=== PATIENT | male | born 1950 | race Caucasian/White ===

== ENCOUNTER 2023-03-20 10:42 | Emergency (ER) | payer MEDICARE, SELFPAY ==
[2023-03-20 10:46] VITALS: BP 184/89; PULSE 77; RESP 18; O2SAT 100; BMI 22.4
--- NOTE | 2023-03-20 10:51 | ECG_ITS ---
[facility] Test Date: 2023-03-20 Pat Name: KIM JURADO Department: Room: - Gender: Male Certified Medical Biller: : 1950 Requested By: Mine Murguia Order Number: [id number] Reading MD: ALEJANDRA SCOTT Measurements Intervals [place] Rate: 71 P: 64 MN: 172 QRS: 47 QRSD: 112 T: 61 QT: 410 QTc: 432 Interpretive Statements 1100 Sinus rhythm 1470 with occasional supraventricular premature complexes 2320 Nonspecific intraventricular conduction delay 9140 abnormal rhythm ECG Electronically Signed On 03-21-2023 7:04:28 EST by ALEJANDRA SCOTT
--- NOTE | 2023-03-20 10:53 | CT_ITS ---
[address] [address] Patient Name: KIM JURADO MRN: [id number] date: 1950 Sex: M Assigned Patient Location: ER Current Patient Location: Accession/Order Number: [id number] Exam Date: 03/20/2023 12:10 Report Date: 03/20/2023 12:57 At the request of: STEPHANI BANUELOS Procedure: CT abdomen pelvis w con EXAMINATION: CT abdomen pelvis w con, 03/20/2023 12:10 PM EST HISTORY: upper abdominal pain; hx gastric CA COMPARISON: 01/02/2020 TECHNIQUE: CT of the abdomen, and pelvis was performed following administration of IV contrast. Oral contrast was not administered prior to the examination. Dose reduction techniques were achieved by using automated exposure control and/or adjustment of mA and/or kV according to patient size and/or use of iterative reconstruction technique. FINDINGS: Lung Bases: No acute findings in the visualized lower chest. Liver: Normal. Biliary tree: Normal. Gallbladder: Mild distention, without radiodense calculi, or findings of acute cholecystitis. Spleen: Splenectomy, with similar splenules in the left upper quadrant. Pancreas: Pancreatic parenchymal calcifications in the head and uncinate in keeping with chronic pancreatitis. Dilatation of the main pancreatic duct measuring up to approximately 6 mm in diameter, new since 01/02/2020, with ductal tapering in the pancreatic head. Nonaggressive low-density/cystic pancreatic lesion at the head/body junction measures up to 1.2 cm, new since 01/02/2020. Adrenal glands: Normal. Kidneys and ureters: No hydronephrosis. Cortical cyst about the inferior pole left kidney. Bladder: Normal. Reproductive organs: Prostatomegaly. Seminal vesicles are symmetric. Gastrointestinal tract: Nondilated. Pancolonic diverticulosis, without findings of acute diverticulitis. Few distal/terminal ileal diverticulum are also noted. The appendix is normal. Peritoneum/retroperitoneum: No free fluid or gas. Vasculature: Atherosclerosis without aneurysm. Lymph nodes: Prominent 1.3 x 2.4 cm portacaval node is not significantly changed since 01/02/2020; no new or increasing abdominal pelvic adenopathy. Abdominal wall: Procedure change. No acute findings. Musculoskeletal: Degenerative change of the spine. CT/CT abdomen pelvis w con IMPRESSION: 1. No acute findings within the abdomen and pelvis. 2. Sequela of chronic pancreatitis. Nonaggressive low-density/cystic lesion at the pancreatic head/body junction measures 1.2 cm. Dilatation of the main pancreatic duct measuring up to 0.6 cm. Recommend further evaluation with abdominal MRI/MRCP without and with IV contrast. 3. Additional chronic and postprocedural findings as above. Electronically authenticated by: JOHN FOREMAN Date: 03/20/2023 12:57
--- NOTE | 2023-03-20 10:54 | ED.ABDPAIN1 ---
HPI - Abdominal Pain General Chief Complaint: Abdominal Pain Stated Complaint: ABD PAIN Time Seen by Provider: 03/20/23 10:51 Source: patient Mode of arrival: walk-in Limitations: no limitations History of Present Illness HPI narrative: Patient complains of upper abdominal pain that started about 2 months ago. No associated nausea, vomiting or diarrhea. No flank pain or problems with urination or BMs. He admits to some gas - burping or bleching symptoms. No fever or chills. Hx of lymphoma with splenectomy. He saw Dr Jolly in [place] for chemo treatment. and is currently in remission Related Data Home Medications Medication Instructions Recorded Confirmed lisinopril 10 mg tablet 10 mg PO DAILY 03/20/23 03/20/23 Previous Rx's Medication Instructions Recorded hyoscyamine sulfate 0.125 mg 0.125 mg PO Q6H PRN abdominal pain 03/20/23 sublingual tablet (Levsin/SL) #20 tabs pantoprazole 40 mg tablet,delayed 40 mg PO DAILY 4 weeks #28 tabs 03/20/23 release (Protonix) Allergies Allergy/AdvReac Type Severity Reaction Status Date / Time ciprofloxacin [From Cipro] AdvReac Intermediate Verified 03/20/23 10:45 metronidazole [From Flagyl] AdvReac Intermediate Verified 03/20/23 10:45 PFSH PFSH Social History Smoking status: Former smoker Exam Narrative Exam Narrative: Nurses notes and vital signs reviewed and patient is not hypoxic. afebrile General: Well-appearing and in no apparent distress. Skin: Warm, dry, no pallor noted. No rash. Head: Normocephalic, atraumatic. Eye: Pupils are equal, round and EOMI. No scleral icterus. Ears, Nose, Mouth, and Throat: Oral mucosa is moist Cardiovascular: Regular Rate and Rhythm without murmur, gallop or rub. Respiratory: No accessory muscle use or respiratory distress. Lungs are clear to auscultation, no wheezing, rales or rhonchi Back: No midline thoracic or lumbar vertebral tenderness. No CVA tenderness Musculoskeletal: normal ROM, no calf or popliteal tenderness, no lower extremity edema/swelling GI: Abdomen is soft, non-distended. Normal bowel sounds. No masses appreciated. Mid abdominal tenderness to palpation. No rebound, guarding, or rigidity noted. Neurological: A&O x4. No cranial nerve dysfunction observed. No truncal ataxia. Moves all extremities. Sensation intact. Psychiatric: Cooperative and interactive. Normal mood and affect. Constitutional Vital Signs, click to edit/add: Last Vital Signs Pulse 77 03/20/23 10:46 Resp 18 03/20/23 10:46 BP 184/89 H 03/20/23 10:46 Pulse Ox 100 03/20/23 10:46 O2 Del Method Room Air 03/20/23 10:46 Course Vital Signs Vital signs: Vital Signs Pulse Rate 77 03/20/23 10:46 Respiratory Rate 18 03/20/23 10:46 Blood Pressure 184/89 H 03/20/23 10:46 Pulse Oximetry 100 03/20/23 10:46 Oxygen Delivery Method Room Air 03/20/23 10:46 Pulse Rate 77 03/20/23 10:46 Respiratory Rate 18 03/20/23 10:46 Blood Pressure 184/89 H 03/20/23 10:46 Pulse Oximetry 100 03/20/23 10:46 Oxygen Delivery Method Room Air 03/20/23 10:46 MDM - Abdominal Pain MDM Narrative Medical decision making narrative: Peripheral IV established blood drawn and sent for testing. Patient was ordered to undergo CT scanning of the abdomen and pelvis with IV contrast. Normal CBC. CMP normal with normal electrolytes and normal renal function including normal LFT's. Lipase is slightly elevated at 177. CT scanning of the abdomen and pelvis with IV contrast revealed no acute findings within the abdomen and pelvis, per radiologist. He does have sequela of chronic pancreatitis with low density/cystic lesion at the pancreatic head/body junction measuring 1.2 cm with some dilation of the main pancreatic duct measuring up to 0.6 cm. It was recommended that the patient undergo abdominal MRI and MRCP with and without IV contrast. A copy of this report will be given to the patient so they can presented to his primary care physician on follow-up. Patient informed of our findings and given reassurance, discharged home with recommendation to see his PCP to schedule out-patient testing. He was prescribed Protonix to take for the next 30 days. He admitted that he drinks beer daily - I encouraged him to taper and then avoid alcohol over the next month & discussed alcohol-associated pancreatitis. Lab Data Attestation: I reviewed the patient's lab results. Labs: Lab Results 03/20/23 03/20/23 Range/Units 11:00 11:29 WBC 10.0 (4.0-11.0) 10^3/uL RBC 4.35 L (4.70-6.10) 10^6/uL Hgb 14.0 (14.0-18.0) g/dL Hct 41.1 L (42.0-54.0) % MCV 94.5 H (80.0-94.0) fL MCH 32.2 (25.9-34.0) pg MCHC 34.1 (29.9-35.2) g/dL RDW 13.5 (11.0-15.0) % Plt Count 290 (150-450) 10^3/uL MPV 11.3 (9.5-13.5) fL Neut % (Auto) 45.1 (43.0-75.0) % Lymph % (Auto) 44.5 (20.5-60.0) % [place] % (Auto) 8.1 (1.7-12.0) % Eos % (Auto) 1.1 (0.9-7.0) % Baso % (Auto) 1.0 (0.2-2.0) % Neut # (Auto) 4.5 (1.4-6.5) 10^3/uL Lymph # (Auto) 4.4 H (1.2-3.8) 10^3/uL [place] # (Auto) 0.8 (0.3-0.8) 10^3/uL Eos # (Auto) 0.1 (0.0-0.7) 10^3/uL Baso # (Auto) 0.1 (0.0-0.1) 10^3/uL Abs Immat Gran (auto) 0.02 (0.00-0.03) 10^3/uL Imm/Tot Granulo (auto) 0.2 (0.0-0.5) % Sodium 139 (136-145) mmol/L Potassium 4.2 (3.5-5.1) mmol/L Chloride 104 (98-107) mmol/L Carbon Dioxide 26.6 (21.0-32.0) mmol/L Anion Gap 12.6 BUN 13.0 (7.0-18.0) mg/dL Creatinine 0.88 (0.70-1.30) mg/dL Est GFR ( Amer) >60 (>=60) Est GFR (Non-Af Amer) >60 (>=60) BUN/Creatinine Ratio 14.8 Glucose 119 H (74-106) mg/dL Calcium 9.0 (8.5-10.1) mg/dL Total Bilirubin 0.4 (0.2-1.0) mg/dL AST 18 (15-37) U/L ALT 27 (16-63) U/L Alkaline Phosphatase 72 (46-116) U/L Troponin I High Sens 6.3 (4.0-76.1) pg/mL Total Protein 6.9 (6.4-8.2) g/dL Albumin 3.6 (3.4-5.0) g/dL Globulin 3.3 g/dL Albumin/Globulin Ratio 1.1 Lipase 177.0 H (16.0-77.0) U/L Imaging Data CT scan - abdomen: Radiologist's impression: ITS Impressions Abdomen/Pelvis CT 03/20/23 10:53 IMPRESSION: 1. No acute findings within the abdomen and pelvis. 2. Sequela of chronic pancreatitis. Nonaggressive low-density/cystic lesion at the pancreatic head/body junction measures 1.2 cm. Dilatation of the main pancreatic duct measuring up to 0.6 cm. Recommend further evaluation with abdominal MRI/MRCP without and with IV contrast. 3. Additional chronic and postprocedural findings as above. Electronically authenticated by: JOHN FOREMAN Date: 03/20/2023 12:57 ECG Data Attestation: I personally reviewed and interpreted this ECG as follows: Interpretation: EKG interpretation: Emergency Department physician interpretation. Normal sinus rhythm at 71bpm. Normal axis, increased qrs interval = non specific IV conduction delay. no ST segment elevation or depression. Discharge Plan Discharge Chief Complaint: Abdominal Pain Clinical Impression: Chronic pancreatitis, Abdominal pain Patient Disposition: Home, Self-Care Time of Disposition Decision: 13:11 Prescriptions / Home Meds: New hyoscyamine sulfate [Levsin/SL] 0.125 mg tablet, sublingual 0.125 mg PO Q6H PRN (Reason: abdominal pain) Qty: 20 0RF pantoprazole [Protonix] 40 mg tablet,delayed release (DR/EC) 40 mg PO DAILY 28 Days Qty: 28 0RF No Action lisinopril 10 mg tablet 10 mg PO DAILY Instructions: Pancreatitis (ED) Stand Alone Forms: Portal Instructions Referrals: KLAUS WILD [Primary Care Provider] - 1 week Discharge Date/Time: 03/20/23 13:27
[2023-03-20] MEDS: 0.9 % SODIUM CHLORIDE 1,000 ML 999 ML IV (11:13)
[2023-03-20 11:27] LABS: Basophils Absolute Auto 0.1 10^3/uL (0.0-0.1); Eosinophils Absolute Auto 0.1 10^3/uL (0.0-0.7); Eosinophils Percent Auto 1.1 % (0.9-7.0); Hematocrit 41.1 % (42.0-54.0); Immature Granulocytes Abs Auto 0.02 10^3/uL (0.00-0.03); Immature Granulocytes Pct Auto 0.2 % (0.0-0.5); Lymphocytes Absolute Auto 4.4 10^3/uL (1.2-3.8); Lymphocytes Percent Auto 44.5 % (20.5-60.0); Mean Corpuscular HGB Conc 34.1 g/dL (29.9-35.2); Mean Corpuscular Hemoglobin 32.2 pg (25.9-34.0); Mean Corpuscular Volume 94.5 fL (80.0-94.0); Mean Platelet Volume 11.3 fL (9.5-13.5); Monocytes Absolute Auto 0.8 10^3/uL (0.3-0.8); Monocytes Percent Auto 8.1 % (1.7-12.0); Neutrophils Absolute Auto 4.5 10^3/uL (1.4-6.5); Neutrophils Percent Auto 45.1 % (43.0-75.0); Platelet Count 290 10^3/uL (150-450); Red Blood Count 4.35 10^6/uL (4.70-6.10); Red Cell Distribution Width 13.5 % (11.0-15.0)
[2023-03-20 12:01] LABS: Alanine Aminotransferase 27 U/L (16-63); Albumin Globulin Ratio 1.1; Albumin Level 3.6 g/dL (3.4-5.0); Alkaline Phosphatase 72 U/L (46-116); Anion Gap 12.6; Aspartate Amino Transferase 18 U/L (15-37); BUN Creatinine Ratio 14.8; Bilirubin Total 0.4 mg/dL (0.2-1.0); Carbon Dioxide 26.6 mmol/L (21.0-32.0); Chloride 104 mmol/L (98-107); Estimated GFR (African America >60 (>=60); Estimated GFR (Non-African Ame >60 (>=60); Globulin 3.3 g/dL; Glucose 119 mg/dL (74-106); Potassium 4.2 mmol/L (3.5-5.1); Sodium 139 mmol/L (136-145); Total Protein 6.9 g/dL (6.4-8.2); Troponin I High Sensitivity 6.3 pg/mL (4.0-76.1)
== END 2023-03-20 13:27 | disposition home or self-care (01) ==
PROVIDERS: Emergency Provider Emergency Medicine; PCP Nurse Practitioner
DX: R10.9 Unspecified abdominal pain (principal); K86.1 Other chronic pancreatitis; Z85.72 Personal history of non-Hodgkin lymphomas; Z90.81 Acquired absence of spleen; Z79.899 Other long term (current) drug therapy; Z87.891 Personal history of nicotine dependence
CPT/HCPCS: 36415; 74177; 80053; 83690; 84484; 85025; 93005; 99285; Q9967

== ENCOUNTER 2023-06-08 17:06 | Emergency (ER) | payer MEDICARE, SELFPAY ==
[2023-06-08 17:09] VITALS: BP 129/81; PULSE 82; TEMP 36.6; O2SAT 98; BMI 22.1
--- OUTSIDE RECORDS SUMMARY | 2023-06-08 17:21 | XMS_ITS | CCD ---
Author Organization [facility] Care Team Providers Care Dried Yeast Supervisor Name Role Phone PHYSICIAN, DEFAULT Unavailable Unavailable PHYSICIAN, DEFAULT Unavailable Unavailable BRITTANEY ELI Admitting Unavailable SANDRAEBRITTANEY Attending Unavailable RYLEY SHIPLEY Admitting Unavailable RYLEY SHIPLEY Attending Unavailable RICCRYSEBRITTANEY Admitting Unavailable SANDRAEBRITTANEY Attending Unavailable RYLEY SHIPLEY Admitting Unavailable RYLEY SHIPLEY Attending Unavailable Arthur Padilla Primary Care Provider [phone] Clifford Arthur DO Unavailable [place] NATIONAL ACCOUNT DIRECTOR.HOUSE NURSE, Beverly Unavailable Arleen LONG, Mai Unavailable Arthur Padilla Primary Care Provider [phone] Clifford Arthur DO Unavailable [place] NATIONAL ACCOUNT DIRECTOR.MARK, Beverly Unavailable Arleen LONG, Mai Unavailable NHI, DR MICHAEL Springer Admitting Unavailabl e NHI, DR MICHAEL Springer Attending Unavailabl e BLADE, KLAUS Primary Care Unavailable NHI, DR MICHAEL Springer Admitting Unavailabl e NHI, DR MICHAEL Springer Attending Unavailabl e BLADE, KLAUS Primary Care Unavailable NHI, DR MICHAEL Springer Consulting UnavailMICHAEL Arellano Consulting Unavailable LETHA BENAVIDEZ Consulting Unavailable MURGUIA, KLAUS Consulting Unavailable MURGUIA, KLAUS Primary Care Unavailable MURGUIA, KLAUS Admitting Unavailable MURGUIASAIGEE Attending Unavailable BLADE, KLAUS Consulting Unavailable NHI, DR MICHAEL Springer Attending Unavailabl e NHI, DR MICHAEL Springer Consulting Unavailabl e MURGUIA, KLAUS Primary Care Unavailable DR MICHAEL HANKINS Admitting Unavailabl e Ilo, Arthur J Primary Care Provider Clifford Arthur DO Unavailable Shaggy NATIONAL ACCOUNT DIRECTOR.HOUSE NURSE, Beverly Unavailable Arleen LONG, Mai Unavailable Blade NATIONAL ACCOUNT DIRECTOR-HOUSE NURSE, Klaus Campoverde Primary Care Provid er MURGUIA, KLAUS J Referring Unavailable MURGUIA, KLAUS J Primary Care Unavailable MURGUIA, KLAUS J Referring Unavailable MURGUIA, KLAUS J Primary Care Unavailable MURGUIA, KLAUS J Attending Unavailable MURGUIA, KLAUS J Referring Unavailable MURGUIA, KLAUS J Primary Care Unavailable MURGUIA, KLAUS J Attending Unavailable MURGUIA, KLAUS J Referring Unavailable MURGUIA, KLAUS J Primary Care Unavailable Ilo DO Arthur J Primary Care Provider [facility] Clifford Arthur DO J Unavailable ILO, ARTHUR J Primary Care Unavailable ABHYANKAR, DONNELL Referring Unavailable ILO, ARTHUR J Primary Care Unavailable ABHYANKAR, DONNELL Referring Unavailable ABHYANKAR, DONNELL Attending Unavailable ILO, ARTHUR J Primary Care Unavailable JESSICA PEREYRA Attending Unavailable ABHYANKAR, DONNELL Referring Unavailable Allergies Allergy Classification Reported Allergen(s) Allergy Type Date of Onset Reaction(s) Facility (18 sources) Ciprofloxacin; Translations: [CIPROFLOXACIN HCL] Drug Allergy 7 Other: See Comments [facility] Repository (12 sources) metroNIDAZOLE; Translations: [METRONIDAZOLE HCL] Drug Allergy 8 Other: See Comments [facility] Repository (12 sources) CIPROCINONIDE; Translations: [CIPROCINONIDE] Propensity to adverse reactions to drug (disorder) 8 Other: See Comments [facility] Repository (1 source) Ciprofloxacin Drug Allergy 3 [facility] Repository (1 source) metroNIDAZOLE Drug Allergy 3 [facility] Repository (6 sources) Ciprofloxacin; Translations: [CIPROFLOXACIN] Drug Allergy 1 [facility] (6 sources) metroNIDAZOLE; Translations: [METRONIDAZOLE] Drug Allergy 7 Swelling [facility] Medications Current Medications Medication Drug Class(es) Dates Sig (Normalized) Sig (Original) lisinopril 10 mg oral tablet (3 sources) Angiotensin Converting Enzyme Inhibitor Start: 12-07-2022 take 1 tablet by mouth in the morning lisinopriL (PRINIVIL,ZESTRIL) 10 mg tablet Indications: Benign hypertension TAKE 1 TABLET (10 MG TOTAL) BY MOUTH IN THE MORNING 90 tablet 1 12/07/2022 Active Completed/Discontinued Medications Medication Drug Class(es) Dates Sig (Normalized) Sig (Original) acetaminophen 325 mg / HYDROcodone bitartrate 5 mg oral tablet (10 sources) Opioid Agonist Start: 11-24-2018 take 1 tablet by mouth once as needed HYDROcodone-acetami nophen (NORCO) 5-325 mg per tablet Take 1 tablet by mouth as needed. 0 11/24/2018 Active Comment on above: Take 1 tablet by reinaldo th as needed. enteric contrast (will be provided with radiology test) (10 sources) Start: 03-05-2019 enteric contrast (will be provided with radiology test) For CT CHESTABD/PEL W IVCON Routine order Administer, As Directed One Time Only, via Oral, Rectal, both Oral and Rectal, Enteric Tube, Stoma or Indwelling Catheter, Enteric Contrast as designated per enteric contrast guidelines 1 Each 0 03/05/2019 Active Comment on above: For CT CHESTABD/PEL W IVCON Routine order Administer, As Directed One Time Only, via Oral, Rectal, both Oral and Rectal, Enteric Tube, Stoma or Indwelling Catheter, Enteric Contrast as designated per enteric contrast guidelines ferrous sulfate 325 mg oral tablet (10 sources) Start: 12-02-2018 take 1 tablet by mouth twice daily ferrous sulfate 325 mg (65 mg iron) tablet Take 1 tablet by mouth twice daily. 60 tablet 5 12/02/2018 Active Comment on above: Take 1 tablet by reinaldo th twice daily. hyoscyamine sulfate 0.125 mg sublingual tablet (2 sources) Start: 03-20-2023 End: 04-26-2023 take 1 tablet by mouth every six hours as needed for pain hyoscyamine (LEVSIN) 0.125 mg SL tablet TAKE 1 TABLET BY MOUTH ONCE EVERY 6 HOURS NEEDED FOR ABDOMINAL PAIN 0 03/20/2023 04/26/2023 Discontinued (Therapy completed) iv contrast (will be provided with radiology test) (10 sources) Start: 03-05-2019 iv contrast (will be provided with radiology test) CT Chest ABD/PEL-Inject, intravenously, once for 1 dose.No IV access, insert saline lock prior to the beginning of sedation, infusion, injection of imaging exam. Discontinue saline lock post exam. If Pt. has a central line or IVAD, may access for administration according to line specific nursing protocol. Once exam is complete flush line and de-access according to line specific nursing protocol in the CT contrast administration guidelines link. 1 Each 0 03/05/2019 Active Comment on above: CT Chest ABD/PEL-Inj ect, intravenously, once for 1 dose.No IV access, insert saline lock prior to the beginning of sedation, infusion, injection of imaging exam. Discontinue saline lock post exam. If Pt. has a central line or IVAD, may access for administration according to line specific nursing protocol. Once exam is complete flush line and de-access according to line specific nursing protocol in the CT contrast administration guidelines link. omeprazole 20 mg delayed release oral capsule (10 sources) Proton Pump Inhibitor Start: 01-02-2018 take 1 capsule by mouth once daily omeprazole (PRILOSEC) 20 mg capsule Take 1 capsule by mouth once daily. 30 capsule 5 01/02/2018 Active Comment on above: Take 1 capsule by [facility] once daily. pantoprazole 40 mg delayed release oral tablet (2 sources) Proton Pump Inhibitor Start: 03-20-2023 End: 04-26-2023 take 1 tablet by mouth once daily pantoprazole (PROTONIX) 40 mg EC tablet TAKE 1 TABLET BY MOUTH DAILY FOR 4 WEEKS 0 03/20/2023 04/26/2023 Discontinued (Therapy completed) Problems Active Problems Problem Classification Problem Date Documented Date Episodic/Chronic Abdominal pain (3 sources) Epigastric pain; Translations: [Epigastric pain] Onset: 04-26-2023 04-26-2023 Episodic Disorders of lipid metabolism (4 sources) Mixed hyperlipidemia; Translations: [Hypertriglyceridemia] Onset: 12-10-2021 03-27-2023 Chronic Diverticulosis and diverticulitis (4 sources) Diverticulosis of large intestine without perforation or abscess without bleeding; Translations: [Diverticulitis] Onset: 12-21-2021 08-16-2016 Chronic Esophageal disorders (16 sources) Gastroesophageal reflux disease without esophagitis; Translations: [Gastro-esophageal reflux disease without esophagitis] Onset: 01-02-2018 01-02-2018 Chronic Essential hypertension (1 source) Essential (primary) hypertension; Translations: [ESSENTIAL PRIMARY HYPERTENSION] Onset: 12-21-2021 Chronic Malignant neoplasm without specification of site (3 sources) Malignant neoplastic disease; Translations: [Malignant (primary) neoplasm, unspecified] Onset: 12-26-2021 12-26-2021 Chronic Non-Hodgkin`s lymphoma (20 sources) Diffuse large B-cell lymphoma, extranodal and solid organ sites; Translations: [Diffuse large B-cell lymphoma, unspecified site] Onset: 09-07-2017 Chronic Non-Hodgkin`s lymphoma (4 sources) Personal history of non-Hodgkin lymphomas; Translations: [History of B-cell lymphoma] Onset: 12-21-2021 03-27-2023 Episodic Osteoarthritis (6 sources) Degenerative joint disease involving multiple joints; Translations: [Polyosteoarthritis, unspecified] Onset: 03-12-2017 03-12-2017 Chronic Other aftercare (1 source) Encounter for adjustment and management of vascular access device; Translations: [ENC ADJUSTMENT AND MANAGEMENT VAD] Onset: 12-21-2021 Episodic Other and unspecified benign neoplasm (5 sources) Personal history of colonic polyps; Translations: [PERSONAL HISTORY OF COLONIC POLYPS] Onset: 12-10-2021 Episodic Other and unspecified benign neoplasm (1 source) Polyp of colon; Translations: [POLYP OF COLON] Onset: 12-21-2021 Episodic Other liver diseases (3 sources) Steatosis of liver; Translations: [Fatty (change of) liver, not elsewhere classified] Onset: 06-23-2019 06-23-2019 Chronic Other screening for suspected conditions (not mental disorders or infectious disease) (10 sources) Encounter for screening for malignant neoplasm of prostate; Translations: [Patient encounter status] Onset: 08-16-2016 03-27-2023 Episodic Pancreatic disorders (not diabetes) (4 sources) Chronic pancreatitis; Translations: [Other chronic pancreatitis] Onset: 03-27-2023 03-27-2023 Chronic Pancreatic disorders (not diabetes) (8 sources) Disorder of pancreas; Translations: [Disease of pancreas, unspecified] Onset: 03-27-2023 03-27-2023 Episodic Regional enteritis and ulcerative colitis (4 sources) Pseudopolyposis of colon; Translations: [Inflammatory polyps of colon without complications] Onset: 10-19-2020 03-28-2023 Chronic Residual codes; unclassified (1 source) Acquired absence of spleen; Translations: [ACQUIRED ABSENCE OF SPLEEN] Onset: 12-21-2021 Episodic Unclassified (1 source) CONTACT W/AND (SUSP) EXPOS COVID-19; Translations: [CONTACT W/AND (SUSP) EXPOS COVID-19] Onset: 12-10-2021 Past or Other Problems Problem Classification Problem Date Documented Da te Episodic/Chronic Mood disorders (3 sources) Mood disorders Onset: 03-27-2023 Resolved: 04-26-2023 03-27-2023 Other connective tissue disease (3 sources) Tear of left rotator cuff; Translations: [Unspecified rotator cuff tear or rupture of left shoulder, not specified as traumatic] Onset: 10-20-2021 10-20-2021 Episodic Other gastrointestinal disorders (10 sources) Splenomegaly; Translations: [Splenomegaly, not elsewhere classified] Onset: 02-13-2018 02-13-2018 Episodic Other gastrointestinal disorders (13 sources) Mass of spleen; Translations: [Splenomegaly, not elsewhere classified] Onset: 03-15-2018 03-15-2018 Episodic Other inflammatory condition of skin (6 sources) Psoriatic arthritis; Translations: [Arthropathic psoriasis, unspecified] Onset: 03-12-2017 Resolved: 03-28-2023 03-28-2023 Chronic Other lower respiratory disease (3 sources) Calcified granuloma of lung; Translations: [Pulmonary fibrosis, unspecified] Onset: 06-23-2019 Resolved: 03-28-2023 03-28-2023 Chronic Melissa-; endo-; and myocarditis; cardiomyopathy (except that caused by tuberculosis or sexually transmitted disease) (3 sources) Pericarditis; Translations: [Disease of pericardium, unspecified] Onset: 12-26-2021 12-26-2021 Episodic Residual codes; unclassified (3 sources) FH: Gout; Translations: [Family history of other diseases of the musculoskeletal system and connective tissue] Onset: 03-12-2017 03-12-2017 Episodic Unclassified (4 sources) OTHER Onset: 03-27-2023 11-02-2022 Results Test Name Value Interpretation Reference Range Facility CNOVon 05-14-2023 CNOV Office Visit ([id number] ) NIC VALERIO ([id number]) 1950 Date Time Provider Department 05/14/23 11:00 AM JESSICA PEREYRA [id number] During your visit today, we recorded the following information about you: Pulse Respiration Blood pressure Weight 70/minute 18/minute 145/59 68.2 kg Jessica Pereyra MD 05/14/2023 11:34 AM Signed New Patient Consult REASON FOR VISIT Consultation requested by Donnell Colon for an opinion regarding Nic Valerio. My final recommendations will be communicated back to the requesting physician by way of shared Medical record or letter to requesting physician via [place] mail. 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 The cyst is located in the uncinate process and was found on a CT scan after he presented with abdominal pain that was suspected to be from pancreatitis. That was follow by MRI pancreas that showed the following: MRI PANCREAS 04/06/2023: Multiple incidental pancreatic cystic lesions, the largest one measuring 2.9 cm in the uncinate process with communication to the main pancreatic duct. Recommendations are based on the largest cyst. Recommend considering EUS with FNA, and surgical consultation. However, for cysts with low-risk features by imaging, consider re imaging with contrast-enhanced MRI or pancreas-protocol CT every 6 months for up to 2 years. No signs of pancreatitis or fluid collections on imaging. The patient drinks beer every day for 50 years. No radiographic signs of cirrhosis and most recent labs (Sep 2022) show normal LFTs and bilirubin. Normal PLT at 309 and creatinine 0.94. FUNCTIONAL STATUS: Climb a flight of stairs or walk up a hill (5.50 METs) PAST MEDICAL HISTORY Diagnosis Date Abdominal pain Anemia Gastric ulcer GERD (gastroesophageal reflux disease) with esophagitis GI bleeding Port-A-Cath in place Port-A-Cath in place Shoulder pain Splenomegaly PAST SURGICAL HISTORY Procedure Laterality Date PORTOCATH PLACEMENT PORTOCATH PLACEMENT FAMILY HISTORY Problem Relation Age of Onset Cancer Mother Heart disease Father Social History Tobacco Use Smoking status: Former Passive exposure: Never Smokeless tobacco: Never Vaping Use Vaping Use: Never used Substance Use Topics Alcohol use: Yes Drug use: No MEDICATIONS Current Outpatient Medications Medication Sig Dispense Refill iv contrast (will be provided with radiology test) CT Chest ABD/PEL-Inject, intravenously, once for 1 dose.No IV access, insert saline lock prior to the beginning of sedation, infusion, injection of imaging exam. Discontinue saline lock post exam. If Pt. has a central line or IVAD, may access for administration according to line specific nursing protocol. Once exam is complete flush line and de-access according to line specific nursing protocol in the CT contrast administration guidelines link. 1 Each 0 enteric contrast (will be provided with radiology test) For CT CHESTABD/PEL W IVCON Routine order Administer, As Directed One Time Only, via Oral, Rectal, both Oral and Rectal, Enteric Tube, Stoma or Indwelling Catheter, Enteric Contrast as designated per enteric contrast guidelines 1 Each 0 HYDROcodone-acetaminop hen (NORCO) 5-325 mg per tablet Take 1 tablet by mouth as needed. ferrous sulfate 325 mg (65 mg iron) tablet Take 1 tablet by mouth twice daily. 60 tablet 5 omeprazole (PRILOSEC) 20 mg capsule Take 1 capsule by mouth once daily. 30 capsule 5 No current facility-administered medications for this visit. CURRENT ALLERGIES ALLERGIES Allergen Reactions Ciprocinonide Other: See Comments Joint pain Ciprofloxacin Hcl Other: See Comments Flagyl [Metronidazo* Other: See Comments Joint pain REVIEW OF SYSTEMS PAIN ASSESSMENT: General: Weight loss 8 lbs recently after episode of abdominal pain Neuro: No Hx of stroke or seizures Respiratory: No history of current cough or dyspnea, or pneumonia in the past 6 weeks. No history of respiratory/pulmonary symptoms or problems Cardiovascular: No history of HTN requiring medication, no history of angina, CHF, NE, cardiac surgery or stents. Denies rest pain, gangrene or revascularization/ampu tation for PVD. No history of cardiovascular symptoms or problems. GI: See HPI : No history of UTI in past 6 weeks. No history of renal failure. Not currently on or requiring dialysis. No history of symptoms or problems. Endocrine: No history of diabetes. Has not taken steroids within the past 30 days. No history of endocrinological symptoms or problems. Hematology: No history of bleeding or clotting disorder. Pt is not taking anti-coagulation or platelet medications. No history of hematolo (more content not included)... Normal [facility] CNPNon 05-14-2023 CNPN Telephone (GASTMN) NIC VALERIO Krish ([id number]) 1950 M Date Time Provider Department 05/14/23 OSCAR GUZMAN GASTWY During your visit today, we recorded the following information about you: Kelsea Webster 05/14/2023 4:39 PM Signed Please schedule patient with Dr. Guzman for an EUS at . Patient requested the latest appointment 12:30pm arrival 11:30am. Kelsea Webster Act Tutor Melody Castellano 05/15/2023 11:13 AM Signed Patient is scheduled for 06/10 Allergies As of Date: 05/14/2023 Noted Allergy Reaction CIPROCINONIDE 09/06/2017 14 - Other: See Comments Comments: Joint pain CIPROFLOXACIN HCL 08/16/2016 14 - Other: See Comments FLAGYL (METRONIDAZOLE HCL) 09/06/2017 14 - Other: See Comments Comments: Joint pain Date Reviewed: 05/14/2023 Reviewed by: Betzy Lambert, RN - Fully Assessed Reason for Visit: Appointment [[id number]] Prescriptions as of 05/15/2023 - iv contrast (will be provided with radiology test) CT Chest ABD/PEL-Inject, intravenously, once for 1 dose.No IV access, insert saline lock prior to the beginning of sedation, infusion, injection of imaging exam. Discontinue saline lock post exam. If Pt. has a central line or IVAD, may access for administration according to line specific nursing protocol. Once exam is complete flush line and de-access according to line specific nursing protocol in the CT contrast administration guidelines link. - enteric contrast (will be provided with radiology test) For CT CHESTABD/PEL W IVCON Routine order Administer, As Directed One Time Only, via Oral, Rectal, both Oral and Rectal, Enteric Tube, Stoma or Indwelling Catheter, Enteric Contrast as designated per enteric contrast guidelines - HYDROcodone-acetaminop hen (NORCO) 5-325 mg per tablet Take 1 tablet by mouth as needed. - ferrous sulfate 325 mg (65 mg iron) tablet Take 1 tablet by mouth twice daily. - omeprazole (PRILOSEC) 20 mg capsule Take 1 capsule by mouth once daily. Problem List As Of Date 05/14/2023 Noted Resolved Diffuse large B-cell lymphoma of extranodal sit*09/14/2017 Gastroesophageal reflux disease without esophag*01/02/2018 Splenomegaly [R16.1] 02/13/2018 Splenic mass [R16.1] 03/15/2018 Encounter Status:Closed by MELODY CASTELLANO on 05/15/23 Normal [facility] HISTORY PHYSICALon HISTORY PHYSICAL HNO ID: [id number] Author: JESSICA PEREYRA MD Service: ? Author Type: Physician Type: H&P Filed: 05/14/2023 11:34 Note Text: New Patient Consult REASON FOR VISIT Consultation requested by Donnell Colon for an opinion regarding Nic Valerio. My final recommendations will be communicated back to the requesting physician by way of shared Medical record or letter to requesting physician via [place] mail. 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 The cyst is located in the uncinate process and was found on a CT scan after he presented with abdominal pain that was suspected to be from pancreatitis. That was follow by MRI pancreas that showed the following: MRI PANCREAS 04/06/2023: Multiple incidental pancreatic cystic lesions, the largest one measuring 2.9 cm in the uncinate process with communication to the main pancreatic duct. Recommendations are based on the largest cyst. Recommend considering EUS with FNA, and surgical consultation. However, for cysts with low-risk features by imaging, consider re imaging with contrast-enhanced MRI or pancreas-protocol CT every 6 months for up to 2 years. No signs of pancreatitis or fluid collections on imaging. The patient drinks beer every day for 50 years. No radiographic signs of cirrhosis and most recent labs (Sep 2022) show normal LFTs and bilirubin. Normal PLT at 309 and creatinine 0.94. FUNCTIONAL STATUS: Climb a flight of stairs or walk up a hill (5.50 METs) PAST MEDICAL HISTORY Diagnosis Date Abdominal pain Anemia Gastric ulcer GERD (gastroesophageal reflux disease) with esophagitis GI bleeding Port-A-Cath in place Port-A-Cath in place Shoulder pain Splenomegaly PAST SURGICAL HISTORY Procedure Laterality Date PORTOCATH PLACEMENT PORTOCATH PLACEMENT FAMILY HISTORY Problem Relation Age of Onset Cancer Mother Heart disease Father Social History Tobacco Use Smoking status: Former Passive exposure: Never Smokeless tobacco: Never Vaping Use Vaping Use: Never used Substance Use Topics Alcohol use: Yes Drug use: No MEDICATIONS Current Outpatient Medications Medication Sig Dispense Refill iv contrast (will be provided with radiology test) CT Chest ABD/PEL-Inject, intravenously, once for 1 dose.No IV access, insert saline lock prior to the beginning of sedation, infusion, injection of imaging exam. Discontinue saline lock post exam. If Pt. has a central line or IVAD, may access for administration according to line specific nursing protocol. Once exam is complete flush line and de-access according to line specific nursing protocol in the CT contrast administration guidelines link. 1 Each 0 enteric contrast (will be provided with radiology test) For CT CHESTABD/PEL W IVCON Routine order Administer, As Directed One Time Only, via Oral, Rectal, both Oral and Rectal, Enteric Tube, Stoma or Indwelling Catheter, Enteric Contrast as designated per enteric contrast guidelines 1 Each 0 HYDROcodone-acetaminop hen (NORCO) 5-325 mg per tablet Take 1 tablet by mouth as needed. ferrous sulfate 325 mg (65 mg iron) tablet Take 1 tablet by mouth twice daily. 60 tablet 5 omeprazole (PRILOSEC) 20 mg capsule Take 1 capsule by mouth once daily. 30 capsule 5 No current facility-administered medications for this visit. CURRENT ALLERGIES ALLERGIES Allergen Reactions Ciprocinonide Other: See Comments Joint pain Ciprofloxacin Hcl Other: See Comments Flagyl [Metronidazo* Other: See Comments Joint pain REVIEW OF SYSTEMS PAIN ASSESSMENT: General: Weight loss 8 lbs recently after episode of abdominal pain Neuro: No Hx of stroke or seizures Respiratory: No history of current cough or dyspnea, or pneumonia in the past 6 weeks. No history of respiratory/pulmonary symptoms or problems Cardiovascular: No history of HTN requiring medication, no history of angina, CHF, NE, cardiac surgery or stents. Denies rest pain, gangrene or revascularization/ampu tation for PVD. No history of cardiovascular symptoms or problems. GI: See HPI : No history of UTI in past 6 weeks. No history of renal failure. Not currently on or requiring dialysis. No history of symptoms or problems. Endocrine: No history of diabetes. Has not taken steroids within the past 30 days. No history of endocrinological symptoms or problems. Hematology: No history of bleeding or clotting disorder. Pt is not taking anti-coagulation or platelet medications. No history of hematological symptoms or problems. Oncology: See HPI Psych: No history of psychiatric symptoms or problems. Musculoskeletal: Negative for joint pain or swelling, back pain or muscle pain. Skin: Negative for lesions, rash and itching. Anemia: No PHYSICAL EXAMINATION BP 145/59 P (more content not included)... Normal [facility] CNPNon 05-01-2023 CNPN Telephone (NCCAP) NIC VALERIO ([id number]) 1950 M Date Time Provider Department 05/01/23 DONNELL COLON [facility] During your visit today, we recorded the following information about you: Cortney Mendoza 05/01/2023 12:31 PM Signed Patient stopped by and would like Dr Colon to look at his MRI of his pancreas done at [facility]. He would like to set up an appointment or get a call back to discuss. Donnell Brooke MD 05/01/2023 12:44 PM Signed Ronnie Barr - there is nothing in his Chart - can you get info and we can review. Cortney Mendoza 05/01/2023 1:28 PM Signed Maria Esther- Can you get the MRI of pancreas results AND images from [facility] in [place] for Dr Colon to review. Thank you. Cortney Tyler Mrc, Angeles L 05/01/2023 2:33 PM Signed Report is in and I requested images. Nayeli Mrc, Angeles L 05/03/2023 7:43 AM Signed Images are uploaded. Cortney Mendoza 05/07/2023 7:[address] Colon-Did you need us to set up a follow up with patient to discuss MRI or did you call him?? Please advise. Cortney Naty Donnell Couch MD 05/08/2023 7:06 AM Signed I would refer him to [facility] (Dr. Pitt) for ERCP and biopsy and also consider having him see Dr. Esposito or Jorge from hepatobiliary surgery - all are located in [facility]. Jennifer Valdes RN 05/08/2023 8:12 AM Signed Patrice: Pended 2 separate consults for requested physicians. Please review and sign PSS: please call to schedule accordingly MERCEDES Alcantara Vivek, MD 05/08/2023 9:35 AM Signed I have not called him - but that's the recommendation I would make - ERCP with GI (Dr. Pitt) And Gen Surgery Consult with Vaibhav or Jennifer Hull RN 05/08/2023 9:44 AM Signed Pt aware of Patrice's recommendations and referrals. He will await scheduling to call to arrange appoinments. MERCEDES Alcantara Amy S 05/08/2023 11:18 AM Signed Per Julita at Dr Oneyda Pitt's office at [phone] they do not do the consults. But she said to fax the order to them AND they would have Dr Oneyda Pitt look at it AND call us back. Faxed order at [phone]. Cortney Lagos 05/08/2023 12:19 PM Signed Spoke to Brittany at [phone] in Central Scheduling AND scheduled patient with Dr Jessica Pereyra on 05/14/2023@11 am at [facility] [address] for consult for general surgery. Cortney Lagos 05/08/2023 1:05 PM Signed Spoke to patient AND gave appointment of 05/14/2023@[address] Jessica Pereyra at [facility]. Patient aware still working on referral to Dr Pitt. Cortney Lagos 05/09/2023 3:18 PM Signed Tried calling Dr Oneyda Pitt's office at [phone] twice today kept getting answering service who stated they were busy to try again in 15 minutes. Will try again tomorrow to reach office. Cortney Lagos 05/10/2023 9:57 AM Signed Spoke to Julita for Dr Oneyda Pitt's office at [phone] the soonest appointment they have is 09/19/2023@10:[address] Sarai Pitt due to they lost [address] Pitt is only one doing ERCP's He only sees for clinic on Wednesdays doing procedures all other days. Before I call the patient with this appointment. Is this too far out?? Please advise. Donnlel Brooke MD 05/10/2023 10:56 AM Signed Yes - this is too far out - but let him see Dr. Dominguez first and we can come up with a plan after that. Cortney Mendoza 05/10/2023 12:22 PM Signed Spoke to patient AND made patient aware of appointment with Dr Pitt but explained that Dr Colon felt the appt was to far out in August that once patient sees the recommendations from Dr Pereyra first Dr Colon will develop a plan. Cortney Mendoza Allergies As of Date: 05/01/2023 Noted Allergy Reaction CIPROCINONIDE 09/06/2017 14 - Other: See Comments Comments: Joint pain CIPROFLOXACIN HCL 08/16/2016 14 - Other: See Comments FLAGYL (METRONIDAZOLE HCL) 09/06/2017 14 - Other: See Comments Comments: Joint pain Date Reviewed: 10/14/2021 Reviewed by: Wendy Lynn - Fully Assessed Reason for Visit: Results [95] Patient Question [1477] Primary Visit Diagnosis:Abnormal MRI of abdomen [R93.5] Other Visit Diagnosis:Pancreatic lesion [K86.9] Order(s):CONSULT TO GASTROENTEROLOGY [9010] Order #: [id number]: 1 FUTURE CONSULT TO GENERAL SURGERY [9011] Order #: [id number]: 1 FUTURE Prescriptions as of 05/10/2023 - iv contrast (will be provided with radiology test) CT Chest ABD/PEL-Inject, intravenously, once for 1 dose.No IV access, insert saline lock prior to the beginning of sedation, infusion, injection of imaging exam. Discontinue saline lock post exam. If Pt. has a central line or IVAD, may access for administration according to line specific nursing protocol. Once exam is complete flush line and de-access according to line specific (more content not included)... Normal [facility] MR ABDOMEN W WO CONTon 04-09 MR ABDOMEN W WO CONT MR ABDOMEN W WO CONT MR ABDOMEN W WO CONT Clinical history:Pancreatic lesion; History of diffuse large B-cell lymphoma; Other chronic pancreatitis ([facility]) Comparison: None. TECHNIQUE: Multiplanar multisequence MRI of the abdomen performed prior to and following uneventful administration of ProHance intravenous gadolinium contrast. Findings: No pleural or pericardial effusions lung bases. There is no abdominal ascites seen. Small bowel is nondilated. Appendix is seen and unremarkable. There is no signal loss within the liver on opposed phase imaging to suggest iron deposition hepatic steatosis. Fairly extensive colonic diverticulosis. Left renal inferior pole cyst is seen requiring no additional follow-up imaging. Gallbladder is present. There is no biliary dilatation. The adrenal glands appear unremarkable. The spleen is absent. Soft tissue nodule within the left upper quadrant likely related to a splenule measuring 3.0 cm. There is no pancreatic ductal dilatation. Multiple incidental pancreatic cystic lesions. The largest one is multilocular, measuring 2.9 cm in the uncinate process with no worrisome features. There is communication between the cyst and the main pancreatic duct. Impression: Multiple incidental pancreatic cystic lesions, the largest one measuring 2.9 cm with communication to the main pancreatic duct. Recommendations are based on the largest cyst. Recommend considering EUS with FNA, and surgical consultation. However, for cysts with low-risk features by imaging, consider reimaging with contrast-enhanced MRI or pancreas-protocol CT every 6 months for up to 2 years. Trey PETIT, et al. Management of Incidental Pancreatic Cysts: A White Paper of the ACR Incidental Findings Committee. J Am Juan Daniel Radiol 2017;14:911-923. Finalized by Michael Grimm MD on 04/09/2023 1:36 PM Normal [facility] COMPREHENSIVE METABOLIC PANE Gonzalo 03-27-2023 Albumin [Mass/Vol] 4.0 g/dL Normal 3.2-5.3 [facility] Comment on above: Performed By: #### C TEE, 30197-9, 2857-1 #### [facility] ([id number]) [address], [address] [place] [address] ALP [Catalytic activity/Vol] 89 U/L Normal 39-130 [facility] Comment on above: Performed By: #### C TEE, 52095-5, 2857-1 #### [facility] ([id number]) [address], [address] [place] [address] ALT [Catalytic activity/Vol] 25 U/L Normal 0-40 [facility] Comment on above: Performed By: #### C TEE, 37666-6, 2857-1 #### [facility] ([id number]) [address], [address] [place] [address] Anion gap [Moles/Vol] 9 mmol/L Normal 5-15 [facility] Comment on above: Performed By: #### C TEE, 05273-1, 2857-1 #### [facility] ([id number]) [address], [address] [place] [address] AST [Catalytic activity/Vol] 21 U/L Normal 0-41 [facility] Comment on above: Performed By: #### C TEE, 72993-1, 2857-1 #### [facility] ([id number]) [address], [address] [place] [address] Bilirubin [Mass/Vol] 0.5 mg/dL Normal 0.3-1.2 [facility] Comment on above: Performed By: #### Eduar OLIVEIRA, 24668-8, 285-1 #### [facility] ([id number]) [address], [address] [place] [address] Calcium [Mass/Vol] 9.5 mg/dL Normal 8.5-10.5 [facility] Comment on above: Performed By: #### Eduar OLIVEIRA, 99266-2, 2856-1 #### [facility] ([id number]) [address], [address] [place] [address] Chloride [Moles/Vol] 100 mmol/L Normal 98-109 [facility] Comment on above: Performed By: #### Eduar OLIVEIRA, 26058-0, 2856-1 #### [facility] ([id number]) [address], [address] [place] [address] CO2 [Moles/Vol] 23 mmol/L Normal 22-32 [facility] Comment on above: Performed By: #### Eduar OLIVEIRA, 96308-0, 285-1 #### [facility] ([id number]) [address], [address] [place] [address] Creatinine [Mass/Vol] 0.86 mg/dL Normal 0.60-1.30 [facility] Comment on above: Result Comment: METH OD TRACEABLE TO IDMS STANDARD Performed By: #### Eduar OLIVEIRA, 42474-0, 285-1 #### [facility] ([id number]) [address], [address] [place] [address] eGFR (CKD-EPI) NON-RACE DEPENDENT >90 Normal >59 [facility] Comment on above: Result Comment: Reported eGFR is based on the CKD-EPI 2020 equation that does not use a race coefficient. Performed By: #### Eduar OLIVEIRA, 60491-4, 285-1 #### [facility] ([id number]) [address], [address] [place] [address] Glucose [Mass/Vol] 152 mg/dL High 65-99 [facility] Comment on above: Performed By: #### Eduar OLIVEIRA, 59776-1, 2857-1 #### [facility] ([id number]) [address], [address] [place] [address] Potassium [Moles/Vol] 3.6 mmol/L Normal 3.5-5.0 [facility] Comment on above: Performed By: #### Eduar OLIVEIRA, 07948-3, 2857-1 #### [facility] ([id number]) [address], [address] [place] [address] Protein [Mass/Vol] 6.6 g/dL Normal 6.0-8.0 [facility] Comment on above: Performed By: #### Eduar OLIVEIRA, 74373-2, 2857-1 #### [facility] ([id number]) [address], [address] [place] [address] Sodium [Moles/Vol] 132 mmol/L Low 134-146 [facility] Comment on above: Performed By: #### Eduar OLIVEIRA, 27983-5, 2857-1 #### [facility] ([id number]) [address], [address] [place] [address] Urea nitrogen [Mass/Vol] 12 mg/dL Normal 5-27 [facility] Comment on above: Performed By: #### Eduar OLIVEIRA, 12214-5, 2857-1 #### [facility] ([id number]) [address], [address] [place] [address] Comprehensive metabolic pane gonzalo 03-27-2023 Albumin [Mass/Vol] 4.0 g/dL 3.2 - 5.3 g/dL Pr [facility] ALP [Catalytic activity/Vol] 89 U/L 39 - 130 U/L [facility] ALT No additional P-5'-P [Catalytic activity/Vol] 25 U/L 0 - 40 U/L [facility] Anion gap [Moles/Vol] 9 mmol/L 5 - 15 mmol/L [facility] AST [Catalytic activity/Vol] 21 U/L 0 - 41 U/L [facility] Bilirubin [Mass/Vol] 0.5 mg/dL 0.3 - 1.2 mg/dL [facility] Calcium [Mass/Vol] 9.5 mg/dL 8.5 - 10. 5 mg/dL [facility] Chloride [Moles/Vol] 100 mmol/L 98 - 109 mmol/L [facility] CO2 [Moles/Vol] 23 mmol/L 22 - 32 mmol/L [facility] Creatinine [Mass/Vol] 0.86 mg/dL 0.60 - 1.30 mg/dL [facility] Comment on above: METHOD TRACEABLE TO [facility] STANDARD eGFR (CKD-EPI)non-race dependent - PINF [facility] Comment on above: Reported eGFR is based on the CKD-EPI 2020 equation that does not use a race coefficient. Glucose [Mass/Vol] 152 mg/dL High 65 - 99 mg/dL [facility] Potassium [Moles/Vol] 3.6 mmol/L 3.5 - 5.0 mmol/L [facility] Protein [Mass/Vol] 6.6 g/dL 6.0 - 8.0 g/dL [facility] Sodium [Moles/Vol] 132 mmol/L Low 134 - 146 mmol/L [facility] Urea nitrogen [Mass/Vol] 12 mg/dL 5 - 27 mg/dL [facility] Lipid 1996 panelon 4 Cholesterol [Mass/Vol] 130 mg/dL Low 150 - 200 mg/dL [facility] Cholesterol in HDL [Mass/Vol] 45 mg/dL 39 - PINF mg/dL [facility] Comment on above: HDL <40 mg/dL - High Risk HDL > or = 40mg/dL- Desirable HDL >60 mg/dL - Negative Risk Cholesterol in LDL [Mass/Vol] 72 mg/dL NINF - 130 mg/dL [facility] Comment on above: LDL <100 mg/dL - Desirable LDL >160 mg/dL - High Risk Cholesterol in VLDL [Mass/Vol] 13 mg/dL 0 - 30 mg/dL [facility] Cholesterol.total/C holesterol in HDL [Mass ratio] 2.9 {ratio} 1.0 - 5.0 [facility] Triglyceride [Mass/Vol] 66 mg/dL 27 - 150 mg/dL [facility] Cholesterol [Mass/Vol] 130 mg/dL Low 150-200 [facility] Comment on above: Performed By: #### Eduar OLIVEIRA, 48835-8, 2857-1 #### [facility] ([id number]) [address], [address] [place] [address] Cholesterol in HDL [Mass/Vol] 45 mg/dL Normal >39 [facility] Comment on above: Result Comment: HDL <40 mg/dL - High Risk HDL > or = 40mg/dL- Desirable HDL >60 mg/dL - Negative Risk Performed By: #### C TEE, 94723-1, 8677-1 #### [facility] ([id number]) [address], [address] [place] [address] Cholesterol in LDL [Mass/Vol] 72 mg/dL Normal <130 [facility] Comment on above: Result Comment: LDL <100 mg/dL - Desirable LDL >160 mg/dL - High Risk Performed By: #### C TEE, 84097-9, 9542-1 #### [facility] ([id number]) [address], [address] [place] [address] Cholesterol in VLDL [Mass/Vol] 13 mg/dL Normal 0-30 [facility] Comment on above: Performed By: #### Eduar OLIVEIRA, 15856-7, 2857-1 #### [facility] ([id number]) [address], [address] [place] [address] CHOLESTEROL:HDL 2.9 Normal 1.0-5.0 [facility] Comment on above: Performed By: #### Eduar OLIVEIRA, 75491-8, 285-1 #### [facility] ([id number]) [address], [address] [place] [address] Triglyceride [Mass/Vol] 66 mg/dL Normal 27-150 [facility] Comment on above: Performed By: #### Eduar OLIVEIRA, 46058-1, 2856-1 #### [facility] ([id number]) [address], [address] [address] No Panel Informationon 03-27 Interpretation and review of laboratory results Abnormal [facility] Prostate specific Ag [Mass/V ol]on 03-27-2023 [facility] PSA SCREEN 0.38 ng/mL Normal 0.00-4.00 [facility] Comment on above: Result Comment: The method used for this test is [employer] DXI chemiluminescent immunoassay. Values obtained by different assay methods cannot be used interchangeably. Performed By: #### Eduar OLIVEIRA, 34907-2, 2857-1 #### [facility] ([id number]) [address], [address] [address] Prostatic specific antigen s creenon 03-27-2023 Prostate specific Ag [Mass/Vol] 0.38 ng/mL 0.00 - 4.00 ng/mL [facility] Comment on above: The method used for this test is [employer] DXI chemiluminescent immunoassay. Values obtained by different assay methods cannot be used interchangeably. CBC W Auto Differential pane l (Bld)on 10-13-2022 Basophils (Bld) [#/Vol] 0.11 10*3/uL High <0.11 [facility] Comment on above: Order Comment: Speci men Type: BLOOD SPECIMEN Ordering Facility: [facility] Address: [address] [address] Performed By: #### 5 7021-8 #### [facility] CLIA [id number] [address] [place] [address] Basophils/100 WBC (Bld) 1.2 % Normal [facility] Comment on above: Order Comment: Speci men Type: BLOOD SPECIMEN Ordering Facility: [facility] Address: [address] [address] Performed By: #### 5 7021-8 #### [facility] CLIA [id number] [address] [place] [address] Differential cell count method Nom (Bld) Auto Normal [facility] Comment on above: Order Comment: Speci men Type: BLOOD SPECIMEN Ordering Facility: [facility] Address: [address] [address] Performed By: #### 5 7021-8 #### [facility] CLIA [id number] [address] [place] [address] Eosinophils (Bld) [#/Vol] 0.18 10*3/uL Normal <0.46 [facility] Comment on above: Order Comment: Speci men Type: BLOOD SPECIMEN Ordering Facility: [facility] Address: [address] [address] Performed By: #### 5 7021-8 #### [facility] CLIA [id number] [address] [place] [address] Eosinophils/100 WBC (Bld) 2.0 % Normal [facility] Comment on above: Order Comment: Speci men Type: BLOOD SPECIMEN Ordering Facility: [facility] Address: [address] [address] Performed By: #### 5 7021-8 #### [facility] CLIA [id number] [address] [place] [address] Erythrocyte distribution width (RBC) [Ratio] 14.5 % Normal 11.5-15.0 [facility] Comment on above: Order Comment: Speci men Type: BLOOD SPECIMEN Ordering Facility: [facility] Address: [address] [place] [address] Performed By: #### 5 7021-8 #### [facility] CLIA [id number] [address] [place] [address] Hematocrit (Bld) [Volume fraction] 43.2 % Normal 39.0-51.0 [facility] Comment on above: Order Comment: Speci men Type: BLOOD SPECIMEN Ordering Facility: [facility] Address: [address] [place] [address] Performed By: #### 5 7021-8 #### [facility] CLIA [id number] [address] [place] [address] Hemoglobin (Bld) [Mass/Vol] 15.0 g/dL Normal 13.0-17.0 [facility] Comment on above: Order Comment: Speci men Type: BLOOD SPECIMEN Ordering Facility: [facility] Address: [address] [place] [address] Performed By: #### 5 7021-8 #### [facility] CLIA [id number] [address] [place] [address] Immature granulocytes (Bld) [#/Vol] 10*3/uL Normal <0.10 [facility] Comment on above: Order Comment: Speci men Type: BLOOD SPECIMEN Ordering Facility: [facility] Address: [address] [place] [address] Performed By: #### 5 7021-8 #### [facility] CLIA [id number] [address] [place] [address] Immature granulocytes/100 WBC (Bld) 0.2 % Normal [facility] Comment on above: Order Comment: Speci men Type: BLOOD SPECIMEN Ordering Facility: [facility] Address: [address] [address] Performed By: #### 5 7021-8 #### [facility] CLIA [id number] [address] [place] [address] Lymphocytes (Bld) [#/Vol] 3.69 10*3/uL Normal 1.00-4.00 [facility] Comment on above: Order Comment: Speci men Type: BLOOD SPECIMEN Ordering Facility: [facility] Address: [address] [address] Performed By: #### 5 7021-8 #### [facility] CLIA [id number] [address] [place] [address] Lymphocytes/100 WBC (Bld) 41.1 % Normal [facility] Comment on above: Order Comment: Speci men Type: BLOOD SPECIMEN Ordering Facility: [facility] Address: [address] [address] Performed By: #### 5 7021-8 #### [facility] CLIA [id number] [address] [place] [address] MCH (RBC) [Entitic mass] 32.3 pg Normal 26.0-34.0 [facility] Comment on above: Order Comment: Speci men Type: BLOOD SPECIMEN Ordering Facility: [facility] Address: [address] [address] Performed By: #### 5 7021-8 #### [facility] CLIA [id number] [address] [place] [address] MCHC (RBC) [Mass/Vol] 34.7 g/dL Normal 30.5-36.0 [facility] Comment on above: Order Comment: Speci men Type: BLOOD SPECIMEN Ordering Facility: [facility] Address: [address] [address] Performed By: #### 5 7021-8 #### [facility] CLIA [id number] [address] [place] [address] [place] [address] MCV (RBC) [Entitic vol] 93.1 fL Normal 80.0-100.0 [facility] Comment on above: Order Comment: Speci men Type: BLOOD SPECIMEN Ordering Facility: [facility] Address: [address] [address] Performed By: #### 5 7021-8 #### [facility] CLIA [id number] [address] [place] [address] Monocytes (Bld) [#/Vol] 0.82 10*3/uL Normal <0.87 [facility] Comment on above: Order Comment: Speci men Type: BLOOD SPECIMEN Ordering Facility: [facility] Address: [address] [address] Performed By: #### 5 7021-8 #### [facility] CLIA [id number] [address] [place] [address] Monocytes/100 WBC (Bld) 9.1 % Normal [facility] Comment on above: Order Comment: Speci men Type: BLOOD SPECIMEN Ordering Facility: [facility] Address: [address] [address] Performed By: #### 5 7021-8 #### [facility] CLIA [id number] [address] [place] [address] Neutrophils (Bld) [#/Vol] 4.16 10*3/uL Normal 1.45-7.50 [facility] Comment on above: Order Comment: Speci men Type: BLOOD SPECIMEN Ordering Facility: [facility] Address: [address] [address] Performed By: #### 5 7021-8 #### [facility] CLIA [id number] [address] [place] [address] Neutrophils/100 WBC (Bld) 46.4 % Normal [facility] Comment on above: Order Comment: Speci men Type: BLOOD SPECIMEN Ordering Facility: [facility] Address: [address] [address] Performed By: #### 5 7021-8 #### [facility] CLIA [id number] [address] [place] [address] Nucleated RBC (Bld) [#/Vol] 10*3/uL Normal <0.01 [facility] Comment on above: Order Comment: Speci men Type: BLOOD SPECIMEN Ordering Facility: [facility] Address: [address] [address] Performed By: #### 5 7021-8 #### [facility] CLIA [id number] [address] [place] [address] Nucleated RBC/100 WBC (Bld) [Ratio] 0.0 /100 WBC Normal [facility] Comment on above: Order Comment: Speci men Type: BLOOD SPECIMEN Ordering Facility: [facility] Address: [address] [place] [address] Performed By: #### 5 7021-8 #### [facility] CLIA [id number] [address] [place] [address] Platelet mean volume (Bld) [Entitic vol] 10.1 fL Normal 9.0-12.7 [facility] Comment on above: Order Comment: Speci men Type: BLOOD SPECIMEN Ordering Facility: [facility] Address: [address] [place] [address] Performed By: #### 5 7021-8 #### [facility] CLIA [id number] [address] [place] [address] 99947 Platelets (Bld) [#/Vol] 309 10*3/uL Normal 150-400 [facility] Comment on above: Order Comment: Speci men Type: BLOOD SPECIMEN Ordering Facility: [facility] Address: [address] [place] [address] Performed By: #### 5 7021-8 #### [facility] CLIA [id number] [address] [place] [address] 12206 RBC (Bld) [#/Vol] 4.64 10*6/uL Normal 4.20-6.00 [facility] Comment on above: Order Comment: Speci men Type: BLOOD SPECIMEN Ordering Facility: [facility] Address: [address] [place] [id number] Performed By: #### 5 7021-8 #### [facility] CLIA [id number] [address] [place] [address] 54088 WBC (Bld) [#/Vol] 8.98 10*3/uL Normal 3.70-11.00 [facility] Comment on above: Order Comment: Speci men Type: BLOOD SPECIMEN Ordering Facility: [facility] Address: [place] [address] Performed By: #### 5 7021-8 #### [facility] CLIA [id number] [address] [place] [address] 62179 CNOVSPon 10-13-2022 CNOVSP Visit (SP) Office ([place]) NIC VALERIO ([id number]) 1950 M Date Time Provider Department 10/13/22 10:30 AM DONNELL COLON During your visit today, we recorded the following information about you: Temperature Pulse Respiration Blood pressure 97.4 degrees 66/minute 16/minute 156/67 Weight Height 70.5 kg 1.778 m Donnell Colon MD 10/19/2022 8:40 AM Signed NAME: Nic Valerio [facility] NO.: [id number] DATE OF SERVICE: October 13, 2022 (Kenneth). 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 at diagnosis elevated LDH, age over 60, albumin less than 3.5, extranodal disease involvement bone marrow did not identify involvement. Remains in [place]. PLAN: RTC in 1 year labs same day HPI: Updated Visit, October 13, 2022: Doing well. No clinical signs of recurrence - had port taken out last year. Labs reviewed, cbc normal. MCP pending but previously has been normal. Updated Visit, October 14, 2021: Nic returns with his Dmitry today for annual follow up. No clinical indication of disease recurrence. PET/CT from 03/2021 was unremarkable. Updated Visit, April 15, 2021: - Telephone only for 5 minutes Nic and I connected by telephone and he tells me that he is feeling great. Running his chainsaw to clear mulberry bushes - feels great. No B symptoms. Updated Visit, October 11, 2020: Telephone only Doing well, retired, very active - no B symptoms. Rehabbing his [address] yo home. Enjoying life. Would like to get his port out Updated Visit, April 12, 2020: Nic a 69 years old and returns to review PET/CT scans which show no evidence of recurrent lymphoma. He has no complaints or B symptoms. Would prefer conservative follow up which I agree with. Updated Visit, October 06, 2019: Nic a 69 years old and returns with his Dmitry to review scans which show no evidence of recurrent lymphoma and stable findings in the region of the head of the pancreas but show a polyp in the sigmoid colon that will need to be addressed. He has no symptoms of recurrence. His laboratories indicate that his anemia has resolved he no longer needs to take iron. Since his is now retired there is been a lot more time together gardening and out playing with her new dog a 1-year-old Macanese Trevizo. All images were personally reviewed with the patient. Updated Visit, June 04, 2019: Conducted by telephone No problems active outside gardening and playing with his dog. RADIOGRAPHIC DATA: Reviewed on June 04, 2019. 5. 04/07/2020 PET/CT: 1. NECK: No FDG avid neoplastic process. No mass, adenopathy, or fluid collection. 2. CHEST: No FDG avid neoplastic process. No mass, adenopathy, or fluid collection. 3. ABDOMEN/PELVIS: No FDG avid neoplastic process. No mass, adenopathy, or fluid collection. 4. EXTREMITIES/SKELETON: No FDG avid osseous process. No destructive/traumatic bony abnormality. *Deauville score: 1 - score 1 : no uptake - score 2 : uptake <= mediastinum - score 3 : uptake > mediastinum, but <= liver - score 4 : uptake moderately higher than liver - score 5 : uptake markedly higher than liver and/or new lesions - score X : new areas of uptake unlikely to be related to lymphoma 4. 10/02/2019 CT CAP: 1. No evidence of bulky intrathoracic lymphadenopathy. 2. Findings of prior granulomatous disease. 3. Multiple noncalcified nodular opacities adjacent to a calcified right upper lobe granuloma. These may represent noncalcified granulomas. Findings are similar in appearance to prior exam. 4. Previously visualized right lower lobe groundglass nodule has resolved, likely infectious or inflammatory in nature. 1. No evidence of abdominal or pelvic lymphadenopathy. 2. Extensive colonic diverticulosis. Findings suggestive of mild sigmoid diverticulitis. Correlate clinically. 3. Findings suggestive of a polyp within the sigmoid colon. Recommend further evaluation with colonoscopy. 4. Postsurgical changes of splenectomy. Unchanged fluid collection in the splenectomy bed. 5. Ovoid hypodensity in the pancreatic head, similar in appearance to prior exam. 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 Recommend continued follow-up. 3. 05/30/2019 CT CAP: No evidence of bulky intrathoracic lymphadenopathy. Stable calcified granuloma in the right upper lobe with surrounding noncalcified opaciti (more content not included)... Normal [facility] Comprehensive metabolic 2000 panelon 10-13-2022 Albumin [Mass/Vol] 4.7 g/dL Normal 3.9-4.9 [facility] Comment on above: Order Comment: Speci men Type: BLOOD SPECIMEN Ordering Facility: [facility] Address: [facility] [place] [address] Performed By: #### 2 532-0, 17664-3 #### [facility] CLIA [id number] [address] [place] [address] 93078 ALP [Catalytic activity/Vol] 83 U/L Normal 38-113 [facility] Comment on above: Order Comment: Speci men Type: BLOOD SPECIMEN Ordering Facility: [facility] Address: [address] [address] Performed By: #### 2 532-0, #### [facility] CLIA [id number] [address] [place] [address] 83203 ALT [Catalytic activity/Vol] 14 U/L Normal 10-54 [facility] Comment on above: Order Comment: Speci men Type: BLOOD SPECIMEN Ordering Facility: [facility] Address: [address] [address] Performed By: #### 2 532-0, #### [facility] CLIA [id number] [address] [place] [address] 71231 Anion gap [Moles/Vol] 9 mmol/L Normal 9-18 [facility] Comment on above: Order Comment: Speci men Type: BLOOD SPECIMEN Ordering Facility: [facility] Address: [address] [address] Performed By: #### 2 532-0, #### [facility] CLIA [id number] [address] [place] [address] 85902 AST [Catalytic activity/Vol] 19 U/L Normal 14-40 [facility] Comment on above: Order Comment: Speci men Type: BLOOD SPECIMEN Ordering Facility: [facility] Address: [address] Performed By: #### 2 532-0, #### [facility] CLIA [id number] [address] [place] [address] 92125 Bilirubin [Mass/Vol] 0.6 mg/dL Normal 0.2-1.3 [facility] Comment on above: Order Comment: Speci men Type: BLOOD SPECIMEN Ordering Facility: [facility] Address: [address] [address] Performed By: #### 2 532-0, #### [facility] CLIA [id number] [address] [place] [address] 86549 Calcium [Mass/Vol] 9.7 mg/dL Normal 8.5-10.2 [facility] Comment on above: Order Comment: Speci men Type: BLOOD SPECIMEN Ordering Facility: [facility] Address: [address] [address] Performed By: #### 2 532-0, #### [facility] CLIA [id number] [address] [place] [address] 06752 Chloride [Moles/Vol] 100 mmol/L Normal 97-105 [facility] Comment on above: Order Comment: Speci men Type: BLOOD SPECIMEN Ordering Facility: [facility] Address: [address] [address] Performed By: #### 2 532-0, #### [facility] CLIA [id number] [address] [place] [address] 57753 CO2 [Moles/Vol] 27 mmol/L Normal 22-30 [facility] Comment on above: Order Comment: Speci men Type: BLOOD SPECIMEN Ordering Facility: [facility] Address: [address] [place] [address] Performed By: #### 2 532-0, #### [facility] CLIA [id number] [address] [place] [address] 79127 Creatinine [Mass/Vol] 0.94 mg/dL Normal 0.73-1.22 [facility] Comment on above: Order Comment: Speci men Type: BLOOD SPECIMEN Ordering Facility: [facility] Address: [address] [address] Performed By: #### 2 532-0, #### [facility] CLIA [id number] [address] [place] [address] 59959 Creatinine and Glomerular filtration rate.predicted panel (S/P/Bld) 87 mL/min/1.73m??? Normal >=60 [facility] Comment on above: Order Comment: Kyle angelo Type: BLOOD SPECIMEN Ordering Facility: [facility] Address: [address] [id number] Result Comment: Ibis mated Glomerular Filtration Rate (eGFR) is calculated using the 2020 CKD-EPI creatinine equation. This equation utilizes serum creatinine, sex, and age as parameters. The creatinine assay has traceable calibration to isotope dilution-mass spectrometry. Refer to KDIGO guidelines for clinical interpretation. In patients with unstable renal function, e.g. those with acute kidney injury, the eGFR may not accurately reflect actual GFR. Performed By: #### 2 532-0, 98409-1 #### [facility] CLIA [id number] [address] [place] [address] 44794 Glucose [Mass/Vol] 104 mg/dL High 74-99 [facility] Comment on above: Order Comment: Kyle angelo Type: BLOOD SPECIMEN Ordering Facility: [facility] Address: [address] [address] Result Comment: The [place] Diabetes Association (ADA) provides guidance for cutoff values for fasting glucose and random glucose. The ADA defines fasting as no caloric intake for at least 8 hours. Fasting plasma glucose results between 100 to 125 mg/dL indicate increased risk for diabetes (prediabetes). Fasting plasma glucose results greater than or equal to 126 mg/dL meet the criteria for diagnosis of diabetes. In the absence of unequivocal hyperglycemia, results should be confirmed by repeat testing. In a patient with classic symptoms of hyperglycemia or hyperglycemic crisis, random plasma glucose results greater than or equal to 200 mg/dL meet the criteria for diagnosis of diabetes. Reference: Standards of Medical Care in Diabetes 2016, [place] Diabetes Association. Diabetes Care. 2016.39(Suppl 1). Performed By: #### 2 532-0, 86771-1 #### [facility] CLIA [id number] [address] [place] [address] 61113 Potassium [Moles/Vol] 4.7 mmol/L Normal 3.7-5.1 [facility] Comment on above: Order Comment: yKle angelo Type: BLOOD SPECIMEN Ordering Facility: [facility] Address: [address] Performed By: #### 2 532-0, #### [facility] CLIA [id number] [address] [place] [address] Protein [Mass/Vol] 6.9 g/dL Normal 6.3-8.0 [facility] Comment on above: Order Comment: Speci men Type: BLOOD SPECIMEN Ordering Facility: [facility] Address: [address] [place] [address] Performed By: #### 2 532-0, #### [facility] CLIA [id number] [address] [place] [address] 22138 Sodium [Moles/Vol] 136 mmol/L Normal 136-144 [facility] Comment on above: Order Comment: Speci men Type: BLOOD SPECIMEN Ordering Facility: [facility] Address: [address] [place] [address] Performed By: #### 2 532-0, #### [facility] CLIA [id number] [address] [place] [address] 73126 Urea nitrogen [Mass/Vol] 12 mg/dL Normal 9-24 [facility] Comment on above: Order Comment: Speci men Type: BLOOD SPECIMEN Ordering Facility: [facility] Address: [address] [place] [address] Performed By: #### 2 532-0, #### [facility] CLIA [id number] [address] [place] [address] 08406 [facility] LDH [Catalytic activity/Vol] 192 U/L Normal 135-225 [facility] Comment on above: Order Comment: Speci men Type: BLOOD SPECIMEN Ordering Facility: [facility] Address: [address] [place] [address] Result Comment: Hemo lysis present. The origin of the hemolysis, in vitro versus an in vivo hemolytic process, cannot be distinguished via this assay alone. In vitro hemolysis may lead to non-physiological (spurious) elevation in lactate dehydrogenase (LDH) results. The result should be interpreted in context of the clinical setting and other test results. Suggest reorder as clinically indicated. Performed By: #### 2 532-0, 54692-6 #### [facility] CLIA [id number] [address] [place] [address] 86987 Covid-19 PCR (CVDTB)on 11-26 SARS-CoV-2 (COVID-19) RNA DUSTIN+probe Ql (Unsp spec) Not detected Normal NOT DETECTED [facility] Comment on above: Result Comment: This test is not yet approved or cleared by the [place] FDA. When there are no FDA-approved or cleared tests available, and other criteria are met, FDA can make tests available under an emergency access mechanism called an Emergency Use Authorization (EUA). The EUA for this test is supported by the [place] of Health and Human Service's (HHS's) declaration that circumstances exist to justify the emergency use of in vitro diagnostics for the detection and/or diagnosis of the virus that causes COVID-19. This EUA will remain in effect (meaning this test can be used) for the duration of the COVID-19 declaration justifying emergency of IVDs, unless it is terminated or revoked by FDA (after which the test may no longer be used). When diagnostic testing is negative, the possibility of a false negative should be considered in the context of a patient's recent exposures and the presence of clinical signs and symptoms consistent with SARS-CoV-2. Performed By: #### C VDTBH #### [facility] [address] [place] [address] Dr. Arthur Machado LIPID PROFILEon 12-08-2021 CHOL-HDL RATIO NORM SEE BELOW Normal [facility] Comment on above: Result Comment: 3.3 - 4.4 LOW RISK 4.4 - 7.1 AVERAGE RISK 7.1 - 11.0 MODERATE RISK >11.0 HIGH RISK Performed By: #### L IPID #### [facility] [address] [place] [address] [address] [address] Arthur Machado Cholesterol [Mass/Vol] 247 mg/dL Critically high <=200 [facility] Comment on above: Performed By: #### L IPID #### [facility] [address] [address] [address] Arthur Machado Cholesterol in HDL [Mass/Vol] 75 mg/dL Critically high 40-60 [facility] Comment on above: Performed By: #### L IPID #### [facility] [address] [address] [address] Arthur Machado Cholesterol in LDL [Mass/Vol] 160.8 mg/dL Normal [facility] Comment on above: Performed By: #### L IPID #### [facility] [address] [address] [address] Arthur Machado Cholesterol.total/C holesterol in HDL [Mass ratio] 3.3 {ratio} Normal [facility] Comment on above: Performed By: #### L IPID #### [facility] [address] [address] [address] Arthur Machado HDL NORMAL > or = 60 mg/dl - LO W CARDIOVASCULAR RISK <40 mg/dl - HIGH CARDIOVASCULAR RISK Normal [facility] Comment on above: Performed By: #### L IPID #### [facility] [address] [address] [address] Arthur Machado LDL CALC NORMAL SEE BELOW Normal [facility] Comment on above: Result Comment: <100 mg/dl OPTIMAL 100 - 129 mg/dl NEAR OR ABOVE OPTIMAL 130 - 159 mg/dl BORDERLINE HIGH 160 - 189 mg/dl HIGH >190 mg/dl VERY HIGH Performed By: #### L IPID #### [facility] [address] [address] [address] Arthur Machado Triglyceride [Mass/Vol] 56 mg/dL Normal <=150 [facility] Comment on above: Performed By: #### L IPID #### [facility] [address] [address] [address] Arthur Machado VLDL CALC 11.2 mg/dL Normal [facility] Comment on above: Performed By: #### L IPID #### [facility] [address] [address] [address] Arthur Machado CBC W Auto Differential pane l (Bld)on 10-14-2021 Abs Immature Gran 0.04 k/uL <0.10 k/uL [facility] Basophils (Bld) [#/Vol] 0.10 10*3/uL <0.11 k/uL [facility] Basophils/100 WBC (Bld) 1.2 % [facility] Differential cell count method Nom (Bld) Auto [facility] Eosinophils (Bld) [#/Vol] 0.16 10*3/uL <0.46 k/uL [facility] Eosinophils/100 WBC (Bld) 1.9 % [facility] Erythrocyte distribution width (RBC) [Ratio] 14.4 % 11.5 - 15.0 % [facility] Hematocrit (Bld) [Volume fraction] 43.2 % 39.0 - 51.0 % [facility] Hemoglobin (Bld) [Mass/Vol] 15.0 g/dL 13.0 - 17.0 g/dL [facility] Immature Gran % 0.5 % [facility] Lymphocytes (Bld) [#/Vol] 3.90 10*3/uL 1.00 - 4.00 k/uL [facility] Lymphocytes/100 WBC (Bld) 45.9 % [facility] MCH (RBC) [Entitic mass] 32.3 pg 26.0 - 34.0 pg [facility] MCHC (RBC) [Mass/Vol] 34.7 g/dL 30.5 - 36.0 g/dL [facility] MCV (RBC) [Entitic vol] 92.9 fL 80.0 - 100.0 fL [facility] Monocytes (Bld) [#/Vol] 0.81 10*3/uL <0.87 k/uL [facility] Monocytes/100 WBC (Bld) 9.5 % [facility] Neutrophils (Bld) [#/Vol] 3.48 10*3/uL 1.45 - 7.50 k/uL [facility] Neutrophils/100 WBC (Bld) 41.0 % [facility] Nucleated RBC (Bld) [#/Vol] <0.01 k/uL [facility] Nucleated RBC/100 WBC (Bld) [Ratio] 0.0 /100 WBC [facility] Platelet mean volume (Bld) [Entitic vol] 10.8 fL 9.0 - 12.7 fL [facility] Platelets (Bld) [#/Vol] 250 10*3/uL 150 - 400 k/uL [facility] RBC (Bld) [#/Vol] 4.65 10*6/uL 4.20 - 6.0 0 m/uL [facility] WBC (Bld) [#/Vol] 8.49 10*3/uL 3.70 - 11. 00 k/uL [facility] Comprehensive metabolic 2000 panelon 10-14-2021 Albumin [Mass/Vol] 4.1 g/dL 3.9 - 4.9 g/dL [facility] ALP [Catalytic activity/Vol] 81 U/L 38 - 113 U/L [facility] ALT [Catalytic activity/Vol] 18 U/L 10 - 54 U/L [facility] Anion gap [Moles/Vol] 10 mmol/L 9 - 18 mmol/L [facility] AST [Catalytic activity/Vol] 24 U/L 14 - 40 U/L [facility] Bilirubin [Mass/Vol] 0.4 mg/dL 0.2 - 1.3 mg/dL [facility] Calcium [Mass/Vol] 9.2 mg/dL 8.5 - 10. 2 mg/dL [facility] Chloride [Moles/Vol] 105 mmol/L 97 - 105 mmol/L [facility] CO2 [Moles/Vol] 23 mmol/L 22 - 30 mmol/L [facility] Creatinine [Mass/Vol] 0.87 mg/dL 0.73 - 1.22 mg/dL [facility] Estimated Glomerular Filtration Rate 93 mL/min/1.73m >=60 mL/min/1.73m [facility] Glucose [Mass/Vol] 134 mg/dL High 74 - 99 mg/dL [facility] Potassium [Moles/Vol] 4.1 mmol/L 3.7 - 5.1 mmol/L [facility] Protein [Mass/Vol] 6.0 g/dL Low 6.3 - 8.0 g/dL [facility] Sodium [Moles/Vol] 138 mmol/L 136 - 144 mmol/L [facility] Urea nitrogen [Mass/Vol] 15 mg/dL 9 - 24 mg/dL [facility] LD LACTATE DEHYDROon 022 LDH [Catalytic activity/Vol] 186 U/L 135 - 225 U/L [facility] ADMIN RABIES INSPECTOR CHEMOon 04-03-2018 ADMIN RABIES INSPECTOR CHEMO * * *Final Report* * * DATE OF EXAM: Apr 03 2018 2:33PM [facility] [id number] - ADMIN RABIES INSPECTOR CHEMO / PROCEDURE REASON: chemo inj-DLBCL * * * * Physician Interpretation * * * * PROCEDURE: Intrathecal Injection of Medication HISTORY: The patient is a 67 years year old Male who presented with DLBCL. Consent: The risks, benefits, treatment options, potential complications, equipment, and personnel to be involved were discussed (including the risks of radiation exposure, contrast and anesthesia administration) with the patient. All of his questions were answered and consent was obtained. The patient indicated he was willing to proceed. General: A) Medication Reconciliation: The patient's medications and allergies were reviewed in the electronic medical record and reconciled to the proposed procedure/treatment. B) Pre-Procedure Medications: Medication #1: None C) Positioning: The patient was placed Prone on the Fluroroscopy table. D) The Lumbar dorsal soft tissues. were then sterile prepped and draped. E) Time Out: A time out was performed immediately prior to procedure start with the nursing, anesthesia and interventional team, correctly identifying the name, medical record number, procedure, anatomy (including marking of site and side), patient position, procedure consent form, relevant diagnostic and radiology test results, antibiotic administration, safety precautions, and procedure-specific equipment needs. Timeout Affirmation (if attending not present): Swapnil Bermudez Pa-C Timeout Time and Procedure Start Time: 7 F) Anesthesia Type: administration of local anesthesia. Local anesthesia: 2 % lidocaine Estimated Infiltration: 5 cc G) Anesthesia Was Administered For A Total Of None. H) Patient Monitoring: Not applicable. TECHNIQUE/RESULT: A) Access Site: 20 gauge spinal needle from a left paramedian approach at the L2-L3 level. B) Counting reference: Lumbosacral junction. For the purposes of this report, L4-5 is considered the level of the iliac crest. C) Procedure Details: Using sterile procedure, local anesthesia was introduced to the skin and subcutaneous tissues as outlined above. Medication Injection LP Details: Under fluoroscopic guidance, the needle was advanced into the lumbar subarachnoid space with location confirmed by CSF return and lateral x-ray. The syringe of methotrexate was inspected, and the attached label was cross checked against the patient's name. A total of 12 mg methotrexate was then slowly injected by intermittently mixing the medication with the patient's CSF during injection. The patient reported no adverse symptoms during injection. D) Estimated Blood Loss: 0 mls E) Type of Removed Specimens: CSF F) Number of Specimens: None Fluoroscopic Radiation Summary: Fluoroscopic guidance was performed in conjunction with the shampoo technician. Plane A, Air Kerma: 1.0 mGy Dose Area Product (DAP): 869.7 mGy*cm2 Fluoro time: 0:18 min:sec Post-Procedure: Conclusion: The patient was transferred to the Radiology Recovery Room in stable condition and observed for approximately 60 minutes. Immediate Complications: None. Delayed Complications (will be reported as an addendum to the original report): None apparent at this time Procedure End Time and Sign Out Time: 1433 IMPRESSION: Technically successful intrathecal injection of chemotherapy Attending Physician: n/a Grinder And Honer Operator Automatic: Swapnil Bermudez PA-C The procedure was performed by the: Swapnil Bermudez PA-C The attending radiologist performed the following procedural activities: none Merchandising Execution Associate: LAUREN Transcribe Date/Time: Apr 03 2018 3:00P Dictated by : RAUL VEGA This examination was interpreted and the report reviewed and electronically signed by: RAUL VEGA on Apr 03 2018 3:01PM EST [id number] [facility] BRIEF OP NOTon 04-03-2018 BRIEF OP NOT HNO ID: [id number] Author: Swapnil Bermudez (Pa) Service: Interventional Radiology Author Type: Physician Grinder And Honer Operator Automatic Type: Brief Op Note Filed: 04/03/2018 2:41 PM Note Text: BRIEF OP NOTE LOG ID: [id number] Surgery/Procedure Date: 04/03/2018 Incision/Procedure Start Time: 2:27 PM Incision Close/Procedure End Time: 2:33 PM Surgeon(s)/Procedurali st(s) and Grinder And Honer Operator Automatic(s): Swapnil Bermudez PA-C Procedure(s): fluoro guided LP Anesthesia: Local Findings: L2-3, 12 mg IT MTX Estimated Blood Loss: 0 ml Specimens: None Complications: None Pre-Op/Pre-Procedure Diagnosis: DLBCL Post-Op/Post-Procedure Diagnosis: * No post-op diagnosis entered * SIGNATURE: Swapnil Bermudez PA-C PATIENT NAME: Nic Valerio DATE: April 03, 2018 TIME: 2:40 PM PAGER/CONTACT #: [phone] [facility] HOSPon 04-01-2018 HOSP Patient:Nic Valerio MRN: Height:5' 10.984 (1.803 m) Weight:150 lb 12.8 oz (68.402 kg) Outpatient Medications as of 04/03/18: omeprazole (PRILOSEC) 20 mg capsule Admission/Clinic Administered Medications as of 04/03/18: methotrexate (PF) 12 mg in NaCl (PF) 0.9% 3 mL Problem List: 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 Pt verbalized understanding. Also updated pt that his hgb is improving. Pt denies needs or questions. Tamera Lombardo RN Progress Notes ([facility]): Aleta Urena RN 03/05/2018 12:44 PM Addendum ANESTHESIA PRE-OPERATIVE ASSESSMENT (PACE) SERVICE DATE: 03/05/2018 SERVICE TIME: 12 pm ASSESSMENT AND PLAN: Nic Valerio is a 67 year old male scheduled for LAPAROSCOPIC SPLENECTOMY per Surgery Request Case in MAIN on 03/15/18. PMH: 1. stage MICKEY DLBCL s/p R-CHOP x6 cycles with post-treatement CT showing residual uptake in the spleen c/f possible residual disease, for above procedure 2. Pot A Cath Lt upper chest 3. GERD takes prilosec 4. [place] wears bilateral hearing aids 5. Denies problems with [place] [facility]: 2 FC: II METS: Walk a block or two on level ground (2.75 METs) Climb a flight of stairs or walk up a hill (5.50 METs) Patient denies any chest pain or undue shortness of breath with the above physical activity. Patient WILL accept blood products. BLOOD WORK/PRODUCTS ORDERED: Type and Screen , Con ABO HISTORY OF CHRONIC PAIN: No PAIN MANAGEMENT OPTIONS: Routine/PRN IV and Final pain management plan will be discussed on the day of surgery. ANESTHETIC OPTIONS: General and Final anesthesia management options will be discussed on day of surgery. PRE-OP PLAN ORDERED: Aspiration prophylaxis Patient Instructed: ? No solid food or non-clear liquids after midnight. Clear liquids allowed until two hours before scheduled arrival. ? Patient instructed to take the following medications with a sip of water: prolosec Vital Signs: BP 149/69 Pulse 72 Temp 36.7 ?C (98.1 ?F) Ht 180 cm (5' 10.87 ) Wt 73 kg (160 lb 15 oz) SpO2 100% BMI 22.53 kg/m? BMI 22.53 kg/(m2) Vital signs completed by: Surgical Services Weight acquired: per HANDP. Height acquired: per HANDP Airway Exam: MOUTH OPENING/TMJ: Full jaw ROM MICROGNATHIA/OVERBITE: No MALLAMPATI SCORE is CLASS II UPPER LIP BITE TEST: Class I - Lower incisors can bite the upper lip above the nereida line DENTITION: Intact THYROMENTAL DIST: WNL SHORT NECK: No NECK CIRCUMFERENCE >40 cm: Appears < than 40 CM NECK FLEX: Full ROM NECK EXTENSION: Full ROM AIRWAY HISTORY: No abnormal airway history ARKS AIRWAY DETAIL: N/A DATA: EKG READING: Unconfirmed - Procedure Date : Mar 05 2018 09:18:58 Edit Date : Mar 05 2018 09:21:27 ? Diagnosis:NORMAL SINUS RHYTHM LOW VOLTAGE QRS, CONSIDER PULMONARY DISEASE, PERICARDIAL EFFUSION, OR NORMAL VARIANT BORDERLINE ECG OTHER TESTS: Echo: Date: 09/25/17 OSH Grade II DD EF 55%, Mild mitral regurgitation Lab Value Units Date High Low HB 10.6 g/dL 03/05/2018 17.0 13.0 HCT 33.5 % 03/05/2018 51.0 39.0 WBC 4.26 k/uL 03/05/2018 11.00 3.70 PLT 227 k/uL 03/05/2018 400 150 NA 143 mmol/L 03/05/2018 144 136 K 4.2 mmol/L 03/05/2018 5.1 3.7 GLUC 125 mg/dL 03/05/2018 99 74 BUN 17 mg/dL 03/05/2018 24 9 CREAT 0.86 mg/dL 03/05/2018 1.22 0.73 PTSEC No results within date range. INR No results within date range. APTT No results within date range. ALT 18 U/L 03/05/2018 54 10 AST 25 U/L 03/05/2018 40 14 TBILI 0.3 mg/dL 03/05/2018 1.3 0.2 TSH No results within date range. Lab Value Units Date High Low HCGQT No results within date range. UHCG No results within date range. HCG, BODY* No results within date range. Lab Value Units Date High Low ABORHD A NEGA* no uni* 03/05/2018 ABSCREEN NEG no uni* 03/05/2018 HBA1C: No results found for: HBA1C) Patient accompanied by spouse Case Discussed with Dr Cantu OPTIMIZATION STATUS: Patient optimization pending Labs PACE EKG PACE SIGNATURE: Aleta Urena RN PATIENT NAME: Nic Valerio DATE: March 05, 2018 TIME: 12:34 PM PAGER/CONTACT #: Addendum 03/06/18 Blanquita Toussaint RN TANF[facility]TIM[place] AB screen negative Labs to UPA EKG Procedure Date : Mar 05 2018 09:18:58 Edit Date : Mar 06 2018 10:53:59 ? Diagnosis:NORMAL SINUS RHYTHM LOW VOLTAGE QRS, CONSIDER PULMONARY DISEASE, PERICARDIAL EFFUSION, OR NORMAL VARIANT BORDERLINE ECG Previous Version Normal [facility] ADMIN RABIES INSPECTOR CHEMOon 02-11-2018 ADMIN RABIES INSPECTOR CHEMO * * *Final Report* * * DATE OF EXAM: Feb 11 2018 1:59PM [facility] - ADMIN RABIES INSPECTOR CHEMO / PROCEDURE REASON: DLBCL * * * * Physician Interpretation * * * * PROCEDURE: Diagnostic Lumbar Puncture Under Fluoroscopic Guidance with Intrathecal Administration of Medication HISTORY: The patient is a 67 years year old Male who presented with lymphoma for IT chemotherapy. Consent: The risks, benefits, treatment options, potential complications, equipment, and personnel to be involved were discussed (including the risks of radiation exposure, contrast and anesthesia administration) with the patient. All of his questions were answered and consent was obtained. The patient indicated he was willing to proceed. General: A) Medication Reconciliation: The patient's medications and allergies were reviewed in the electronic medical record and reconciled to the proposed procedure/treatment. B) Pre-Procedure Medications: Medication #1: None C) Positioning: The patient was placed Prone on the Fluroroscopy table. D) The Lumbar dorsal soft tissues. were then sterile prepped and draped. E) Time Out: A time out was performed immediately prior to procedure start with the nursing, anesthesia and interventional team, correctly identifying the name, medical record number, procedure, anatomy (including marking of site and side), patient position, procedure consent form, relevant diagnostic and radiology test results, antibiotic administration, safety precautions, and procedure-specific equipment needs. Timeout Time and Procedure Start Time: 1336 F) Anesthesia Type: administration of local anesthesia. Local anesthesia: 1 % lidocaine Estimated Infiltration: 5cc G) Anesthesia Was Administered For A Total Of None. H) Patient Monitoring: Not applicable. TECHNIQUE/RESULT: A) Access Site: 20 gauge spinal needle from a paramedian approach at the L3-L4 level. B) Counting reference: Lumbosacral junction. For the purposes of this report, L4-5 is considered the level of the iliac crest. C) Procedure Details: Using sterile procedure, local anesthesia was introduced to the skin and subcutaneous tissues as outlined above. Medication Injection LP Details: Under fluoroscopic guidance, the needle was advanced into the lumbar subarachnoid space with location confirmed by CSF return and lateral x-ray. The syringe of methotrexate was inspected, and the attached label was cross checked against the patient's name. A total of 12 mg methotrexate was then slowly injected by intermittently mixing the medication with the patient's CSF during injection. The patient reported no adverse symptoms during injection. Diagnostic Volume: None CSF Color: Clear D) Estimated Blood Loss: 0 mls E) Type of Removed Specimens: None F) Number of Specimens: None Fluoroscopic Radiation Summary: Plane A, Air Kerma: 4.0 mGy Dose Area Product (DAP): 224.0 mGy*cm2 Fluoro time: 0:06 min:sec Post-Procedure: Conclusion: The patient was transferred to the Radiology Recovery Room in stable condition and observed for approximately 60 minutes. Immediate Complications: None. Delayed Complications (will be reported as an addendum to the original report): None apparent at this time Procedure End Time and Sign Out Time: 1341 IMPRESSION: Technically successful intrathecal injection of chemotherapy Attending Physician: Caitlin Valles M.D. The procedure was performed by the: the attending radiologist . The attending radiologist performed the following procedural activities: All Merchandising Execution Associate: LAUREN Transcribe Date/Time: Feb 11 2018 3:42P Dictated by : CAITLIN VALLES MD This examination was interpreted and the report reviewed and electronically signed by: CAITLIN VALLES MD on Feb 11 2018 3:44PM EST [id number] [facility] HOSPon 01-02-2018 HOSP Patient:Nic Valerio MRN: Height:5' 10.866 (1.8 m) Weight:159 lb 12.8 oz (72.485 kg) Outpatient Medications as of 02/11/18: ferrous sulfate (IRON) 325 mg (65 mg iron) tablet ibuprofen (MOTRIN ORAL) omeprazole (PRILOSEC) 20 mg capsule omeprazole (PRILOSEC) 20 mg capsule ondansetron (ZOFRAN) 8 mg tablet predniSONE (DELTASONE) 50 mg tab predniSONE (DELTASONE) 50 mg tab predniSONE (DELTASONE) 50 mg tab predniSONE (DELTASONE) 50 mg tab prochlorperazine (COMPAZINE) 10 mg tablet Admission/Clinic Administered Medications as of 02/11/18: methotrexate (PF) 12 mg in NaCl (PF) 0.9% 3 mL Problem List: Diffuse large B-cell lymphoma of extranodal site (HCC) [C83.39] Gastroesophageal reflux disease without esophagitis [K21.9] Allergies: Ciprocinonide Ciprofloxacin Hcl Flagyl [Metronidazole Hcl] Date Verified: 02/11/18 Lab Values Lab Value Units Date High Low POTA* 4.2 mmol/L 01/23/2018 5.1 3.7 GERALDO* 29.7 % 01/23/2018 51.0 39.0 Progress Notes ([facility]): Ortiz Slater LPN, NITIN 02/06/2018 10:49 AM Signed Additional intake questions: Has the patient had nausea, vomiting, diarrhea, constipation, fatigue for > 1 week? Fatigue, Yes, Notified Does the patient have a decreased appetite? No Does patient want to see a Reconciliation Accountant? No (yes to any of above refer patient to schedulers for dietitian appointment) ) Does patient have any new or increased numbness or tingling of extremities? No Is patient interested in fertility information? No Does patient need any prescription refills? No Electronically Signed By: NITIN Erickson MD 02/07/2018 3:27 PM Signed [facility] CLINICAL NOTE Department of Hematology and Medical Oncology PATIENT NAME: Nic Valerio NO.: [id number] ATTENDING PHYSICIAN: Edward Mireles MD DATE OF SERVICE: 02/06/2018 LYMPHOMA CLINIC CONSULT REFERRING PHYSICIAN: Clifford Arthur DO STAFF ADDENDUM: Nursing notes reviewed; agree with findings as documented. I personally interviewed and examined Mr. Valerio, and I confirmed and edited the zee elements of the history and examination documented by Dr. Greenwood. Mr. Nic Valerio is a 67 year old man with non-Hodgkin lymphoma who presents for consultation regarding his diagnosis and management, at the request of Dr. Clifford Arthur. My recommendations will be communicated to Dr. Arthur by means of shared medical records. Impression: Mr. Valerio has a history of psoriatic arthritis with joint symptoms but no skin involvement, managed with OTC NSAIDs -- no systemic immunosuppression. From about March 2017 through early August he experienced progressive fatigue, loss of appetite. He noticed abdominal distension and pain, and he went to his local hospital ED. CT abdomen and pelvis showed marked enlargement of the spleen (24 cm) with a large heterogeneous hyperdense mass within the superior pole, irregular thickening of the gastric weinberg, confluent with a left upper quadrant mass extending toward the spleen. He was admitted and underwent EGD, with gastric biopsies showing diffuse large B-cell lymphoma with GCB phenotype, MYC expression unknown, CD10 and CD20 positive, BCL-6 and BCL-2 negative. FISH was negative for MYC or BCL-2 rearrangements, positive for BCL-6 rearrangement. He received R-CHOP x 6 cycles completed in 12/2017, with IT methotrexate prophylaxis x 2 doses to date. Restaging PET/CT 01/15/2018 showed marked improvement with reduction in size of spleen to normal, and a residual area of hypermetabolic activity in the medial portion of the spleen corresponding to a residual area of hypodensity on CT windows. He presents today for discussion of next steps in his management. Past medical history is otherwise notable for gastroesophageal reflux and psoriatic arthritis as noted above; prior surgeries also include Mediport placement. Medications reviewed; allergies reported to metronidazole, ciprofloxacin, and ciprocinonide (?). Family history is notable for his sister having had lymphoma (details unknown), and his mother having an unknown form of cancer from which she when Mr. Valerio was young. On social history, he is and lives with his in [place]. He is a former smoker. No significant alcohol intake. Review of systems is negative for fever, night sweats, or significant weight loss prior to his diagnosis. His symptoms of abdominal discomfort and poor appetite improved rapidly after beginning treatment. 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 He developed a significant spinal headache after his second lumbar puncture. His third LP is scheduled for early next week. ECOG PS = 1, Karnofsky 80%. On examination, he appears well. Vital signs unremarkable. HEENT is nonfocal. Alopecia noted. Neck supple, no lymphadenopathy. Chest clear to auscultation. Heart sounds normal. Abdomen soft, bowel sounds present. No tenderness, distention, mass, or organomegaly. Extremities warm, no edema. No axillary or inguinal adenopathy. No spinal tenderness to palpation. No rash or skin lesions. Sensorimotor function is grossly nonfocal. Labs at baseline in August 2017 showed mild hypoalbuminemia, alkaline phosphatase elevation, LDH elevation at 659 units per liter (normal range 135-225), leukocytosis with neutrophilia, anemia, and thrombocytosis. Recent labs show a normal WBC/ANC, persistent anemia with hemoglobin 9.4 g/dL, and mild thrombocytosis at 422,000. Serum chemistries are unremarkable, and LD is normal at 204. Plan: Stage IV diffuse large B-cell lymphoma, probably with residual disease following R-CHOP ?6 cycles. The residual hypermetabolic uptake in the spleen is suspicious but nonspecific. It could represent inflammatory changes, considering the extent of his disease at baseline. I recommended to Mr. Valerio that he undergo splenectomy to confirm whether he has persistent disease. If this showed no histologic evidence of lymphoma, then observation without further therapy would be appropriate. If persistent disease were confirmed on splenectomy, then I think it would be most appropriate to proceed to second line treatment followed by consolidation with high-dose chemotherapy and autologous stem cell transplantation, recognizing that the splenectomy procedure itself would render him disease-free radiographically. I will discuss this with Dr. Arthur and review Mr. Valerio's case with our team. I appreciate the opportunity to participate in Mr. Valerio's care. Edward Mireles MD cc: Clifford Arthur DO; ; Arthur Gilles Padilla, DO; ; Mai Greenwood MD 02/07/2018 3:27 PM Signed [facility] CLINICAL NOTE Department of Hematology and Medical Oncology ? ? PATIENT NAME: Nic Valerio [facility] NO.: [id number] ATTENDING PHYSICIAN: Edward Mireles MD DATE OF SERVICE: February 06, 2018 ? LYMPHOMA CLINIC CONSULT ? REFERRING PHYSICIAN: Clifford Arthur DO ? HISTORY OF PRESENT ILLNESS: Mr. Valerio is a 67 year old man with history of psoriatic arthritis with joint involvement without skin manifestations, treated with NSAIDS and no history of immunosuppression and idiopathic pericarditis. He was I his usual state of health until March 2017 when he developed a chest cold that persisted and seemed to take longer than expected to resolve. Over the following couple months he began feeling fatigued and requiring frequent naps, which was very uncharacteristic for him. He noticed change in taste and left lower abdominal fullness. Around August he felt a hard mass over the left lower abdomen with pain and he went to his local ED for further evaluation. A CTabdomen and pelvis was done which showed enlargement of the spleen up to 24 cm in longest diameter due to a large heterogeneous hyperdense mass within the superior pole. Also noted was irregular thickened appearance of the weinberg of the stomach, confluent with a left upper quadrant mass extending toward the spleen. EGD with gastric biopsies was obtained on August 30, 2017 as inpatient which showed diffuse large B-cell lymphoma that was positive for CD10, CD20, negative for cyclin D1, BCL2, and BCL6 on IHC. Ki-67 was 70%. H. Pylori negative. MYC staining was attempted but failed due to too few, crushed cells. MYC translocation was negative on FISH. BCL2 was negative on FISH. BCL6 was positive on FISH. Bone marrow biopsy was done and did not show any morphologic evidence of lymphoma. Lumbar puncture showed CSF was negative for malignant cells. PET/CT was done on September 13, 2017 and showed small bilateral pleural effusions, hypermetabolic left superior mediastinal and left posterior infrahilar adenopathy, 18.9 cm x 15.3 cm heterogeneous hypodense left upper quadrant mass with hypermetabolic rim with apparent direct involvement of the left lateral liver, mid and distal pancreas and spleen, peritoneal carcinomatosis, gastrohepatic, periportal, mesenteric, and retroperitoneal/para-a ortic adenopathy. He completed R-CHOP x 6 (August - Nov 2017) and tolerated it well. Says he began to feel some fatigue around cycle 4. There were no treatment delays due to adverse events. He is currently getting IT methotrexate and has completed 2 our of 4 planned doses. 3rd dose was delayed due to severe headaches from CSF leak. He had a repeat PET/CT on January 15, 2018 which showed residual hypermetabolic focus in the medial aspect of the spleen, with SUV 8.5. He reports to feeling well and recovered from systemic chemotherapy. He has joint pain, most notably in his left shoulder, knee, and elbow, which he attributes to flare of his psoriatic arthritis. Denies fevers, chills, night sweats, chest pain, shortness of breath, abd pain, n/v, bowel/bladder dysfunction, edema, rash, worrisome lumps/bumps, or any other complaints. PAST MEDICAL HISTORY Diagnosis Date - Abdominal pain - Anemia - Gastric ulcer - GERD (gastroesophageal reflux disease) with esophagitis - GI bleeding - Port-A-Cath in place - Shoulder pain - Splenomegaly Psoriatic Arthritis Pericarditis PAST SURGICAL HISTORY Procedure Laterality Date - PORTOCATH PLACEMENT Hernia repair ? Current Outpatient Prescriptions on File Prior to Visit: ferrous sulfate (IRON) 325 mg (65 mg iron) tablet Take 1 tablet by mouth daily with breakfast. ibuprofen (MOTRIN ORAL) Take by mouth. omeprazole (PRILOSEC) 20 mg capsule Take 1 capsule by mouth once daily. omeprazole (PRILOSEC) 20 mg capsule Take 1 capsule by mouth once daily. ondansetron (ZOFRAN) 8 mg tablet Take 1 tablet by mouth every 8 hours as needed for Nausea/Vomiting. predniSONE (DELTASONE) 50 mg tab Take 2 tablets by mouth daily with breakfast. predniSONE (DELTASONE) 50 mg tab Take 2 tablets by mouth daily with breakfast. predniSONE (DELTASONE) 50 mg tab Take 2 tablets by mouth daily with breakfast. predniSONE (DELTASONE) 50 mg tab Take 2 tablets by mouth daily with breakfast. prochlorperazine (COMPAZINE) 10 mg tablet Take 1 tablet by mouth every 6 hours as needed. No current facility-administered medications on file prior to visit. ? ALLERGIES Allergen Reactions - Ciprocinonide Other: See Comments Joint pain - Ciprofloxacin Hcl Other: See Comments - Flagyl [Metronidazo* Other: See Comments Joint pain FAMILY HISTORY Problem Relation Age of Onset - Cancer Mother - Heart disease Father Mother - in age 30's with cancer - exact type unknown but suspect lymphoma or ?head/neck involvement 1/2 sister (shared mother) - of lymphoma. She had a daughter that as a child from cancer. No history of autoimmune disease? SOCIAL HISTORY: Cigarettes: 1 ppd smoker EtOH: Socially No illicit drug use Works at [employer] and [employer] ? REVIEW OF SYSTEMS: As described above. ? BP 138/80 Pulse 80 Temp 36.8 ?C (98.2 ?F) (Oral) Resp 20 Ht 180 cm (5' 10.87 ) Wt 72.5 kg (159 lb 12.8 oz) SpO2 100% BMI 22.37 kg/m? ECO- Restricted in physically strenuous activity. Carries out light duty. General: Well developed, well nourished man. In no acute distress HEENT: Normocephalic, atraumatic. Pupils equal and reactive to light, extraocular muscles in tact, anicteric sclera, moist mucus membranes, no thrush, ulcers. Oropharynx clear Neck: Supple, no cervical lymphadenopathy, no masses CVS: (+)S1, S2, regular rate and rhythm. No murmurs or additional heart sounds Resp: Clear to auscultation bilaterally, no wheezes, rales, rhonchi Abd: Soft, non-tender, non-distended, normoactive bowel sounds, no hepatosplenomegaly. No other masses MSK: Grossly intact ROM. No edema. No spinal tenderness on palpation Lymph: Grossly no cervical, axillary, inguinal lymphadenopathy Skin: Warm, dry, intact. No rashes or suspicious lesions. ? DIAGNOSTIC STUDIES: As described above. ? IMPRESSION AND PLAN: Mr. Valerio is a very pleasant 67 year old man with stage MICKEY diffuse large B-cell lymphoma status post R-CHOP x 6 cycles. Repeat PET/CT after initial chemotherapy shows residual uptake in the spleen, concerning for residual disease. We discussed with Mr. Valerio and his that these findings are suspicious though they are not specific. Recommend splenectomy to confirm with tissue diagnosis. If pathology is consistent with residual disease he understands there will need to be further discussion about salvage chemotherapy and hematopoietic stem cell transplantation. If there is no confirmation of disease then he will need close follow up. We recommend he complete 4 planned doses of IT methotrexate. We will plan to discuss his case at our next tumor board and update him if these recommendations should change. Case seen and discussed with staff, Dr. Mireles. Mai Greenwood MD Fellow, Hematology and Medical Oncology Pager: [phone] Progress Notes ([facility] Dee Jacobsen Sec 01/23/2018 10:23 AM Signed Sent Email to Cancer Answer Line CC'd you in email for patient to be scheduled. [facility] ADMIN RABIES INSPECTOR CHEMOon 01-01-2018 ADMIN RABIES INSPECTOR CHEMO * * *Final Report* * * DATE OF EXAM: Jan 01 2018 11:44AM [facility] 0361 - ADMIN RABIES INSPECTOR CHEMO / PROCEDURE REASON: DLBCL * * * * Physician Interpretation * * * * PROCEDURE: Diagnostic Lumbar Puncture Under Fluoroscopic Guidance with Intrathecal Administration of Medication HISTORY: The patient is a 67 years year old Male who presented with lymphoma for IT chemotherapy. Consent: The risks, benefits, treatment options, potential complications, equipment, and personnel to be involved were discussed (including the risks of radiation exposure, contrast and anesthesia administration) with the patient. All of his questions were answered and consent was obtained. The patient indicated he was willing to proceed. General: A) Medication Reconciliation: The patient's medications and allergies were reviewed in the electronic medical record and reconciled to the proposed procedure/treatment. B) Pre-Procedure Medications: Medication #1: None C) Positioning: The patient was placed Prone on the Fluroroscopy table. D) The Lumbar dorsal soft tissues. were then sterile prepped and draped. E) Time Out: A time out was performed immediately prior to procedure start with the nursing, anesthesia and interventional team, correctly identifying the name, medical record number, procedure, anatomy (including marking of site and side), patient position, procedure consent form, relevant diagnostic and radiology test results, antibiotic administration, safety precautions, and procedure-specific equipment needs. Timeout Time and Procedure Start Time: 1130 F) Anesthesia Type: administration of local anesthesia. Local anesthesia: 1 % lidocaine Estimated Infiltration: 5cc G) Anesthesia Was Administered For A Total Of None. H) Patient Monitoring: Not applicable. TECHNIQUE/RESULT: A) Access Site: 20 gauge spinal needle from a paramedian approach at the L4-L5 level. B) Counting reference: Lumbosacral junction. For the purposes of this report, L4-5 is considered the level of the iliac crest. C) Procedure Details: Using sterile procedure, local anesthesia was introduced to the skin and subcutaneous tissues as outlined above. Medication Injection LP Details: Under fluoroscopic guidance, the needle was advanced into the lumbar subarachnoid space with location confirmed by CSF return and lateral x-ray. The syringe of methotrexate was inspected, and the attached label was cross checked against the patient's name. A total of 12 mg methotrexate was then slowly injected by intermittently mixing the medication with the patient's CSF during injection. The patient reported no adverse symptoms during injection. Diagnostic Volume: 2cc of CSF was withdrawn and forwarded to the lab for analysis. CSF Color: Clear D) Estimated Blood Loss: 0 mls E) Type of Removed Specimens: CSF F) Number of Specimens: 2 cc clear CSF Fluoroscopic Radiation Summary: Fluoroscopic guidance was performed in conjunction with the shampoo technician. Plane A, Air Kerma: 1.0 mGy Dose Area Product (DAP): 94.3 mGy*cm2 Fluoro time: 0:00 min:sec Post-Procedure: Conclusion: The patient was transferred to the Radiology Recovery Room in stable condition and observed for approximately 60 minutes. Immediate Complications: None. Delayed Complications (will be reported as an addendum to the original report): None apparent at this time Procedure End Time and Sign Out Time: 1144 IMPRESSION: Technically successful intrathecal injection of chemotherapy Attending Physician: LEENA Grinder And Honer Operator Automatic: Jake Carter APRN, CNP The procedure was performed by the: the assistant finance director, and the attending radiologist was not present. The attending radiologist performed the following procedural activities: LEENA Merchandising Execution Associate: LAUREN Transcribe Date/Time: Jan 01 2018 11:52A Dictated by : JAKE CARTER CNP This examination was interpreted and the report reviewed and electronically signed by: JAKE CARTER CNP on Jan 01 2018 11:56AM EST [id number] [facility] BRIEF OP NOTon 01-01-2018 BRIEF OP NOT HNO ID: [id number] Author: Jake Carter Service: Interventional Radiology Author Type: Nurse Practitioner Type: Brief Op Note Filed: 01/01/2018 11:50 AM Note Text: BRIEF OPERATIVE / PROCEDURE NOTE LOG ID: [id number] SURGERY/PROCEDURE DATE: 01/01/2018 INCISION/PROCEDURE START TIME: 11:30 AM INCISION CLOSE/PROCEDURE END TIME: 1144 SURGEON(S)/PROCEDURALI ST(S) AND BETTING CLERKS(S): Jake Carter APRN.CNP SURGERY/PROCEDURE(S): fluoroscopic guided lumbar puncture with intrathecal chemotherapy injection. ANESTHESIA: Local FINDINGS: L4 L5 Accessed. 2 cc clear CSF withdrawn. 12 mg Methotrexate injected intrathecally. ESTIMATED BLOOD LOSS: 0 ml SPECIMENS: as above COMPLICATIONS: None PRE-OP/PRE-PROCEDURE DIAGNOSIS: DLBCL POST-OP/POST-PROCEDURE DIAGNOSIS: * No post-op diagnosis entered * same SIGNATURE: Jake Carter APRN.CNP PATIENT NAME: Nic Valerio DATE: January 01, 2018 TIME: 11:47 AM PAGER/CONTACT #: [facility] HISTORY PHYSICALon 8 HISTORY PHYSICAL HNO ID: [id number] Author: Jake Carter Service: Interventional Radiology Author Type: Nurse Practitioner Type: HANDP Filed: 01/01/2018 11:21 AM Note Text: UPDATED HISTORY AND PHYSICAL EXAMINATION SERVICE DATE: 01/01/2018 SERVICE TIME: 11:21 AM PHYSICAL EXAM MUST BE COMPLETED ON ADMISSION PROCEDURE SCHEDULED: Procedure(s): ADMINISTRATION CHEMOTHERAPY INTO RABIES INSPECTOR W/ SPINAL PUNCTURE (Pending) RADIOLOGY ORDER PLACED: The History and Physical (completed in the past 30 days) has been reviewed and the patient has been examined. The contents accurately reflect the patient's condition with the following additions or revisions since the HANDP was completed. Examination indicates no changes. This HANDP can be found in the Electronic Medical Record dated 12/27/2017. SIGNATURE: Jake Carter APRN.CNP PATIENT NAME: Nic Valerio DATE: January 01, 2018 TIME: 11:21 AM PAGER: [facility] NURSING PROGon 01-01-2018 Protein mass conc HNO ID: [id number] Author: Rianna WeberRn) MERCEDES Juarez Service: Radiology Author Type: Registered Nurse Type: Nursing Progress Note Filed: 01/01/2018 1:11 PM Note Text: Patient was observed in CT holding area for one hour after intrathecal chemotherapy injection. Patient laid flat during this time. After observation, injection site was observed. Dressing was clean, dry and intact with no complications noted. Patient denied headache, dizziness or pain. He was discharged home with his . Rianna Juarez RN [facility] PT EDon 01-01-2018 PT ED HNO ID: [id number] Author: Rianna (Rn) MERCEDES Juarez Service: Radiology Author Type: Registered Nurse Type: Patient Education Filed: 01/01/2018 1:08 PM Note Text: PATIENT EDUCATION TOPIC: PROCEDURE / SURGERY: Procedure/Surgery: Intrathecal chemotherapy injection PATIENT NAME: Nic Valerio PATIENT LOCATION: INTERVENTIONAL RADIOL* READINESS TO LEARN COGNITIVE ABILITY: Alert and oriented MOTIVATION TO LEARN: Eager FAMILY SUPPORT: High - Very involved in pt care INSTRUCTION PROVIDED TO: Patient and family member PATIENT LEARNS BEST BY: Individual Instruction Written Instruction - Hand-outs Verbal Instruction Multiple Methods FACTORS AFFECTING LEARNING: None PHYSICAL LIMITATIONS AFFECTING LEARNING: Sensory Deficit Hearing: Hard of Hearing LEARNING RESPONSE DIAGNOSIS: ADULT: Diffuse large B-cell lymphoma PATIENT/FAMILY RESPONSE: Verbalizes understanding of: POST-PROCEDURE INSTRUCTIONS-Correct actions to take to reduce post procedure complications PRE-PROCEDURE INSTRUCTIONS-Correct action to take to follow pre-procedure instructions METHOD OF INSTRUCTION: Individual instruction Written instruction - handouts Verbal instruction FOLLOW-UP PLAN: Follow-up with Primary Care INSTRUCTIONAL AIDS USED: NA SUPPLEMENTAL MATERIAL PROVIDED TO PATIENT: Homegoing instructions after a lumbar puncture REFERRAL (RECOMMENDATION): None Electronically Signed By: Rianna Juarez RN [facility] HOSPon 12-25-2017 HOSP Patient:Nic Valerio MRN: Height:5' 10.236 (1.784 m) Weight:157 lb 3.2 oz (71.305 kg) Outpatient Medications as of 01/01/18: predniSONE (DELTASONE) 50 mg tab ferrous sulfate (IRON) 325 mg (65 mg iron) tablet predniSONE (DELTASONE) 50 mg tab predniSONE (DELTASONE) 50 mg tab ibuprofen (MOTRIN ORAL) prochlorperazine (COMPAZINE) 10 mg tablet ondansetron (ZOFRAN) 8 mg tablet omeprazole (PRILOSEC) 20 mg capsule Admission/Clinic Administered Medications as of 01/01/18: methotrexate (PF) 12 mg in NaCl (PF) 0.9% 3 mL Problem List: 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 Patient was APV's and need orders signed or they will have to send him home. Patient is to see Dr. Arthur tomorrow but is not in the office today. Orders are under Oncology Reg. 2. Please review and sign. Naima Conner RN Progress Notes ([facility]): Torin Domingo MD 12/27/2017 5:41 AM Signed CHIEF COMPLAINT: DLBCL- stage 4 (stomach involvement) HISTORY OF PRESENT ILLNESS: Nic Valerio is a 67 year old male with diagnosis of DLBCL 08/2017 : biopsy of upper stomach notes aggressive b-cell lymphoma, IHC notes BCL-2 expression, c-myc not initially completed though pathologist felt it was positive : PET notes bulky disease : For in situ hybridization notes BCL 6 rearrangement however negative for MYC and BCL2 : Evaluation of cerebrospinal fluid did not identify involvement, bone marrow biopsy likewise was negative for involvement by lymphoma : echocardiogram 08/2018 EF 55% : discussed role of intrathecal prophyllaxis, patient to consider the matter further : start CHOP 09/18 (rituxan held at first given concern for TLS) 09/2017 : cycle two of therapy given, abdominal bloating decreased 10/2017 : completes cycle three of therapy : completes cycle four of therapy 11/2017 : agrees to prophylactic IT MTX, receives first of four rounds of IT MTX, will complete four treatments : will continue IT MTX even after RCHOP (6 cycles) completed : completes fifth cycle of RCHOP-scheduled for next cycle as well as treatment 2 of IT MTX Patient denies new complaints at this time. PAST MEDICAL HISTORY Diagnosis Date - Abdominal pain - Anemia - Gastric ulcer - GERD (gastroesophageal reflux disease) with esophagitis - GI bleeding - Port-A-Cath in place - Shoulder pain - Splenomegaly PAST SURGICAL HISTORY Procedure Laterality Date - PORTOCATH PLACEMENT Review of Social History includes: Social History Marital status: Spouse name: Years of education: Number of children: Social History Main Topics Smoking status: Former Smoker Packs/day: 0.00 Years: 0.00 Smokeless tobacco: Never Used Alcohol use: Yes Drug use: No FAMILY HISTORY Problem Relation Age of Onset - Cancer Mother - Heart disease Father Unknown malignancy - mother Sister had lymphoma Current Outpatient Prescriptions: ibuprofen (MOTRIN ORAL) Take by mouth. prochlorperazine (COMPAZINE) 10 mg tablet Take 1 tablet by mouth every 6 hours as needed. ondansetron (ZOFRAN) 8 mg tablet Take 1 tablet by mouth every 8 hours as needed for Nausea/Vomiting. omeprazole (PRILOSEC) 20 mg capsule Take 1 capsule by mouth once daily. predniSONE (DELTASONE) 50 mg tab Take 2 tablets by mouth daily with breakfast. (Patient not taking: Reported on 12/26/2017 ) ferrous sulfate (IRON) 325 mg (65 mg iron) tablet Take 1 tablet by mouth daily with breakfast. (Patient not taking: Reported on 12/26/2017 ) predniSONE (DELTASONE) 50 mg tab Take 2 tablets by mouth daily with breakfast. (Patient not taking: Reported on 12/26/2017 ) predniSONE (DELTASONE) 50 mg tab Take 2 tablets by mouth daily with breakfast. (Patient not taking: Reported on 12/26/2017 ) No current facility-administered medications for this visit. REVIEW OF SYSTEMS: Constitutional: Fatigue after therapy but otherwise does well, no recent fevers GI: Bloating resolved, no diarrhea or constipation, no nausea or emesis NEURO: Denies neuropathy or focal deficits Problem: No cough no hemoptysis, no dyspnea Extremities: No edema, no erythema Lymph: No new lumps or bumps reported Psych: No anxiety or depression HEENT: No sores no thrush Lymph: No new adenopathy PHYSICAL EXAMINATION: BP 127/71 Pulse 90 Temp 36.6 ?C (97.8 ?F) (Oral) Resp 18 Ht 178.4 cm (5' 10.24 ) Wt 71.3 kg (157 lb 3.2 oz) SpO2 97% BMI 22.40 kg/m? General appearance: laying down in no distress Cardiovascular: Regular rate rhythm normal S1-S2 Pulm: Clear to auscultation of crackles no wheezes Neuro: Cranial nerves II through XII grossly intact normal gait Abdomen: Splenomegaly resolved Lymph: No cervical symmetric axilla adenopathy Psych: Normal mood and affect Extremities: No edema Pathology Specimen #: [id number] Submitting Physician: TORIN DOMINGO MD Bone Marrow 09/22/17 FINAL DIAGNOSIS BONE MARROW, ASPIRATE SMEARS, CORE BIOPSY, AND CLOT SECTION WITH TOUCH IMPRINT AND PERIPHERAL BLOOD SMEAR (A-C): - ?NORMOCELLULAR BONE MARROW (40%) WITH MEGAKARYOCYTIC HYPERPLASIA. - ?NORMOCYTIC ANEMIA WITH NEUTROPHILIC LEUKOCYTOSIS AND THROMBOCYTOSIS. - ?NO MORPHOLOGIC EVIDENCE OF LYMPHOMA. - ?SEE COMMENT. RADIOLOGY: PET scan 09/13/17 IMPRESSION: SMALL BILATERAL PLEURAL EFFUSIONS AND BIBASILAR ATELECTASIS/INFILTRATE (LEFT GREATER THAN RIGHT), NEW SINCE 08/29/2017. HYPERMETABOLIC LEFT SUPERIOR MEDIASTINAL AND LEFT POSTERIOR INFRAHILAR ADENOPATHY. 18.9 X 15.3 CM HETEROGENEOUS HYPODENSE LEFT UPPER QUADRANT MASS WITH HYPERMETABOLIC RIM, COMPATIBLE WITH RECENTLY DIAGNOSED HYPERMETABOLIC GASTRIC LYMPHOMA. APPARENT DIRECT INVOLVEMENT OF THE LEFT LATERAL LIVER, MID AND DISTAL PANCREAS AND SPLEEN; PERITONEAL CARCINOMATOSIS, GASTROHEPATIC, PERIPORTAL, MESENTERIC AND RETROPERITONEAL/ PARA-AORTIC ADENOPATHY DESCRIBED AND MILD PERISPLENIC ASCITES, *SUV: The SUV is for reference purposes. ?Due to technical factors and uncontrolled variables, caution is advised when using SUV to differentiate malignant from nonmalignant process, or to assess follow up/treatment response. LABS: Results for NIC VALERIO ( ) as of 12/27/2017 05:26 Ref. Range 12/26/2017 08:55 WBC Latest Ref Range: 3.70 - 11.00 k/uL 1.39 (L) RBC Latest Ref Range: 4.20 - 6.00 m/uL 3.44 (L) Hemoglobin Latest Ref Range: 13.0 - 17.0 g/dL 8.9 (L) Hematocrit Latest Ref Range: 39.0 - 51.0 % 28.2 (L) Platelet Count Latest Ref Range: 150 - 400 k/uL 219 ASSESSMENT/PLAN: Nic Valerio is a 67 year old male with findings consistent with aggressive large B-cell lymphoma. I discussed again with , he noted that this is consistent with DLBCL. FISH showed positive for BCL6 and negative for MYC and BCL2 which means he is NEGATIVE for double HIT status.Labs otherwise as noted, bone marrow did not identify involvement. PET showed extensive abdominal disease, with left infrahilar and mediastinal involvement. Plan to start CHOP today with addition of Rituxan today. ECHO reviewed. Started on CHOP with Rituxan held for one week to minimize risk of tumor lysis. Completed cycle 5. Concerning findings at time of diagnosis included elevated LDH, age over 60, albumin less than 3.5, extranodal disease involvement in the abdomen though withher direct extension, retroperitoneal disease, stage III disease. Reviewed findings and startedCNS prophylaxis. Patient to receive four cycles of therapy, this will resume after RCHOP is complete. 1. Aggressive B-cell lymphoma: -Resume RCHOP -resume MTX -IT MTX prior to next cycle, target four treatments 2. Microcytic anemia -improving, may consider further evaluation after treatment for DLBCL completed -microcytosis resolved but anemia present- may reflect treatment affect -check B12 level to assess for possible mixed picture 3. Neutropenia -due to treatment -advised of symptoms that warrant earlier evaluation -patient to contact the office with questions or concerns Normal [facility] ADMIN RABIES INSPECTOR CHEMOon 12-11-2017 ADMIN RABIES INSPECTOR CHEMO * * *Final Report* * * DATE OF EXAM: Dec 11 2017 1:27PM [facility] 0361 - ADMIN RABIES INSPECTOR CHEMO / PROCEDURE REASON: diffuse large b cell lymphoma * * * * Physician Interpretation * * * * Procedure: Diagnostic Lumbar puncture with intrathecal methotrexate injection Indication: The patient is a 67 years year old Male who presented with large B-cell lymphoma with RABIES INSPECTOR involvement. Consent: The risks, benefits, treatment options, potential complications and personnel to be involved were discussed (including the risks of radiation exposure, contrast and anesthesia administration) with the patient. All questions were answered and consent was obtained. The patient indicated willingness to proceed. General: A) Medication Reconciliation: The patient's medications and allergies were reviewed in the electronic medical record and reconciled to the proposed procedure/treatment. B) Pre-Procedure Medications: Medication #1: None C) Positioning: The patient was placed prone on the Fluoroscopy table. D) The Lumbar dorsal soft tissues. were then sterile prepped and draped. E) Time Out: A time out was performed immediately prior to procedure start with the nursing, anesthesia and interventional team, correctly identifying the name, medical record number, procedure, anatomy (including marking of site and side), patient position, procedure consent form, relevant diagnostic and radiology test results, antibiotic administration, safety precautions, and procedure-specific equipment needs. F) Anesthesia Type: administration of local anesthesia. Local Anesthesia: 2% Buffered Lidocaine , 5 cc G) Anesthesia Was Administered For A Total Of None. H) Patient Monitoring: Not applicable. Procedure: A) Access Site: 22 gauge spinal needle From A Left Paramedian Approach At The L4-L5 Level. B) Procedure Details: The subarachnoid space was accessed with a 20-gauge spinal needle. 3 cc of 0.9% normal saline and 12 mg of methotrexate was slowly injected into the subarachnoid space. C) Estimated Blood Loss: 0 mls D) Type of Removed Specimens: CSF E) Number of Specimens: 1 Therapeutic Volume: 10 cc clear CSF was withdrawn in a sterile fashion from the subarachnoid space and forwarded to the laboratory for analysis. CSF Color: Clear Contrast: None contrast: ml of Fluoroscopic Radiation Summary: Plane A, Air Kerma: 5.0 mGy Dose Area Product (DAP): 320.0 mGy*cm2 Fluoro time: 0:24 min:sec RESULTS: Post-Procedure: A) Conclusion: The patient was transferred to the Radiology Recovery Room in stable condition and observed for approximately 60 minutes prior to discharge. B) Significant Patient Complication: None If other, explain: C) Complications During The Procedure: None if other, explain: IMPRESSION: Status post successful fluoroscopic guided intrathecal methotrexate injection Staff Physician: Brittaney Eli MD was present for the entire procedure. Grinder And Honer Operator Automatic: None Merchandising Execution Associate: PSCB Transcribe Date/Time: Dec 11 2017 2:20P Dictated by : BRITTANEY ELI MD This examination was interpreted and the report reviewed and electronically signed by: BRITTANEY ELI MD on Dec 11 2017 2:24PM EST [id number] Normal [facility] CYTOLOGYon 12-11-2017 CYTOLOGY Specimen originated from [facility] Specimen #: [id number] Submitting Physician: Brittaney Eli M.D. SPECIMEN SUBMITTED A: CEREBROSPINAL FLUID _ FINAL DIAGNOSIS A. CEREBROSPINAL FLUID Negative for malignant cells. Mai Ulloa M.D. (Electronic Signature) _ CLINICAL DATA dlbcl GROSS DESCRIPTION 7.25 ml clear and colorless fluid. 1 ThinPrep STAINS A: CEREBROSPINAL FLUID THIN PREP Non-Beer Maker Date of Report: 12/12/2017 Date of Procedure: 12/11/2017 Date of Receipt: 12/12/2017 Submitted by: Brittaney Eli M.D. Location: [facility] Diagnostic interpretation performed at [facility], [address] [place] [address]. [facility] Comment on above: Performed By: #### [facility] #### [place] [address] NURSING PROGon 12-11-2017 Protein mass conc HNO ID: [id number] Author: Lili WeberRn) MERCEDES Carranza Service: Radiology Author Type: Registered Nurse Type: Nursing Progress Note Filed: 12/11/2017 2:35 PM Note Text: RADIOLOGY SERVICE PROGRESS NOTE DATE OF SERVICE: December 11, 2017 TIME OF SERVICE: 1434 EVENT: Observed pt for one hour post L.P.with chemo. No c/o voiced. Bandaid remains DANDI. D/C home with instructions and . ADDITIONAL DATA: N/A SIGNATURE: Lili Carranza RN PATIENT NAME: Nic Valerio DATE: December 11, 2017 TIME: 2:34 PM PAGER/CONTACT #: [facility] Protein mass conc HNO ID: [id number] Author: Tracey WebreRn) MERCEDES Kilpatrick Service: Radiology Author Type: Registered Nurse Type: Nursing Progress Note Filed: 12/11/2017 1:18 PM Note Text: AMBULATORY PATIENT EDUCATION TOPIC: Survival Skills: SURVIVAL SKILLS: Intrathecal Chemo Injection with LP READINESS TO LEARN COGNITIVE ABILITY: Alert and oriented MOTIVATION TO LEARN: Interested FAMILY SUPPORT: Unable to assess - Family not present INSTRUCTION PROVIDED TO: Patient PATIENT LEARNS BEST BY: Written Instruction - Hand-outs Verbal Instruction FACTORS AFFECTING LEARNING: None PHYSICAL LIMITATIONS AFFECTING LEARNING: None LEARNING RESPONSE DIAGNOSIS: Lymphoma METHOD OF INSTRUCTION: Written instruction - handouts Verbal instruction PATIENT / FAMILY RESPONSE: Verbalizes understanding of: PRE-PROCEDURE INSTRUCTIONS-Correct action to take to follow pre-procedure instructions FOLLOW-UP PLAN: Patient instructed to call with any further issues Follow-up with Primary Care SUPPLEMENTAL MATERIAL: None REFERRAL (RECOMMENDATION): None Electronically Signed By: Tracey Kilpatrick RN In Department: [facility] INTERVENTIONAL RADIOLOGY [facility] HOSP 11-21-2017 HOSP Patient:Nic Valerio MRN: Height:5' 10.236 (1.784 m) Weight:155 lb (70.308 kg) Outpatient Medications as of 12/11/17: ferrous sulfate (IRON) 325 mg (65 mg iron) tablet predniSONE (DELTASONE) 50 mg tab predniSONE (DELTASONE) 50 mg tab ibuprofen (MOTRIN ORAL) prochlorperazine (COMPAZINE) 10 mg tablet ondansetron (ZOFRAN) 8 mg tablet omeprazole (PRILOSEC) 20 mg capsule Admission/Clinic Administered Medications as of 12/11/17: methotrexate (PF) 12 mg in NaCl (PF) 0.9% 3 mL Problem List: Diffuse large B-cell lymphoma of extranodal site (HCC) [C83.39] Allergies: Ciprocinonide Flagyl [Metronidazole Hcl] Date Verified: 12/11/17 Lab Values Lab Value Units Date High Low POTA* 4.0 mmol/L 11/28/2017 5.1 3.7 GERALDO* 26.4 % 11/28/2017 51.0 39.0 Progress Notes ([facility]): Breenice Molina, RN, RN 12/06/2017 7:59 AM Signed Good Morning! Mr. Valerio is scheduled for his next HOP 12/12. Could you add the Hycela and sign his orders? Thanks MERCEDES Reyes, RN, RN 12/06/2017 3:33 PM Signed Done per APV. Berenice Molina RN Progress Notes ([facility]): Torin Domingo MD 11/28/2017 9:36 AM Signed CHIEF COMPLAINT: DLBCL- stage 4 (stomach involvement) HISTORY OF PRESENT ILLNESS: Nic Valerio is a 67 year old male with diagnosis of DLBCL 08/2017 : biopsy of upper stomach notes aggressive b-cell lymphoma, IHC notes BCL-2 expression, c-myc not initially completed though pathologist felt it was positive : PET notes bulky disease : For in situ hybridization notes BCL 6 rearrangement however negative for MYC and BCL2 : Evaluation of cerebrospinal fluid did not identify involvement, bone marrow biopsy likewise was negative for involvement by lymphoma : echocardiogram 08/2018 EF 55% : start CHOP 09/18 (rituxan held at first given concern for TLS) Patient here in follow-up. Tolerated RCHOP well. Had mild microcytic anemia but is improving. PAST MEDICAL HISTORY Diagnosis Date - Abdominal pain - Anemia - Gastric ulcer - GERD (gastroesophageal reflux disease) with esophagitis - GI bleeding - Port-A-Cath in place - Shoulder pain - Splenomegaly PAST SURGICAL HISTORY Procedure Laterality Date - PORTOCATH PLACEMENT Review of Social History includes: Social History Marital status: Spouse name: Years of education: Number of children: Social History Main Topics Smoking status: Former Smoker Packs/day: 0.00 Years: 0.00 Smokeless tobacco: Never Used Alcohol use: Yes Drug use: No FAMILY HISTORY Problem Relation Age of Onset - Cancer Mother - Heart disease Father Unknown malignancy - mother Sister had lymphoma Current Outpatient Prescriptions: ferrous sulfate (IRON) 325 mg (65 mg iron) tablet Take 1 tablet by mouth daily with breakfast. predniSONE (DELTASONE) 50 mg tab Take 2 tablets by mouth daily with breakfast. predniSONE (DELTASONE) 50 mg tab Take 2 tablets by mouth daily with breakfast. ibuprofen (MOTRIN ORAL) Take by mouth. prochlorperazine (COMPAZINE) 10 mg tablet Take 1 tablet by mouth every 6 hours as needed. ondansetron (ZOFRAN) 8 mg tablet Take 1 tablet by mouth every 8 hours as needed for Nausea/Vomiting. omeprazole (PRILOSEC) 20 mg capsule Take 1 capsule by mouth once daily. No current facility-administered medications for this visit. REVIEW OF SYSTEMS: Constitutional: Fatigue after therapy but otherwise does well GI: Bloating resolved, no diarrhea or constipation NEURO: Denies neuropathy or focal deficits Problem: No cough no hemoptysis, no dyspnea Extremities: No edema, no erythema Lymph: No new lumps or bumps reported Psych: No anxiety or depression HEENT: No sores no thrush Lymph: No new adenopathy PHYSICAL EXAMINATION: BP 133/54 Pulse 84 Temp 36.3 ?C (97.4 ?F) (Oral) Resp 18 Ht 178.4 cm (5' 10.24 ) Wt 70.3 kg (155 lb) SpO2 99% BMI 22.09 kg/m? General appearance: laying down in no distress Cardiovascular: Regular rate rhythm normal S1-S2 Pulm: Clear to auscultation of crackles no wheezes Neuro: Cranial nerves II through XII grossly intact normal gait Abdomen: Splenomegaly resolved Lymph: No cervical symmetric axilla adenopathy Psych: Normal mood and affect Extremities: No edema Pathology Specimen #: [id number] Submitting Physician: TORIN DOMINGO MD FINAL DIAGNOSIS BONE MARROW, ASPIRATE SMEARS, CORE BIOPSY, AND CLOT SECTION WITH TOUCH IMPRINT AND PERIPHERAL BLOOD SMEAR (A-C): - ?NORMOCELLULAR BONE MARROW (40%) WITH MEGAKARYOCYTIC HYPERPLASIA. - ?NORMOCYTIC ANEMIA WITH NEUTROPHILIC LEUKOCYTOSIS AND THROMBOCYTOSIS. - ?NO MORPHOLOGIC EVIDENCE OF LYMPHOMA. - ?SEE COMMENT. RADIOLOGY: PET scan 09/13/17 IMPRESSION: SMALL BILATERAL PLEURAL EFFUSIONS AND BIBASILAR ATELECTASIS/INFILTRATE (LEFT GREATER THAN RIGHT), NEW SINCE 08/29/2017. HYPERMETABOLIC LEFT SUPERIOR MEDIASTINAL AND LEFT POSTERIOR INFRAHILAR ADENOPATHY. 18.9 X 15.3 CM HETEROGENEOUS HYPODENSE LEFT UPPER QUADRANT MASS WITH HYPERMETABOLIC RIM, COMPATIBLE WITH RECENTLY DIAGNOSED HYPERMETABOLIC GASTRIC LYMPHOMA. APPARENT DIRECT INVOLVEMENT OF THE LEFT LATERAL LIVER, MID AND DISTAL PANCREAS AND SPLEEN; PERITONEAL CARCINOMATOSIS, GASTROHEPATIC, PERIPORTAL, MESENTERIC AND RETROPERITONEAL/ PARA-AORTIC ADENOPATHY DESCRIBED AND MILD PERISPLENIC ASCITES, *SUV: The SUV is for reference purposes. ?Due to technical factors and uncontrolled variables, caution is advised when using SUV to differentiate malignant from nonmalignant process, or to assess follow up/treatment response. LABS: Results for NIC VALERIO ( ) as of 11/28/2017 09:35 Ref. Range 11/21/2017 09:47 11/28/2017 08:35 11/28/2017 08:36 Ferritin Latest Ref Range: 30.3 - 565.7 ng/mL 105.6 Iron Latest Ref Range: 41 - 186 ug/dL 42 TIBC Latest Ref Range: 232 - 386 ug/dL 327 Transferrin Saturation Latest Ref Range: 15 - 57 % 13 (L) Hematocrit Latest Ref Range: 39.0 - 51.0 % 26.4 (L) WBC Latest Ref Range: 3.70 - 11.00 k/uL 5.94 RBC Latest Ref Range: 4.20 - 6.00 m/uL 3.36 (L) Hemoglobin Latest Ref Range: 13.0 - 17.0 g/dL 9.2 (L) Platelet Count Latest Ref Range: 150 - 400 k/uL 302 MCV Latest Ref Range: 80.0 - 100.0 fL 78.6 (L) ASSESSMENT/PLAN: Nic Valerio is a 67 year old male with findings consistent with aggressive large B-cell lymphoma. I discussed again with , he noted that this is consistent with DLBCL. FISH showed positive for BCL6 and negative for MYC and BCL2 which means he is NEGATIVE for double HIT status.Labs otherwise as noted, bone marrow did not identify involvement. PET showed extensive abdominal disease, with left infrahilar and mediastinal involvement. Plan to start CHOP today with addition of Rituxan today. ECHO reviewed. Started on CHOP with Rituxan held for one week to minimize risk of tumor lysis. Completed cycle 3. Concerning findings at time of diagnosis included elevated LDH, age over 60, albumin less than 3.5, extranodal disease involvement in the abdomen though withher direct extension, retroperitoneal disease, stage III disease. Reviewed findings and indications to consider RABIES INSPECTOR prophylaxis. Patient will agree to RABIES INSPECTOR prophylaxis. 1. Aggressive B-cell lymphoma: -Resume RCHOP -patient agreed to IT MTX -IT MTX prior to next cycle, target four treatments 2. Microcytic anemia -improving, may consider further evaluation after treatment for DLBCL completed Normal [facility] Vital Signs Date Time Vital Sign Value Performing Clinician Facility 05-14-2023 10:55-0400 Body weight 68.22 kg Jessica Pereyra MD Work Phone: [facility] 05-14-2023 10:55-0400 Diastolic blood pressure 59 mm[Hg] Samemary Pereyra MD Work Phone: [facility] 05-14-2023 10:55-0400 Heart rate 70 /min Samemary Pereyra MD Work Phone: [facility] 05-14-2023 10:55-0400 Respiratory rate 18 /min Samer Jorge DUBOSE Work Phone: [facility] 05-14-2023 10:55-0400 SaO2% (BldA) [Mass fraction] 98 % Samer Jorge DUBOSE Work Phone: [facility] 05-14-2023 10:55-0400 Systolic blood pressure 145 mm[Hg] Samer Jorge DUBOSE Work Phone: [facility] 04-26-2023 12:55-0500 Body height 180.3 cm Klaus Murguia NATIONAL ACCOUNT DIRECTOR-HOUSE NURSE Work Phone: [facility] 04-26-2023 12:55-0500 Body mass index (BMI) [Ratio] 20.52 kg/m2 Klaus Murguia NATIONAL ACCOUNT DIRECTOR-HOUSE NURSE Work Phone: [facility] 04-26-2023 12:55-0500 Body temperature 97.5 [degF] Klaus Murguia NATIONAL ACCOUNT DIRECTOR-HOUSE NURSE Work Phone: [email or web address] 04-26-2023 12:55-0500 Body weight 66.72 kg Klaus Murguia NATIONAL ACCOUNT DIRECTOR-HOUSE NURSE Work Phone: [facility] 04-26-2023 12:55-0500 Diastolic blood pressure 60 mm[Hg] Klaus Murguia NATIONAL ACCOUNT DIRECTOR-HOUSE NURSE Work Phone: [facility] 04-26-2023 12:55-0500 Heart rate 67 /min Klaus Murguia NATIONAL ACCOUNT DIRECTOR-HOUSE NURSE Work Phone: [email or web address] 04-26-2023 12:55-0500 Respiratory rate 20 /min Klaus Murguia NATIONAL ACCOUNT DIRECTOR-HOUSE NURSE Work Phone: [email or web address] 04-26-2023 12:55-0500 SaO2% (BldA) [Mass fraction] 97 % Klaus GOODEN Work Phone: [email or web address] 04-26-2023 12:55-0500 Systolic blood pressure 140 mm[Hg] Klaus Murguia APRN-MARK Work Phone: [email or web address] 03-27-2023 08:34-0500 Body height 180.3 cm Klaus Murguia APRN-MARK Work Phone: [email or web address] 03-27-2023 08:34-0500 Body mass index (BMI) [Ratio] 21.14 kg/m2 Klaus Murguia APRN-MARK Work Phone: [email or web address] 03-27-2023 08:34-0500 Body temperature 97.81 [degF] Klaus Murguia APRN-MARK Work Phone: [email or web address] 03-27-2023 08:34-0500 Body weight 68.77 kg Klaus Murguia APRN-MARK Work Phone: [email or web address] 03-27-2023 08:34-0500 Diastolic blood pressure 58 mm[Hg] Klaus Murguia APRN-MARK Work Phone: [email or web address] 03-27-2023 08:34-0500 Heart rate 78 /min Klaus GOODEN Work Phone: [email or web address] 03-27-2023 08:34-0500 SaO2% (BldA) [Mass fraction] 98 % Klaus Murguia APRN-MARK Work Phone: [email or web address] 03-27-2023 08:34-0500 Systolic blood pressure 120 mm[Hg] Klaus Murguia APRN-MARK Work Phone: [email or web address] 08-18-2023 10:22-0400 Body height 177.8 cm Donnell Colon MD Work Phone: [facility] 10-13-2022 10:22-0400 Body temperature 97.39 [degF] Donnell Colon MD Work Phone: [facility] 10-13-2022 10:22-0400 Body weight 70.49 kg Donnell Colon MD Work Phone: [facility] 10-13-2022 10:22-0400 Diastolic blood pressure 67 mm[Hg] Donnell Colon MD Work Phone: [facility] 10-13-2022 10:22-0400 Heart rate 66 /min Donnell Colon MD Work Phone: [facility] 10-13-2022 10:22-0400 Respiratory rate 16 /min Donnell Colon MD Work Phone: [facility] 10-13-2022 10:22-0400 SaO2% (BldA) [Mass fraction] 99 % Donnell Colon MD Work Phone: [facility] 10-13-2022 10:22-0400 Systolic blood pressure 156 mm[Hg] Donnell Colon MD Work Phone: [facility] 10-14-2021 10:18-0400 Body height 177.8 cm Donnell Colon MD Work Phone: [facility] 10-14-2021 10:18-0400 Body temperature 97.59 [degF] Donnell Colon MD Work Phone: [facility] 10-14-2021 10:18-0400 Body weight 71.67 kg Donnell Colon MD Work Phone: [facility] 10-14-2021 10:18-0400 Diastolic blood pressure 72 mm[Hg] Donnell Colon MD Work Phone: [facility] 10-14-2021 10:18-0400 Heart rate 64 /min Donnell Colon MD Work Phone: [facility] 10-14-2021 10:18-0400 Respiratory rate 16 /min Donnell Colon MD Work Phone: [facility] 10-14-2021 10:18-0400 SaO2% (BldA) [Mass fraction] 100 % Donnell Colon MD Work Phone: [facility] 10-14-2021 10:18-0400 Systolic blood pressure 175 mm[Hg] Donnell Colon MD Work Phone: [facility] Encounters Encounter Date Encounter Type Care Provider Facility Start: 06-04-2023 ambulatory Oscar neff MD Work Phone: [facility] Endoscopy - ENDO Start: 05-14-2023 Telephone encounter Oscar Holden MD Work Phone: Gastroenterology Comment on above: Appointment Start: 05-14-2023 End: 05-14-2023 ambulatory ARTHUR Campoverde ILO Facility:[facility] Start: 05-14-2023 End: 05-14-2023 Patient encounter procedure Jessica Pereyra MD Work Phone: General Surgery Comment on above: Abnormal MRI of abdo men; Pancreatic lesion Start: 05-01-2023 Telephone encounter Donnell nguyen MD Work Phone: [facility] Comment on above: Results; Patient Que stion Start: 04-27-2023 Telephone encounter Courtney Almaraz NATIONAL ACCOUNT DIRECTOR-HOUSE NURSE Work Phone: [facility] Start: 04-26-2023 End: 04-26-2023 ambulatory [facility] Start: 04-26-2023 End: 04-26-2023 Office outpatient visit 15 minutes Klaus Murguia NATIONAL ACCOUNT DIRECTOR-HOUSE NURSE Work Phone: [facility] Internal Medicine - Family Medicine Comment on above: Epigastric pain (Laine colleen Dx); Pancreatic cyst Start: 04-06-2023 End: 04-07-2023 ambulatory [facility] Start: 03-27-2023 End: 03-28-2023 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 ([facility]-HCC) Start: 10-13-2022 End: 10-13-2022 ambulatory ARTHUR Campoverde MAMatti Facility:[facility] Start: 10-13-2022 End: 10-13-2022 Office outpatient visit 15 minutes Donnell Colon MD Work Phone: Hematology/Oncology Comment on above: 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) (Primary Dx); Diffuse large B-cell lymphoma of intra-abdominal lymph nodes (HCC) Start: 12-14-2021 End: 12-14-[address] MICHAEL HANKINS Facility:[facility] Start: 12-10-[address] MICHAEL HANKINS Facility:[facility] Start: 12-10-2021 Encounter for preprocedural laboratory examination KLAUS MURGUIA [facility] Start: 12-10-2021 Encounter for preprocedural cardiovascular examination DR MICHAEL HANKINS [facility] Start: 12-08-2021 End: 12-09-2021 Encounter for preprocedural laboratory examination KLAUS MURGUIA Facility:[facility] Start: 12-08-2021 End: 12-09-2021 ambulatory KLAUS MURGUIA Facility:[facility] Start: 10-14-2021 Telephone encounter Donnell nguyen MD Work Phone: [facility] Comment on above: Future Appointment Start: 10-14-2021 End: 10-14-2021 Patient encounter procedure Donnell Colon MD Work Phone: [employer] Start: 10-14-2021 End: 10-14-2021 ambulatory [facility] Work Phone: Hematology/Oncology Comment on above: 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); 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) (Primary Dx) Start: 09-20-2021 End: 09-20-2021 ambulatory [facility] Work Phone: Hematology/Oncology Comment on above: 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) (Primary Dx) Start: 07-01-2021 End: 07-01-2021 ambulatory [facility] Work Phone: Hematology/Oncology Comment on above: 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) (Primary Dx) Start: 09-23-2018 Patient encounter procedure Klaus Murguia NATIONAL ACCOUNT DIRECTOR-HOUSE NURSE Work Phone: [employer] Start: 04-03-2018 End: 04-03-2018 Patient encounter procedure [facility] Start: 02-11-2018 Patient encounter procedure [facility] Start: 01-01-2018 End: 01-01-2018 Patient encounter procedure [facility] Start: 12-11-2017 Patient encounter procedure [facility] Start: 09-20-2017 Patient encounter DEFAULT PHYSICIAN Facility:[facility] Procedures Date Procedure Procedure Detail Performing Clinician Start: 04-26-2023 Follow-up visit Follow-up KLAUS MURGUIA Start: 04-26-2023 Adult depression scr eening assessment Klaus Murguia NATIONAL ACCOUNT DIRECTOR-HOUSE NURSE Work Phone: Start: 03-27-2023 Adult depression scr eening assessment Klaus Murguia NATIONAL ACCOUNT DIRECTOR-HOUSE NURSE Work Phone: Start: 03-27-2023 Lipid 1996 panel - S cheli or Plasma Donnell Colon MD Work Phone: Start: 12-14-2021 Colonoscopy Klaus musa NATIONAL ACCOUNT DIRECTOR-HOUSE NURSE Work Phone: Start: 12-08-[address] JORGITO HANKINS Comment on above: Performed By: #### P [facility] #### [facility] [address] [place] [address] Dr. Arthur Machado Start: 10-14-2021 Blood count complete auto&auto difrntl wbc Donnell Colon MD Work Phone: Start: 04-12-2020 Adult depression scr eening assessment [facility] Work Phone: Plan of Treatment Date Care Activity Detail Author Start: 03-27-2028 Lipid panel Lipid Screening [facility] Start: 12-14-2026 Screening for malign ant neoplasm of colon Colonoscopy [facility] Start: 03-27-2026 Diabetes Screening Diabetes Screen[facility] Start: 10-13-2025 DIABETES SCREEN DIABETES SCREEN [facility] Start: 10-14-2024 DIABETES SCREEN DIABETES SCREEN [facility] Start: 04-25-2024 Adult BMI Screening Adult BMI Screen ing [facility] Start: 04-25-2024 Depression Screening Depression Scre ing [facility] Start: 04-25-2024 Fall Risk Screening Fall Risk Screen ing [facility] Start: 04-25-2024 Tobacco Screening Tobacco Screening [facility] Start: 04-04-2024 DIABETES SCREEN DIABETES SCREEN [facility] Start: 03-27-2024 Adult BMI Screening Adult BMI Screen ing [facility] Start: 03-27-2024 Depression Screening Depression Scre ening [facility] Start: 03-27-2024 Fall Risk Screening Fall Risk Screen ing [facility] Start: 03-27-2024 Tobacco Screening Tobacco Screening [facility] Start: 02-25-2024 LIPID SCREEN LIPID SCREEN [facility] Start: 11-08-2023 End: 11-08-2023 Patient encounter procedure 11/08/2023 1:00 PM EDT Office Visit [facility] [address] [place] [address] Klaus Murguia, NATIONAL ACCOUNT DIRECTOR-HOUSE NURSE [address] [place] [address] [facility] Start: 11-03-2023 Medicare Annual Well ness Visit Medicare Annual Wellness Visit [facility] Start: 10-28-2023 Influenza vaccination Influenz a Vaccine (Season Ended) [facility] Start: 05-18-2023 End: 05-18-2023 Patient encounter procedure 05/18/2023 10:30 AM EDT Office Visit [facility] [address] [place] [address] Courtney Almaraz, NATIONAL ACCOUNT DIRECTOR-HOUSE NURSE [address] [place] [address] [facility] Start: 04-26-2023 End: 04-26-2023 Patient encounter procedure 04/26/2023 1:00 PM EST Office Visit [facility] [address] [place] [address] Klaus Murguia, NATIONAL ACCOUNT DIRECTOR-HOUSE NURSE [address] [place] [address] [facility] Start: 03-27-2023 End: 03-27-2024 MR Abdomen WO and W contrast IV MR abdomen with and without contrast Imaging Routine Pancreatic lesion History of diffuse large B-cell lymphoma Other chronic pancreatitis (CMS-HCC) Expected: 03/27/2023, Expires: 03/27/2024 [facility] Work Phone: Comment on above: Expected: 03/27/2023 , Expires: 03/27/2024 Start: 02-26-2023 Advance Directive Discussion Advance Directive Discussion [facility] Start: 02-26-2023 Behavioral Health Screening Behavioral Health Screening [facility] Start: 02-26-2023 [facility] Start: 10-27-2022 Influenza vaccination [facility] Start: 10-14-2022 End: 10-14-2022 CBC W Auto Differential panel - Blood CBC + DIFF Lab Routine 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) Expected: 10/14/2022 (Approximate), Expires: 10/14/2022 [facility] Work Phone: Comment on above: Expected: 10/14/2022 (Approximate), Expires: 10/14/2022 Start: 10-14-2022 End: 10-14-2022 Comprehensive metabolic 2000 panel - Serum or Plasma COMP METABOLIC PANEL Lab Routine 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) Expected: 10/14/2022 (Approximate), Expires: 10/14/2022 [facility] Work Phone: Comment on above: Expected: 10/14/2022 (Approximate), Expires: 10/14/2022 Start: 10-14-2022 End: 10-14-2022 Lactate dehydrogenase [Enzymatic activity/volume] in Serum or Plasma LD LACTATE DEHYDRO Lab Routine 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) Expected: 10/14/2022 (Approximate), Expires: 10/14/2022 [facility] Work Phone: Comment on above: Expected: 10/14/2022 (Approximate), Expires: 10/14/2022 Start: 02-26-2022 ADVANCE DIRECTIVE DISCUSSION ADVANCE DIRECTIVE DISCUSSION [facility] Start: 02-26-2022 DEPRESSION ASSESSMENT DEPRESSION ASS ESSMENT [facility] Start: 10-27-2021 [facility] Start: 04-12-2021 Adult depression screening assessment DEPRESSION SCREENING [facility] Start: 02-26-2021 ADVANCE DIRECTIVE DISCUSSION ADVANCE DIRECTIVE DISCUSSION [facility] Start: 06-24-2020 COVID-19 VACCINE (3 - Moderna risk 4-dose series) COVID-19 VACCINE (3 - Moderna risk 4-dose series) [facility] Start: 06-24-2020 COVID-19 VACCINE (3 - Moderna risk series) COVID-19 VACCINE (3 - Moderna risk series) [facility] Start: 05-17-2019 Pneumococcal Vaccine : 65+ (3 of 3 - PCV) Pneumococcal Vaccine: 65+ (3 of 3 - PCV) [facility] Start: 05-17-2019 PNEUMOCOCCAL: 65+ (3 - PCV) PNEUMOCOCCAL: 65+ (3 - PCV) [facility] Start: 07-11-2018 MENINGOCOCCAL CONJUG ATE (2 - Risk 2-dose series) MENINGOCOCCAL CONJUGATE (2 - Risk 2-dose series) [facility] Start: 07-11-2018 Meningococcal Conjug ate Vaccine (2 - Risk 2-dose series) Meningococcal Conjugate Vaccine (2 - Risk 2-dose series) [facility] Start: 2011 RSV Vaccine (1 - 1-d ose 60+ series) RSV Vaccine (1 - 1-dose 60+ series) [facility] Start: 06-12-2001 SHINGRIX VACCINE (1 of 2) SHINGRIX VACCINE (1 of 2) [facility] Start: 06-12-1996 COLOGUARD (FIT-DNA) COLOGUARD (FIT-D NA) [facility] Start: 06-12-1996 Colonoscopy COLONOSCOPY [facility] Start: 06-12-1996 COLORECTAL CANCER SCREENING COLORECTAL CANCER SCREENING [facility] Start: 06-12-[address] COLONOGRAPHY [facility] Start: 06-12-1996 FECAL OCCULT BLOOD FECAL OCCULT BLOO D [facility] Start: 06-12-1996 Screening for malign ant neoplasm of colon [facility] Start: 06-12-[address] [facility] Start: 06-12-1970 Administration of varicella zoster vaccine Zoster (Shingles) Vaccine (1 of 2) [facility] Start: 06-12-1970 DTaP,Tdap and Td Vaccines (1 - Tdap) DTaP,Tdap and Td Vaccines (1 - Tdap) [facility] Start: 06-12-1970 SHINGRIX VACCINE (1 of 2) SHINGRIX VACCINE (1 of 2) [facility] Start: 06-12-1970 Urine microalbumin profile [facility] Start: 06-12-1961 Meningococcal B Vacc ine: Consider Based On Risk (1 of 4 - Increased Risk) Meningococcal B Vaccine: Consider Based On Risk (1 of 4 - Increased Risk) [facility] Start: 06-12-1961 MENINGOCOCCAL B: Consider based on risk (1 of 4 - Increased Risk Bexsero 2-dose series) MENINGOCOCCAL B: Consider based on risk (1 of 4 - Increased Risk Bexsero 2-dose series) [facility] Start: 06-12-1961 MENINGOCOCCAL B: Consider based on risk (1 of 4 - Increased Risk) MENINGOCOCCAL B: Consider based on risk (1 of 4 - Increased Risk) [facility] Start: 1951 ABDOMINAL AORTIC ANEURYSM SCREENING ABDOMINAL AORTIC ANEURYSM SCREENING [facility] Start: 1950 Abdominal aortic aneurysm screening Abdominal Aortic Aneurysm Screening [facility] End: 10-13-2023 CBC W Auto Differential panel - Blood CBC + DIFF Lab Routine 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) Every 6 months for 3 Occurrences starting 10/13/2022 until 10/13/2023 [facility] Work Phone: Comment on above: Every 6 months for 3 Occurrences starting 10/13/2022 until 10/13/2023 End: 10-13-2023 Comprehensive metabolic 2000 panel - Serum or Plasma COMP METABOLIC PANEL Lab Routine 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) Every 6 months for 3 Occurrences starting 10/13/2022 until 10/13/2023 [facility] Work Phone: Comment on above: Every 6 months for 3 Occurrences starting 10/13/2022 until 10/13/2023 End: 05-13-2024 EGD - THERAPEUTIC, EUS, OR TUBE INTERVENTIONS EGD - THERAPEUTIC, EUS, OR TUBE INTERVENTIONS Endoscopy Routine Pancreatic lesion 1 Occurrences starting 05/14/2023 until 05/13/2024 [facility] Work Phone: Comment on above: 1 Occurrences starti 05/14/2023 until 05/13/2024 IR PORTOCATH REMOVAL IR PORTOCAT H REMOVAL Radiology Routine 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) Ordered: 10/14/2021 [facility] Work Phone: Comment on above: Ordered: 10/14/2021 End: 10-13-2023 Lactate dehydrogenase [Enzymatic activity/volume] in Serum or Plasma LD LACTATE DEHYDRO Lab Routine 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) Every 6 months for 3 Occurrences starting 10/13/2022 until 10/13/2023 [facility] Work Phone: Comment on above: Every 6 months for 3 Occurrences starting 10/13/2022 until 10/13/2023 End: 10-13-2023 Urate [Mass/volume] in Serum or Plasma URIC ACID BLOOD Lab Routine 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) Every 6 months for 3 Occurrences starting 10/13/2022 until 10/13/2023 [facility] Work Phone: Comment on above: Every 6 months for 3 Occurrences starting 10/13/2022 until 10/13/2023 [facility] Immunizations Immunization Date Immunization Notes Care Provider Fa cili 01-02-2022 Influenza Vaccine, Quadrivalent, Adjuvanted Klaus Murguia NATIONAL ACCOUNT DIRECTOR-HOUSE NURSE Work Phone: [facility] 01-02-2022 influenza virus vacc ine, unspecified formulation Klaus Murguia NATIONAL ACCOUNT DIRECTOR-HOUSE NURSE Work Phone: [facility] 01-03-2020 influenza, high dose seasonal, preservative-free [facility] Work Phone: [facility] 12-09-2018 influenza, seasonal, injectable Klaus Murguia NATIONAL ACCOUNT DIRECTOR-HOUSE NURSE Work Phone: [facility] 11-21-2018 influenza, high dose seasonal, preservative-free [facility] Work Phone: [facility] 05-16-2018 meningococcal polysaccharide (groups A, C, Y and W-135) diphtheria toxoid conjugate vaccine (MCV4P) [facility] Work Phone: [facility] 05-16-2018 pneumococcal polysaccharide vaccine, 23 valent [facility] Work Phone: [facility] 03-06-2018 meningococcal polysaccharide vaccine (MPSV4) [facility] Work Phone: [facility] Work Phone: 03-05-2018 haemophilus influenz ae type b vaccine, PRP-T conjugate [facility] Work Phone: [facility] Work Phone: 03-05-2018 pneumococcal polysaccharide vaccine, 23 valent [facility] Work Phone: [facility] Work Phone: 02-28-2018 influenza, injectabl e, quadrivalent, preservative free [facility] Work Phone: [facility] 02-28-2018 influenza, seasonal, injectable [facility] Work Phone: [facility] Payers Date Payer Category Payer Unknown 2018 Unknown [facility] ANTH MEDIBLUE O [id number] 2018-Present [phone] [address] [place] [address] [facility] [id number] 2017 Medicare ANTH MEDICARE ANTH MEDICARE ADVANTAGE [id number] 2017-Present [phone] [address] [place] [address] [id number] 1959 Unknown [id number] 1950 Unknown [id number] 1950 Unknown [id number] 1950 Unknown [id number] 1950 Unknown [id number] 1950 Unknown [id number] 6 1950 Unknown [id number] 6 1950 Unknown [id number] 6 1950 Unknown [id number] 6 Social History Date Type Detail Facility Start: 09-06-2017 End: 10-14-2021 Tobacco smoking status NHIS Ex-smoker [facility] Start: 09-06-2017 End: 10-14-2021 Tobacco use and exposure Smokeless tobacco non-user [facility] Start: 04-12-2020 End: 10-14-2021 Alcohol intake Current drinker of alcohol (finding) [facility] Start: 1950 Sex Assigned At Not on file [facility] History of tobacco use Current smoker [facility] Start: 10-04-2021 End: 10-14-2021 Exposure to SARS-CoV-2 (event) Not sure [facility] Start: 10-14-2021 End: 10-13-2022 History of Social function [facility] Start: 10-14-2021 End: 10-13-2022 Tobacco use panel [facility] Adult Depression Screening Assessment 0 [facility] Start: 06-05-2022 Tobacco smoking stat us NHIS Never smoked tobacco [facility] Start: 11-23-2021 Alcohol Comment min 6 beers da sunil, 8 AT MOST [facility] Start: 04-26-2023 Alcohol intake Ex-drinker (finding) [facility] NEGATED: Highlighted rowStart: NINF History of tobacco use Passive smoker [facility] Medical Equipment Procedure Code Equipment Code Equipment Origin al Text Equipment Identifier Dates Port Power Mri W/Open Ended 8f R Plstc Id - [id number] - [id number] Start: 09-07-2017 Clinical Notes 10-14-2021 to 05-15-2023 Telephone Encounter - Melody Castellano - 05/15/2023 11:12 AM EDTTelephone Encounter - Kelsea Webster - 05/14/2023 4:38 PM EDTJessica Pereyra MD - 05/14/2023 11:04 AM EDTPatient Instructions Note Date & Type Note Facility 05-15-2023 Miscellaneous Notes Patient is scheduled for 06/10 Please schedule patient with Dr. Guzman for an EUS at . Patient requested the latest appointment 12:30pm arrival 11:30am. Kelsea Webster Act Tutor documented in this encounter [facility] 05-14-2023 History and physical note New Patient Consult REASON FOR VISIT Consultation requested by Donnell Colon for an opinion regarding Nic Valerio. My final recommendations will be communicated back to the requesting physician by way of shared Medical record or letter to requesting physician via US mail. 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 The cyst is located in the uncinate process and was found on a CT scan after he presented with abdominal pain that was suspected to be from pancreatitis. That was follow by MRI pancreas that showed the following: MRI PANCREAS 04/06/2023: Multiple incidental pancreatic cystic lesions, the largest one measuring 2.9 cm in the uncinate process with communication to the main pancreatic duct. Recommendations are based on the largest cyst. Recommend considering EUS with FNA, and surgical consultation. However, for cysts with low-risk features by imaging, consider re imaging with contrast-enhanced MRI or pancreas-protocol CT every 6 months for up to 2 years. No signs of pancreatitis or fluid collections on imaging. The patient drinks beer every day for 50 years. No radiographic signs of cirrhosis and most recent labs (Sep 2022) show normal LFTs and bilirubin. Normal PLT at 309 and creatinine 0.94. FUNCTIONAL STATUS: Climb a flight of stairs or walk up a hill (5.50 METs) PAST MEDICAL HISTORY Diagnosis Date Abdominal pain Anemia Gastric ulcer GERD (gastroesophageal reflux disease) with esophagitis GI bleeding Port-A-Cath in place Port-A-Cath in place Shoulder pain Splenomegaly PAST SURGICAL HISTORY Procedure Laterality Date PORTOCATH PLACEMENT PORTOCATH PLACEMENT FAMILY HISTORY Problem Relation Age of Onset Cancer Mother Heart disease Father Social History Tobacco Use Smoking status: Former Passive exposure: Never Smokeless tobacco: Never Vaping Use Vaping Use: Never used Substance Use Topics Alcohol use: Yes Drug use: No MEDICATIONS Current Outpatient Medications Medication Sig Dispense Refill iv contrast (will be provided with radiology test) CT Chest ABD/PEL-Inject, intravenously, once for 1 dose.No IV access, insert saline lock prior to the beginning of sedation, infusion, injection of imaging exam. Discontinue saline lock post exam. If Pt. has a central line or IVAD, may access for administration according to line specific nursing protocol. Once exam is complete flush line and de-access according to line specific nursing protocol in the CT contrast administration guidelines link. 1 Each 0 enteric contrast (will be provided with radiology test) For CT CHESTABD/PEL W IVCON Routine order Administer, As Directed One Time Only, via Oral, Rectal, both Oral and Rectal, Enteric Tube, Stoma or Indwelling Catheter, Enteric Contrast as designated per enteric contrast guidelines 1 Each 0 HYDROcodone-acetaminophen (NORCO) 5-325 mg per tablet Take 1 tablet by mouth as needed. ferrous sulfate 325 mg (65 mg iron) tablet Take 1 tablet by mouth twice daily. 60 tablet 5 omeprazole (PRILOSEC) 20 mg capsule Take 1 capsule by mouth once daily. 30 capsule 5 No current facility-administered medications for this visit. CURRENT ALLERGIES ALLERGIES Allergen Reactions Ciprocinonide Other: See Comments Joint pain Ciprofloxacin Hcl Other: See Comments Flagyl [Metronidazo* Other: See Comments Joint pain REVIEW OF SYSTEMS PAIN ASSESSMENT: General: Weight loss 8 lbs recently after episode of abdominal pain Neuro: No Hx of stroke or seizures Respiratory: No history of current cough or dyspnea, or pneumonia in the past 6 weeks. No history of respiratory/pulmonary symptoms or problems Cardiovascular: No history of HTN requiring medication, no history of angina, CHF, NE, cardiac surgery or stents. Denies rest pain, gangrene or revascularization/amputation for PVD. No history of cardiovascular symptoms or problems. GI: See HPI : No history of UTI in past 6 weeks. No history of renal failure. Not currently on or requiring dialysis. No history of symptoms or problems. Endocrine: No history of diabetes. Has not taken steroids within the past 30 days. No history of endocrinological symptoms or problems. Hematology: No history of bleeding or clotting disorder. Pt is not taking anti-coagulation or platelet medications. No history of hematological symptoms or problems. Oncology: See HPI Psych: No history of psychiatric symptoms or problems. Musculoskeletal: Negative for joint pain or swelling, back pain or muscle pain. Skin: Negative for lesions, rash and itching. Anemia: No PHYSICAL EXAMINATION BP 145/59 Pulse 70 Resp 18 Wt 150 lb 6.4 oz (68.2kg) SpO2 98% General Appearance: Well appearing, alert, in no acute distress, well-hydrated, well nourished. Skin: Skin color, texture, turgor normal, no suspicious rashes or lesions Head: Normocephalic, no masses, lesions, tenderness or abnormalities Oropharynx: Lips, mucosa, and tongue normal, teeth and gums normal, oropharynx normal Neck: Not examined Lungs: Unlabored on room air Heart: Not examined Extremities: No deformities, edema, skin discoloration, clubbing or cyanosis. Good capillary refill. Neuro: Gait normal. Reflexes normal and symmetric. Sensation grossly intact. 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 RECOMMENDATION I explained to the patient the pathophysiology and natural history of IPMNs. His cyst does not currently demonstrate risk features but has a worrisome stigmata of interval growth from 1.6 cm in 2020 (CT ABD) to 2.1 cm in 2023 (MRI) based on my review of his images. Therefore, I recommended a EUS with FNA for the cyst to confirm lack of risk features and obtain fluid analysis for diagnosis confirmation. [facility] 2nd read requested for his recent MRI to confirm radiographic characteristics of the cyst. Will update the patient once the work up is completed and results are finalized to discuss further plans. Medical Decision Making: Problems: Moderate: New problem with uncertain prognosis Data: Unique source(s) for external note(s) reviewed: 3+ Unique test result(s) reviewed: 3+ Unique test(s) ordered: 1 Assessment requiring an independent historian(s) Independent interpretation of test from other physician/QHCP Risk: Moderate: Moderate risk from testing/treatment Medical Decision Making Level: 4 - Moderate Jessica Pereyra MD [facility] [place] [facility] May 14, 2023 documented in this encounter [facility] 05-10-2023 Miscellaneous Notes Spoke to patient & made patient aware of appointment with Dr Pitt but explained that Dr Colon felt the appt was to far out in August that once patient sees the recommendations from Dr Pereyra first Dr Colon will develop a plan. Cortney Mendoza Yes - this is too far out - but let him see Dr. Dominguez first and we can come up with a plan after that. Spoke to Julita for Dr Oneyda Pitt's office at [phone] the soonest appointment they have is 09/19/2023@10:[address] Sarai Pitt due to they lost [address] Pitt is only one doing ERCP's He only sees for clinic on Wednesdays doing procedures all other days. Before I call the patient with this appointment. Is this too far out?? Please advise. Cortney Mendoza Tried calling Dr Oneyda Pitt's office at [phone] twice today kept getting answering service who stated they were busy to try again in 15 minutes. Will try again tomorrow to reach office. Cortney Mendoza Spoke to patient & gave appointment of 05/14/2023@[address] Jessica Pereyra at [facility]. Patient aware still working on referral to Dr Pitt. Cortney Mendoza Spoke to Brittany at [phone] in Central Scheduling & scheduled patient with Dr Jessica Pereyra on 05/14/2023@11 am at [facility] [address] for consult for general surgery. Cortney Mendoza Per Julita at Dr Oneyda Pitt's office at [phone] they do not do the consults. But she said to fax the order to them & they would have Dr Oneyda Pitt look at it & call us back. Faxed order at [phone]. Cortney Mendoza Pt aware of Patrice's recommendations and referrals. He will await scheduling to call to arrange appoinments. Jennifer Valdes, MERCEDES I have not called him - but that's the recommendation I would make - ERCP with GI (Dr. Pitt) And Gen Surgery Consult with Vaibhav Dominguez Patrice: Pended 2 separate consults for requested physicians. Please review and sign PSS: please call to schedule accordingly Jennifer Valdes RN I would refer him to [facility] (Dr. Pitt) for ERCP and biopsy and also consider having him see Dr. Esposito or Jorge from hepatobiliary surgery - all are located in [facility]. Dr Colon-Did you need us to set up a follow up with patient to discuss MRI or did you call him?? Please advise. Cortney Mendoza Images are uploaded. Report is in and I requested images. Maria Esther- Can you get the MRI of pancreas results & images from [facility] in [place] for Dr Colon to review. Thank you. Cortney Mendoza Ronnie Barr - there is nothing in his Chart - can you get info and we can review. Patient stopped by and would like Dr Colon to look at his MRI of his pancreas done at [facility]. He would like to set up an appointment or get a call back to discuss. Cortney Mendoza documented in this encounter [facility] 04-27-2023 Miscellaneous Notes Scheduled an appointment with Nic to discuss EGD for epigastric pain referral received from Klaus Murguia CNP. Informed Nic we would see him for the EGD however he would need to see a hepatobiliary surgeon to discuss the pancreas cyst. I have updated patient. We are looking at sending him back to [facility]. Awaiting ([facility]) response back today. Thank you for the update! documented in this encounter [facility] 04-27-2023 Telephone encounter Note Scheduled an appointment with Nic to discuss EGD for epigastric pain referral received from Klaus Murguia CNP. Informed Nic we would see him for the EGD however he would need to see a hepatobiliary surgeon to discuss the pancreas cyst. [facility] 04-27-2023 Telephone encounter Note I have updated patient. We are looking at sending him back to [facility]. Awaiting ([facility]) response back today. Thank you for the update! [facility] 04-26-2023 History of Presen t illness Narrative Images from the original note were not included. [address] [place] [id number] SUBJECTIVE: Patient ID: Nic Valerio is a 72 y.o. male. Chief Complaint Patient presents with Follow-up He presents for MRI results today. He was previously informed via telephone. Today, he reports epigastric pain has improved but not fully resolved. He is slowly advancing diet but is reluctant due to anticipation of upper quadrant pain returning. He has lost 9 pounds over the last several months due to change in eating habits. Admits he did try pizza recently and experienced no pain. He stopped pantoprazole and hyoscyamine on his own Was seen in the office on March 27, 2023. Patient reported he went to [facility] on 03/20/23 for fullness and upper left sided abdominal pain. Has been occurring on and off for 1- 2 months. Last several weeks, pain increased. States pain has significantly improved since visit to ER. Attributes relief due to quit drinking beer and eating less heavier fatty meals. Admits to yellow colored stools several weeks but this is resolved. Diagnosis from ER was chronic pancreatitis. Normal liver function studies, elevated lipase, 177. History of large cell abdominal lymphoma, is in remission. Monitored yearly by Yazan PACHECO. The following portions of the patient's history were reviewed and updated as appropriate: allergies, current medications, past family history, past medical history, past social history, past surgical history and problem list. Past Surgical History: Procedure Laterality Date COLONOSCOPY DR HANKINS 2019 HERNIA REPAIR Left INGUINAL REPAIR IMPLANTATION PORT-A-CATH CPT CODE 98990 N/A 09/07/2017 Performed by Michael Hankins DO at [facility] SPLENECTOMY, TOTAL 03/09/2018 Past Medical History: Diagnosis Date Cancer ([facility]) NON-[place] LYMPHOMA Diverticulitis Pancreatitis 03/21/2023 Pericarditis Immunization History Administered Date(s) Administered COVID-19, mRNA, LNP-S, PF, 100mcg/0.5mL Dose 04/29/2020, 05/27/2020 Hib (PRP-T) 03/05/2018 Influenza High Dose Preservative Free IM 11/21/2018, 01/03/2020 Influenza Vaccine, Quadrivalent, Adjuvanted 01/02/2022 Influenza, Im Trivalent Preservative 12/09/2018 Influenza, Injectable, quadrivalent (PF) 02/28/2018 Meningococcal MCV4P 05/16/2018 Meningococcal Polysaccharide 03/06/2018 Pneumococcal Polysaccharide 03/05/2018, 05/16/2018 REVIEW OF SYSTEMS: Review of Systems HENT: Negative for hearing loss and trouble swallowing. Eyes: Negative for pain and visual disturbance. Respiratory: Negative for chest tightness and shortness of breath. Cardiovascular: Negative for palpitations and leg swelling. Gastrointestinal: Negative for blood in stool. GERD Endocrine: Negative for polydipsia, polyphagia and polyuria. Genitourinary: Negative for difficulty urinating, dysuria, flank pain, hematuria, scrotal swelling and testicular pain. Musculoskeletal: Negative. Skin: Negative. Allergic/Immunologic: Negative. Neurological: Negative for seizures and syncope. Hematological: Does not bruise/bleed easily. Psychiatric/Behavioral: Negative. PHYSICAL EXAMINATION: Vitals: 04/26/23 1255 BP: 140/60 BP Site: Left Arm BP Postition: Sitting Pulse: 67 Resp: 20 Temp: 36.4 C (97.5 F) TempSrc: Oral SpO2: 97% Weight: 66.7 kg (147 lb 1.6 oz) Height: 180.3 cm (5' 11 ) Details Reading Physician Reading Date Result Priority Michael Grimm MD [phone] 04/09/2023 Routine Narrative & Impression MR ABDOMEN W WO CONT Clinical history:Pancreatic lesion; History of diffuse large B-cell lymphoma; Other chronic pancreatitis (CMS-HCC) Comparison: None. TECHNIQUE: Multiplanar multisequence MRI of the abdomen performed prior to and following uneventful administration of ProHance intravenous gadolinium contrast. Findings: No pleural or pericardial effusions lung bases. There is no abdominal ascites seen. Small bowel is nondilated. Appendix is seen and unremarkable. There is no signal loss within the liver on opposed phase imaging to suggest iron deposition hepatic steatosis. Fairly extensive colonic diverticulosis. Left renal inferior pole cyst is seen requiring no additional follow-up imaging. Gallbladder is present. There is no biliary dilatation. The adrenal glands appear unremarkable. The spleen is absent. Soft tissue nodule within the left upper quadrant likely related to a splenule measuring 3.0 cm. There is no pancreatic ductal dilatation. Multiple incidental pancreatic cystic lesions. The largest one is multilocular, measuring 2.9 cm in the uncinate process with no worrisome features. There is communication between the cyst and the main pancreatic duct. Impression: Multiple incidental pancreatic cystic lesions, the largest one measuring 2.9 cm with communication to the main pancreatic duct. Recommendations are based on the largest cyst. Recommend considering EUS with FNA, and surgical consultation. However, for cysts with low-risk features by imaging, consider reimaging with contrast-enhanced MRI or pancreas-protocol CT every 6 months for up to 2 years. Trey PETIT, et al. Management of Incidental Pancreatic Cysts: A White Paper of the ACR Incidental Findings Committee. J Am Juan Daniel Radiol 2017;[id number]. Finalized by Michael Grimm MD on 04/09/2023 1:36 PM Physical Exam Vitals and nursing note reviewed. Constitutional: General: He is not in acute distress. Appearance: He is well-developed. HENT: Head: Normocephalic and atraumatic. Right Ear: Tympanic membrane and external ear normal. Left Ear: Tympanic membrane and external ear normal. Nose: Nose normal. Mouth/Throat: Mouth: Mucous membranes are moist. Pharynx: No oropharyngeal exudate. Eyes: General: No scleral icterus. Right eye: No discharge. Left eye: No discharge. Conjunctiva/sclera: Conjunctivae normal. Pupils: Pupils are equal, round, and reactive to light. Neck: Vascular: No JVD. Cardiovascular: Rate and Rhythm: Normal rate and regular rhythm. Heart sounds: Normal heart sounds. No murmur heard. No friction rub. No gallop. Pulmonary: Effort: Pulmonary effort is normal. No respiratory distress. Breath sounds: Normal breath sounds. Chest: Chest wall: No tenderness. Abdominal: General: Bowel sounds are normal. There is no distension. Palpations: Abdomen is soft. There is no mass. Tenderness: There is no abdominal tenderness. There is no guarding or rebound. Hernia: No hernia is present. Musculoskeletal: General: No tenderness. Normal range of motion. Cervical back: Normal range of motion and neck supple. Lymphadenopathy: Cervical: No cervical adenopathy. Skin: General: Skin is warm and dry. Capillary Refill: Capillary refill takes less than 2 seconds. Findings: No rash. Neurological: Mental Status: He is alert and oriented to person, place, and time. Deep Tendon Reflexes: Reflexes are normal and symmetric. Psychiatric: Mood and Affect: Mood normal. Behavior: Behavior normal. Thought Content: Thought content normal. Judgment: Judgment normal. ASSESSMENT/PLAN: Nic was seen today for follow-up. Diagnoses and all orders for this visit: Epigastric pain - [facility] [place] [facility] [place], [place]; Future Pancreatic cyst Referral to general surgery. Patient request Dr. Joe Hankins. Advance diet as tolerated. ALL QUESTIONS ANSWERED Total time spent was 25 minutes: Preparing to see the patient (e.g., review of tests) Obtaining and/or reviewing separately obtained history Performing a medically appropriate examination and/or evaluation Counseling and educating the patient/family/caregiver Ordering medications, tests, or procedures Follow-up: Medicare wellness Sooner if needed BERKLEY Gomez 04/26/231957 documented in this encounter [email or web address] 03-27-2023 History of Presen t illness Narrative Images from the original note were not included. [address] [facility] [id number] SUBJECTIVE: Patient ID: Nic Valerio is a 72 y.o. male. Chief Complaint Patient presents with OTHER Pancreatitis Patient reports he went to [facility] on 03/20/23 for fullness and upper left sided abdominal pain. Has been occurring on and off for almost 2 months. Last several weeks, pain increased. States pain has significantly improved since visit. Attributes relief due to quit drinking beer and eating less heavier meals. Admits to yellow colored stools several weeks ago but is now return to normal brown color. Diagnosis from ER was chronic pancreatitis. History of large cell abdominal lymphoma, is in remission. Monitored yearly by Yazan PACHECO. The following portions of the patient's history were reviewed and updated as appropriate: allergies, current medications, past family history, past medical history, past social history, past surgical history and problem list. Past Surgical History: Procedure Laterality Date COLONOSCOPY DR HANKINS 2020 HERNIA REPAIR Left INGUINAL REPAIR IMPLANTATION PORT-A-CATH CPT CODE 28219 N/A 09/07/2017 Performed by Michael Hankins DO at [facility] SPLENECTOMY, TOTAL 03/09/2018 Past Medical History: Diagnosis Date Cancer ([facility]) NON-[facility] LYMPHOMA Diverticulitis Pancreatitis 03/21/2023 Pericarditis Immunization History Administered Date(s) Administered COVID-19, mRNA, LNP-S, PF, 100mcg/0.5mL Dose 04/29/2020, 05/27/2020 Hib (PRP-T) 03/05/2018 Influenza High Dose Preservative Free IM 11/21/2018, 01/03/2020 Influenza Vaccine, Quadrivalent, Adjuvanted 01/02/2022 Influenza, Im Trivalent Preservative 12/09/2018 Influenza, Injectable, quadrivalent (PF) 02/28/2018 Meningococcal MCV4P 05/16/2018 Meningococcal Polysaccharide 03/06/2018 Pneumococcal Polysaccharide 03/05/2018, 05/16/2018 REVIEW OF SYSTEMS: Review of Systems Constitutional: Negative for chills, fatigue and fever. HENT: Negative for hearing loss and trouble swallowing. Eyes: Negative for pain and visual disturbance. Respiratory: Negative for cough, chest tightness and shortness of breath. Cardiovascular: Negative for chest pain, palpitations and leg swelling. Gastrointestinal: Negative for blood in stool. Endocrine: Negative for polydipsia, polyphagia and polyuria. Genitourinary: Negative for difficulty urinating, dysuria, flank pain, hematuria, scrotal swelling and testicular pain. Musculoskeletal: Negative. Skin: Negative. Allergic/Immunologic: Negative. Neurological: Negative for seizures, syncope and headaches. Hematological: Does not bruise/bleed easily. Psychiatric/Behavioral: Negative. PHYSICAL EXAMINATION: Vitals: 03/27/23 0834 BP: 120/58 BP Site: Left Arm BP Postition: Sitting Pulse: 78 Temp: 36.6 C (97.8 F) TempSrc: Temporal SpO2: 98% Weight: 68.8 kg (151 lb 9.6 oz) Height: 180.3 cm (5' 11 ) Physical Exam Vitals and nursing note reviewed. Constitutional: General: He is not in acute distress. Appearance: He is well-developed. HENT: Head: Normocephalic and atraumatic. Right Ear: Tympanic membrane and external ear normal. Left Ear: Tympanic membrane and external ear normal. Nose: Nose normal. Mouth/Throat: Mouth: Mucous membranes are moist. Pharynx: No oropharyngeal exudate. Eyes: General: No scleral icterus. Right eye: No discharge. Left eye: No discharge. Conjunctiva/sclera: Conjunctivae normal. Pupils: Pupils are equal, round, and reactive to light. Neck: Vascular: No JVD. Cardiovascular: Rate and Rhythm: Normal rate and regular rhythm. Heart sounds: Normal heart sounds. No murmur heard. No friction rub. No gallop. Pulmonary: Effort: Pulmonary effort is normal. No respiratory distress. Breath sounds: Normal breath sounds. Chest: Chest wall: No tenderness. Abdominal: General: Bowel sounds are normal. There is no distension. Palpations: Abdomen is soft. There is no mass. Tenderness: There is no abdominal tenderness. There is no guarding or rebound. Hernia: No hernia is present. Musculoskeletal: General: No tenderness. Normal range of motion. Cervical back: Normal range of motion and neck supple. Lymphadenopathy: Cervical: No cervical adenopathy. Skin: General: Skin is warm and dry. Capillary Refill: Capillary refill takes less than 2 seconds. Findings: No rash. Neurological: Mental Status: He is alert and oriented to person, place, and time. Deep Tendon Reflexes: Reflexes are normal and symmetric. Psychiatric: Mood and Affect: Mood normal. Behavior: Behavior normal. Thought Content: Thought content normal. Judgment: Judgment normal. ASSESSMENT/PLAN: Nic was seen today for other. Diagnoses and all orders for this visit: Pancreatic lesion - MR abdomen with and without contrast; Future - Cancel: Creatinine includes GFR, serum; Future - Comprehensive metabolic panel; Future History of diffuse large B-cell lymphoma - MR abdomen with and without contrast; Future - Cancel: Creatinine includes GFR, serum; Future Other chronic pancreatitis (CMS-HCC) - MR abdomen with and without contrast; Future - Cancel: Creatinine includes GFR, serum; Future - Comprehensive metabolic panel; Future Encounter for screening for malignant neoplasm of prostate - Prostatic specific antigen screen; Future Mixed hyperglyceridemia - Lipid panel; Future Large cell abdominal lymphoma (CMS-HCC) 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 Sequela of chronic pancreatitis. Non aggressive low density cystic lesion at the pancreatic head/ body junction measuring 1.2 cm. Dilation of the main pancreatic duct measuring up to 0.6 cm. Recommendations with abdomin MRI / MRCP with and without contrast. -Discussed avoidance of alcohol. Patient does consume 6+ beers per day and admits to drinking whisky, starting around 1st of the year. He has since stopped consuming alcohol after diagnosis. New orders for MRI of abdomen with and without contrast CMP in office today 2. Mixed hyperlipidemia Lipid panel 3. History of diffuce large B-cell lymphoma With history of splenectomy Monitored by [facility]. ALL QUESTIONS ANSWERED Total time spent was 25 minutes: Preparing to see the patient (e.g., review of tests) Obtaining and/or reviewing separately obtained history Performing a medically appropriate examination and/or evaluation Counseling and educating the patient/family/caregiver Ordering medications, tests, or procedures Follow-up: One month Sooner if needed BERKLEY Gomez 03/28/23922 documented in this encounter [facility] 10-13-2022 Note HNO ID: [id number] Author: Donnell Colon MD Service: ? Author Type: Physician Type: Progress Notes Filed: 10/19/2022 8:40 AM Note Text: NAME: Nic Valerio CLINIC NO.: [id number] DATE OF SERVICE: October 13, 2022 (Kenneth). 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 at diagnosis elevated LDH, age over 60, albumin less than 3.5, extranodal disease involvement bone marrow did not identify involvement. Remains in [facility]. PLAN: RTC in 1 year labs same day HPI: Updated Visit, October 13, 2022: Doing well. No clinical signs of recurrence - had port taken out last year. Labs reviewed, cbc normal. MCP pending but previously has been normal. Updated Visit, October 14, 2021: Nic returns with his Dmitry today for annual follow up. No clinical indication of disease recurrence. PET/CT from 03/2021 was unremarkable. Updated Visit, April 15, 2021: - Telephone only for 5 minutes Nic and I connected by telephone and he tells me that he is feeling great. Running his chainsaw to clear mulberry bushes - feels great. No B symptoms. Updated Visit, October 11, 2020: Telephone only Doing well, retired, very active - no B symptoms. Rehabbing his [address] yo home. Enjoying life. Would like to get his port out Updated Visit, April 12, 2020: Nic a 69 years old and returns to review PET/CT scans which show no evidence of recurrent lymphoma. He has no complaints or B symptoms. Would prefer conservative follow up which I agree with. Updated Visit, October 06, 2019: Nic a 69 years old and returns with his Dmitry to review scans which show no evidence of recurrent lymphoma and stable findings in the region of the head of the pancreas but show a polyp in the sigmoid colon that will need to be addressed. He has no symptoms of recurrence. His laboratories indicate that his anemia has resolved he no longer needs to take iron. Since his is now retired there is been a lot more time together gardening and out playing with her new dog a 1-year-old Macanese Trevizo. All images were personally reviewed with the patient. Updated Visit, June 04, 2019: Conducted by telephone No problems active outside gardening and playing with his dog. RADIOGRAPHIC DATA: Reviewed on June 04, 2019. 5. 04/07/2020 PET/CT: 1. NECK: No FDG avid neoplastic process. No mass, adenopathy, or fluid collection. 2. CHEST: No FDG avid neoplastic process. No mass, adenopathy, or fluid collection. 3. ABDOMEN/PELVIS: No FDG avid neoplastic process. No mass, adenopathy, or fluid collection. 4. EXTREMITIES/SKELETON: No FDG avid osseous process. No destructive/traumatic bony abnormality. *Deauville score: 1 - score 1 : no uptake - score 2 : uptake <= mediastinum - score 3 : uptake > mediastinum, but <= liver - score 4 : uptake moderately higher than liver - score 5 : uptake markedly higher than liver and/or new lesions - score X : new areas of uptake unlikely to be related to lymphoma 4. 10/02/2019 CT CAP: 1. No evidence of bulky intrathoracic lymphadenopathy. 2. Findings of prior granulomatous disease. 3. Multiple noncalcified nodular opacities adjacent to a calcified right upper lobe granuloma. These may represent noncalcified granulomas. Findings are similar in appearance to prior exam. 4. Previously visualized right lower lobe groundglass nodule has resolved, likely infectious or inflammatory in nature. 1. No evidence of abdominal or pelvic lymphadenopathy. 2. Extensive colonic diverticulosis. Findings suggestive of mild sigmoid diverticulitis. Correlate clinically. 3. Findings suggestive of a polyp within the sigmoid colon. Recommend further evaluation with colonoscopy. 4. Postsurgical changes of splenectomy. Unchanged fluid collection in the splenectomy bed. 5. Ovoid hypodensity in the pancreatic head, similar in appearance to prior exam. 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 Recommend continued follow-up. 3. 05/30/2019 CT CAP: No evidence of bulky intrathoracic lymphadenopathy. Stable calcified granuloma in the right upper lobe with surrounding noncalcified opacities. These may represent noncalcified granulomas. 2-3 mm right lower lobe groundglass nodule which was not discretely visualized on the prior exam. Recommend continued follow-up. No evidence of abdominal or pelvic lymphadenopathy. Postsurgical changes in keeping with splenectomy. Unchanged appearance (more content not included)... [facility] 10-13-2022 Instructions Donnell Colon MD - 10/13/2022 10:53 AM EDT RTC in 1 year labs same day documented in this encounter [facility] 10-13-2022 History of Presen t illness Narrative Images from the original note were not included. NAME: Nic Valerio [facility] NO.: [id number] DATE OF SERVICE: October 13, 2022 (Kenneth). 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 at diagnosis elevated LDH, age over 60, albumin less than 3.5, extranodal disease involvement bone marrow did not identify involvement. Remains in [facility]. PLAN: RTC in 1 year labs same day HPI: Updated Visit, October 13, 2022: Doing well. No clinical signs of recurrence - had port taken out last year. Labs reviewed, cbc normal. MCP pending but previously has been normal. Updated Visit, October 14, 2021: Nic returns with his Dmitry today for annual follow up. No clinical indication of disease recurrence. PET/CT from 03/2021 was unremarkable. Updated Visit, April 15, 2021: - Telephone only for 5 minutes Nic and I connected by telephone and he tells me that he is feeling great. Running his chainsaw to clear mulberry bushes - feels great. No B symptoms. Updated Visit, October 11, 2020: Telephone only Doing well, retired, very active - no B symptoms. Rehabbing his [address] yo home. Enjoying life. Would like to get his port out Updated Visit, April 12, 2020: Nic a 69 years old and returns to review PET/CT scans which show no evidence of recurrent lymphoma. He has no complaints or B symptoms. Would prefer conservative follow up which I agree with. Updated Visit, October 06, 2019: Nic a 69 years old and returns with his Dmitry to review scans which show no evidence of recurrent lymphoma and stable findings in the region of the head of the pancreas but show a polyp in the sigmoid colon that will need to be addressed. He has no symptoms of recurrence. His laboratories indicate that his anemia has resolved he no longer needs to take iron. Since his is now retired there is been a lot more time together gardening and out playing with her new dog a 1-year-old Macanese Trevizo. All images were personally reviewed with the patient. Updated Visit, June 04, 2019: Conducted by telephone No problems active outside gardening and playing with his dog. RADIOGRAPHIC DATA: Reviewed on June 04, 2019. 5. 04/07/2020 PET/CT: 1. NECK: No FDG avid neoplastic process. No mass, adenopathy, or fluid collection. 2. CHEST: No FDG avid neoplastic process. No mass, adenopathy, or fluid collection. 3. ABDOMEN/PELVIS: No FDG avid neoplastic process. No mass, adenopathy, or fluid collection. 4. EXTREMITIES/SKELETON: No FDG avid osseous process. No destructive/traumatic bony abnormality. *Deauville score: 1 - score 1 : no uptake - score 2 : uptake <= mediastinum - score 3 : uptake > mediastinum, but <= liver - score 4 : uptake moderately higher than liver - score 5 : uptake markedly higher than liver and/or new lesions - score X : new areas of uptake unlikely to be related to lymphoma 4. 10/02/2019 CT CAP: 1. No evidence of bulky intrathoracic lymphadenopathy. 2. Findings of prior granulomatous disease. 3. Multiple noncalcified nodular opacities adjacent to a calcified right upper lobe granuloma. These may represent noncalcified granulomas. Findings are similar in appearance to prior exam. 4. Previously visualized right lower lobe groundglass nodule has resolved, likely infectious or inflammatory in nature. 1. No evidence of abdominal or pelvic lymphadenopathy. 2. Extensive colonic diverticulosis. Findings suggestive of mild sigmoid diverticulitis. Correlate clinically. 3. Findings suggestive of a polyp within the sigmoid colon. Recommend further evaluation with colonoscopy. 4. Postsurgical changes of splenectomy. Unchanged fluid collection in the splenectomy bed. 5. Ovoid hypodensity in the pancreatic head, similar in appearance to prior exam. 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 Recommend continued follow-up. 3. 05/30/2019 CT CAP: No evidence of bulky intrathoracic lymphadenopathy. Stable calcified granuloma in the right upper lobe with surrounding noncalcified opacities. These may represent noncalcified granulomas. 2-3 mm right lower lobe groundglass nodule which was not discretely visualized on the prior exam. Recommend continued follow-up. No evidence of abdominal or pelvic lymphadenopathy. Postsurgical changes in keeping with splenectomy. Unchanged appearance of fluid collection in the splenectomy bed. Ovoid hypodensity in the pancreatic head measuring up to 11 mm in size. This may represent a cyst or intraductal papillary mucinous neoplasm (IPMN). Consider contrast-enhanced MRI/MRCP for further evaluation. Hepatic steatosis. REVIEW OF SYSTEMS Per HPI and otherwise negative by full review of organ systems. ECOG PERFORMANCE STATUS: 0 PHYSICAL EXAMINATION: Vitals: BP 156/67 Pulse 66 Temp (Src) 97.4 (Temporal) Resp 16 Ht 5' 10 (1.78m) Wt 155 lb 6.4 oz (70.5kg) SpO2 99% BMI 22.30 kg/(m^2). Body surface area is 1.87 meters squared. Exam limited to gross visualization where appropriate. Gen.: This is an age-appropriate patient in no acute distress. Head: Appears atraumatic with no visible lesions. Eyes: Pupils equally round and reactive to light, extraocular muscles are intact. Neck: Supple. Respiratory: Appears to be respiring comfortably. Neurologic: Nonfocal to gross visualization. Alert and oriented 3. Psychiatric: No evidence of inappropriate anxiety or depression. Skin: Visible areas of skin without rash, lesions, wounds or petechiae. ALLERGIES: ALLERGIES Allergen Reactions Ciprocinonide Other: See Comments Joint pain Ciprofloxacin Hcl Other: See Comments Flagyl [Metronidazo* Other: See Comments Joint pain MEDICATIONS: HYDROcodone-acetaminophen (NORCO) 5-325 mg per tablet Take 1 tablet by mouth as needed. ferrous sulfate 325 mg (65 mg iron) tablet Take 1 tablet by mouth twice daily. omeprazole (PRILOSEC) 20 mg capsule Take 1 capsule by mouth once daily. iv contrast (will be provided with radiology test) CT Chest ABD/PEL-Inject, intravenously, once for 1 dose.No IV access, insert saline lock prior to the beginning of sedation, infusion, injection of imaging exam. Discontinue saline lock post exam. If Pt. has a central line or IVAD, may access for administration according to line specific nursing protocol. Once exam is complete flush line and de-access according to line specific nursing protocol in the CT contrast administration guidelines link. enteric contrast (will be provided with radiology test) For CT CHESTABD/PEL W IVCON Routine order Administer, As Directed One Time Only, via Oral, Rectal, both Oral and Rectal, Enteric Tube, Stoma or Indwelling Catheter, Enteric Contrast as designated per enteric contrast guidelines LABORATORY VALUES: WBC (k/uL) Date Value 10/13/2022 8.98 RBC (m/uL) Date Value 10/13/2022 4.64 Hemoglobin (g/dL) Date Value 10/13/2022 15.0 Hematocrit (%) Date Value 10/13/2022 43.2 MCV (fL) Date Value 10/13/2022 93.1 MCH (pg) Date Value 10/13/2022 32.3 MCHC (g/dL) Date Value 10/13/2022 34.7 RDW-CV (%) Date Value 10/13/2022 14.5 Platelet Count (k/uL) Date Value 10/13/2022 309 MPV (fL) Date Value 10/13/2022 10.1 Glucose (mg/dL) Date Value 10/13/2022 104 (H) BUN (mg/dL) Date Value 10/13/2022 12 Creatinine (mg/dL) Date Value 10/13/2022 0.94 Sodium (mmol/L) Date Value 10/13/2022 136 Potassium (mmol/L) Date Value 10/13/2022 4.7 Chloride (mmol/L) Date Value 10/13/2022 100 CO2 (mmol/L) Date Value 10/13/2022 27 Protein, Total (g/dL) Date Value 10/13/2022 6.9 Albumin (g/dL) Date Value 10/13/2022 4.7 Calcium, Total (mg/dL) Date Value 10/13/2022 9.7 Alkaline Phosphatase (U/L) Date Value 10/13/2022 83 Bilirubin, Total (mg/dL) Date Value 10/13/2022 0.6 AST (U/L) Date Value 10/13/2022 19 ALT (U/L) Date Value 10/13/2022 14 DIAGNOSIS: (C83.39) 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) (primary encounter diagnosis) Plan: LD LACTATE DEHYDRO, CBC + DIFF, COMP METABOLIC PANEL, URIC ACID BLOOD (C83.33) Diffuse large B-cell lymphoma of intra-abdominal lymph nodes (HCC) Plan: LD LACTATE DEHYDRO, CBC + DIFF, COMP METABOLIC PANEL, URIC ACID BLOOD PAST MEDICAL HISTORY Diagnosis Date Abdominal pain Anemia Gastric ulcer GERD (gastroesophageal reflux disease) with esophagitis GI bleeding Port-A-Cath in place Port-A-Cath in place Shoulder pain Splenomegaly PAST SURGICAL HISTORY Procedure Laterality Date PORTOCATH PLACEMENT PORTOCATH PLACEMENT Social History Tobacco Use Smoking status: Former Passive exposure: Never Smokeless tobacco: Never Vaping Use Vaping Use: Never used Substance Use Topics Alcohol use: Yes Drug use: No FAMILY HISTORY Problem Relation Age of Onset Cancer Mother Heart disease Father I spent a total of 20 minutes on the date of the service which included preparing to see the patient, [id number] patient care, completing clinical documentation, performing a medically appropriate examination, and ordering medications, tests, or procedures. Donnell Colon MD, CPE [place], [place] CC: Arthur Padilla, DO [address] [facility] [place] [id number] documented in this encounter [facility] 10-17-[address] Hankins office spoke with Ny. She states they have received this referral and have patient scheduled on 11/[address] Hankins. Per Ny patient req to schedule later October appointment. Jaz Lewis Records faxed to Dr. Hankins. Maria Esther: Information ready for you. Jaz Rangel Pss Nic is being referred back to Dr Hankins for port removal. Dr Hankins placed port about 4 years ago. Andrew, Please print info for Maria Esther to Fax. Maria Esther, Please fax records to his office. Thank you ladies. documented in this encounter [facility] 10-14-2021 Instructions Donnell Colon MD - 10/14/2021 11:05 AM EDT 1. Send back to Dr. Hankins for port removal 2. RTC in 1 year labs same day documented in this encounter [facility] 10-14-2021 History of Presen t illness Narrative Images from the original note were not included. 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 at diagnosis elevated LDH, age over 60, albumin less than 3.5, extranodal disease involvement bone marrow did not identify involvement. Remains in [place]. PLAN: 1. Send back to Dr. Hankins for port removal 2. RTC in 1 year labs same day HPI: Updated Visit, October 14, 2021: Nic returns with his Dmitry today for annual follow up. No clinical indication of disease recurrence. PET/CT from 03/2021 was unremarkable. Updated Visit, April 15, 2021: - Telephone only for 5 minutes Nic and I connected by telephone and he tells me that he is feeling great. Running his chainsaw to clear mulberry bushes - feels great. No B symptoms. Updated Visit, October 11, 2020: Telephone only Doing well, retired, very active - no B symptoms. Rehabbing his [address] yo home. Enjoying life. Would like to get his port out Updated Visit, April 12, 2020: Nic a 69 years old and returns to review PET/CT scans which show no evidence of recurrent lymphoma. He has no complaints or B symptoms. Would prefer conservative follow up which I agree with. Updated Visit, October 06, 2019: Nic a 69 years old and returns with his Dmitry to review scans which show no evidence of recurrent lymphoma and stable findings in the region of the head of the pancreas but show a polyp in the sigmoid colon that will need to be addressed. He has no symptoms of recurrence. His laboratories indicate that his anemia has resolved he no longer needs to take iron. Since his is now retired there is been a lot more time together gardening and out playing with her new dog a 1-year-old Macanese Trevizo. All images were personally reviewed with the patient. Updated Visit, June 04, 2019: Conducted by telephone No problems active outside gardening and playing with his dog. RADIOGRAPHIC DATA: Reviewed on June 04, 2019. 5. 04/07/2020 PET/CT: 1. NECK: No FDG avid neoplastic process. No mass, adenopathy, or fluid collection. 2. CHEST: No FDG avid neoplastic process. No mass, adenopathy, or fluid collection. 3. ABDOMEN/PELVIS: No FDG avid neoplastic process. No mass, adenopathy, or fluid collection. 4. EXTREMITIES/SKELETON: No FDG avid osseous process. No destructive/traumatic bony abnormality. *Deauville score: 1 - score 1 : no uptake - score 2 : uptake <= mediastinum - score 3 : uptake > mediastinum, but <= liver - score 4 : uptake moderately higher than liver - score 5 : uptake markedly higher than liver and/or new lesions - score X : new areas of uptake unlikely to be related to lymphoma 4. 10/02/2019 CT CAP: 1. No evidence of bulky intrathoracic lymphadenopathy. 2. Findings of prior granulomatous disease. 3. Multiple noncalcified nodular opacities adjacent to a calcified right upper lobe granuloma. These may represent noncalcified granulomas. Findings are similar in appearance to prior exam. 4. Previously visualized right lower lobe groundglass nodule has resolved, likely infectious or inflammatory in nature. 1. No evidence of abdominal or pelvic lymphadenopathy. 2. Extensive colonic diverticulosis. Findings suggestive of mild sigmoid diverticulitis. Correlate clinically. 3. Findings suggestive of a polyp within the sigmoid colon. Recommend further evaluation with colonoscopy. 4. Postsurgical changes of splenectomy. Unchanged fluid collection in the splenectomy bed. 5. Ovoid hypodensity in the pancreatic head, similar in appearance to prior exam. 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 Recommend continued follow-up. 3. 05/30/2019 CT CAP: No evidence of bulky intrathoracic lymphadenopathy. Stable calcified granuloma in the right upper lobe with surrounding noncalcified opacities. These may represent noncalcified granulomas. 2-3 mm right lower lobe groundglass nodule which was not discretely visualized on the prior exam. Recommend continued follow-up. No evidence of abdominal or pelvic lymphadenopathy. Postsurgical changes in keeping with splenectomy. Unchanged appearance of fluid collection in the splenectomy bed. Ovoid hypodensity in the pancreatic head measuring up to 11 mm in size. This may represent a cyst or intraductal papillary mucinous neoplasm (IPMN). Consider contrast-enhanced MRI/MRCP for further evaluation. Hepatic steatosis. REVIEW OF SYSTEMS Per HPI and otherwise negative by full review of organ systems. ECOG PERFORMANCE STATUS: 0 PHYSICAL EXAMINATION: Vitals: BP 175/72 Pulse 64 Temp (Src) 97.6 (Temporal) Resp 16 Ht 5' 10 (1.78m) Wt 158 lb (71.7kg) SpO2 100% BMI 22.67 kg/(m^2). Body surface area is 1.88 meters squared. Exam limited to gross visualization where appropriate due to COVID-19. Gen.: This is an age-appropriate patient in no acute distress. Head: Appears atraumatic with no visible lesions. Eyes: Pupils equally round and reactive to light, extraocular muscles are intact. Neck: Supple. Mouth: Mucous membranes appeared to be moist. Respiratory: Appears to be respiring comfortably. Neurologic: Nonfocal to gross visualization. Alert and oriented 3. Psychiatric: No evidence of inappropriate anxiety or depression. Skin: Visible areas of skin without rash, lesions, wounds or petechiae. ALLERGIES: ALLERGIES Allergen Reactions Ciprocinonide Other: See Comments Joint pain Ciprofloxacin Hcl Other: See Comments Flagyl [Metronidazo* Other: See Comments Joint pain MEDICATIONS: ferrous sulfate 325 mg (65 mg iron) tablet Take 1 tablet by mouth twice daily. omeprazole (PRILOSEC) 20 mg capsule Take 1 capsule by mouth once daily. iv contrast (will be provided with radiology test) CT Chest ABD/PEL-Inject, intravenously, once for 1 dose.No IV access, insert saline lock prior to the beginning of sedation, infusion, injection of imaging exam. Discontinue saline lock post exam. If Pt. has a central line or IVAD, may access for administration according to line specific nursing protocol. Once exam is complete flush line and de-access according to line specific nursing protocol in the CT contrast administration guidelines link. enteric contrast (will be provided with radiology test) For CT CHESTABD/PEL W IVCON Routine order Administer, As Directed One Time Only, via Oral, Rectal, both Oral and Rectal, Enteric Tube, Stoma or Indwelling Catheter, Enteric Contrast as designated per enteric contrast guidelines HYDROcodone-acetaminophen (NORCO) 5-325 mg per tablet Take 1 tablet by mouth as needed. LABORATORY VALUES: WBC (k/uL) Date Value 10/14/2021 8.49 RBC (m/uL) Date Value 10/14/2021 4.65 Hemoglobin (g/dL) Date Value 10/14/2021 15.0 Hematocrit (%) Date Value 10/14/2021 43.2 MCV (fL) Date Value 10/14/2021 92.9 MCH (pg) Date Value 10/14/2021 32.3 MCHC (g/dL) Date Value 10/14/2021 34.7 RDW-CV (%) Date Value 10/14/2021 14.4 Platelet Count (k/uL) Date Value 10/14/2021 250 MPV (fL) Date Value 10/14/2021 10.8 Glucose (mg/dL) Date Value 10/14/2021 134 (H) BUN (mg/dL) Date Value 10/14/2021 15 Creatinine (mg/dL) Date Value 10/14/2021 0.87 Sodium (mmol/L) Date Value 10/14/2021 138 Potassium (mmol/L) Date Value 10/14/2021 4.1 Chloride (mmol/L) Date Value 10/14/2021 105 CO2 (mmol/L) Date Value 10/14/2021 23 Protein, Total (g/dL) Date Value 10/14/2021 6.0 (L) Albumin (g/dL) Date Value 10/14/2021 4.1 Calcium, Total (mg/dL) Date Value 10/14/2021 9.2 Alkaline Phosphatase (U/L) Date Value 10/14/2021 81 Bilirubin, Total (mg/dL) Date Value 10/14/2021 0.4 AST (U/L) Date Value 10/14/2021 24 ALT (U/L) Date Value 10/14/2021 18 DIAGNOSIS: (C83.39) 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) (primary encounter diagnosis) Plan: LD LACTATE DEHYDRO, CBC + DIFF, COMP METABOLIC PANEL, IR PORTOCATH REMOVAL PAST MEDICAL HISTORY Diagnosis Date Abdominal pain Anemia Gastric ulcer GERD (gastroesophageal reflux disease) with esophagitis GI bleeding Port-A-Cath in place Port-A-Cath in place Shoulder pain Splenomegaly PAST SURGICAL HISTORY Procedure Laterality Date PORTOCATH PLACEMENT PORTOCATH PLACEMENT Social History Tobacco Use Smoking status: Former Passive exposure: Never Smokeless tobacco: Never Vaping Use Vaping Use: Never used Substance Use Topics Alcohol use: Yes Drug use: No FAMILY HISTORY Problem Relation Age of Onset Cancer Mother Heart disease Father I spent a total of 25 minutes on the date of the service which included preparing to see the patient, [id number] patient care, completing clinical documentation, performing a medically appropriate examination, and ordering medications, tests, or procedures. 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) Other malignant lymphomas of intra-abdominal lymph nodes [facility] Diagnosis 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)- Primary [facility] Diagnosis 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)- Primary Diffuse large B-cell lymphoma of intra-abdominal lymph nodes (HCC) Other malignant lymphomas of intra-abdominal lymph nodes [facility] Diagnosis Pancreatic lesion- Primary History of diffuse large B-cell lymphoma Other chronic pancreatitis (CMS-HCC) Encounter for screening for malignant neoplasm of prostate 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, intra-abdominal lymph nodes 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 ([facility]-HCC) [facility] Diagnosis Epigastric pain- Primary Abdominal pain, epigastric Pancreatic cyst Cyst and pseudocyst of pancreas [facility] Diagnosis Abnormal MRI of abdomen- Primary Nonspecific (abnormal) findings on radiological and other examination of abdominal area, including retroperitoneum Pancreatic lesion Unspecified disease of pancreas [facility] Diagnosis Abnormal MRI of abdomen Nonspecific (abnormal) findings on radiological and other examination of abdominal area, including retroperitoneum Pancreatic lesion Unspecified disease of pancreas [facility] Attachments The following attachments cannot be sent through Care Everywhere. * Cancer screening (Indonesian) [facility]* Attachments The following attachments cannot be sent through Care Everywhere. * Abdominal pain (Indonesian) documented in [facility] encounter[facility] CenterInstructionsNot on file documented in this encounterUniversity [facility] CenterRenazia for referral (narrative)* Consultation (Routine) - Pending Review Specialty Diagnoses / Procedures Referred By Koby martino Referred To Contact General Surgery Diagnoses Epigastric pain Klaus Murguia APRN-CNP [address] [place] [address] [facility] [address] [place] [address] Referral ID Status Reason Start Date Expiration Date Visits Requested Visits Authorized [id number] Pending Review Specialty Services Required 04/26/2023 04/25/2024 1 1 [facility] for referral (narrative)* Outpatient Procedure (Routine) - Pending Review Specialty Diagnoses / Procedures Referred By Koby martino Referred To Contact [facility] Diagnoses Pancreatic lesion Procedures EGD - THERAPEUTIC, EUS, OR TUBE INTERVENTIONS EGD INTRMURAL US NEEDLE ASPIRATE/BIOPSY ESOPHAGS Jessica Pereyra MD [address] [place] [address] [facility] [place] [address] Referral ID Status Reason Start Date Expiration Date Visits Requested Visits Authorized [id number] Pending Review Auto-Generat ed Referral 05/14/2023 05/13/2024 1 1 [facility] Summary Purpose Family History No Family History Records FoundNo Family History Records FoundNo Family History Records FoundNo Family History Records FoundNo Family History Records FoundNo Family History Records FoundNo Family History Records Found Advance Directives Documents on File Type Date Recorded Patient Classification Analyst Expl anation Advance Directive(s) 04/03/2018 12:43 PM Advance Directive(s) 03/13/2018 12:28 PM Advance Directive(s) 03/13/2018 12:27 PM Advance Directive(s) 03/05/2018 4:53 PM Advance Directive(s) 02/11/2018 11:24 AM Advance Directive(s) 01/04/2018 2:47 PM Advance Directive(s) 01/01/2018 9:15 AM Advance Directive(s) 12/11/2017 11:55 AM Advance Directive(s) 09/17/2017 10:46 AM Documents on File Type Date Recorded Patient Classification Analyst Expl anation Advance Directive(s) 03/13/2018 12:27 PM Documents on File Type Date Recorded Patient Classification Analyst Expl anation Advance Directive(s) 03/13/2018 12:27 PM Reason for Referral Specialty Diagnoses / Procedures Referred By Koby martino Referred To Contact Radiology Diagnoses Pancreatic lesion History of diffuse large B-cell lymphoma Other chronic pancreatitis (CMS-HCC) Procedures MR abdomen with and without contrast Klaus Murguia, NATIONAL ACCOUNT DIRECTOR-HOUSE NURSE [address] [place] [address] Referral ID Status Reason Start Date Expiration Date V isits Requested Visits Authorized [id number] Pending Review 03/27/2023 03/26/2024 1 1 Specialty Diagnoses / Procedures Referred By Koby martino Referred To Contact General Surgery Diagnoses Abnormal MRI of abdomen Pancreatic lesion Procedures CONSULT TO GENERAL SURGERY OFFICE/OUTPATIENT NEW HIGH MDM 60 MINUTES Donnell Colon MD [address] [facility] [place] [id number] Referral ID Status Reason Start Date Expiration Date Visits Requested Visits Authorized [id number] Authorized PCP Requested Referral 05/08/2023 05/07/2024 1 1 Specialty Diagnoses / Procedures Referred By Contact Referred To Contact Gastroenterology / ONCOLOGY Diagnoses Abnormal MRI of abdomen Pancreatic lesion Procedures CONSULT TO GASTROENTEROLOGY OFFICE/OUTPATIENT NEW HIGH MDM 60 MINUTES Donnell Colon MD [address] [facility] [place] [id number] Referral ID Status Reason Start Date Expiration Date Visits Requested Visits Authorized [id number] Authorized PCP Requested Referral 05/08/2023 05/07/2024 1 1 Additional Source Comments (unrecognized sect ion and content) No Status Records FoundNo Status Records FoundNo Status Records FoundNo Status Records FoundNo Status Records FoundNo Status Records FoundNo Status Records Found INFORMATION SOURCE (unrecogn ized section and content) DATE CREATED AUTHOR 09/20/2017 [facility] DATE CREATED AUTHOR AUTHOR'S ORGANIZ ATION 04/16/2018 [facility] DATE CREATED AUTHOR AUTHOR'S ORGANIZ ATION 12/22/2021 [facility] DATE CREATED AUTHOR AUTHOR'S ORGANIZ ATION 04/01/2023 [facility] DATE CREATED AUTHOR AUTHOR'S ORGANIZ ATION 04/11/2023 [facility] DATE CREATED AUTHOR AUTHOR'S ORGANIZ ATION 04/29/2023 [facility] DATE CREATED AUTHOR AUTHOR'S ORGANIZ ATION 05/16/2023 [facility] Source Comments (unrecognize d section and content) In the event this informatio n is protected by the Federal Confidentiality of Alcohol and Drug Abuse Patient Records regulations: The Federal rules restrict any use of the information to criminally investigate or prosecute any alcohol or drug abuse patient.[facility] the event this information is protected by the Federal Confidentiality of Alcohol and Drug Abuse Patient Records regulations: The Federal rules restrict any use of the information to criminally investigate or prosecute any alcohol or drug abuse patient.[facility] Hospital[facility] the event this information is protected by the Federal Confidentiality of Alcohol and Drug Abuse Patient Records regulations: The Federal rules restrict any use of the information to criminally investigate or prosecute any alcohol or drug abuse patient.[facility] Hospital[facility] the event this information is protected by the Federal Confidentiality of Alcohol and Drug Abuse Patient Records regulations: The Federal rules restrict any use of the information to criminally investigate or prosecute any alcohol or drug abuse patient.[facility] Hospital[facility] the event this information is protected by the Federal Confidentiality of Alcohol and Drug Abuse Patient Records regulations: The Federal rules restrict any use of the information to criminally investigate or prosecute any alcohol or drug abuse patient.[facility] Hospital[facility] the event this information is protected by the Federal Confidentiality of Alcohol and Drug Abuse Patient Records regulations: The Federal rules restrict any use of the information to criminally investigate or prosecute any alcohol or drug abuse patient.[facility] Hospital[facility] the event this information is protected by the Federal Confidentiality of Alcohol and Drug Abuse Patient Records regulations: The Federal rules restrict any use of the information to criminally investigate or prosecute any alcohol or drug abuse patient.[facility] Hospital[facility] the event this information is protected by the Federal Confidentiality of Alcohol and Drug Abuse Patient Records regulations: The Federal rules restrict any use of the information to criminally investigate or prosecute any alcohol or drug abuse patient.[facility] Hospital[facility] the event this information is protected by the Federal Confidentiality of Alcohol and Drug Abuse Patient Records regulations: The Federal rules restrict any use of the information to criminally investigate or prosecute any alcohol or drug abuse patient.[facility] Hospital[facility] the event this information is protected by the Federal Confidentiality of Alcohol and Drug Abuse Patient Records regulations: The Federal rules restrict any use of the information to criminally investigate or prosecute any alcohol or drug abuse patient.[facility] Care Teams (unrecognized sec tion and content) Dried Yeast Supervisor Relationship Specialty Start Date End Date Arthur Padilla [address] [place] [address] [address] PCP - General Internal Medicine 09/05/17 Clifford Arthur DO Consulting Hematology/Oncology 01/02/18 Beverly Coon APRN.[address] [place] [address] Nurse Practitioner Hematology/Oncology 01/02/18 [place] [address] [place] [address] Registered Nurse Hematology/Oncology 02/13/18 Dried Yeast Supervisor Relationship Specialty Start Date End Date Arthur Padilla [address] [place] [address] [address] [place] [address] PCP - General Internal Medicine 09/05/17 Clifford Arthur DO Consulting Hematology/Oncology 01/02/18 Beverly Coon, NATIONAL ACCOUNT DIRECTOR.HOUSE NURSE [address] [facility] [place] [address] Nurse Practitioner Hematology/Oncology 01/02/18 [place] [address] [place] [address] Registered Nurse Hematology/Oncology 02/13/18 Dried Yeast Supervisor Relationship Specialty Start Date End Date RogeroArthur J [address] [place] [address] [address] PCP - General Internal Medicine 09/05/17 Clifford Arthur DO Consulting Hematology/Oncology 01/02/18 Beverly Coon, NATIONAL ACCOUNT DIRECTOR.HOUSE NURSE [address] [facility] [place] [address] Nurse Practitioner Hematology/Oncology 01/02/18 Mai Bacon, [place] [address] [place] [address] Registered Nurse Hematology/Oncology 02/13/18 Dried Yeast Supervisor Relationship Specialty Start Date End Date Arthur Padilla [address] [place] [address] [address] PCP - General Internal Medicine 09/05/17 Clifford Arthur DO Consulting Hematology/Oncology 01/02/18 Beverly Coon, NATIONAL ACCOUNT DIRECTOR.HOUSE NURSE [address] [facility] [place] [address] Nurse Practitioner Hematology/Oncology 01/02/18 [place] [address] [place] [address] Registered Nurse Hematology/Oncology 02/13/18 Dried Yeast Supervisor Relationship Specialty Start Date End Date Arthur Padilla [address] [place] [address] [address] PCP - General Internal Medicine 09/05/17 Clifford Arthur DO Consulting Hematology/Oncology 01/02/18 Beverly Coon, NATIONAL ACCOUNT DIRECTOR.HOUSE NURSE [address] [facility] [place] [address] Nurse Practitioner Hematology/Oncology 01/02/18 [place] [address] [place] [address] Registered Nurse Hematology/Oncology 02/13/18 Dried Yeast Supervisor Relationship Specialty Start Date End Date Arthur Padilla [address] [place] [address] PCP - General Internal Medicine 09/05/17 Clifford Arthur DO [address] [place] [address] Consulting Hematology/Oncology 01/02/18 Beverly Coon, NATIONAL ACCOUNT DIRECTOR.HOUSE NURSE [address] [facility] [place] [address] Nurse Practitioner Hematology/Oncology 01/02/18 Mai Bacon, [place] [address] [place] [address] Registered Nurse Hematology/Oncology 02/13/18 Dried Yeast Supervisor Relationship Specialty Start Date End Date Klaus Murguia, NATIONAL ACCOUNT DIRECTOR-HOUSE NURSE [address] [place] [address] PCP - General Nurse Practitioner 06/30/16 Dried Yeast Supervisor Relationship Specialty Start Date End Date Klaus Murguia APRN-MARK [address] [place] [address] PCP - General Nurse Practitioner 06/30/16 Dried Yeast Supervisor Relationship Specialty Start Date End Date Klaus Murguia APRN-HOUSE NURSE [address] [place] [address] PCP - General Nurse Practitioner 06/30/16 Dried Yeast Supervisor Relationship Specialty Start Date End Date Arthur Padilla DO PCP - General Internal Medicine 09/05/17 Clifford Arthur DO Consulting Hematology/Oncology 01/02/18 Beverly Coon, NATALYA.HOUSE NURSE [address] [facility] [place] [address] Nurse Practitioner Hematology/Oncology 01/02/18 [place] [address] [place] [address] Registered Nurse Hematology/Oncology 02/13/18 Dried Yeast Supervisor Relationship Specialty Start Date End Date Arthur Padilla DO PCP - General Internal Medicine 09/05/17 Clifford Arthur DO Consulting Hematology/Oncology 01/02/18 Beverly Coon, NATALYA.HOUSE NURSE [address] [facility] [place] [address] Nurse Practitioner Hematology/Oncology 01/02/18 [place] [address] [place] [address] Registered Nurse Hematology/Oncology 02/13/18 Dried Yeast Supervisor Relationship Specialty Start Date End Date Arthur Padilla DO PCP - General Internal Medicine 09/05/17 Clifford Arthur DO Consulting Hematology/Oncology 01/02/18 Beverly Coon, NATIONAL ACCOUNT DIRECTOR.HOUSE NURSE [address] [place] [address] [place] [address] Nurse Practitioner Hematology/Oncology 01/02/18 Mai Bacon, [place] [address] [place] [address] Registered Nurse Hematology/Oncology 02/13/18 Dried Yeast Supervisor Relationship Specialty Start Date End Date Arthur Padilla DO PCP - General Internal Medicine 09/05/17 Clifford Arthur DO Consulting Hematology/Oncology 01/02/18 Beverly Coon, NATIONAL ACCOUNT DIRECTOR.HOUSE NURSE [address] [facility] [address] Nurse Practitioner Hematology/Oncology 01/02/18 Mai Bacon, [place] [address] [place] [address] Registered Nurse Hematology/Oncology 02/13/18 Reason for Visit (unrecogniz ed section and content) Reason Comments [place] Reason Comments Diffuse Large B-cell lymphoma 6 month fo llow up Reason Comments Future Appointment Reason Comments Lymphoma Reason Comments OTHER Pancreatitis Reason Comments Follow-up Reason Comments Results Patient Question Specialty Diagnoses / Procedures Referred By Contac t Referred To Contact General Surgery Diagnoses Abnormal MRI of abdomen Pancreatic lesion Procedures CONSULT TO GENERAL SURGERY OFFICE/OUTPATIENT [facility] 60 MINUTES Donnell Colon MD [address] [facility] [address] Referral ID Status Reason Start Date Expiration Date V isits Requested Visits Authorized [id number] Closed PCP Requested Referral 05/08/2023 05/07/2024 1 1 Reason Comments Appointment FOR RECORDS PERTAINING TO PATIENTS WHO ARE OR HAVE BEEN ENROLLED IN A CHEMICAL DEPENDENCY/SUBSTANCEABUSE PROGRAM, SOME INFORMATION MAY BE OMITTED. This clinical summary was aggregated from multiple sources. Caution should be exercised in using it in the provision of clinical care. This summary normalizes information from multiple sources, and as a consequence, information in this document may materially change the coding, format and clinical context of patient data. In addition, data may be omitted in some cases. CLINICAL DECISIONS SHOULD BE BASED ON THE PRIMARY CLINICAL RECORDS. [facility]. provides no warranty or guarantee of the accuracy or completeness of information in this document.
--- NOTE | 2023-06-08 17:22 | PC.NURSE ---
no redness, swelling or bruising to site of complaint. ROM with left arm is limited d/t pain
--- NOTE | 2023-06-08 17:28 | XR_ITS ---
[place] [id number] Patient Name: KIM JURADO MRN: [id number] date: 1950 Sex: M Assigned Patient Location: ER Current Patient Location: ED.[facility] Accession/Order Number: [id number] Exam Date: 06/08/2023 17:30 Report Date: 06/08/2023 18:04 At the request of: MIGUEL ANGEL BEVERLY Procedure: XR chest 1V EXAMINATION: XR chest 1V, XR shoulder LT min 2V 06/08/2023 3:00 PM PDT HISTORY: left shoulder pain COMPARISONS: Chest x-ray 08/31/2017 FINDINGS: Lines/tubes/other: None. Heart and mediastinum: The heart and the mediastinum are within normal limits for technique. Bones: No acute osseous abnormality. Lungs: Benign calcified granulomas in the right lung. No new or enlarging pulmonary opacification. No pulmonary edema. Pleura: There is no significant pleural effusion or pneumothorax. Left shoulder findings: No acute fracture, dislocation, or suspicious osseous lesion. Moderate osteoarthritis of the acromioclavicular joint mild osteoarthritis of the glenohumeral joint. Small ossification projecting over the superolateral humeral head which could represent calcific tendinitis. XR/XR chest 1V IMPRESSION: 1. No acute cardiopulmonary abnormality. 2. Osteoarthritis of the left shoulder. 3. Possible left-sided calcific tendinitis. Electronically authenticated by: BILLY KENYON Date: 06/08/2023 18:04
--- NOTE | 2023-06-08 17:28 | XR_ITS ---
[facility] [place] [id number] Patient Name: KIM JURADO MRN: [id number] date: 1950 Sex: M Assigned Patient Location: ER Current Patient Location: ED.[facility] Accession/Order Number: [id number] Exam Date: 06/08/2023 17:30 Report Date: 06/08/2023 18:04 At the request of: MIGUEL ANGEL BEVERLY Procedure: XR shoulder LT min 2V EXAMINATION: XR chest 1V, XR shoulder LT min 2V 06/08/2023 3:00 PM PDT HISTORY: left shoulder pain COMPARISONS: Chest x-ray 08/31/2017 FINDINGS: Lines/tubes/other: None. Heart and mediastinum: The heart and the mediastinum are within normal limits for technique. Bones: No acute osseous abnormality. Lungs: Benign calcified granulomas in the right lung. No new or enlarging pulmonary opacification. No pulmonary edema. Pleura: There is no significant pleural effusion or pneumothorax. Left shoulder findings: No acute fracture, dislocation, or suspicious osseous lesion. Moderate osteoarthritis of the acromioclavicular joint mild osteoarthritis of the glenohumeral joint. Small ossification projecting over the superolateral humeral head which could represent calcific tendinitis. XR/XR shoulder LT min 2V IMPRESSION: 1. No acute cardiopulmonary abnormality. 2. Osteoarthritis of the left shoulder. 3. Possible left-sided calcific tendinitis. Electronically authenticated by: BILLY KENYON Date: 06/08/2023 18:04
--- NOTE | 2023-06-08 17:30 | ED_ITS ---
HPI - Extremity Problem General Chief complaint: Extremity Problem, Nontraumatic Stated complaint: SHOULDER PAIN Time Seen by Provider: 06/08/23 17:11 Source: patient Mode of arrival: walk-in History of Present Illness HPI Narrative: Patient is a 72-year-old male with a history of B-cell lymphoma in remission who presents to the emergency department for left shoulder pain for the last 7 years. He states pain in the left glenohumeral joint is increasing. He denies any injury or trauma. He states pain is worse with laying on the left shoulder and deep breathing. He had MRIs of the left shoulder done many years ago, he does not currently have an orthopedist. He states he is due to have endoscopy done on Sunday to look At his pancreas and he is concerned that if he is positioned for the scope, he will have a significant increase in pain. He is requesting a cortisone shot of the left shoulder. He denies any chest pain, fevers, cough, congestion, hemoptysis. He has no scapular pain. Related Data Home Medications ?Medication ?Instructions ?Recorded ?Confirmed lisinopril 10 mg tablet 10 mg PO DAILY 03/20/23 06/08/23 Previous Rx's ?Medication ?Instructions ?Recorded hydrocodone 5 mg-acetaminophen 325 1 tab PO Q6H PRN pain 3 days #12 06/08/23 mg tablet tabs methocarbamol 750 mg tablet 750 mg PO TID PRN pain #20 tabs 06/08/23 Allergies Allergy/AdvReac Type Severity Reaction Status Date / Time ciprofloxacin [From Cipro] AdvReac Intermediate Verified 03/20/23 10:45 metronidazole [From Flagyl] AdvReac Intermediate Verified 03/20/23 10:45 Review of Systems ROS Constitutional Denies: fever or chills Ears, nose, mouth, and throat Denies: throat pain Cardiovascular Denies: chest pain Respiratory Denies: shortness of breath or coughing up blood Gastrointestinal Denies: nausea or vomiting Musculoskeletal Reports: extremity pain, joint pain and limited range of motion; Denies: back pain Integumentary/Breast Denies: rash Neurological Denies: headache Hematologic/Lymphatic Denies: easy bruising or easy bleeding PFSH PFSH Social History Smoking status: Former smoker Exam Narrative Exam Narrative: Gen.: Awake, alert, in no distress Head: Normocephalic, atraumatic ENT: Moist mucous membranes Respiratory: No respiratory distress Extremities: Moves extremities equally, Pain with range of motion at the left shoulder and diffuse minimal tenderness of the left glenohumeral joint with no obvious deformity or sulcus sign. Normal [employer] strength in the left hand, Normal biceps tendon strength in the left arm Psych: Normal mood and affect Neuro: No focal neuro deficit Skin: Warm, dry, intact Constitutional Vital Signs, click to edit/add: Last Vital Signs Temp 97.9 F 06/08/23 17:09 Pulse 82 06/08/23 17:09 Resp 18 06/08/23 17:09 BP 129/81 06/08/23 17:09 Pulse Ox 98 06/08/23 17:09 O2 Del Method Room Air 06/08/23 17:09 Course Vital Signs Vital signs: Vital Signs Temperature 97.9 F 06/08/23 17:09 Pulse Rate 82 06/08/23 17:09 Respiratory Rate 18 06/08/23 17:09 Blood Pressure 129/81 06/08/23 17:09 Pulse Oximetry 98 06/08/23 17:09 Oxygen Delivery Method Room Air 06/08/23 17:09 Temperature 97.9 F 06/08/23 17:09 Pulse Rate 82 06/08/23 17:09 Respiratory Rate 18 06/08/23 17:09 Blood Pressure 129/81 06/08/23 17:09 Pulse Oximetry 98 06/08/23 17:09 Oxygen Delivery Method Room Air 06/08/23 17:09 MDM - Extremity (Nontraumatic) MDM Narrative Medical decision making narrative: Patient was given intramuscular Solu-Medrol as we do not have the ability to give an intra-articular cortisone shot in the ER. X-rays of the left shoulder and chest with no evidence of pneumothorax or other worrisome new acute process. Patient treated with muscle relaxant and short course of analgesics, I am hesitant to start him on long-term steroids or NSAIDs over the next several days in anticipation of his endoscopy. I contacted orthopedic PA through [facility], patie nt can be seen any day next week, if he has increased pain after his procedure, he can be seen by orthopedics for further evaluation and treatment. Stable at time of discharge. Medical Records Attestation: I reviewed the patient's medical records. Imaging Data Chest x-ray: Attestation: I have reviewed the pertinent imaging results. Discharge Plan Discharge Stand Alone Forms: Portal Instructions Chief Complaint: Extremity Problem, Nontraumatic Clinical Impression: Acute pain of left shoulder Patient Disposition: Home, Self-Care Time of Disposition Decision: 17:55 Condition: Good Prescriptions / Home Meds: New hydrocodone-acetaminophen 5-325 mg tablet 1 tab PO Q6H PRN (Reason: pain) 3 Days Qty: 12 0RF Rx Instructions: DX: M25.512 methocarbamol 750 mg tablet 750 mg PO TID PRN (Reason: pain) Qty: 20 0RF No Action lisinopril 10 mg tablet 10 mg PO DAILY Print Language: Spanish Instructions: Shoulder Pain (ED) Additional Instructions: Ortho office hours - [place] office on Sunday or [place] office on /; Call Sunday before your procedure and ortho will schedule you Referrals: Leandro Perez DO [Physician] - As needed (Call the office sunday before your procedure and they will schedule you for next week ) KLAUS WILD [Primary Care Provider] - 1 week
[2023-06-08] MEDS: METHYLPREDNISOLONE SOD SUCC PF 125 MG/2 ML VIAL IM (17:40)
== END 2023-06-08 18:13 | disposition home or self-care (01) ==
PROVIDERS: Emergency Provider Emergency Medicine; PCP Nurse Practitioner
DX: M25.512 Pain in left shoulder (principal); Z85.72 Personal history of non-Hodgkin lymphomas; Z79.899 Other long term (current) drug therapy; Z87.891 Personal history of nicotine dependence
CPT/HCPCS: 71045; 73030; 96372; 99284; J2919

== ENCOUNTER 2024-05-01 11:15 | Emergency (ER) | payer MEDICARE, SELFPAY ==
[2024-05-01 11:21] VITALS: BP 148/82; PULSE 77; TEMP 36.6; O2SAT 100; BMI 20.8
--- OUTSIDE RECORDS SUMMARY | 2024-05-01 11:25 | XMS_ITS | CCD ---
Author Organization [facility] CliniSyut Care Team Providers Care Electric Motor Assembler Name Role Phone PHYSICIAN, DEFAULT Unavailable Unavailable PHYSICIAN, DEFAULT Unavailable Unavailable Arthur Padilla Primary Care Provider [phone] Clifford Arthur DO Unavailable [address]ag[address] REPORTER.[place] FLORES Unavailable Arleen LONG, Mai Unavailable Arthur Padilla Primary Care Provider Clifford Arthur DO Unavailable [phone] REPORTER.[place] FLORES Unavailable Arleen LONG, Mai Unavailable NHI, DR MICHAEL Springer Admitting Unavailabl e GRKULDIP, DR MICHAEL Springer Attending Unavailabl e MURGUIA, KLAUS Primary Care Unavailable NHI, DR MICHAEL Springer Admitting Unavailabl e GRKULDIP, DR MICHAEL Springer Attending Unavailabl e MURGUIA, KLAUS Primary Care Unavailable NHI, DR MICHAEL Springer Consulting Unavailabl e BRITMICHAEL Consulting Unavailable LETHA BENAVIDEZ Consulting Unavailable MURGUIA, KLAUS Consulting Unavailable MURGUIA, KLAUS Primary Care Unavailable MURGUIA, KLAUS Admitting Unavailable MURGUIASAIGEE Attending Unavailable MURGUIA, KLAUS Consulting Unavailable PATRIZIAILLINaty, DR MICHAEL Springer Attending Unavailabl e NHI, DR MICHAEL Springer Consulting Unavailabl e MURGUIA, KLAUS Primary Care Unavailable NHI, DR MICHAEL Springer Admitting Unavailabl e Arthur Padilla Primary Care Provider [phone] Clifford Arthur DO Unavailable Shaggy COURT REPORTER.[place] FLORES Unavailable [phone] Arleen LONG, Henrietta Unavailable SAIGE MURGUIAE J Referring Unavailable MURGUIA, KLAUS J Primary Care Unavailable Ilo DO, Arthur J Primary Care Provider Unavaila ble Adamowicz DO, Clifford J Unavailable ILO, ARTHUR J Primary Care Unavailable OSCAR ANDUJAR Attending Unavailable RODDY, SAMER A Referring Unavailable Ilo DO, Arthur J Primary Care Provider Unavaila ble ABHYANKAR, DONNELL Referring Unavailable ILO, ARTHUR J Primary Care Unavailable ABHYANKAR, DONNELL Attending Unavailable ABHYANKAR, DONNELL Referring Unavailable ILO, ARTHUR J Primary Care Unavailable ABHYANKAR, DONNELL Referring Unavailable ILO, ARTHUR J Primary Care Unavailable ABHYANKAR, DONNELL Attending Unavailable ABHYANKAR, DONNELL Referring Unavailable ILO, ARTHUR J Primary Care Unavailable ABHYANKAR, DONNELL Referring Unavailable NAFFOUJE, SAMER A Attending Unavailable ILO, ARTHUR J Primary Care Unavailable MURGUIA, KLAUS J [...] Unavailable MURGUIA, KLAUS J Primary Care Unavailable Adamowicz DO, Clifford J Unavailable [address] REPORTER-HONING MACHINE TRY OUT SETTER, Klaus J Primary Care Provid er Allergies Allergy Classification Reported Allergen(s) Allergy Type Date of Onset Reaction(s) Facility (20 sources) Ciprofloxacin; Translations: [CIPROFLOXACIN HCL] Drug Allergy 7 Other: See Comments [facility] (16 sources) metroNIDAZOLE; Translations: [METRONIDAZOLE HCL] Drug Allergy 8 Other: See Comments [facility] (16 sources) Ciprocinonide; Translations: [CIPROCINONIDE] Drug Allergy 8 Other: See Comments [facility] (1 source) Ciprofloxacin Drug Allergy 3 [facility] (1 source) metroNIDAZOLE Drug Allergy 3 [facility] (15 sources) Ciprofloxacin; Translations: [CIPROFLOXACIN] Drug Allergy 1 Rash [facility] (15 sources) metroNIDAZOLE; Translations: [METRONIDAZOLE] Drug Allergy 7 Swelling [facility] Medications Current Medications Medication Drug Class(es) Dates Sig (Normalized) Sig (Original) acetaminophen 325 mg / HYDROcodone bitartrate 5 mg oral tablet (14 sources) Opioid Agonist Start: 11-24-2018 take 1 tablet by mouth once as needed HYDROcodone-acetam inophen (NORCO) 5-325 mg per tablet Take 1 tablet by mouth as needed. 11/24/2018 Active Comment on above: Take 1 tablet by reinaldo th as needed. amylase 26021 unt / lipase 22710 unt / protease 14860 unt delayed release oral capsule (12 sources) Start: 09-25-2023 End: 11-06-2023 CREON 12,000-38,000 -60,000 unit capsule,delayed release(DR/EC) capsule Indications: Other chronic pancreatitis ([facility]) Take 1 capsule (12,000 units of lipase total) by mouth in the morning and 1 capsule (12,000 units of lipase total) at noon and 1 capsule (12,000 units of lipase total) in the evening. Take with meals. 300 capsule 3 11/06/2023 Active Start: 07-02-2023 take 3 capsules by m outh three times daily at mealtime zgdpom-pkddvrpa-hdrnitl (CREON) 12,000-38,000 -60,000 unit delayed release capsule Take 3 capsules by mouth three times a day with meals. 270 capsule 1 07/02/2023 Active enteric contrast (will be provided with radiology test) (14 sources) Start: 03-05-[address] (will be provided with radiology test) For CT CHESTABD/PEL W IVCON Routine order Administer, As Directed One Time Only, via Oral, Rectal, both Oral and Rectal, Enteric Tube, Stoma or Indwelling Catheter, Enteric Contrast as designated per enteric contrast guidelines 1 Each 03/05/2019 Active Start: 03-05-[address] (will be provided with radiology test) For [...] guidelines ferrous sulfate 325 mg oral tablet (14 sources) Start: 9 take 1 tablet by mouth twice daily ferrous sulfate 325 mg (65 mg iron) tablet Take 1 tablet by mouth twice daily. 60 tablet 5 12/02/2018 Active Comment on above: Take 1 tablet by reinaldo th twice daily. iv contrast (will be provided with radiology test) (15 sources) Start: 4 End: 4 iv contrast (will be provided with radiology test) MRI PANC/VICTOR HUGO Inject, intravenously, once for 1 dose. No IV access, insert saline lock prior to the beginning of sedation, infusion, injection of imaging exam. Discontinue saline lock post exam. If Pt. has a central line or IVAD, may access for administration according to line specific nursing protocol. Once exam is complete flush line and de-access according to line specific nursing protocol in the MR contrast administration guidelines link. 1 Each 0 07/02/2023 07/03/2023 Active Start: 03-05-2019 iv contrast (w ill be provided with radiology test) CT Chest [...] CT contrast administration guidelines link. 1 Each 03/05/2019 Active Start: 03-05-2019 iv contrast (w ill be provided with radiology test) CT Chest [...] in the CT contrast administration guidelines link. lisinopril 10 mg oral tablet (15 sources) Angiotensin Converting Enzyme Inhibitor Start: 01-21-20 take 1 tablet by mouth in the morning lisinopriL (PRINIVIL,ZESTRIL) 10 mg tablet Indications: Benign hypertension TAKE 1 TABLET (10 MG TOTAL) BY MOUTH IN THE MORNING 90 tablet 1 01/21/2024 Active Start: 12-07-2022 End: 01-21-2024 take 1 tablet by mouth in the morning lisinopriL (PRINIVIL,ZESTRIL) 10 mg tablet Indications: Benign hypertension TAKE 1 TABLET (10 MG TOTAL) BY MOUTH IN THE MORNING 90 tablet 1 01/21/2024 Active omeprazole 20 mg delayed release oral capsule (14 sources) Proton Pump Inhibitor Start: 01-02-2018 take 1 capsule by mouth once daily omeprazole (PRILOSEC) 20 mg capsule Take 1 capsule by mouth once daily. 30 capsule 5 01/02/2018 Active Comment on above: Take 1 capsule by [facility] once daily. Completed/Discontinued Medications Medication Drug Class(es) Dates Sig (Normalized) Sig (Original) hyoscyamine sulfate 0.125 mg sublingual tablet (2 sources) Start: 03-20-2023 End: 04-26-2023 take 1 tablet by mouth every six hours as needed for pain hyoscyamine (LEVSIN) 0.125 mg SL tablet TAKE 1 TABLET BY MOUTH ONCE EVERY 6 HOURS NEEDED FOR ABDOMINAL PAIN 0 03/20/2023 04/26/2023 Discontinued (Therapy completed) pantoprazole 40 mg delayed release oral tablet (2 sources) Proton Pump Inhibitor Start: 03-20-2023 End: 04-26-2023 take 1 tablet by mouth once daily pantoprazole (PROTONIX) 40 mg EC tablet TAKE 1 TABLET BY MOUTH DAILY FOR 4 WEEKS 0 03/20/2023 04/26/2023 Discontinued (Therapy completed) Problems Active Problems Problem Classification Problem Date Documented Date Episodic/Chronic Disorders of lipid metabolism (4 sources) Mixed hyperlipidemia; 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] Onset: 12-10-2021 03-27-2023 Chronic Diverticulosis and diverticulitis (13 sources) Diverticulosis of large intestine without perforation or abscess without bleeding; Translations: [Diverticulitis] Onset: 12-21-2021 08-16-2016 Chronic Esophageal disorders (20 sources) Gastroesophageal reflux disease without esophagitis; Translations: [Gastro-esophageal reflux disease without esophagitis] Onset: 01-02-2018 01-02-2018 Chronic Essential hypertension (3 sources) Essential (primary) hypertension; Translations: [Benign hypertension] Onset: 12-21-2021 07-19-2023 Chronic Malignant neoplasm without specification of site (12 sources) Malignant neoplastic disease; Translations: [Malignant (primary) neoplasm, unspecified] Onset: 12-26-2021 12-26-2021 Chronic Non-Hodgkin`s lymphoma (20 sources) Diffuse non-Hodgkin's lymphoma, large cell (clinical); Translations: [Diffuse large B-cell lymphoma, extranodal and solid organ sites] Onset: 09-07-2017 Chronic Osteoarthritis (20 sources) Degenerative joint disease involving multiple joints; Translations: [Primary generalized (osteo)arthritis] Onset: 03-12-2017 03-12-2017 Chronic Other aftercare (1 [...] COLON] Onset: 12-21-2021 Episodic Other liver diseases (12 sources) Steatosis of liver; Translations: [Fatty (change of) liver, not elsewhere classified] Onset: 06-23-2019 06-23-2019 Chronic Pancreatic disorders (not diabetes) (7 sources) Other chronic pancreatitis; Translations: [Chronic pancreatitis] Onset: 03-27-2023 03-27-2023 Chronic Pancreatic disorders (not diabetes) (14 sources) Disease of pancreas, unspecified; Translations: [Disorder of pancreas] Onset: 03-27-2023 05-08-2023 Episodic Regional enteritis and ulcerative colitis (13 sources) Pseudopolyposis of colon; Translations: [Inflammatory polyps of colon without complications] Onset: 10-19-2020 10-19-2020 Chronic Residual codes; unclassified (1 source) Acquired absence of spleen; Translations: [ACQUIRED ABSENCE OF SPLEEN] Onset: 12-21-2021 Episodic Unclassified (1 source) CONTACT W/AND (SUSP) EXPOS COVID-19; Translations: [CONTACT W/AND (SUSP) EXPOS COVID-19] Onset: 12-10-2021 Unclassified (1 source) Annual Exam Onset: 11-08-2023 Unclassified (1 source) F2F for MRI Onset: 09-18-2023 Past or Other Problems Problem Classification Problem Date Documented Da te Episodic/Chronic Abdominal pain (3 sources) Generalized abdominal pain; Translations: [Epigastric pain] Onset: 04-26-2023 04-26-2023 Episodic Mood disorders (12 sources) Mood disorders Onset: 09-18-2023 Resolved: 11-08-2023 11-08-2023 Non-Hodgkin`s lymphoma (4 sources) Personal history of non-Hodgkin lymphomas; Translations: [History of B-cell lymphoma] Onset: 12-21-2021 03-27-2023 Episodic Other connective tissue disease (12 sources) Tear of left rotator cuff; Translations: [Unspecified rotator cuff tear or rupture of left shoulder, not specified as traumatic] Onset: 10-20-2021 10-20-2021 Episodic Other gastrointestinal disorders (14 sources) Splenomegaly; Translations: [Splenomegaly, not elsewhere classified] Onset: 02-13-2018 02-13-2018 Episodic Other gastrointestinal disorders (20 sources) Mass of spleen; Translations: [Splenomegaly, not elsewhere classified] Onset: 03-15-2018 03-15-2018 Episodic Other inflammatory condition of skin (20 sources) Psoriatic arthritis; Translations: [Arthropathic psoriasis, unspecified] Onset: 03-12-2017 Resolved: 03-28-2023 03-28-2023 Chronic Other lower respiratory disease (10 sources) Calcified granuloma of lung; Translations: [Pulmonary fibrosis, unspecified] Onset: 06-23-2019 Resolved: 03-28-2023 03-28-2023 Chronic Other lower respiratory disease (2 sources) Calcified granuloma of lung; Translations: [Other disorders of lung] Onset: 06-23-2019 Resolved: 03-28-2023 03-28-2023 Episodic Other screening for suspected conditions (not mental disorders or infectious disease) (19 sources) Encounter for screening for malignant neoplasm of prostate; Translations: [Magnetic resonance imaging of abdomen abnormal] Onset: 08-16-2016 05-08-2023 Episodic Melissa-; endo-; and myocarditis; cardiomyopathy (except that caused by tuberculosis or sexually transmitted disease) (12 sources) Pericarditis; Translations: [Disease of pericardium, unspecified] Onset: 12-26-2021 12-26-2021 Episodic Residual codes; unclassified (12 sources) FH: Gout; Translations: [Family history of other diseases of the musculoskeletal system and connective tissue] Onset: 03-12-2017 03-12-2017 Episodic Unclassified (12 sources) Onset: 09-18-2023 Resolved: 11-08-2023 11-08-2023 Results Test Name Value Interpretation Reference Range Facility MR ABDOMEN W WO CONTon 10-16 MR ABDOMEN W WO CONT MR ABDOMEN W WO CON T CLINICAL INFORMATION: Chronic pancreatitis with stones, chronic gallstone pancreatitis, pancreatic cysts COMPARISON: MR abdomen 04/06/2023 TECHNIQUE: Multisequence multiplanar MRI of the abdomen without and with contrast. CONTRAST: 12.7 ml of Prohance FINDINGS: LIVER AND BILIARY: No significant signal drop on opposed phase imaging. Noncirrhotic liver morphology. No significant intrahepatic or extrahepatic biliary ductal dilatation. No evidence of choledocholithiasis. Gallbladder is unremarkable. PANCREAS: Multiple redemonstrated incidental pancreatic cystic lesions. The largest one is microcystic, measuring 2.9 cm in the uncinate process. High-risk feature(s)/stigmata are present: main pancreatic duct ?7 mm. Communication between the cyst and the main pancreatic duct cannot be determined. SPLEEN: Surgically absent with large splenules near the splenic fossa. ADRENALS: No adrenal mass or lesion. KIDNEYS: Minimally complex cystic lesion left lower pole, this requires no follow-up. No collecting system dilatation. Symmetric renal parenchymal enhancement. GI TRACT AND PERITONEUM: Diffuse colonic diverticulosis. No evidence of bowel obstruction. VASCULATURE: Unremarkable. LYMPH NODES: No enlarged lymph nodes by size criteria. MUSCULOSKELETAL: No acute findings. LOWER CHEST/LOCALIZER: 0.4 cm pleural-based nodule left lower lobe (series 19, image 35). IMPRESSION: * Multiple redemonstrated pancreatic cystic lesions, the largest one measuring 2.9 cm with similar dilatation of the main pancreatic duct. Recommendations are based on the largest cyst. Consider EUS / FNA or evaluation for surgery if clinically indicated. At a minimum, consider reimaging with contrast-enhanced MRI or pancreas protocol CT every 6 months for a total of 2 years. * Indeterminate solid pulmonary nodule measuring less than 6 mm. In a low-risk patient with a solid nodule <6 mm, recommend no follow-up. In a high-risk patient, CT at 12 months is optional with stronger consideration if there is suspicious nodule morphology and/or upper lobe location. Trey AJ, et al. Management of Incidental Pancreatic Cysts: A White Paper of the ACR Incidental Findings Committee. J Am Juan Daniel Radiol 2017;14:911-923. Tish H, et al. Guidelines for Management of Incidental Pulmonary Nodules Detected on CT Images: From the Fleischner Society 2017. Radiology. 2017 Ron;284(1):228-243. Approved by Resident Gabino Ring DO on 10/17/2023 1:44 PM Johnathan Alanis DO have personally reviewed the image(s) and agree with and/or edited the report Finalized by Johnathan Newton DO on 10/17/2023 2:24 PM Normal [facility] CBC W Auto Differential pane l (Bld)on 10-12-2023 Basophils (Bld) [#/Vol] 0.09 10*3/uL Normal <0.11 [facility] Comment on above: Order Comment: Speci men Type: BLOOD SPECIMEN Ordering Facility: [facility] Address: [address] [place] [id number] Performed By: #### 2 532-0, 37625-2 #### [facility] CLIA [id number] [address] [place] [address] Basophils/100 WBC (Bld) 1.1 % Normal [facility] Comment on above: Order Comment: Speci men Type: BLOOD SPECIMEN Ordering Facility: [facility] Address: [address] [address] Performed By: #### 2 532-0, #### [facility] CLIA [id number] [address] [place] [address] Differential cell count method Nom (Bld) Auto Normal [facility] Comment on above: Order Comment: Speci men Type: BLOOD SPECIMEN Ordering Facility: [facility] Address: [address] [address] Performed By: #### 2 532-0, #### [facility] CLIA [id number] [address] [place] [address] Eosinophils (Bld) [#/Vol] 0.09 10*3/uL Normal <0.46 [facility] Comment on above: Order Comment: Speci men Type: BLOOD SPECIMEN Ordering Facility: [facility] Address: [address] [address] Performed By: #### 2 532-0, #### [facility] CLIA [id number] [address] [place] [address] Eosinophils/100 WBC (Bld) 1.1 % Normal [facility] Comment on above: Order Comment: Speci men Type: BLOOD SPECIMEN Ordering Facility: [facility] Address: [address] [address] Performed By: #### 2 532-0, #### [facility] CLIA [id number] [address] [place] [address] Erythrocyte distribution width (RBC) [Ratio] 13.4 % Normal 11.5-15.0 [facility] Comment on above: Order Comment: Speci men Type: BLOOD SPECIMEN Ordering Facility: [facility] Address: [address] [address] Performed By: #### 2 532-0, #### [facility] CLIA [id number] [address] [place] [address] Hematocrit (Bld) [Volume fraction] 40.5 % Normal 39.0-51.0 [facility] Comment on above: Order Comment: Speci men Type: BLOOD SPECIMEN Ordering Facility: [facility] Address: [address] [place] [address] Performed By: #### 2 532-0, #### [facility] CLIA [id number] [address] [place] [address] Hemoglobin (Bld) [Mass/Vol] 14.0 g/dL Normal 13.0-17.0 [facility] Comment on above: Order Comment: Speci men Type: BLOOD SPECIMEN Ordering Facility: [facility] Address: [address] [place] [address] Performed By: #### 2 532-0, #### [facility] CLIA [id number] [address] [place] [address] Immature granulocytes (Bld) [#/Vol] 10*3/uL Normal <0.10 [facility] Comment on above: Order Comment: Speci men Type: BLOOD SPECIMEN Ordering Facility: [facility] Address: [address] [place] [address] Performed By: #### 2 532-0, #### [facility] CLIA [id number] [address] [place] [address] Immature granulocytes/100 WBC (Bld) 0.1 % Normal [facility] Comment on above: Order Comment: Speci men Type: BLOOD SPECIMEN Ordering Facility: [facility] Address: [address] [place] [address] Performed By: #### 2 532-0, #### [facility] CLIA [id number] [address] [place] [address] Lymphocytes (Bld) [#/Vol] 3.81 10*3/uL Normal 1.00-4.00 [facility] Comment on above: Order Comment: Speci men Type: BLOOD SPECIMEN Ordering Facility: [facility] Address: [address] [address] Performed By: #### 2 532-0, #### [facility] CLIA [id number] [address] [place] [address] Lymphocytes/100 WBC (Bld) 45.2 % Normal [facility] Comment on above: Order Comment: Speci men Type: BLOOD SPECIMEN Ordering Facility: [facility] Address: [address] [address] Performed By: #### 2 532-0, #### [facility] CLIA [id number] [address] [place] [address] MCH (RBC) [Entitic mass] 31.4 pg Normal 26.0-34.0 [facility] Comment on above: Order Comment: Speci men Type: BLOOD SPECIMEN Ordering Facility: [facility] Address: [address] Performed By: #### 2 532-0, #### [facility] CLIA [id number] [address] [place] [address]142 MCHC (RBC) [Mass/Vol] 34.6 g/dL Normal 30.5-36.0 [facility] Comment on above: Order Comment: Speci men Type: BLOOD SPECIMEN Ordering Facility: [facility] Address: [address] Performed By: #### 2 532-0, 66942-2 #### [facility] CLIA [id number] [address] [place] [address] MCV (RBC) [Entitic vol] 90.8 fL Normal 80.0-100.0 [facility] Comment on above: Order Comment: Speci men Type: BLOOD SPECIMEN Ordering Facility: [facility] Address: [address] Performed By: #### 2 532-0, #### [facility] CLIA [id number] [address] [place] [address] Monocytes (Bld) [#/Vol] 0.75 10*3/uL Normal <0.87 [facility] Comment on above: Order Comment: Speci men Type: BLOOD SPECIMEN Ordering Facility: [facility] Address: [address] [place], [place] [address] Performed By: #### 2 532-0, #### [facility] CLIA [id number] [address] [place] [address] Monocytes/100 WBC (Bld) 8.9 % Normal [facility] Comment on above: Order Comment: Speci men Type: BLOOD SPECIMEN Ordering Facility: [facility] Address: [address] [place] [address] Performed By: #### 2 5320, #### [facility] CLIA [id number] [address] [place] [address] Neutrophils (Bld) [#/Vol] 3.68 10*3/uL Normal 1.45-7.50 [facility] Comment on above: Order Comment: Speci men Type: BLOOD SPECIMEN Ordering Facility: [facility] Address: [address] [place], [place] [address] Performed By: #### 2 5320, #### [facility] CLIA [id number] [address] [place] [address]235 Neutrophils/100 WBC (Bld) 43.6 % Normal [facility] Comment on above: Order Comment: Speci men Type: BLOOD SPECIMEN Ordering Facility: [facility] Address: [address] [place], [place] [address] Performed By: #### 2 5320, #### [facility] CLIA [id number] [address] [place] [address] 51766 Nucleated RBC (Bld) [#/Vol] 10*3/uL Normal <0.01 [facility] Comment on above: Order Comment: Speci men Type: BLOOD SPECIMEN Ordering Facility: [facility] Address: [address] Performed By: #### 2 532-0, #### [facility] CLIA [id number] [address] [place] [address] 65265 Nucleated RBC/100 WBC (Bld) [Ratio] 0.0 /100 WBC Normal [facility] Comment on above: Order Comment: Speci men Type: BLOOD SPECIMEN Ordering Facility: [facility] Address: [address] Performed By: #### 2 532-0, #### [facility] CLIA [id number] [address] [place] [address]11 Platelet mean volume (Bld) [Entitic vol] 10.9 fL Normal 9.0-12.7 [facility] Comment on above: Order Comment: Speci men Type: BLOOD SPECIMEN Ordering Facility: [facility] Address: [address] Performed By: #### 2 532-0, #### [facility] CLIA [id number] [address] [place] [address]1409 Platelets (Bld) [#/Vol] 287 10*3/uL Normal 150-400 [facility] Comment on above: Order Comment: Speci men Type: BLOOD SPECIMEN Ordering Facility: [facility] Address: [address] Performed By: #### 2 532-0, #### [facility] CLIA [id number] [address] [place] [address]36 RBC (Bld) [#/Vol] 4.46 10*6/uL Normal 4.20-6.00 [facility] Comment on above: Order Comment: Speci men Type: BLOOD SPECIMEN Ordering Facility: [facility] Address: [address] Performed By: #### 2 532-0, 57964-0 #### [facility] CLIA [id number] [address] [place] [address]150 WBC (Bld) [#/Vol] 8.43 10*3/uL Normal 3.70-11.00 [facility] Comment on above: Order Comment: Speci men Type: BLOOD SPECIMEN [facility] [facility] Address: [place] [address] Performed By: #### 2 532-0, 80565-8 #### [facility] CLIA [id number] [address] [place] [address] CNOVSPon 10-12-2023 CNOVSP Visit (SP) Office ([place]) NIC VALERIO ([id number]) 1950 M Date Time Provider Department 10/12/23 10:45 AM DONNELL COLON During your visit today, we recorded the following information about you: Temperature Pulse Respiration Blood pressure 97.6 degrees 61/minute 18/minute 152/71 Weight 63.3 kg Donnell Colon MD 10/13/2023 2:36 PM Signed NAME: Nic Valerio [facility] NO.: [id number] DATE OF SERVICE: October 12, 2023 (Kenneth) Some elements in this clinic note that are critical to medical decision making have been carefully reviewed and included from a prior clinic note dated: October 13, 2022 (Kenneth) Referring Provider: Arthur Padilla DO CC: [...] RTC in 1 year labs same day - HPI: CASE HISTORY: Reverse Chronological Order 06/11/2023 - EUS: Severe chronic pancreatitis with obstructing pancreatic duct stones A cystic lesion was not found in the uncinate process. Only a 9mm cyst in the head of the pancreas. FNA was not performed. 04/06/2023 - MRI Abdomen: Multiple incidental pancreatic cystic lesions, the largest one measuring 2.9 cm with communication to the main pancreatic duct. Recommendations are based on the largest cyst. Recommend considering EUS with FNA, and surgical consultation. However, for cysts with low-risk features by imaging, consider reimaging with contrast-enhanced MRI or pancreas-protocol CT every 6 months for up to 2 years. 04/07/2020 - PET/CT: No FDG avid neoplastic process. No mass, adenopathy, or fluid collection. Deauville score: 1 10/02/2019 - CT CAP: Chest: No evidence of bulky intrathoracic lymphadenopathy. Findings of prior granulomatous disease. Multiple noncalcified nodular opacities adjacent to a calcified right upper lobe granuloma. These may represent noncalcified granulomas. Findings are similar in appearance to prior exam. Previously visualized right lower lobe groundglass nodule has resolved, likely infectious or inflammatory in nature. A/P: No evidence of abdominal or pelvic lymphadenopathy. Extensive colonic diverticulosis. Findings suggestive of mild sigmoid diverticulitis. Correlate clinically. Findings suggestive of a polyp within the sigmoid colon. Recommend further evaluation with colonoscopy. Postsurgical changes of splenectomy. Unchanged fluid collection in the splenectomy bed. Ovoid hypodensity in the pancreatic head, similar in appearance to prior exam. 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 Recommend continued follow-up. 05/30/2019 - CT CAP: Chest: No evidence of bulky intrathoracic lymphadenopathy. Stable calcified granuloma in the right upper lobe with surrounding noncalcified opacities. These may represent noncalcified granulomas. 2-3 mm right lower lobe groundglass nodule which was not discretely visualized on the prior exam. Recommend continued follow-up. A/P: No evidence of abdominal or pelvic lymphadenopathy. Postsurgical changes in keeping with splenectomy. Unchanged appearance of fluid collection in the splenectomy bed. Ovoid hypodensity in the pancreatic head measuring up to 11 mm in size. This may represent a cyst or intraductal papillary mucinous neoplasm (IPMN). Consider contrast-enhanced MRI/MRCP for further evaluation. Hepatic steatosis. Updated Visit, October 12, 2023: Nic returns for a follow up. In May, he was diagnosed with pancreatitis - now taking creon. Following with Dr. Pereyra. His labs look great, LDH continues to improve. Updated Visit, October 13, 2022: Doing well. [...] get his port out Updated Visit, April 12 (more content not included)... Normal [facility] Comprehensive metabolic 2000 panelon 10-12-2023 Albumin [Mass/Vol] 4.5 g/dL Normal 3.9-4.9 [facility] Comment on above: Order Comment: Speci men Type: BLOOD SPECIMEN Ordering Facility: [facility] Address: [place] [address] Performed By: #### 2 532-0, 26844-2 #### [facility] CLIA [id number] [address] [place] [address] ALP [Catalytic activity/Vol] 100 U/L Normal 38-113 [facility] Comment on above: Order Comment: Speci men Type: BLOOD SPECIMEN Ordering Facility: [facility] Address: [address] [address] Performed By: #### 2 532-0, #### [facility] CLIA [id number] [address] [place] [address] ALT [Catalytic activity/Vol] 24 U/L Normal 10-54 [facility] Comment on above: Order Comment: Speci men Type: BLOOD SPECIMEN Ordering Facility: [facility] Address: [address] [address] Performed By: #### 2 532-0, #### [facility] CLIA [id number] [address] [place] [address] Anion gap [Moles/Vol] 7 mmol/L Low 8-15 [facility] Comment on above: Order Comment: Speci men Type: BLOOD SPECIMEN Ordering Facility: [facility] Address: [address] Performed By: #### 2 532-0, #### [facility] CLIA [id number] [address] [place] [address] AST [Catalytic activity/Vol] 22 U/L Normal 14-40 [facility] Comment on above: Order Comment: Speci men Type: BLOOD SPECIMEN Ordering Facility: [facility] Address: [address] Performed By: #### 2 532-0, #### [facility] CLIA [id number] [address] [place] [address] Bilirubin [Mass/Vol] 0.3 mg/dL Normal 0.2-1.3 [facility] Comment on above: Order Comment: Speci men Type: BLOOD SPECIMEN Ordering Facility: [facility] Address: [address] Performed By: #### 2 532-0, #### [facility] CLIA [id number] [address] [place] [address] Calcium [Mass/Vol] 10.0 mg/dL Normal 8.5-10.2 [facility] Comment on above: Order Comment: Speci men Type: BLOOD SPECIMEN Ordering Facility: [facility] Address: [address] [place] [address] Performed By: #### 2 532-0, 51441-8 #### [facility] CLIA [id number] [address] [place] [address] Chloride [Moles/Vol] 102 mmol/L Normal 98-107 [facility] Comment on above: Order Comment: Speci men Type: BLOOD SPECIMEN Ordering Facility: [facility] Address: [address] [place] [address] Performed By: #### 2 532-0, #### [facility] CLIA [id number] [address] [place] [address] CO2 [Moles/Vol] 29 mmol/L Normal 22-30 [facility] Comment on above: Order Comment: Speci men Type: BLOOD SPECIMEN Ordering Facility: [facility] Address: [address] [place] [address] Performed By: #### 2 532-0, #### [facility] CLIA [id number] [address] [place] [address] Creatinine [Mass/Vol] 0.84 mg/dL Normal 0.73-1.22 [facility] Comment on above: Order Comment: Speci men Type: BLOOD SPECIMEN Ordering Facility: [facility] Address: [address] [place] [address] Performed By: #### 2 532-0, #### [facility] CLIA [id number] [address] [place] [address] Creatinine and Glomerular filtration rate.predicted panel (S/P/Bld) 93 mL/min/1.73m??? Normal >=60 [facility] Comment on above: Order Comment: Kyle angelo Type: BLOOD SPECIMEN Ordering Facility: [facility] Address: [place] [address] Result Comment: Ibis mated Glomerular Filtration Rate [...] actual GFR. Performed By: #### 2 532-0, 37010-8 #### [facility] CLIA [id number] [address] [place] [address] Glucose [Mass/Vol] 155 mg/dL High 74-99 [facility] Comment on above: Order Comment: Kyle angelo Type: BLOOD SPECIMEN Ordering Facility: [facility] Address: [place] [address] Result Comment: The [place] Diabetes Association (ADA) provides guidance for cutoff [...] Standards of Medical Care in Diabetes 2016, [place] [employer]. Diabetes Care. 2016.39(Suppl 1). Performed By: #### 2 532-0, 13803-9 #### [facility] CLIA [id number] [address] [place] [address] Potassium [Moles/Vol] 5.1 mmol/L Normal 3.7-5.1 [facility] Comment on above: Order Comment: Kyle angelo Type: BLOOD SPECIMEN Ordering Facility: [facility] Address: [address] [place] [address] Performed By: #### 2 532-0, 60502-2 #### [facility] CLIA [id number] [address] [place] [address] Protein [Mass/Vol] 6.9 g/dL Normal 6.3-8.0 [facility] Comment on above: Order Comment: Speci men Type: BLOOD SPECIMEN Ordering Facility: [facility] Address: [address] [address] Performed By: #### 2 532-0, #### [facility] CLIA [id number] [address] [place] [address] Sodium [Moles/Vol] 138 mmol/L Normal 136-144 [facility] Comment on above: Order Comment: Speci men Type: BLOOD SPECIMEN Ordering Facility: [facility] Address: [address] [address] Performed By: #### 2 532-0, #### [facility] CLIA [id number] [address] [place] [address] Urea nitrogen [Mass/Vol] 14 mg/dL Normal 9-24 [facility] Comment on above: Order Comment: Speci men Type: BLOOD SPECIMEN Ordering Facility: [facility] Address: [address] [address] Performed By: #### 2 532-0, 81262-0 #### [facility] CLIA [id number] [address] [place] [address] LDH SerPl-cCncon 10-12-2023 LDH [Catalytic activity/Vol] 164 U/L Normal 135-225 [facility] Comment on above: Order Comment: Speci men Type: BLOOD SPECIMEN Ordering Facility: [facility] Address: [address] [address] Performed By: #### 2 532-0, 48857-0 #### [facility] CLIA [id number] [address] [place] [address] Urate SerPl-mCncon Urate [Mass/Vol] 6.2 mg/dL Normal 4.0-8.1 [facility] Comment on above: Order Comment: Speci men Type: BLOOD SPECIMEN Ordering Facility: [facility] Address: [address] [place] [address] Performed By: #### 2 532-0, 47376-3 #### [facility] CLIA [id number] [address] [place] [address] CNOVon 07-02-2023 CNOV Office Visit ([id number] ) NIC VALERIO ([id number]) 1950 M Date Time Provider Department 07/02/23 4:00 PM JESSICA PEREYRA [id number] During your visit today, we recorded the following information about you: Jessica Pereyra MD 07/02/2023 3:05 PM Signed Established Patient Visit REASON FOR VISIT Follow up results - EUS I have communicated my name and active licensure. The patient's identity and physical location were verified at the time of this visit. Either the patient or their legal patient relations representative has been informed of the risks and benefits of -- and alternatives to -- treatment through a remote evaluation and consents to proceed with the evaluation remotely. History of Present Illness: Nic Valerio is a 73 year old year old male Nic Valerio is a 72 year old [...] that was suspected to be from pancreatitis. MRI PANCREAS 04/06/2023: Multiple incidental pancreatic cystic [...] 6 months for up to 2 years. Given these findings he was recommended to undergo EUS Bx which he completed with Dr. Andujar as follows. EUS BIOPSY PANCREAS 06/11/2023: - Severe chronic pancreatitis with obstructing pancreatic duct stones - A cystic lesion was not found in the uncinate process. Only a 9mm cyst in the head of the pancreas. FNA was not performed. Today, we are following up via a phone call to update the patient on these findings and make further care plans. He remains asymptomatic without any clinical changes since our last visit. FUNCTIONAL STATUS: Climb a flight of stairs [...] per enteric contrast guidelines 1 Each 0 HYDROcodone-acetamino phen (NORCO) 5-325 mg per tablet Take 1 [...] requiring medication, no history of angina, CHF, DE, cardiac surgery or stents. Denies rest pain, gangrene or revascularization/amp utation for PVD. No history of cardiovascular symptoms or problems. GI: See HPI : No history of UTI in past 6 weeks. No history of renal failure. Not currently on or requiri (more content not included)... Normal [facility] ANES POSTPROC EVALon 024 ANES POSTPROC EVAL HNO ID: [id number] Author: NIMESH LYONS MD Service: Anesthesiology Author Type: Anesthesiologist Type: Anesthesia Postprocedure Evaluation Filed: 06/11/2023 12:55 Note Text: POST ANESTHESIA EVALUATION NOTE : 1950 Procedure Summary Date: 06/11/23 Room / Location: [facility] Endoscopy - ENDO Anesthesia Start: 1034 Anesthesia Stop: 1111 Procedure: EGD - THERAPEUTIC, EUS, OR TUBE INTERVENTIONS Diagnosis: Pancreatic lesion (For evaluation of pancreatic cystic neoplasm) Scheduled Providers: Oscar Andujar MD Responsible Provider: Nimesh Lyons MD Anesthesia Type: MAC ASA Status: 2 Anesthesia Type: MAC Last Vitals Vitals Value Taken Time BP 154/79 06/11/23 1137 Temp 36 ?C (96.8 ?F) 06/11/23 1111 HR SpO2 64 06/11/23 1137 Resp 18 06/11/23 1137 SpO2 100 % 06/11/23 1137 Post Anesthesia Patient Status Patient Evaluation: PACU. PACU/ICU Patient Condition: stable. Anticipated Disposition: phase 2 then home. Neurological Status: aware and responsive. Pulmonary Status: breathing comfortably on room air Airway Control: returned to baseline unsupported. Cardiovascular Status: stable. Pain Management: clinically adequate - multimodal analgesia pain management approach Postoperative Hydration: acceptable. Intraoperative Events: no significant anesthesia events Recommendation: continue current plan of care. Anesthesia Observations No Documentation SIGNATURE: Nimesh Lyons MD PATIENT NAME: Nic Valerio DATE: June 11, 2023 TIME: 12:55 PM CSN: [id number] Normal [facility] ANES PRE-OPon 06-11-2023 ANES PRE-OP HNO ID: [id number] Author: NIMESH LYONS MD Service: Anesthesiology Author Type: Anesthesiologist Type: Anesthesia Preprocedure Evaluation Filed: 06/11/2023 10:26 Note Text: ANESTHESIOLOGY DAY OF SURGERY NOTE : 1950 Procedure Information Date/Time: 06/11/23 1030 Scheduled providers: Oscar Andujar MD Procedure: EGD - THERAPEUTIC, EUS, OR TUBE INTERVENTIONS Location: [facility] Endoscopy - ENDO Estimated body mass index is 21.58 kg/m? as calculated from the following: Height as of 10/13/22: 177.8 cm (5' 10 ). Weight as of 05/14/23: 68.2 kg (150 lb 6.4 oz). Most recent hematocrit and potassium results: Hematocrit 43.2 10/13/2022 Potassium 4.7 10/13/2022 Relevant Problems GI (+) Gastroesophageal reflux disease without esophagitis Other (+) Splenomegaly I - PHYSICAL EVALUATION AIRWAY Patient intubated: No. Tracheostomy tube not present Mallampati: II. TM distance: >3 FB. Neck ROM: full ROM without neurological symptoms. Mouth opening: adequate. Short neck: no. Thick neck: no DENTAL Normal dental observations. Dental findings: missing tooth/teeth, broken tooth, chipped and poor dentition. Additional exam findings: no II - ANESTHESIA PLAN ASA Score: 2 Anesthetic Plan: MAC The patient is not a current smoker. NPO Status: adequate Anesthetic plan additional comments: Symptoms of Sleep Apnea: Denies Previous Anesthesia: No history of adverse event Family history of anesthetic problems: None Functional Capacity Assessment:Denies chest pain and SOB with exertion. Denies change in functional capacity. History of GERD: Yes- Well controlled with no positional symptoms Most recent lab results: Hemoglobin 15.0 10/13/2022 Hematocrit 43.2 10/13/2022 Potassium 4.7 10/13/2022 Platelet Count 309 10/13/2022 Creatinine, Whole Blood (iSTAT) 0.94 10/13/2022 . Beta Salvatore Monitoring Plan Monitoring plan: Standard ASA. Post Procedure Analgesic Plan Postoperative analgesic plan: parenteral or oral opioids and multimodal analgesia. Informed Consent Anesthetic risks, benefits, alternatives, personnel and consent discussed: yes. Patient / Responsible Libertarian agrees to proceed: yes Patient / Surrogate agrees to blood products: Yes DNR status not reviewed with patient and/or family prior to surgery. Significant changes in the patient condition since the History and Physical, not otherwise documented in primary service progress note: no. Potential Anesthesia issues that may suggest increased risk of complications or contraindication to planned procedure: none. Vitals Value Taken Time BP 136/69 06/11/23951 Pulse 62 06/11/23951 Resp 16 06/11/23951 Temp 36.1 ?C (97 ?F) 06/11/23951 SpO2 100 % 06/11/23951 Outpatient Medications as of 06/11/2023 Medication Sig - iv contrast (will be provided with [...] as designated per enteric contrast guidelines - HYDROcodone-acetamino phen (NORCO) 5-325 mg per tablet Take 1 tablet by mouth as needed. - ferrous sulfate 325 mg (65 mg iron) tablet Take 1 tablet by mouth twice daily. - omeprazole (PRILOSEC) 20 mg capsule Take 1 capsule by mouth once daily. Facility-Administered Medications as of 06/11/2023 Medication Dose Route Frequency - lactated ringers iv infusion 30 mL/hr INTRAVENOUS CONTINUOUS I have interviewed and examined the patient. I have reviewed the medical record and/or the pre-anesthesia evaluation, pertinent labs, and test results. This contains updated information obtained within 48 hours of Surgery/Procedure. SIGNATURE: Nimesh Lyons MD PATIENT NAME: Nic Valerio DATE: June 11, 2023 TIME: 10:09 AM CSN: [id number] [facility] EGD Study observation Narrat iveon 06-11-2023 [facility] HISTORY PHYSICALon HISTORY PHYSICAL HNO ID: [id number] Author: OSCAR ANDUJAR MD Service: Gastroenterology Author Type: Physician Type: H&P Filed: 06/11/2023 10:04 Note Text: HISTORY AND PHYSICAL Nic Valerio, 72 year old male Current history and physical on file: Yes Is a new History and Physical required for today's visit? Yes Indication for procedure: Other pancreatic cyst PROCEDURE(S) SCHEDULED FOR: EUS/FNA (Endoscopic Ultrasound with or without Fine Needle Aspiration), based on clinical findings. BASELINE BEHAVIOR: Calm BASELINE ORIENTATION: A AND O x3 All medications and allergies reviewed: Yes Skin Assessment: Warm dry mucus membranes pink Airway/Respiratory Assessment: Airway: visualization of the uvula- Yes Mouth: opening greater than 2 fingerbreadths- Yes Neck: full range of motion- Yes Breath sounds clear/equal- Yes Cardiac Assessment: Regular rate and rhythm without murmur Abdominal Assessment: Abdomen soft, non-tender, no masses or organomegaly. Sedation Plan: Deep Additional Comments: None Oscar Andujar MD [facility] NURSING PROGon 06-11-2023 NURSING PROG HNO ID: [id number] Author: EASTON MELVIN RN Service: ? Author Type: Registered Nurse Type: Nursing Progress Note Filed: 06/11/2023 11:22 Note Text: PATIENT EDUCATION TOPIC: PROCEDURE / SURGERY: Post Procedure Teaching: Symptom Management PATIENT NAME: Nic Valerio PATIENT LOCATION: Room/bed info not found READINESS TO LEARN COGNITIVE ABILITY: Alert and oriented MOTIVATION TO LEARN: Interested FAMILY SUPPORT: Unable to assess - Family not present INSTRUCTION PROVIDED TO: Patient PATIENT LEARNS BEST BY: Individual Instruction FACTORS AFFECTING LEARNING: None PHYSICAL LIMITATIONS AFFECTING LEARNING: None LEARNING RESPONSE DIAGNOSIS: ADULT: chronic pancreatitis PATIENT/FAMILY RESPONSE: Verbalizes understanding of: POST-PROCEDURE INSTRUCTIONS-Correct actions to take to reduce post procedure complications METHOD OF INSTRUCTION: Individual instruction FOLLOW-UP PLAN: Complete - No need for follow-up Patient instructed to call with any further issues INSTRUCTIONAL AIDS USED: NA SUPPLEMENTAL MATERIAL PROVIDED TO PATIENT: None REFERRAL (RECOMMENDATION): None Electronically Signed By: Easton Melvin [facility] NURSING PROG HNO ID: [id number] Author: NITA COLEMAN RN Service: Nursing Author Type: Registered Nurse Type: Nursing Progress Note Filed: 06/11/2023 09:55 Note Text: PATIENT EDUCATION TOPIC: PROCEDURE / SURGERY: Pre Procedure Teaching: Logistics PATIENT NAME: Nic Valerio PATIENT LOCATION: Room/bed info not found READINESS TO LEARN COGNITIVE ABILITY: Alert and oriented MOTIVATION TO LEARN: Interested FAMILY SUPPORT: Unable to assess - Family not present INSTRUCTION PROVIDED TO: Patient PATIENT LEARNS BEST BY: Individual Instruction FACTORS AFFECTING LEARNING: None PHYSICAL LIMITATIONS AFFECTING LEARNING: None LEARNING RESPONSE DIAGNOSIS: ADULT: pancreatic cyst PATIENT/FAMILY RESPONSE: Verbalizes understanding of: PRE-PROCEDURE INSTRUCTIONS-Correct action to take to follow pre-procedure instructions METHOD OF INSTRUCTION: Individual instruction FOLLOW-UP PLAN: Complete - No need for follow-up INSTRUCTIONAL AIDS USED: NA SUPPLEMENTAL MATERIAL PROVIDED TO PATIENT: None REFERRAL (RECOMMENDATION): None Electronically Signed By: Nita Coleman [facility] Upper EUSon 06-11-2023 Upper EUS [facility] Gastrointestinal Endoscopy Patient Name: Nic Valerio Procedure Date: 06/11/2023 10:18 AM Date of : 1950 Admit Type: Outpatient Age: 72 Room: [place] [address] Gender: Male Note Status: Finalized Attending MD: Oscar Andujar MD, [id number] Procedure: Upper EUS Indications: For evaluation of pancreatic cystic neoplasm Providers: Oscar Andujar MD, Sarah Mckeon RN, Patricia Francisco RN (Assisting Nurse) Patient Profile: This is a 72 year old male. Referring Physician: Jessica Pereyra MD (Referring MD) Medicines: Monitored Anesthesia Care Complications: No immediate complications. Procedure: Pre-Anesthesia Assessment: - Prior to the procedure, a History and Physical was performed, and patient medications and allergies were reviewed. The patient's tolerance of previous anesthesia was also reviewed. The risks and benefits of the procedure and the sedation options and risks were discussed with the patient. All questions were answered, and informed consent was obtained. Prior Anticoagulants: The patient has taken no anticoagulant or antiplatelet agents. ASA Grade Assessment: III - A patient with severe systemic disease. After reviewing the risks and benefits, the patient was deemed in satisfactory condition to undergo the procedure. After obtaining informed consent, the endoscope was passed under direct vision. Throughout the procedure, the patient's blood pressure, pulse, and oxygen saturations were monitored continuously. The Endoscope was introduced through the mouth, and advanced to the second part of duodenum. The Endoscope was introduced through the mouth, and advanced to the second part of duodenum. The upper EUS was accomplished without difficulty. The patient tolerated the procedure well. Moderate Sedation: MAC anesthesia was administered by the anesthesia team. Total Procedure Duration: 0 hours 19 minutes 14 seconds Findings: ENDOSCOPIC FINDING: : The examined esophagus was endoscopically normal. The entire examined stomach was endoscopically normal. The examined duodenum was endoscopically normal. Ampulla normal. ENDOSONOGRAPHIC FINDING: : Endosonographic imaging of the pancreas showed sonographic changes indicative of severe chronic pancreatitis in the entire pancreas. The body and tail were severely atrophic and the duct was diffusely dilated. The head and uncinate process were heavily calcified. The duct in the head and periampullary pancreas contained 6-8mm stones which obstructed the duct. The had visible sidebranches. Only 1 cyst was found in the head / uncinate, which measured 9mm. It was not safely accessible for a biopsy because of its position behind the bile duct. Impression: - Severe chronic pancreatitis with obstructing pancreatic duct stones - A cystic lesion was not found in the uncinate process. Only a 9mm cyst in the head of the pancreas. FNA was not performed. Recommendation: Discuss results and follow up with DR. Pereyra Attending Participation: I personally performed the entire procedure. Scope In: 10:42:51 AM Scope Out: 11:02:05 AM MD Oscar Osorio MD 06/11/2023 11:08:25 AM This report has been signed electronically by Oscar Andujar MD Number of Addenda: 0 Note Initiated On: 06/11/2023 10:18 AM Estimated Blood Loss: Estimated blood loss: none. Normal [facility] CNOVon 05-14-2023 CNOV Office Visit ([id number] ) NIC VALERIO ([id number]) 1950 M Date Time Provider Department 05/14/23 11:00 AM JESSICA PEREYRA [id number] During your visit today, we recorded the [...] per enteric contrast guidelines 1 Each 0 HYDROcodone-acetamino phen (NORCO) 5-325 mg per tablet Take 1 [...] requiring medication, no history of angina, CHF, DE, cardiac surgery or stents. Denies rest pain, gangrene or revascularization/amp utation for PVD. No history of cardiovascular symptoms [...] of hematolo (more content not included)... Normal [facility] CNPNon 05-14-2023 CNPN Telephone (GASTMN) NIC VALERIO Krish ([id number]) 1950 M Date Time Provider Department 05/14/23 OSCAR ANDUJAR GASTVT During your visit today, we recorded the following information about you: Kelsea Webster 05/14/2023 4:39 PM Signed Please schedule patient with Dr. Andujar for an EUS at . Patient requested the latest appointment 12:30pm arrival 11:30am. Kelsea Webster Dance Critic Melody Castellano 05/15/2023 11:13 AM Signed Patient [...] as designated per enteric contrast guidelines - HYDROcodone-acetamino phen (NORCO) 5-325 mg per tablet Take 1 [...] Status:Closed by MELODY CASTELLANO on 05/15/23 Normal [facility] HISTORY PHYSICALon HISTORY PHYSICAL HNO ID: [id number] Author: JESSICA PEREYRA MD Service: ? Author [...] per enteric contrast guidelines 1 Each 0 HYDROcodone-acetamino phen (NORCO) 5-325 mg per tablet Take 1 [...] requiring medication, no history of angina, CHF, DE, cardiac surgery or stents. Denies rest pain, gangrene or revascularization/amp utation for PVD. No history of cardiovascular symptoms [...] 145/59 P (more content not included)... Normal [facility] ([id number]) 1950 M Date Time Provider Department 05/01/23 [facility] During your visit today, we recorded the following information about you: Cortney Mendoza 05/01/2023 12:31 PM Signed Patient stopped by and would like Dr Colon to look at his MRI of his pancreas done at [facility]. He would like to set up an appointment or get a call back to discuss. Donnell Brooke MD 05/01/2023 12:44 PM Signed Ronnie Barr - there is nothing in his Chart - can you get info and we can review. Cortney Mendoza 05/01/2023 1:28 PM Signed Maria Esther- Can you get the MRI of pancreas results AND images from [facility] in [place] for Dr Colon to review. Thank you. Cortney Naty Reji Camjay Mrc, Angeles L 05/01/2023 2:33 PM Signed Report is in and I requested images. Camjay Mrc, Angeles L 05/03/2023 7:43 AM Signed Images are uploaded. Cortney Mendoza 05/07/2023 7:[address] Colon-Did you need us to set up a follow up with patient to discuss MRI or did you call him?? Please advise. Donnell Brooke MD 05/08/2023 7:06 AM Signed I would refer him to [facility] (Dr. Pitt) for ERCP and biopsy and also consider having him see Dr. Esposito or Roddy from hepatobiliary surgery - all are located in [facility]. Jennifer Valdes RN 05/08/2023 8:12 AM Signed [...] Julita at Dr Oneyda Pitt's office at [phone] they do not do the consults. But she said to fax the order to them AND they would have Dr Oneyda Pitt look at it AND call us back. Faxed order at [phone]. Cortney Lagos 05/08/2023 12:19 PM Signed Spoke to Brittany at [phone] in Central Scheduling AND scheduled patient with Dr Jessica Pereyra on 05/14/2023@11 am at [facility] [address] for consult for general surgery. Cortney HeathrufusCortney Naty 05/08/2023 1:05 PM Signed Spoke to patient AND gave appointment of 05/14/2023@[address] Jessica Pereyra at [facility]. Patient aware still working on referral to Dr Pitt. Cortney Lagos Naty 05/09/2023 3:18 PM Signed Tried calling Dr Oneyda Pitt's office at [phone] twice today kept getting answering service who stated they were busy to try again in 15 minutes. Will try again tomorrow to reach office. Cortney Lagos Naty 05/10/2023 9:57 AM Signed Spoke to Julita for Dr Oneyda Pitt's office at [phone] the soonest appointment they have is 09/19/2023@10:[address] Sarai Pitt due to they lost [address] Pitt is only one doing ERCP's He only sees for clinic on Wednesdays doing procedures all other days. Before I call the patient with this appointment. Is this too far out?? Please advise. Cortney Neff Donnell Couch MD 05/10/2023 10:56 AM Signed Yes - this is too far out - but let him see Dr. Dominguez first and we can come up with a plan after that. RejiCortney 05/10/2023 12:22 PM Signed Spoke to patient AND made patient aware of appointment with Dr Pitt but explained that Dr Colon felt the appt was to far out in August that once patient sees the recommendations from Dr Pereyra first Dr Colon will develop a plan. Cortney Neff Reji Allergies As of Date: 05/01/2023 Noted Allergy [...] [K86.9] Order(s):CONSULT TO GASTROENTEROLOGY [9010] Order #: [id number]: 1 FUTURE CONSULT TO GENERAL SURGERY [9011] Order #: [id number]: 1 FUTURE Prescriptions as of 05/10/2023 - [...] line specific (more content not included)... Normal [facility] MR ABDOMEN W WO CONTon 04-09 MR ABDOMEN W WO CONT MR ABDOMEN W WO CON T MR ABDOMEN W WO CONT Clinical history:Pancreatic [...] Grimm MD on 04/09/2023 1:36 PM Normal [facility] COMPREHENSIVE METABOLIC PANE Gonzalo 03-27-2023 Albumin [Mass/Vol] 4.0 g/dL Normal 3.2-5.3 [facility] Comment on above: Performed By: #### C TEE, 60090-7, 2857-1 #### [facility] ([id number]) [address], [address] [place] [address] ALP [Catalytic activity/Vol] 89 U/L Normal 39-130 [facility] Comment on above: Performed By: #### Eduar OLIVEIRA, 72758-6, 2857-1 #### [facility] ([id number]) [address], [address] [place] [address] ALT [Catalytic activity/Vol] 25 U/L Normal 0-40 [facility] Comment on above: Performed By: #### Eduar OLIVEIRA, 06730-9, 2857-1 #### [facility] ([id number]) [address], [address] [place] [address] Anion gap [Moles/Vol] 9 mmol/L Normal 5-15 [facility] Comment on above: Performed By: #### Eduar OLIVEIRA, 04168-4, 2857-1 #### [facility] ([id number]) [address], [address] [place] [address] AST [Catalytic activity/Vol] 21 U/L Normal 0-41 [facility] Comment on above: Performed By: #### Eduar OLIVEIRA, 97143-1, 2857-1 #### [facility] ([id number]) [address], [address] [place] [address] Bilirubin [Mass/Vol] 0.5 mg/dL Normal 0.3-1.2 [facility] Comment on above: Performed By: #### Eduar OLIVEIRA, 76531-8, 2857-1 #### [facility] ([id number]) [address], [address] [place] [address] Calcium [Mass/Vol] 9.5 mg/dL Normal 8.5-10.5 [facility] Comment on above: Performed By: #### Eduar OLIVEIRA, 57778-4, 2857-1 #### [facility] ([id number]) [address], [address] [place] [address] Chloride [Moles/Vol] 100 mmol/L Normal 98-109 [facility] Comment on above: Performed By: #### Eduar OLIVEIRA, 41262-9, 2857-1 #### [facility] ([id number]) [address], [address] [place] [address] CO2 [Moles/Vol] 23 mmol/L Normal 22-32 [facility] Comment on above: Performed By: #### Eduar OLIVEIRA, 64429-7, 2857-1 #### [facility] ([id number]) [address], [address] [place] [address] Creatinine [Mass/Vol] 0.86 mg/dL Normal 0.60-1.30 [facility] Comment on above: Result Comment: METH OD TRACEABLE TO IDMS STANDARD Performed By: #### Eduar OLIVEIRA, 84342-5, 2857-1 #### [facility] ([id number]) [address], [address] [place] [address] eGFR (CKD-EPI) NON-RACE DEPENDENT >90 Normal >59 [facility] Comment on above: Result Comment: Reported eGFR is based on the CKD-EPI 2020 equation that does not use a race coefficient. Performed By: #### Eduar OLIVEIRA, 30066-4, 2857-1 #### [facility] ([id number]) [address], [address] [place] [address] Glucose [Mass/Vol] 152 mg/dL High 65-99 [facility] Comment on above: Performed By: #### Eduar OLIVEIRA, 13512-7, 2857-1 #### [facility] ([id number]) [address], [address] [place] [address] Potassium [Moles/Vol] 3.6 mmol/L Normal 3.5-5.0 [facility] Comment on above: Performed By: #### Eduar OLIVEIRA, 08275-6, 2857-1 #### [facility] ([id number]) [address], [address] [place] [address] Protein [Mass/Vol] 6.6 g/dL Normal 6.0-8.0 [facility] Comment on above: Performed By: #### Eduar OLIVEIRA, 63408-3, 2857-1 #### [facility] ([id number]) [address], [address] [place] [address] Sodium [Moles/Vol] 132 mmol/L Low 134-146 [facility] Comment on above: Performed By: #### Eduar OLIVEIRA, 86420-4, 2857-1 #### [facility] ([id number]) [address], [address] [place] [address] Urea nitrogen [Mass/Vol] 12 mg/dL Normal 5-27 [facility] Comment on above: Performed By: #### Eduar OLIVEIRA, 19866-3, 2857-1 #### [facility] ([id number]) [address], [address] [place] [address] Comprehensive metabolic pane gonzalo 03-27-2023 Albumin [Mass/Vol] 4.0 g/dL 3.2 - 5.3 g/dL [facility] ALP [Catalytic activity/Vol] 89 U/L 39 - 130 U/L [facility] ALT No additional P-5'-P [Catalytic activity/Vol] 25 U/L 0 - 40 U/L [facility] Anion gap [Moles/Vol] 9 mmol/L 5 - 15 mmol/L [facility] AST [Catalytic activity/Vol] 21 U/L 0 - 41 U/L [facility] Bilirubin [Mass/Vol] 0.5 mg/dL 0.3 - 1 .2 mg/dL [facility] Calcium [Mass/Vol] 9.5 mg/dL 8.5 - 10. 5 mg/dL [facility] Chloride [Moles/Vol] 100 mmol/L 98 - 10 9 mmol/L [facility] CO2 [Moles/Vol] 23 mmol/L 22 - 32 mmol/L [facility] Creatinine [Mass/Vol] 0.86 mg/dL 0.60 - 1.30 mg/dL [facility] Comment on above: METHOD TRACEABLE TO [facility] STANDARD eGFR (CKD-EPI)non-race dependent - PINF [facility] Comment on above: Reported eGFR is based on the CKD-EPI 2020 equation that does not use a race coefficient. Glucose [Mass/Vol] 152 mg/dL High 65 - 99 mg/dL [facility] Potassium [Moles/Vol] 3.6 mmol/L 3.5 - 5.0 mmol/L [facility] Protein [Mass/Vol] 6.6 g/dL 6.0 - 8.0 g/dL [facility] Sodium [Moles/Vol] 132 mmol/L Low 134 - 146 mmol/L [facility] Urea nitrogen [Mass/Vol] 12 mg/dL 5 - 27 mg/dL [facility] Lipid 1996 panelon 4 Cholesterol [Mass/Vol] 130 mg/dL Low 150 - 200 mg/dL [facility] Cholesterol in HDL [Mass/Vol] 45 mg/dL 39 - PINF mg/dL [facility] Comment on above: HDL <40 mg/dL - High Risk HDL > or = 40mg/dL- Desirable HDL >60 mg/dL - Negative Risk Cholesterol in LDL [Mass/Vol] 72 mg/dL NINF - 130 mg/dL [facility] Comment on above: LDL <100 mg/dL - Desirable LDL >160 mg/dL - High Risk Cholesterol in VLDL [Mass/Vol] 13 mg/dL 0 - 30 mg/dL [facility] Cholesterol.total/Ch olesterol in HDL [Mass ratio] 2.9 {ratio} 1.0 - 5.0 [facility] Triglyceride [Mass/Vol] 66 mg/dL 27 - 150 mg/dL [facility] Cholesterol [Mass/Vol] 130 mg/dL Low 150-200 [facility] Comment on above: Performed By: ###[place], [address]-1, 2857-1 #### [facility] ([id number]) [address], [address] [place] [address] Cholesterol in HDL [Mass/Vol] 45 mg/dL Normal >39 [facility] Comment on above: Result Comment: HDL <40 mg/dL - High Risk HDL > or = 40mg/dL- Desirable HDL >60 mg/dL - Negative Risk Performed By: ###[place], [address]-3, 2857-1 #### [facility] ([id number]) [address], [address] [place] [address] Cholesterol in LDL [Mass/Vol] 72 mg/dL Normal <130 [facility] Comment on above: Result Comment: LDL <100 mg/dL - Desirable LDL >160 mg/dL - High Risk Performed By: ###[place], [address]-8, 2857-1 #### [facility] ([id number]) [address], [address] [place] [address] Cholesterol in VLDL [Mass/Vol] 13 mg/dL Normal 0-30 [facility] Comment on above: Performed By: #### Eduar OLIVEIRA, 23737-3, 2857-1 #### [facility] ([id number]) [address] [address] [place] [address] CHOLESTEROL:HDL 2.9 Normal 1.0-5.0 [facility] Comment on above: Performed By: #### Eduar OLIVEIRA, 35788-9, 2857-1 #### [facility] ([id number]) [address], [address] [place] [address] Triglyceride [Mass/Vol] 66 mg/dL Normal 27-150 [facility] Comment on above: Performed By: #### Eduar OLIVEIRA, 88433-2, 2857-1 #### [facility] ([id number]) [address], [address] [place] [address] No Panel Informationon 03-27 Interpretation and review of laboratory results Abnormal [facility] Prostate specific Ag [Mass/V ol]on 03-27-2023 [facility] PSA SCREEN 0.38 ng/mL Normal 0.00-4.00 [facility] Comment on above: Result Comment: The method used for this test is Temitope Wilbert DXI chemiluminescent immunoassay. Values obtained by different assay methods cannot be used interchangeably. Performed By: #### Eduar OLIVEIRA, 43262-6, 2857-1 #### [facility] ([id number]) [address], [address] [place] [address] Prostatic specific antigen s creenon 03-27-2023 Prostate specific Ag [Mass/Vol] 0.38 ng/mL 0.00 - 4.00 ng/mL [facility] Comment on above: The method used for this test is Temitope Wilbert DXI chemiluminescent immunoassay. Values obtained by different assay methods cannot be used interchangeably. CBC W Auto Differential pane l (Bld)on 10-13-2022 Basophils (Bld) [#/Vol] 0.11 10*3/uL High <0.11 [facility] Comment on above: Order Comment: Speci men Type: BLOOD SPECIMEN Ordering Facility: [facility] Address: [address] [address] Performed By: #### 5 7021-8 #### [facility] CLIA [id number] [address] [place] [address] Basophils/100 WBC (Bld) 1.2 % Normal [facility] Comment on above: Order Comment: Speci men Type: BLOOD SPECIMEN Ordering Facility: [facility] Address: [address] [address] Performed By: #### 5 7021-8 #### [facility] CLIA [id number] [address] [place] [address] Differential cell count method Nom (Bld) Auto Normal [facility] Comment on above: Order Comment: Speci men Type: BLOOD SPECIMEN Ordering Facility: [facility] Address: [address] [address] Performed By: #### 5 7021-8 #### [facility] CLIA [id number] [address] [place] [address] Eosinophils (Bld) [#/Vol] 0.18 10*3/uL Normal <0.46 [facility] Comment on above: Order Comment: Speci men Type: BLOOD SPECIMEN Ordering Facility: [facility] Address: [address] [address] Performed By: #### 5 7021-8 #### [facility] CLIA [id number] [address] [place] [address] Eosinophils/100 WBC (Bld) 2.0 % Normal [facility] Comment on above: Order Comment: Speci men Type: BLOOD SPECIMEN Ordering Facility: [facility] Address: [address] [address] Performed By: #### 5 7021-8 #### [facility] CLIA [id number] [address] [place] [address] Erythrocyte distribution width (RBC) [Ratio] 14.5 % Normal 11.5-15.0 [facility] Comment on above: Order Comment: Speci men Type: BLOOD SPECIMEN Ordering Facility: [facility] Address: [address] [place] [address] Performed By: #### 5 7021-8 #### [facility] CLIA [id number] [address] [place] [address] Hematocrit (Bld) [Volume fraction] 43.2 % Normal 39.0-51.0 [facility] Comment on above: Order Comment: Speci men Type: BLOOD SPECIMEN Ordering Facility: [facility] Address: [address] [place] [address] Performed By: #### 5 7021-8 #### [facility] CLIA [id number] [address] [place] [address] Hemoglobin (Bld) [Mass/Vol] 15.0 g/dL Normal 13.0-17.0 [facility] Comment on above: Order Comment: Speci men Type: BLOOD SPECIMEN Ordering Facility: [facility] Address: [address] [place] [address] Performed By: #### 5 7021-8 #### [facility] CLIA [id number] [address] [place] [address] Immature granulocytes (Bld) [#/Vol] 10*3/uL Normal <0.10 [facility] Comment on above: Order Comment: Speci men Type: BLOOD SPECIMEN Ordering Facility: [facility] Address: [address] [place] [address] Performed By: #### 5 7021-8 #### [facility] CLIA [id number] [address] [place] [address] Immature granulocytes/100 WBC (Bld) 0.2 % Normal [facility] Comment on above: Order Comment: Speci men Type: BLOOD SPECIMEN Ordering Facility: [facility] Address: [address] [address] Performed By: #### 5 7021-8 #### [facility] CLIA [id number] [address] [place] [address] Lymphocytes (Bld) [#/Vol] 3.69 10*3/uL Normal 1.00-4.00 [facility] Comment on above: Order Comment: Speci men Type: BLOOD SPECIMEN Ordering Facility: [facility] Address: [address] [address] Performed By: #### 5 7021-8 #### [facility] CLIA [id number] [address] [place] [address] Lymphocytes/100 WBC (Bld) 41.1 % Normal [facility] Comment on above: Order Comment: Speci men Type: BLOOD SPECIMEN Ordering Facility: [facility] Address: [address] [address] Performed By: #### 5 7021-8 #### [facility] CLIA [id number] [address] [place] [address] MCH (RBC) [Entitic mass] 32.3 pg Normal 26.0-34.0 [facility] Comment on above: Order Comment: Speci men Type: BLOOD SPECIMEN Ordering Facility: [facility] Address: [address] [address] Performed By: #### 5 7021-8 #### [facility] CLIA [id number] [address] [place] [address] MCHC (RBC) [Mass/Vol] 34.7 g/dL Normal 30.5-36.0 [facility] Comment on above: Order Comment: Speci men Type: BLOOD SPECIMEN Ordering Facility: [facility] Address: [address] [address] Performed By: #### 5 7021-8 #### [facility] CLIA [id number] [address] [place] [address] MCV (RBC) [Entitic vol] 93.1 fL Normal 80.0-100.0 [facility] Comment on above: Order Comment: Speci men Type: BLOOD SPECIMEN Ordering Facility: [facility] Address: [address] [address] Performed By: #### 5 7021-8 #### [facility] CLIA [id number] [address] [place] [address] Monocytes (Bld) [#/Vol] 0.82 10*3/uL Normal <0.87 [facility] Comment on above: Order Comment: Speci men Type: BLOOD SPECIMEN Ordering Facility: [facility] Address: [address] [address] Performed By: #### 5 7021-8 #### [facility] CLIA [id number] [address] [place] [address] Monocytes/100 WBC (Bld) 9.1 % Normal [facility] Comment on above: Order Comment: Speci men Type: BLOOD SPECIMEN Ordering Facility: [facility] Address: [address] Performed By: #### 5 7021-8 #### [facility] CLIA [id number] [address] [place] [address] Neutrophils (Bld) [#/Vol] 4.16 10*3/uL Normal 1.45-7.50 [facility] Comment on above: Order Comment: Speci men Type: BLOOD SPECIMEN Ordering Facility: [facility] Address: [address] Performed By: #### 5 7021-8 #### [facility] CLIA [id number] [address] [place] [address] Neutrophils/100 WBC (Bld) 46.4 % Normal [facility] Comment on above: Order Comment: Speci men Type: BLOOD SPECIMEN Ordering Facility: [facility] Address: [address] [address] Performed By: #### 5 7021-8 #### [facility] CLIA [id number] [address] [place] [address] Nucleated RBC (Bld) [#/Vol] 10*3/uL Normal <0.01 [facility] Comment on above: Order Comment: Speci men Type: BLOOD SPECIMEN Ordering Facility: [facility] Address: [address] [place] [address] Performed By: #### 5 7021-8 #### [facility] CLIA [id number] [address] [place] [address] Nucleated RBC/100 WBC (Bld) [Ratio] 0.0 /100 WBC Normal [facility] Comment on above: Order Comment: Speci men Type: BLOOD SPECIMEN Ordering Facility: [facility] Address: [address] [place] [address] Performed By: #### 5 7021-8 #### [facility] CLIA [id number] [address] [place] [address] Platelet mean volume (Bld) [Entitic vol] 10.1 fL Normal 9.0-12.7 [facility] Comment on above: Order Comment: Speci men Type: BLOOD SPECIMEN Ordering Facility: [facility] Address: [address] [place] [address] Performed By: #### 5 7021-8 #### [facility] CLIA [id number] [address] [place] [address] Platelets (Bld) [#/Vol] 309 10*3/uL Normal 150-400 [facility] Comment on above: Order Comment: Speci men Type: BLOOD SPECIMEN Ordering Facility: [facility] Address: [address] [place] [address] Performed By: #### 5 7021-8 #### [facility] CLIA [id number] [address] [place] [address] RBC (Bld) [#/Vol] 4.64 10*6/uL Normal 4.20-6.00 [facility] Comment on above: Order Comment: Speci men Type: BLOOD SPECIMEN Ordering Facility: [facility] Address: [place] [address] Performed By: #### 5 7021-8 #### [facility] CLIA [id number] [address] [place] [address] WBC (Bld) [#/Vol] 8.98 10*3/uL Normal 3.70-11.00 [facility] Comment on above: Order Comment: Speci men Type: BLOOD SPECIMEN [facility] [facility]OSP[facility] Address: [place] [address] Performed By: #### 5 7021-8 #### [facility] CLIA [id number] [address] [place] [address] CNOVSPon 10-13-2022 CNOVSP Visit (SP) Office ([place]) NIC VALERIO ([id number]) 1950 M Date Time Provider Department 10/13/22 10:30 AM DONNELL COLON During your visit today, we recorded the following information about you: Temperature Pulse Respiration Blood pressure 97.4 degrees 66/minute 16/minute 156/67 Weight Height 70.5 kg 1.778 m Donnell Colon MD 10/19/2022 8:40 AM Signed NAME: Nic Valerio [facility] NO.: [id number] DATE OF SERVICE: October 13, 2022 (Kenneth). [...] playing with her new dog a 1-year-old Jordanian Trevizo. All images were personally reviewed with [...] noncalcified opaciti (more content not included)... Normal [facility] Comprehensive metabolic 2000 panelon 10-13-2022 Albumin [Mass/Vol] 4.7 g/dL Normal 3.9-4.9 [facility] Comment on above: Order Comment: Speci men Type: BLOOD SPECIMEN [facility]ing Facility: [facility] Address: [facility] [place] [address] Performed By: #### 2 532-0, 78503-5 #### [facility] CLIA [id number] [address] [place] [address] ALP [Catalytic activity/Vol] 83 U/L Normal 38-113 [facility] Comment on above: Order Comment: Speci men Type: BLOOD SPECIMEN Ordering Facility: [facility] Address: [address] [address] Performed By: #### 2 532-0, 84316-3 #### [facility] CLIA [id number] [address] [place] [address]17 ALT [Catalytic activity/Vol] 14 U/L Normal 10-54 [facility] Comment on above: Order Comment: Speci men Type: BLOOD SPECIMEN Ordering Facility: [facility] Address: [address] [address] Performed By: #### 2 532-0, 64766-0 #### [facility] CLIA [id number] [address] [place] [address]272 Anion gap [Moles/Vol] 9 mmol/L Normal 9-18 [facility] Comment on above: Order Comment: Speci men Type: BLOOD SPECIMEN Ordering Facility: [facility] Address: [address] [address] Performed By: #### 2 532-0, 20256-4 #### [facility] CLIA [id number] [address] [place] [address]73 AST [Catalytic activity/Vol] 19 U/L Normal 14-40 [facility] Comment on above: Order Comment: Speci men Type: BLOOD SPECIMEN Ordering Facility: [facility] Address: [address] [address] Performed By: #### 2 532-0, 93772-7 #### [facility] CLIA [id number] [address] [place] [address] Bilirubin [Mass/Vol] 0.6 mg/dL Normal 0.2-1.3 [facility] Comment on above: Order Comment: Speci men Type: BLOOD SPECIMEN Ordering Facility: [facility] Address: [address] [address] Performed By: #### 2 532-0, 30328-7 #### [facility] CLIA [id number] [address] [place] [address]87 Calcium [Mass/Vol] 9.7 mg/dL Normal 8.5-10.2 [facility] Comment on above: Order Comment: Speci men Type: BLOOD SPECIMEN Ordering Facility: [facility] Address: [address] [place] [address] Performed By: #### 2 532-0, 38749-2 #### [facility] CLIA [id number] [address] [place] [address]63 Chloride [Moles/Vol] 100 mmol/L Normal 97-105 [facility] Comment on above: Order Comment: Speci men Type: BLOOD SPECIMEN Ordering Facility: [facility] Address: [address] [place] [address] Performed By: #### 2 532-0, 10796-6 #### [facility] CLIA [id number] [address] [place] [address]27 CO2 [Moles/Vol] 27 mmol/L Normal 22-30 [facility] Comment on above: Order Comment: Speci men Type: BLOOD SPECIMEN Ordering Facility: [facility] Address: [address] [place] [address] Performed By: #### 2 532-0, 18209-2 #### [facility] CLIA [id number] [address] [place] [address]9764 Creatinine [Mass/Vol] 0.94 mg/dL Normal 0.73-1.22 [facility] Comment on above: Order Comment: Speci men Type: BLOOD SPECIMEN Ordering Facility: [facility] Address: [address] [place] [address] Performed By: #### 2 532-0, 74800-7 #### [facility] CLIA [id number] [address] [place] [address]1425 Creatinine and Glomerular filtration rate.predicted panel (S/P/Bld) 87 mL/min/1.73m??? Normal >=60 [facility] Comment on above: Order Comment: Speci men Type: BLOOD SPECIMEN Ordering Facility: [facility] Address: [address] [phone] Result Comment: Ibis mated Glomerular Filtration Rate [...] actual GFR. Performed By: #### 2 532-0, 00451-1 #### [facility] CLIA [id number] [address] [place] [address] 03399 Glucose [Mass/Vol] 104 mg/dL High 74-99 [facility] Comment on above: Order Comment: Kyle angelo Type: BLOOD SPECIMEN Ordering Facility: [facility] Address: [address] [address] Result Comment: The [place] Diabetes Association (ADA) provides guidance for cutoff [...] Standards of Medical Care in Diabetes 2016, [place] [employer]. Diabetes Care. 2016.39(Suppl 1). Performed By: #### 2 532-0, 75811-9 #### [facility] CLIA [id number] [address] [place] [address] 18224 Potassium [Moles/Vol] 4.7 mmol/L Normal 3.7-5.1 [facility] Comment on above: Order Comment: Kyle angelo Type: BLOOD SPECIMEN Ordering Facility: [facility] Address: [address] [id number] Performed By: #### 2 532-0, #### [facility] CLIA [id number] [address] [place] [address]6225 Protein [Mass/Vol] 6.9 g/dL Normal 6.3-8.0 [facility] Comment on above: Order Comment: Speci men Type: BLOOD SPECIMEN Ordering Facility: [facility] Address: [address] [place] [address] Performed By: #### 2 532-0, 19461-9 #### [facility] CLIA [id number] [address] [place] [address]48 Sodium [Moles/Vol] 136 mmol/L Normal 136-144 [facility] Comment on above: Order Comment: Speci men Type: BLOOD SPECIMEN Ordering Facility: [facility] Address: [address] [place] [address] Performed By: #### 2 532-0, #### [facility] CLIA [id number] [address] [place] [address] 27086 Urea nitrogen [Mass/Vol] 12 mg/dL Normal 9-24 [facility] Comment on above: Order Comment: Speci men Type: BLOOD SPECIMEN Ordering Facility: [facility] Address: [address] [place] [address] Performed By: #### 2 532-0, #### [facility] CLIA [id number] [address] [place] [address] LDH SerPl-cCncon 10-13-2022 LDH [Catalytic activity/Vol] 192 U/L Normal 135-225 [facility] Comment on above: Order Comment: Speci men Type: BLOOD SPECIMEN Ordering Facility: [facility] Address: [address] [place] [address] Result Comment: Hemo lysis present. The origin [...] clinically indicated. Performed By: #### 2 532-0, 86800-5 #### [facility] CLIA [id number] [address] [place] [address] Covid-19 PCR (CVDTB)on 11-26 SARS-CoV-2 (COVID-19) RNA DUSTIN+probe Ql (Unsp spec) Not detected Normal NOT DETECTED [facility] Comment on above: Result Comment: This test is not yet approved or cleared by the [place] FDA. When there are no FDA-approved or cleared tests available, and other criteria are met, FDA can make tests available under an emergency access mechanism called an Emergency Use Authorization (EUA). The EUA for this test is supported by the [place] of Health and Human Service's (HHS's) declaration [...] SARS-CoV-2. Performed By: #### C VDTBH #### [facility] [address] [place] [address] Dr. Arthur Machado LIPID PROFILEon 12-08-2021 CHOL-HDL RATIO NORM SEE BELOW Normal [facility] Comment on above: Result Comment: 3.3 - 4.4 LOW RISK 4.4 - 7.1 AVERAGE RISK 7.1 - 11.0 MODERATE RISK >11.0 HIGH RISK Performed By: #### L IPID #### [facility] [address] [place] [address] [address] [address] Arthur Machado Cholesterol [Mass/Vol] 247 mg/dL Critically high <=200 [facility] Comment on above: Performed By: #### L IPID #### [facility] [address] [place] [address] Dr. Arthur Machado Cholesterol in HDL [Mass/Vol] 75 mg/dL Critically high 40-60 [facility] Comment on above: Performed By: #### L IPID #### [facility] [address] [address] [address] Arthur Machado Cholesterol in LDL [Mass/Vol] 160.8 mg/dL Normal [facility] Comment on above: Performed By: #### L IPID #### [facility] [address] [address] [address] Arthur Machado Cholesterol.total/Ch olesterol in HDL [Mass ratio] 3.3 {ratio} Normal [facility] Comment on above: Performed By: #### L IPID #### [facility] [address] [place] [address] Dr. Arthur Machado HDL NORMAL > or = 60 mg/dl - LO W CARDIOVASCULAR RISK <40 mg/dl - HIGH CARDIOVASCULAR RISK Normal [facility] Comment on above: Performed By: #### L IPID #### [facility] [address] [place] [address] Dr. Arthur Machado LDL CALC NORMAL SEE BELOW Normal [facility] Comment on above: Result Comment: <100 mg/dl OPTIMAL 100 - 129 mg/dl NEAR OR ABOVE OPTIMAL 130 - 159 mg/dl BORDERLINE HIGH 160 - 189 mg/dl HIGH >190 mg/dl VERY HIGH Performed By: #### L IPID #### [facility] [address] [place] [address] Dr. Arthur Machado Triglyceride [Mass/Vol] 56 mg/dL Normal <=150 [facility] Comment on above: Performed By: #### L IPID #### [facility] [address] [place] [address] Dr. Arthur Machado VLDL CALC 11.2 mg/dL Normal [facility] Comment on above: Performed By: #### L IPID #### [facility] [address] [place] [address] Dr. Arthur Machado CBC W Auto Differential pane l (Bld)on 10-14-2021 Abs Immature Gran 0.04 k/uL <0.10 k/uL [facility] Basophils (Bld) [#/Vol] 0.10 10*3/uL <0.11 k/uL [facility] Basophils/100 WBC (Bld) 1.2 % [facility] Differential cell count method Nom (Bld) Auto [facility] Eosinophils (Bld) [#/Vol] 0.16 10*3/uL <0.46 k/uL [facility] Eosinophils/100 WBC (Bld) 1.9 % [facility] Erythrocyte distribution width (RBC) [Ratio] 14.4 % 11.5 - 15.0 % [facility] Hematocrit (Bld) [Volume fraction] 43.2 % 39.0 - 51.0 % [facility] Hemoglobin (Bld) [Mass/Vol] 15.0 g/dL 13.0 - 17.0 g/dL [facility] Immature Gran % 0.5 % [facility] Lymphocytes (Bld) [#/Vol] 3.90 10*3/uL 1.00 - 4.00 k/uL [facility] Lymphocytes/100 WBC (Bld) 45.9 % [facility] MCH (RBC) [Entitic mass] 32.3 pg 26.0 - 34.0 pg [facility] MCHC (RBC) [Mass/Vol] 34.7 g/dL 30.5 - 36.0 g/dL [facility] MCV (RBC) [Entitic vol] 92.9 fL 80.0 - 100.0 fL [facility] Monocytes (Bld) [#/Vol] 0.81 10*3/uL <0.87 k/uL [facility] Monocytes/100 WBC (Bld) 9.5 % [facility] Neutrophils (Bld) [#/Vol] 3.48 10*3/uL 1.45 - 7.50 k/uL [facility] Neutrophils/100 WBC (Bld) 41.0 % [facility] Nucleated RBC (Bld) [#/Vol] <0.01 k/uL [facility] Nucleated RBC/100 WBC (Bld) [Ratio] 0.0 /100 WBC [facility] Platelet mean volume (Bld) [Entitic vol] 10.8 fL 9.0 - 12.7 fL [facility] Platelets (Bld) [#/Vol] 250 10*3/uL 150 - 400 k/uL [facility] RBC (Bld) [#/Vol] 4.65 10*6/uL 4.20 - 6.0 0 m/uL [facility] WBC (Bld) [#/Vol] 8.49 10*3/uL 3.70 - 11. 00 k/uL [facility] Comprehensive metabolic 2000 panelon 10-14-2021 Albumin [Mass/Vol] 4.1 g/dL 3.9 - 4.9 g/dL [facility] ALP [Catalytic activity/Vol] 81 U/L 38 - 113 U/L [facility] ALT [Catalytic activity/Vol] 18 U/L 10 - 54 U/L [facility] Anion gap [Moles/Vol] 10 mmol/L 9 - 18 mmol/L [facility] AST [Catalytic activity/Vol] 24 U/L 14 - 40 U/L [facility] Bilirubin [Mass/Vol] 0.4 mg/dL 0.2 - 1 .3 mg/dL [facility] Calcium [Mass/Vol] 9.2 mg/dL 8.5 - 10. 2 mg/dL [facility] Chloride [Moles/Vol] 105 mmol/L 97 - 10 5 mmol/L [facility] CO2 [Moles/Vol] 23 mmol/L 22 - 30 mmol/L [facility] Creatinine [Mass/Vol] 0.87 mg/dL 0.73 - 1.22 mg/dL [facility] Estimated Glomerular Filtration Rate 93 mL/min/1.73m >=60 mL/min/1.73m [facility] Glucose [Mass/Vol] 134 mg/dL High 74 - 99 mg/dL [facility] Potassium [Moles/Vol] 4.1 mmol/L 3.7 - 5.1 mmol/L [facility] Protein [Mass/Vol] 6.0 g/dL Low 6.3 - 8.0 g/dL [facility] Sodium [Moles/Vol] 138 mmol/L 136 - 144 mmol/L [facility] Urea nitrogen [Mass/Vol] 15 mg/dL 9 - 24 mg/dL [facility] LD LACTATE DEHYDROon 022 LDH [Catalytic activity/Vol] 186 U/L 135 - 225 U/L [facility] GLUCOSE, BLOOD (POC)on 04-04 Glucose [Mass/Vol] 88 mg/dL 74 - 99 mg/dL [facility] Comment on above: Location:[facility], [address] [place] [address] , [place], [place], [address] The Accu-Chek Inform II glucose meter has not been approved for testing on patients receiving intensive medical intervention or therapy and results from this point of care glucose test should not be used for patient management decisions in these cases. Inaccurate results may also occur from other interfering factors, such as N-acetylcysteine (blood concentrations of greater than 5mg/dL), galactose, extremes of hematocrit (<10 or >65), or high doses of ascorbic acid (vitamin C) greater than 3mg/dL. Consider alternate testing mechanisms (e.g. core lab, blood gas instrument) in the above situations. [facility] PET+CT Guidance for localiza tion of tumor of Skull base to mid-thigh-- W 18F-FDG Wili 04-04-2021 IMPRESSION: 1. Neck: No suspicious hypermetabolic foci 2. Chest: No evidence of FDG avid neoplastic process 3. Abdomen and pelvis: No evidence of FDG avid neoplastic process 4. Skeleton: No hypermetabolic osseous lesions Deauville criteria score: 1 Transcribe Date/Time: Apr 04 2021 9:59A Dictated by: YUSUF GRACIA MD This examination was interpreted and the report reviewed and electronically signed by: YUSUF GRACIA MD on Apr 04 2021 10:07AM EST Thank you for allowing us to participate in the care of your patient. Should there be any questions regarding this interpretation, please call [phone]. If you are unable to reach us at the number above, please feel free to contact [facility]iology at [phone]. 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 INDICATION: Subsequent treatment strategy. TECHNIQUE: 10.5 mCi 18-FDG IV, followed about 1 hour later by PET imaging from base of the skull to proximal femur. Non contrast CT was performed for attenuation correction and anatomic localization purposes. CT Dose-Length Product (DLP): 194 mGy*cm. CT Dose Reduction Employed: Yes BLOOD GLUCOSE: 99 mg/dL Comparison: Prior PET CT dated 04/07/2020. RESULT: Reference mediastinal blood pool SUV 2.1, liver SUV 3 NECK: Likely physiological activity in the oral cavity, tonsillar regions, salivary glands. No suspicious hypermetabolic foci. There is no hypermetabolic cervical lymphadenopathy. CHEST: There are aortic and coronary calcifications. Left-sided chest port. There is no hypermetabolic hilar or mediastinal lymphadenopathy. Calcified right hilar lymph node. There is no hypermetabolic axillary lymphadenopathy. Calcified granuloma right upper lobe. There are no hypermetabolic foci in the lungs. ABDOMEN AND PELVIS: The liver is slightly heterogeneous activity but no focal lesions are identified. There are no hypermetabolic foci in the liver, adrenals. Splenule. There is no hypermetabolic abdominal or pelvic lymphadenopathy. Physiologic activity is noted in the liver, renal collecting system, bladder and bowel. SKELETON: There are no hypermetabolic osseous lesions. Rehabilitation Attendant (topogram) images:No additional findings. 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 INDICATION: Subsequent treatment strategy. TECHNIQUE: 10.5 mCi 18-FDG IV, followed about 1 hour later by PET imaging from base of the skull to proximal femur. Non contrast CT was performed for attenuation correction and anatomic localization purposes. CT Dose-Length Product (DLP): 194 mGy*cm. CT Dose Reduction Employed: Yes BLOOD GLUCOSE: 99 mg/dL Comparison: Prior PET CT dated 04/07/2020. RESULT: Reference mediastinal blood pool SUV 2.1, liver SUV 3 NECK: Likely physiological activity in the oral cavity, tonsillar regions, salivary glands. No suspicious hypermetabolic foci. There is no hypermetabolic cervical lymphadenopathy. CHEST: There are aortic and coronary calcifications. Left-sided chest port. There is no hypermetabolic hilar or mediastinal lymphadenopathy. Calcified right hilar lymph node. There is no hypermetabolic axillary lymphadenopathy. Calcified granuloma right upper lobe. There are no hypermetabolic foci in the lungs. ABDOMEN AND PELVIS: The liver is slightly heterogeneous activity but no focal lesions are identified. There are no hypermetabolic foci in the liver, adrenals. Splenule. There is no hypermetabolic abdominal or pelvic lymphadenopathy. Physiologic activity is noted in the liver, renal collecting system, bladder and bowel. SKELETON: There are no hypermetabolic osseous lesions. Rehabilitation Attendant (topogram) images:No additional findings. -- IMPRESSION IMPRESSION: 1. Neck: No suspicious hypermetabolic foci 2. Chest: No evidence of FDG avid neoplastic process 3. Abdomen and pelvis: No evidence of FDG avid neoplastic process 4. Skeleton: No hypermetabolic osseous lesions Deauville criteria score: 1 Transcribe Date/Time: Apr 04 2021 9:59A Dictated by: YUSUF GRACIA MD This examination was interpreted and the report reviewed and electronically signed by: YUSUF GRACIA MD on Apr 04 2021 10:07AM EST Thank you for allowing us to participate in the care of your patient. Should there be any questions regarding this interpretation, please call [phone]. If you are unable to reach us at the number above, please feel free to contact [facility]iology at [phone]. [facility] Radiology Study observation (narrative) [facility] PET+CT Guidance for localiza tion of tumor of Skull base to mid-thigh-- W 18F-FDG IVOrdered By: Ccf Provider on 04-04-2021 [facility] Vital Signs Date Time Vital Sign Value Performing Clinician Facility 11-08-2023 12:56-0400 Body height 180.3 cm Klaus Murguia APRN-HONING MACHINE TRY OUT SETTER [email or web address] 11-08-2023 12:56-0400 Body mass index (BMI) [Ratio] 19.97 kg/m2 Klaus Murguia APRN-HONING MACHINE TRY OUT SETTER Work Phone: [facility] 11-08-2023 12:56-0400 Body temperature 98.01 [degF] Klaus Murguia APRN-HONING MACHINE TRY OUT SETTER Work Phone: [facility] 11-08-2023 12:56-0400 Body weight 64.95 kg Klaus Murguia APRN-HONING MACHINE TRY OUT SETTER Work Phone: [facility] 11-08-2023 12:56-0400 Diastolic blood pressure 60 mm[Hg] Klaus Murguia APRN-HONING MACHINE TRY OUT SETTER Work Phone: [facility] 11-08-2023 12:56-0400 Heart rate 62 /min Klaus Murguia APRN-HONING MACHINE TRY OUT SETTER Work Phone: [facility] 11-08-2023 12:56-0400 Respiratory rate 18 /min Klaus Murguia APRN-MARK Work Phone: [facility] 11-08-2023 12:56-0400 SaO2% (BldA) [Mass fraction] 98 % Klaus Murguia APRN-MARK Work Phone: [facility] 11-08-2023 12:56-0400 Systolic blood pressure 132 mm[Hg] Klaus Murguia APRN-HONING MACHINE TRY OUT SETTER Work Phone: [facility] 10-12-2023 10:33-0400 Body mass index (BMI) [Ratio] 20.02 kg/m2 Donnell Colon MD Work Phone: [facility] 10-12-2023 10:33-0400 Body temperature 97.59 [degF] Donnell Colon MD Work Phone: [facility] 10-12-2023 10:33-0400 Body weight 63.3 kg Donnell Colon MD Work Phone: [facility] 10-12-2023 10:33-0400 Diastolic blood pressure 71 mm[Hg] Donnell Colon MD Work Phone: [facility] 10-12-2023 10:33-0400 Heart rate 61 /min Donnell Colon MD Work Phone: [facility] 10-12-2023 10:33-0400 Respiratory rate 18 /min Donnell Colon MD Work Phone: [facility] 10-12-2023 10:33-0400 SaO2% (BldA) [Mass fraction] 100 % Donnell Colon MD Work Phone: [facility] 10-12-2023 10:33-0400 Systolic blood pressure 152 mm[Hg] Donnell Colon MD Work Phone: [facility] 09-18-2023 09:47-0400 Body height 180.3 cm Klaus Murguia APRN-HONING MACHINE TRY OUT SETTER Work Phone: [facility] 09-18-2023 09:47-0400 Body mass index (BMI) [Ratio] 19.36 kg/m2 Klaus Murguia COURT REPORTER-HONING MACHINE TRY OUT SETTER Work Phone: [facility] 09-18-2023 09:47-0400 Body temperature 97.3 [degF] Klaus Murguia APRN-HONING MACHINE TRY OUT SETTER Work Phone: [facility] 09-18-2023 09:47-0400 Body weight 62.96 kg Klaus Murguia APRN-HONING MACHINE TRY OUT SETTER Work Phone: [facility] 09-18-2023 09:47-0400 Diastolic blood pressure 60 mm[Hg] Klaus Murguia APRN-HONING MACHINE TRY OUT SETTER Work Phone: [facility] 09-18-2023 09:47-0400 Heart rate 78 /min Klaus Murguia APRN-HONING MACHINE TRY OUT SETTER Work Phone: [facility] 09-18-2023 09:47-0400 SaO2% (BldA) [Mass fraction] 99 % Klaus Murguia COURT REPORTER-HONING MACHINE TRY OUT SETTER Work Phone: [facility] 09-18-2023 09:47-0400 Systolic blood pressure 100 mm[Hg] Klaus Murguia COURT REPORTER-HONING MACHINE TRY OUT SETTER Work Phone: [facility] 06-11-2023 11:37-0400 Diastolic blood pressure 79 mm[Hg] Oscar Andujar MD Work Phone: [facility] 06-11-2023 11:37-0400 Heart rate 67 /min Oscar Andujar MD Work Phone: [facility] 06-11-2023 11:37-0400 Respiratory rate 18 /min Oscar Andujar MD Work Phone: [facility] 06-11-2023 11:37-0400 SaO2% (BldA) [Mass fraction] 100 % Oscar Andujar MD Work Phone: [facility] 06-11-2023 11:37-0400 Systolic blood pressure 154 mm[Hg] Oscar Andujar MD Work Phone: [facility] 06-11-2023 11:11-0400 Body temperature 96.8 [degF] Oscar Andujar MD Work Phone: [facility] 05-14-2023 10:55-0400 Body weight 68.22 kg Jessica Pereyra MD Work Phone: [facility] 05-14-2023 10:55-0400 Diastolic blood pressure 59 mm[Hg] Jessica Pereyra MD Work Phone: [facility] 05-14-2023 10:55-0400 Heart rate 70 /min Jessica Pereyra MD Work Phone: [facility] 05-14-2023 10:55-0400 Respiratory rate 18 /min Jessica Pereyra MD Work Phone: [facility] 05-14-2023 10:55-0400 SaO2% (BldA) [Mass fraction] 98 % Jessica Pereyra MD Work Phone: [facility] 05-14-2023 10:55-0400 Systolic blood pressure 145 mm[Hg] Jessica Pereyra MD Work Phone: [facility] 04-26-2023 12:55-0500 Body height 180.[address] REPORTER-HONING MACHINE TRY OUT SETTER Work Phone: [facility] 04-26-2023 12:55-0500 Body mass index (BMI) [Ratio] 20.52 kg/m2 Klaus Murguia [address] REPORTER-HONING MACHINE TRY OUT SETTER Work Phone: [facility] 04-26-2023 12:55-0500 Body temperature 97.5 [degF] Klaus Murguia COURT REPORTER-HONING MACHINE TRY OUT SETTER Work Phone: [facility] 04-26-2023 12:55-0500 Body weight 66.[address] REPORTER-HONING MACHINE TRY OUT SETTER Work Phone: [facility] 04-26-2023 12:55-0500 Diastolic blood pressure 60 mm[Hg] Klaus Murguia COURT REPORTER-HONING MACHINE TRY OUT SETTER [email or web address] 04-26-2023 12:55-0500 Heart rate 67 /min Klaus Murguia COURT REPORTER-HONING MACHINE TRY OUT SETTER [facility] 04-26-2023 12:55-0500 Respiratory rate 20 /min Klaus Murguia COURT REPORTER-HONING MACHINE TRY OUT SETTER [facility] 04-26-2023 12:55-0500 SaO2% (BldA) [Mass fraction] 97 % Klaus Murguia COURT REPORTER-HONING MACHINE TRY OUT SETTER [facility] 04-26-2023 12:55-0500 Systolic blood pressure 140 mm[Hg] Klaus Murguia COURT REPORTER-HONING MACHINE TRY OUT SETTER [facility] 03-27-2023 08:34-0500 Body height 180.[address] REPORTER-HONING MACHINE TRY OUT SETTER Work Phone: [facility] 03-27-2023 08:34-0500 Body mass index (BMI) [Ratio] 21.14 kg/m2 Klaus Murguia APRN-HONING MACHINE TRY OUT SETTER Work Phone: [facility] 03-27-2023 08:34-0500 Body temperature 97.81 [degF] Klaus Murguia APRN-HONING MACHINE TRY OUT SETTER Work Phone: [facility] 03-27-2023 08:34-0500 Body weight 68.77 kg Klaus Murguia APRN-HONING MACHINE TRY OUT SETTER Work Phone: [facility] 03-27-2023 08:34-0500 Diastolic blood pressure 58 mm[Hg] Klaus Murguia APRN-HONING MACHINE TRY OUT SETTER Work Phone: [facility] 03-27-2023 08:34-0500 Heart rate 78 /min Klaus Murguia APRN-MARK Work Phone: [facility] 03-27-2023 08:34-0500 SaO2% (BldA) [Mass fraction] 98 % Klaus Murguia APRN-MARK Work Phone: [facility] 03-27-2023 08:34-0500 Systolic blood pressure 120 mm[Hg] Klaus Murguia APRN-HONING MACHINE TRY OUT SETTER Work Phone: [facility] 10-13-2022 10:22-0400 Body height 177.8 cm Donnell Colon MD Work Phone: [facility] 10-13-2022 10:22-0400 Body temperature 97.39 [degF] Donnell Colon MD Work Phone: [facility] 10-13-2022 10:22-0400 Body weight 70.49 kg Donnell Colon MD Work Phone: [facility] 10-13-2022 10:22-0400 Diastolic blood pressure 67 mm[Hg] Donnell Colon MD Work Phone: [facility] 10-13-2022 10:22-0400 Heart rate 66 /min Donnell Colon MD Work Phone: [facility] 10-13-2022 10:22-0400 Respiratory rate 16 /min Donnell Colon MD Work Phone: [facility] 10-13-2022 10:22-0400 SaO2% (BldA) [Mass fraction] 99 % Donnell Colon MD Work Phone: [facility] 10-13-2022 10:22-0400 Systolic blood pressure 156 mm[Hg] Donnell Colon MD Work Phone: [facility] 10-14-2021 10:18-0400 Body height 177.8 cm Donnell Colon MD Work Phone: [facility] 10-14-2021 10:18-0400 Body temperature 97.59 [degF] Donnell Colon MD Work Phone: [facility] 10-14-2021 10:18-0400 Body weight 71.67 kg Donnell Colon MD Work Phone: [facility] 10-14-2021 10:18-0400 Diastolic blood pressure 72 mm[Hg] Donnell Colon MD Work Phone: [facility] 10-14-2021 10:18-0400 Heart rate 64 /min Donnell Colon MD Work Phone: [facility] 10-14-2021 10:18-0400 Respiratory rate 16 /min Donnell Colon MD Work Phone: [facility] 10-14-2021 10:18-0400 SaO2% (BldA) [Mass fraction] 100 % Donnell Colon MD Work Phone: [facility] 10-14-2021 10:18-0400 Systolic blood pressure 175 mm[Hg] Donnell Colon MD Work Phone: [facility] Encounters Encounter Date Encounter Type Care Provider Facility Start: 03-17-2024 End: 03-20-2024 Telephone encounter Klaus Murguia COURT REPORTER-HONING MACHINE TRY OUT SETTER Work Phone: [facility] Start: 01-21-2024 End: 01-21-[address] REPORTER-HONING MACHINE TRY OUT SETTER Work Phone: [facility] Comment on above: Benign hypertension Start: 11-08-2023 End: 11-08-2023 Patient encounter procedure Klaus Murguia COURT REPORTER-HONING MACHINE TRY OUT SETTER Work Phone: [facility] Comment on above: Medicare annual well ness visit, subsequent (Primary Dx) Start: 11-08-2023 End: 11-08-2023 ambulatory [facility] Start: 11-06-2023 End: 11-06-2023 Telephone encounter Deep[facility] Start: 10-16-2023 End: 10-16-2023 ambulatory [facility] Start: 10-12-2023 End: 10-12-2023 Office outpatient visit 25 minutes Donnell Colon MD Work Phone: Hematology/Oncology Comment on above: 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) (Primary Dx); H/O splenectomy Start: 10-12-2023 End: 10-12-2023 ambulatory DONNELL COLON Facility:[facility] Start: 09-25-2023 End: 10-01-2023 Orders Only Klaus Murguia COURT REPORTER-HONING MACHINE TRY OUT SETTER [facility] Comment on above: Other chronic pancre atitis (CMS-HCC) (Primary Dx) Start: 09-18-2023 End: 09-18-2023 Office outpatient visit [address] REPORTER-HONING MACHINE TRY OUT SETTER Work Phone: [facility] Comment on above: Chronic gallstone pa ncreatitis ([facility]-HCC) (Primary Dx); Pancreatic cyst Start: 09-18-2023 End: 09-18-[address] [facility] Gilles [facility] Start: 09-06-2023 End: 09-06-2023 Telephone encounter Klaus Murguia COURT REPORTER-HONING MACHINE TRY OUT SETTER Work Phone: [facility] Start: 07-19-2023 End: 07-19-[address] REPORTER-HONING MACHINE TRY OUT SETTER Work Phone: [facility] Comment on above: Benign hypertension Start: 07-02-2023 End: 07-02-2023 Patient encounter procedure Jessica Pereyra MD Work Phone: General Surgery Comment on above: Pancreas cyst (Prima ry Dx) Start: 06-11-2023 ambulatory ARTHUR J ILO Facility: [facility] Start: 06-11-2023 End: 06-11-2023 Subsequent hospital visit by physician Oscar Andujar MD Work Phone: [facility] Endoscopy - ENDO Comment on above: Pancreatic lesion [K 86.9] Start: 06-04-2023 ambulatory Oscar neff MD Work Phone: [facility] Endoscopy - ENDO Start: 05-14-2023 Telephone encounter Oscar Holden MD Work Phone: Gastroenterology Comment on above: Appointment Start: 05-14-2023 End: 05-14-2023 ambulatory DONNELL COLON Facility:[facility] Start: 05-14-2023 End: 05-14-2023 Patient encounter procedure Jessica Pereyra MD Work Phone: General Surgery Comment on above: Abnormal MRI of abdo men; Pancreatic lesion Start: 05-01-2023 Telephone encounter Donnell nguyen MD Work Phone: [facility] Comment on above: Results; Patient Que stion Start: 04-27-2023 Telephone encounter [address]ney Almaraz COURT REPORTER-HONING MACHINE TRY OUT SETTER Work Phone: [facility] General Surgery Start: 04-26-2023 End: 04-26-2023 Office outpatient visit 15 minutes Klaus [address] REPORTER-HONING MACHINE TRY OUT SETTER Work Phone: [facility] Internal [facility] - Family Medicine Comment on above: Epigastric pain (Laine colleen Dx); Pancreatic cyst Start: 04-26-2023 End: 04-26-2023 ambulatory [facility] Start: 04-06-2023 End: 04-06-2023 ambulatory [facility] Start: 03-27-2023 End: 03-28-2023 ambulatory [facility] Start: 03-27-2023 End: 03-27-2023 Office outpatient visit [address] REPORTER-HONING MACHINE TRY OUT SETTER Work Phone: [facility] Internal [facility] Medicine Comment on above: Pancreatic lesion (P rimary Dx); History of diffuse large B-cell lymphoma; Other chronic pancreatitis (CMS-HCC); Encounter for screening for malignant neoplasm of prostate; Mixed hyperglyceridemia; Large cell abdominal lymphoma (CMS-HCC); 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) Start: 03-27-2023 End: 03-27-2023 ambulatory [facility] Start: 10-13-2022 End: 10-13-2022 Office outpatient visit 15 minutes Donnell Colon MD Work Phone: Hematology/Oncology Comment on above: 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) (Primary Dx); Diffuse large B-cell lymphoma of intra-abdominal lymph nodes (HCC) Start: 10-13-2022 End: 10-13-2022 ambulatory DONNELL COLON Facility:[facility] Start: 12-14-2021 End: 12-14-[address] MICHAEL HANKINS Facility:[facility] Start: 12-10-[address] MICHAEL HANKINS Facility:[facility] Start: 12-10-2021 Encounter for preprocedural laboratory examination [facility]JESICA [facility] Start: 12-10-2021 Encounter for preprocedural cardiovascular examination [facility] Start: 12-08-2021 End: 12-09-2021 Encounter for preprocedural laboratory examination KLAUS MURGUIA Facility:[facility] Start: 12-08-2021 End: 12-09-2021 ambulatory KLAUS MURGUIA Facility: Start: 10-14-2021 Telephone encounter Donnell nguyen MD Work Phone: [facility] Comment on above: Future Appointment Start: 10-14-2021 End: 10-14-2021 Patient encounter procedure Donnell Colon MD Work Phone: [facility] Start: 10-14-2021 End: 10-14-2021 ambulatory [facility] Work Phone: Hematology/Oncology Comment on above: 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); 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) (Primary Dx) Start: 09-20-2021 End: 09-20-2021 ambulatory [facility] [place] [place] Work Phone: Hematology/Oncology Comment on above: 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) (Primary Dx) Start: 07-01-2021 End: 07-01-2021 ambulatory [facility] [place] Work Phone: Hematology/Oncology Comment on above: 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) (Primary Dx) Start: 04-04-2021 End: 04-04-2021 Subsequent hospital visit by physician Arrival Time Radiology Work Phone: Radiology [facility] Comment on above: 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 [C83.39] Start: 09-23-2018 Patient encounter procedure Klaus Murguia COURT REPORTER-HONING MACHINE TRY OUT SETTER Work Phone: [facility] Start: 09-23-2018 Encounter for genera l adult medical examination without abnormal findings KLAUS MURGUIA [facility] Start: 09-20-2017 Patient encounter DEFAULT PHYSICIAN Facility:[facility] Procedures Date Procedure Procedure Detail Performing Clinician Start: 11-08-2023 Adult depression scr eening assessment Klaus Murguia COURT REPORTER-HONING MACHINE TRY OUT SETTER Work Phone: Start: 09-18-2023 Adult depression scr eening assessment Klaus Murguia COURT REPORTER-HONING MACHINE TRY OUT SETTER Work Phone: Start: 06-11-2023 Esophagoscp rig hensley soral hypopharynx crv katerinaoph Jessica Peryera MD Work Phone: Start: 04-26-2023 Follow-up visit Follow-up KLAUS MURGUIA Start: 04-26-2023 Adult depression scr eening assessment Klaus Hensonillo COURT REPORTER-HONING MACHINE TRY OUT SETTER Work Phone: Start: 03-27-2023 Adult depression scr eening assessment Klaus Murguia COURT REPORTER-HONING MACHINE TRY OUT SETTER Work Phone: Start: 03-27-2023 Lipid 1996 panel - S cheli or Plasma Donnell Colon MD Work Phone: Start: 12-14-[address] REPORTER-HONING MACHINE TRY OUT SETTER Work Phone: Start: 12-08-[address] JORGITO HANKINS Comment on above: Performed By: #### P [facility] #### [facility] [address] [place] [address] Dr. Arthur Machado Start: 10-14-2021 Blood count complete auto&auto difrntl wbc Donnell Colon MD Work Phone: Start: 04-04-[address] atten uation skull base mid-thigh Donnell Colon MD Work Phone: Start: 04-04-2021 Gluc bld gluc mntr d ev cleared fda spec home use [facility] Provider Start: 04-12-2020 Adult depression scr eening assessment Lab/[facility] [place] Work Phone: H/O splenectomy H/O splenectomy Donnell barragan MD Work Phone: Plan of Treatment Date Care Activity Detail Author Start: 03-27-2028 Lipid panel Lipid Screening [facility] Start: 12-14-2026 Screening for malignant neoplasm of colon Colonoscopy [facility] Start: 10-11-2026 Diabetes Screening Diabetes Screening [facility] Start: 03-27-2026 Diabetes Screening Diabetes Screening [facility] Start: 10-13-2025 DIABETES SCREEN DIABETES SCREEN [facility] Start: 11-07-2024 Adult BMI Screening Adult BMI Screening [facility] Start: 11-07-2024 Depression Screening Depression Screening [facility] Start: 11-07-2024 Fall Risk Screening Fall Risk Screening [facility] Start: 11-07-2024 Medicare Annual Wellness Visit Medicare Annual Wellness Visit [facility] Start: 11-07-2024 Tobacco Screening Tobacco Screening [facility] Start: 10-15-2024 Adult BMI Screening Adult BMI Screening [facility] Start: 10-14-2024 DIABETES SCREEN DIABETES SCREEN [facility] Start: 10-11-2024 End: 10-11-2024 CBC W Auto Differential panel - Blood COMPLETE BLOOD COUNT AND DIFFERENTIAL Lab Routine 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 Expected: 10/11/2024 (Approximate), Expires: 10/11/2024 [facility] Comment on above: Expected: 10/11/2024 (Approximate), Expi res: 10/11/2024 Start: 10-11-2024 End: 10-11-2024 Comprehensive metabolic 2000 panel - Serum or Plasma COMPREHENSIVE METABOLIC PANEL Lab Routine 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 Expected: 10/11/2024 (Approximate), Expires: 10/11/2024 [facility] Comment on above: Expected: 10/11/2024 (Approximate), Expi res: 10/11/2024 Start: 10-11-2024 End: 10-11-2024 Lactate dehydrogenase [Enzymatic activity/volume] in Serum or Plasma LACTATE DEHYDROGENASE Lab Routine 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 Expected: 10/11/2024 (Approximate), Expires: 10/11/2024 [facility] Work Phone: Comment on above: Expected: 10/11/2024 (Approximate), Expi res: 10/11/2024 Start: 10-10-2024 End: 10-10-2024 Follow-up encounter 10/10/2024 11:15 AM EDT Visit (SP) Office Hematology/Oncology [address] [place] [address] Donnell Colon MD [address] [place] [address] 1 year follow up Hematology/Oncology Comment on above: 1 year follow up Start: 10-10-2024 End: 10-10-2024 Patient encounter procedure 10/10/2024 11:00 AM EDT Office Visit [facility] [address] [place] [address] 1 year follow up [facility] Comment on above: 1 year follow up Start: 09-17-2024 Adult BMI Screening Adult BMI Screening [facility] Start: 09-17-2024 Depression Screening Depression Screening [facility] Start: 09-17-2024 Fall Risk Screening Fall Risk Screening [facility] Start: 09-17-2024 Tobacco Screening Tobacco Screening [facility] Start: 05-08-2024 End: 05-08-2024 Patient encounter procedure 05/08/2024 10:00 AM EDT [facility] [address] [place] [phone] Klaus Murguia, COURT REPORTER-HONING MACHINE TRY OUT SETTER [address] [place] [phone] [facility] Start: 04-25-2024 Adult BMI Screening Adult BMI Screening [facility] Start: 04-25-2024 Depression Screening Depression Screening [facility] Start: 04-25-2024 Fall Risk Screening Fall Risk Screening [facility] Start: 04-25-2024 Tobacco Screening Tobacco Screening [facility] Start: 04-04-2024 DIABETES SCREEN DIABETES SCREEN [facility] Start: 03-27-2024 Adult BMI Screening Adult BMI Screening [facility] Start: 03-27-2024 Depression Screening Depression Screening [facility] Start: 03-27-2024 Fall Risk Screening Fall Risk Screening [facility] Start: 03-27-2024 Tobacco Screening Tobacco Screening [facility] Start: 02-25-2024 LIPID SCREEN LIPID SCREEN [facility] Start: 11-08-2023 End: 11-08-2023 Patient encounter procedure 11/08/2023 1:00 PM EDT Office Visit [facility] Family Medicine [address] [place] [address] Klaus Murguia, COURT REPORTER-HONING MACHINE TRY OUT SETTER [address] [place] [address] [facility] Start: 11-03-2023 Medicare Annual Wellness Visit Medicare Annual Wellness Visit [facility] Start: 10-28-2023 Influenza vaccination [facility] Start: 10-12-2023 End: 10-12-2023 Follow-up encounter 10/12/2023 10:45 AM EDT Visit (SP) Office Hematology/Oncology [address] [place] [address] Donnell Colon MD [facility] [place] [address] 1 year follow up Hematology/Oncology Comment on above: 1 year follow up Start: 10-12-2023 End: 10-12-2023 Patient encounter procedure 10/12/2023 10:30 AM EDT Office Visit [facility] [address] [place] [address] 1 year follow up [facility] Comment on above: 1 year follow up Start: 10-02-2023 End: 07-31-2024 MR Biliary ducts and Pancreatic duct WO and W contrast IV MRI PANC/VICTOR HUGO WO/W IVCON Radiology Routine Pancreas cyst Expected: 10/02/2023 (Approximate), Expires: 07/31/2024 [facility] Work Phone: Comment on above: Expected: 10/02/2023 (Approximate), Expi res: 07/31/2024 Start: 09-19-2023 End: 09-19-2023 Patient encounter procedure 09/19/2023 10:15 AM EDT Office Visit Gastroenterology [address] [id number] [place] [address] [address] [id number] Abnormal MRI of abdomen [R93.5] Gastroenterology Comment on above: Abnormal MRI of abdomen [R93.5] Start: 09-18-2023 End: 09-17-2024 MR Abdomen WO and W contrast IV MR abdomen with and without contrast Imaging Routine Chronic gallstone pancreatitis (CMS-HCC) Pancreatic cyst Expected: 09/18/2023, Expires: 09/17/2024 [facility] Work Phone: Comment on above: Expected: 09/18/2023, Expires: Start: 09-18-2023 End: 09-18-2023 Patient encounter procedure 09/18/2023 9:40 AM EDT Office Visit [facility] [address] [place] [address] Klaus Murguia, COURT REPORTER-HONING MACHINE TRY OUT SETTER [address] [place] [address] [facility] Start: 07-02-2023 End: 10-01-2023 Amylase [Enzymatic activity/volume] in Serum or Plasma AMYLASE Lab Routine Pancreas cyst Expected: 07/02/2023, Expires: 10/01/2023 [facility] Comment on above: Expected: 07/02/2023, Expires: Start: 07-02-2023 End: 10-01-2023 CBC panel - Blood by Automated count COMPLETE BLOOD COUNT Lab Routine Pancreas cyst Expected: 07/02/2023, Expires: 10/01/2023 [facility] Comment on above: Expected: 07/02/2023, Expires: Start: 07-02-2023 End: 10-01-2023 Comprehensive metabolic 2000 panel - Serum or Plasma COMPREHENSIVE METABOLIC PANEL Lab Routine Pancreas cyst Expected: 07/02/2023, Expires: 10/01/2023 [facility] Comment on above: Expected: 07/02/2023, Expires: Start: 07-02-2023 End: 10-01-2023 Hemoglobin A1c in Blood HEMOGLOBIN A1C Lab Routine Pancreas cyst Expected: 07/02/2023, Expires: 10/01/2023 [facility] Comment on above: Expected: 07/02/2023, Expires: Start: 07-02-2023 End: 10-01-2023 Lipase [Enzymatic activity/volume] in Serum or Plasma LIPASE Lab Routine Pancreas cyst Expected: 07/02/2023, Expires: 10/01/2023 [facility] Comment on above: Expected: 07/02/2023, Expires: Start: 07-02-2023 End: 10-01-2023 Lipid 1996 panel - Serum or Plasma LIPID PANEL BASIC Lab Routine Pancreas cyst Expected: 07/02/2023, Expires: 10/01/2023 [facility] Comment on above: Expected: 07/02/2023, Expires: Start: 07-02-2023 End: 10-01-2023 PHOSPHATIDYLETHANOL (PETH) PHOSPHATIDYLETHANOL (PETH) Lab Routine Pancreas cyst Expected: 07/02/2023, Expires: 10/01/2023 [facility] Comment on above: Expected: 07/02/2023, Expires: Start: 05-18-2023 End: 05-18-2023 Patient encounter procedure 05/18/2023 10:30 AM EDT Office Visit [facility] [address] [place] [phone] Courtney Almaraz, COURT REPORTER-HONING MACHINE TRY OUT SETTER [address] [place] [address] [facility] Start: 04-26-2023 End: 04-26-2023 Patient encounter procedure 04/26/2023 1:00 PM EST Office Visit [facility] [address] [place] [phone] Klaus Murguia, COURT REPORTER-HONING MACHINE TRY OUT SETTER [address] [place] [phone] [facility] Start: 03-27-2023 End: 03-27-2024 MR Abdomen WO and W contrast IV MR abdomen with and without contrast Imaging Routine Pancreatic lesion History of diffuse large B-cell lymphoma Other chronic pancreatitis (CMS-HCC) Expected: 03/27/2023, Expires: 03/27/20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) Expected: 10/14/2022 (Approximate), Expires: 10/14/2022 [facility] Work Phone: Comment on above: Expected: 10/14/2022 (Approximate), Expi res: 10/14/2022 Start: 10-14-2022 End: 10-14-2022 Comprehensive metabolic 2000 panel - Serum or Plasma COMP METABOLIC PANEL Lab Routine 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) Expected: 10/14/2022 (Approximate), Expires: 10/14/2022 [facility] Work Phone: Comment on above: Expected: 10/14/2022 (Approximate), Expi res: 10/14/2022 Start: 10-14-2022 End: 10-14-2022 Lactate dehydrogenase [Enzymatic activity/volume] in Serum or Plasma LD LACTATE DEHYDRO Lab Routine 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) Expected: 10/14/2022 (Approximate), Expires: 10/14/2022 [facility] Work Phone: Comment on above: Expected: 10/14/2022 (Approximate), Expi res: 10/14/2022 Start: 02-26-2022 ADVANCE DIRECTIVE DISCUSSION ADVANCE DIRECTIVE DISCUSSION [facility] Start: 02-26-2022 DEPRESSION ASSESSMENT DEPRESSION ASSESSMENT [facility] Start: 10-27-2021 Influenza vaccination [facility] Start: 04-12-2021 Adult depression screening assessment DEPRESSION SCREENING [facility] Start: 02-26-2021 ADVANCE DIRECTIVE DISCUSSION ADVANCE DIRECTIVE DISCUSSION [facility] Start: 06-24-2020 COVID-19 VACCINE (3 - Moderna risk 4-dose series) COVID-19 VACCINE (3 - Moderna risk 4-dose series) [facility] Start: 06-24-2020 COVID-19 VACCINE (3 - Moderna risk series) COVID-19 VACCINE (3 - Moderna risk series) [facility] Start: 05-17-2019 Pneumococcal Vaccine: 65+ (3 of 3 - PCV) Pneumococcal Vaccine: 65+ (3 of 3 - PCV) [facility] Start: 05-17-2019 PNEUMOCOCCAL: 65+ (3 - PCV) PNEUMOCOCCAL: 65+ (3 - PCV) [facility] Start: 07-11-2018 MENINGOCOCCAL CONJUGATE (2 - Risk 2-dose series) MENINGOCOCCAL CONJUGATE (2 - Risk 2-dose series) [facility] Start: 07-11-2018 Meningococcal Conjugate Vaccine (2 - Risk 2-dose series) Meningococcal Conjugate Vaccine (2 - Risk 2-dose series) [facility] Start: 2011 RSV Vaccine (1 - 1-dose 60+ series) RSV Vaccine (1 - 1-dose 60+ series) [facility] Start: 2011 RSV Vaccine (1 - Risk 60-74 years 1-dose series) RSV Vaccine (1 - Risk 60-74 years 1-dose series) [facility] Start: 06-12-2001 SHINGRIX VACCINE (1 of 2) SHINGRIX VACCINE (1 of 2) [facility] Start: 06-12-1996 COLOGUARD (FIT-DNA) COLOGUARD (FIT-DNA) [facility] Start: 06-12-1996 Colonoscopy COLONOSCOPY [facility] Start: 06-12-1996 COLORECTAL CANCER SCREENING COLORECTAL CANCER SCREENING [facility] Start: 06-12-[address] COLONOGRAPHY [facility] Start: 06-12-1996 FECAL OCCULT BLOOD FECAL OCCULT BLOOD [facility] Start: 06-12-1996 Screening for malignant neoplasm of colon [facility] Start: 06-12-1996 SIGMOIDOSCOPY SIGMOIDOSCOPY [facility] Start: 06-12-1970 Administration of varicella zoster vaccine Zoster (Shingles) Vaccine (1 of 2) [facility] Start: 06-12-1970 DTaP,Tdap and Td Vaccines (1 - Tdap) DTaP,Tdap and Td Vaccines (1 - Tdap) [facility] Start: 06-12-1970 SHINGRIX VACCINE (1 of 2) SHINGRIX VACCINE (1 of 2) [facility] Start: 06-12-1970 Urine microalbumin profile [facility] Start: 06-12-1969 Anxiety Screening Anxiety Screening [facility] Start: 06-12-1969 Depression Screening Depression Screening [facility] Start: 06-12-1961 Meningococcal B Vaccine: Consider Based On Risk (1 of 4 - Increased Risk) Meningococcal B Vaccine: Consider Based On Risk (1 of 4 - Increased Risk) [facility] Start: 06-12-1961 MENINGOCOCCAL B: Consider based on risk (1 of 4 - Increased Risk Bexsero 2-dose series) MENINGOCOCCAL B: Consider based on risk (1 of 4 - Increased Risk Bexsero 2-dose series) [facility] Start: 06-12-1961 MENINGOCOCCAL B: Consider based on risk (1 of 4 - Increased Risk) MENINGOCOCCAL B: Consider based on risk (1 of 4 - Increased Risk) [facility] Start: 1950 ABDOMINAL AORTIC ANEURYSM SCREENING ABDOMINAL AORTIC ANEURYSM SCREENING [facility] Start: 1950 Abdominal aortic aneurysm screening Abdominal Aortic Aneurysm Screening [facility] End: 10-13-2023 CBC W Auto Differential panel - Blood CBC + DIFF Lab Routine 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) Every 6 months for 3 Occurrences starting 10/13/2022 until 10/13/2023 [facility] Work Phone: Comment on above: Every 6 months for 3 Occurrences startin g 10/13/2022 until 10/13/2023 End: 10-13-2023 Comprehensive metabolic 2000 panel - Serum or Plasma COMP METABOLIC PANEL Lab Routine 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) Every 6 months for 3 Occurrences starting 10/13/2022 until 10/13/2023 [facility] Work Phone: Comment on above: Every 6 months for 3 Occurrences startin g 10/13/2022 until 10/13/2023 End: 05-13-2024 EGD - THERAPEUTIC, EUS, OR TUBE INTERVENTIONS EGD - THERAPEUTIC, EUS, OR TUBE INTERVENTIONS Endoscopy Routine Pancreatic lesion 1 Occurrences starting 05/14/2023 until 05/13/2024 [facility] Work Phone: Comment on above: 1 Occurrences starting 05/14/2023 until 05/13/2024 IR PORTOCATH REMOVAL IR PORTOCAT H REMOVAL Radiology Routine 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) Ordered: 10/14/2021 [facility] Work Phone: Comment on above: Ordered: 10/14/2021 End: 10-13-2023 Lactate dehydrogenase [Enzymatic activity/volume] in Serum or Plasma LD LACTATE DEHYDRO Lab Routine 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) Every 6 months for 3 Occurrences starting 10/13/2022 until 10/13/2023 [facility] Work Phone: Comment on above: Every 6 months for 3 Occurrences startin g 10/13/2022 until 10/13/2023 End: 07-31-2024 MR Unspecified body region 3D post processing MRI 3D POST PROCESSING Radiology Routine Pancreas cyst 1 Occurrences starting 07/02/2023 until 07/31/2024 [facility] Comment on above: 1 Occurrences starting 07/02/2023 until 07/31/2024 End: 10-13-2023 Urate [Mass/volume] in Serum or Plasma URIC ACID BLOOD Lab Routine 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 Immunizations Immunization Date Immunization Notes Care Provider [facility] 01-02-2022 Influenza Vaccine, Quadrivalent, Adjuvanted Klaus Murguia [employer] REPORTER-HONING MACHINE TRY OUT SETTER Work Phone: [facility] 01-02-2022 influenza virus vacc ine, unspecified formulation Klaus Murguia [employer] REPORTER-HONING MACHINE TRY OUT SETTER Work Phone: [facility] 01-03-2020 influenza, high dose seasonal, preservative-free [facility] Work Phone: [facility] 12-09-2018 influenza, seasonal, injectable Klaus Murguia [employer] REPORTER-HONING MACHINE TRY OUT SETTER Work Phone: [facility] 11-21-2018 influenza, high dose seasonal, preservative-free [facility] Work Phone: [facility] 05-16-2018 meningococcal polysaccharide (groups A, C, Y and W-135) diphtheria toxoid conjugate vaccine (MCV4P) [email or web address] Work Phone: [facility] 05-16-2018 pneumococcal polysaccharide vaccine, 23 valent [facility] [place] Work Phone: [facility] 03-06-2018 meningococcal polysaccharide vaccine (MPSV4) [email or web address] Work Phone: [facility] Work Phone: 03-05-2018 haemophilus influenz ae type b vaccine, PRP-T conjugate [facility] [place] Work Phone: [facility] Work Phone: 03-05-2018 pneumococcal polysaccharide vaccine, 23 valent [email or web address] Work Phone: [facility] Work Phone: 02-28-2018 influenza, injectabl e, quadrivalent, preservative free [facility] [place] Work Phone: [facility] 02-28-2018 influenza, seasonal, injectable [facility] [place] Work Phone: [facility] Payers Date Payer Category Payer Unknown 2018 Unknown [facility] [id number] 2018-Present [phone] [address] [place] [address] [facility] [id number] 2017 Medicare ANTHEM MEDICARE ANTHEM MEDICARE ADVANTAGE [id number] 2017-Present [phone] [address] [place] [address] [id number] 2017 Medicare O ANTHEM MEDICARE [id number] 1959 Unknown [id number] 1950 Unknown [id number] 3 1951 Unknown [id number] 3 1951 Unknown [id number] 3 1951 Unknown [id number] 3 1951 Unknown [id number] 86 1950 Unknown [id number] 86 1951 Unknown [id number] 86 1950 Unknown [id number] 86 1951 Unknown [id number] 86 1951 Unknown [id number] 86 1950 Unknown [id number] 86 Social History Date Type Detail Facility Start: 09-06-2017 End: 10-14-2021 Tobacco smoking status NHIS Ex-smoker [facility] Start: 09-06-2017 End: 06-05-2022 Tobacco use and exposure Smokeless tobacco non-user [facility] Start: 04-12-2020 End: 03-28-2023 Alcohol intake Current drinker of alcohol (finding) [facility] Start: 1950 Sex Assigned At Not on file [facility] History of tobacco use Current smoker [facility] Start: 10-04-2021 End: 10-14-2021 Exposure to SARS-CoV-2 (event) Not sure [facility] Start: 04-08-2020 End: 10-14-2021 History of Social function [facility] Start: 04-08-2020 End: 10-14-2021 Tobacco use panel [facility] Adult Depression Screening Assessment 0 [facility] Start: 06-05-2022 Tobacco smoking stat us NHIS Never smoked tobacco [facility] Start: 09-18-2023 End: 11-08-2023 Alcoholic beverage intake Ex-drinker (finding) [facility] Start: 11-23-2021 Alcohol Comment min 6 beers da sunil, 8 AT MOST [facility] Start: 10-01-2014 Sex Male (finding) [facility] NEGATED: Highlighted rowStart: NINF History of tobacco use Passive smoker [facility] Medical Equipment Procedure Code Equipment Code Equipment Origin al Text Equipment Identifier Dates Port Power Mri W/Open Ended 8f R [facility] - [id number] - [id number] Start: 09-07-2017 Clinical Notes 04-04-2021 to 03-17-2024 Telephone Encounter - Cele Hutson - 03/17/2024 4:52 PM ESTTelephone Encounter - Cele Hutson - 03/17/2024 4:52 PM ESTTelephone Encounter - Cele Hutson - 03/17/2024 4:52 PM EST Note Date & Type Note Facility 03-17-2024 Miscellaneous Notes Due for mcare after 11/07 LM on VM Schedule at april appt documented [facility] this [facility]-17-2024 Telephone encounter Note Due for mcare after 11/[address] [facility] 03-17-2024 Telephone encounter Note LM on [facility] 03-17-2024 Telephone encounter Note [email or web address] History of Presen t illness Narrative Subjective SUBJECTIVE: Patient ID: Nic Valerio is a 73 y.o. male who presents for a Medicare Annual Wellness exam. Presents for Medicare wellness Drives. Ambulation and gait is steady. Does not use assistive devices. . Stays very active outdoors. The following portions of the patient's history were reviewed and updated as appropriate: allergies, current medications, past family history, past medical history, past social history, past surgical history and problem list. Past Surgical History: Procedure Laterality Date COLONOSCOPY DR HANKINS 2020 HERNIA REPAIR Left INGUINAL REPAIR IMPLANTATION PORT-A-CATH CPT CODE 67440 N/A 09/07/2017 Performed by Michael Hankins DO at [facility] SPLENECTOMY, TOTAL 03/09/2018 Past Medical History: Diagnosis [...] Meningococcal Polysaccharide 03/06/2018 Pneumococcal Polysaccharide 03/05/2018, 05/16/2018 AWV FLOWSHEET : Lifestyle Assessment Do you smoke or use smokeless tobacco?: No If you smoke or use smokeless tobacco, are you ready to quit?: NA Are you exposed to secondhand smoke?: No On average, how many drinks of alcohol do you consume in a week?: None Do you exercise for 30 or more minutes on average at least 3 days a week?: Often Do you have any tooth, denture, or oral problems?: No Do you snore or has anyone told you that you snore?: No Do you try to eat a balanced diet?: Yes Do you have difficulty performing any of these activities? (check all that apply): None Do you have difficulty performing any of these activities? (check all that apply): None Fall Risk Depression Screening Little interest or pleasure in doing things: Not at all Feeling down, depressed, or hopeless: Not at all Safety Assessment Do you have throw rugs on the floor?: No Do you feel safe at your home?: Yes Do you feel unsteady when walking?: No Are you having difficulty with driving?: No Do you have trouble seeing?: (!) Yes What assistive device do you use? (check all that apply): None Recommend eye provider appointment yearly or as directed by eye provider. Hearing Assessment Do you strain or struggle to hear/understand conversations?: (!) Yes Do you have trouble hearing the television or radio when others do not?: (!) Yes Does your family ever voice concerns about your hearing?: No Do you wear hearing aid/s?: (!) Yes Patient has hearing aides. Discussed audiology testing. Referral if hearing issues continue. Personal Health During the past 4 weeks, how would you rate your overall health?: Very Good Do you understand how to take all of your medications?: Yes How confident are you that you can control and manage most of your health problems?: Very confident In the past 12 months, how many times have you been hospitalized?: None End of Life Planning Do you have a living will?: Yes Do you have a durable power of securities attorney?: (!) No Patient educated today about benefits of having a Living Will and DPOA. Information packet provided today. Cognitive Screening Do you have trouble remembering or recalling facts or events?: (!) Yes Do family members or caregivers report that you have difficulty remembering things?: No Clock Drawing Test: Normal Normal clock and sentence structure. Mini mental exam is 30/30 REVIEW OF SYSTEMS: Review of Systems Constitutional: [...] Hematological: Does not bruise/bleed easily. Psychiatric/Behavioral: Negative. Objective PHYSICAL EXAMINATION: Vitals: 11/08/23 1256 BP: 132/60 BP Site: Left Arm BP Postition: Sitting Pulse: 62 Resp: 18 Temp: 36.7 C (98 F) TempSrc: Oral SpO2: 98% Weight: 65 kg (143 lb 3.2 oz) Height: 180.3 cm (5' 11 ) Patient noted to have elevated BMI and the following intervention(s) were applied: encouragement to exercise. Relevant Labs: No results found for: HGBA1C No results found for: MICROALBUR , URINECREAT , ALBCREATRA No results found for: TSH , T4 No results found for: VITD25 Lab Results Component Value Date WBC 12.1 (H) 09/07/2017 RBCCOUNT 3.53 (L) 09/07/2017 HGB 9.3 (L) 09/07/2017 HCT 28.3 (L) 09/07/2017 MCV 80 (L) 09/07/2017 MCH 26.3 (L) 09/07/2017 MCHC 32.8 09/07/2017 RDW 17.9 (H) 09/07/2017 PLT 584 (H) 09/07/2017 MPV 6.9 (L) 09/07/2017 Lab Results Component Value Date PSA 3.54 12/08/2021 Lab Results Component Value Date SODIUM 132 (L) 03/27/2023 K 3.6 03/27/2023 CL 100 03/27/2023 CO2 23 03/27/2023 ANIONGAP 9 03/27/2023 BUN 12 03/27/2023 GLU 152 (H) 03/27/2023 CALCIUM 9.5 03/27/2023 TOTALPROTEI 6.6 03/27/2023 ALBUMIN 4.0 03/27/2023 ALKPHOS 89 03/27/2023 AST 21 03/27/2023 ALT 25 03/27/2023 GFR >60 02/13/2017 GFR >60 02/13/2017 Imaging: MR abdomen with and without contrast Result Date: 10/17/2023 Narrative: CLINICAL INFORMATION: Chronic pancreatitis with stones, chronic gallstone pancreatitis, pancreatic cysts COMPARISON: MR abdomen 04/06/2023 TECHNIQUE: Multisequence multiplanar MRI of the abdomen without and with contrast. CONTRAST: 12.7 ml of Prohance FINDINGS: LIVER AND BILIARY: No significant signal drop on opposed phase imaging. Noncirrhotic liver morphology. No significant intrahepatic or extrahepatic biliary ductal dilatation. No evidence of choledocholithiasis. Gallbladder is unremarkable. PANCREAS: Multiple redemonstrated incidental pancreatic cystic lesions. The largest one is microcystic, measuring 2.9 cm in the uncinate process. High-risk feature(s)/stigmata are present: main pancreatic duct ?7 mm. Communication between the cyst and the main pancreatic duct cannot be determined. SPLEEN: Surgically absent with large splenules near the splenic fossa. ADRENALS: No adrenal mass or lesion. KIDNEYS: Minimally complex cystic lesion left lower pole, this requires no follow-up. No collecting system dilatation. Symmetric renal parenchymal enhancement. GI TRACT AND PERITONEUM: Diffuse colonic diverticulosis. No evidence of bowel obstruction. VASCULATURE: Unremarkable. LYMPH NODES: No enlarged lymph nodes by size criteria. MUSCULOSKELETAL: No acute findings. LOWER CHEST/LOCALIZER: 0.4 cm pleural-based nodule left lower lobe (series 19, image 35). IMPRESSION: * Multiple redemonstrated pancreatic cystic lesions, the largest one measuring 2.9 cm with similar dilatation of the main pancreatic duct. Recommendations are based on the largest cyst. Consider EUS / FNA or evaluation for surgery if clinically indicated. At a minimum, consider reimaging with contrast-enhanced MRI or pancreas protocol CT every 6 months for a total of 2 years. * Indeterminate solid pulmonary nodule measuring less than 6 mm. In a low-risk patient with a solid nodule <6 mm, recommend no follow-up. In a high-risk patient, CT at 12 months is optional with stronger consideration if there is suspicious nodule morphology and/or upper lobe location. Trey AJ, et al. Management of Incidental Pancreatic Cysts: A White Paper of the ACR Incidental Findings Committee. J Am Juan Daniel Radiol 2017;14:911-923. Tish Rutherford, et al. Guidelines for Management of Incidental Pulmonary Nodules Detected on CT Images: From the Fleischner Society 2017. Radiology. 2017 Aug;284(1):228-243. Approved by Resident Gabino Ring DO on 10/17/2023 1:44 PM IJohnathan DO have personally reviewed the image(s) and agree with and/or edited the report Finalized by Johnathan Newton DO on 10/17/2023 2:24 PM Physical Exam Vitals and nursing note [...] Content: Thought content normal. Judgment: Judgment normal. Assessment/Plan ASSESSMENT/PLAN Nic was seen today for annual exam. Diagnoses and all orders for this visit: Medicare annual wellness visit, subsequent Up to date with labs. Depression: Not at risk (11/08/2023) PHQ-2 PHQ-2 Score: 0 Colonoscopy screening discussed today. Risk and benefits of procedure explained. Patient last colonoscopy was 2021 Reviewed recent MRI of abdomen. Repeat in 6 months per [facility] specialist. Total time spent was 30 minutes: Preparing to see the patient (e.g., review of tests) Obtaining and/or reviewing separately obtained history Performing a medically appropriate examination and/or evaluation Counseling and educating the patient/family/caregiver Ordering medications, tests, or procedures No follow-ups on file. There are no Patient Instructions on file for this visit. BERKLEY Gomez 11/08/23 1339 documented in this encounter [facility] 11-06-2023 Miscellaneous Notes Pt called stated they need a copy of the original RX for the patient assistants Can you help with this. I know your working on it I need a new RX to send over, I asked deepali to ask you but she worded it wrong Done documented in this encounter [facility] 11-06-2023 Telephone encounter Note Pt called stated they need a copy of the original RX for the patient assistants [facility] 11-06-2023 Telephone encounter Note Can you help with this. I know your working on it [facility] 11-06-2023 Telephone encounter Note I need a new RX to send over, I asked deepali to ask you but she worded it wrong [facility] 11-06-2023 Telephone encounter Note Done [facility] 10-12-2023 Instructions Marcia Ordoñez - 10/12/2023 11:09 AM EDT RTC in 1 year labs same day documented in this encounter [facility] 10-12-2023 History of Presen t illness Narrative Images from the original note were not included. NAME: Nic Valerio [facility] NO.: [id number] DATE OF SERVICE: October 12, 2023 (Kenneth) Some elements in this clinic note that are critical to medical decision making have been carefully reviewed and included from a prior clinic note dated: October 13, 2022 (Ileanaar) Referring Provider: Arthur Padilla DO CC: DLBCL [...] in 1 year labs same day HPI: CASE HISTORY: Reverse Chronological Order 06/11/2023 - EUS: Severe chronic pancreatitis with obstructing pancreatic duct stones A cystic lesion was not found in the uncinate process. Only a 9mm cyst in the head of the pancreas. FNA was not performed. 04/06/2023 - MRI Abdomen: Multiple incidental pancreatic cystic lesions, the largest one measuring 2.9 cm with communication to the main pancreatic duct. Recommendations are based on the largest cyst. Recommend considering EUS with FNA, and surgical consultation. However, for cysts with low-risk features by imaging, consider reimaging with contrast-enhanced MRI or pancreas-protocol CT every 6 months for up to 2 years. 04/07/2020 - PET/CT: No FDG avid neoplastic process. No mass, adenopathy, or fluid collection. Deauville score: 1 10/02/2019 - CT CAP: Chest: No evidence of bulky intrathoracic lymphadenopathy. Findings of prior granulomatous disease. Multiple noncalcified nodular opacities adjacent to a calcified right upper lobe granuloma. These may represent noncalcified granulomas. Findings are similar in appearance to prior exam. Previously visualized right lower lobe groundglass nodule has resolved, likely infectious or inflammatory in nature. A/P: No evidence of abdominal or pelvic lymphadenopathy. Extensive colonic diverticulosis. Findings suggestive of mild sigmoid diverticulitis. Correlate clinically. Findings suggestive of a polyp within the sigmoid colon. Recommend further evaluation with colonoscopy. Postsurgical changes of splenectomy. Unchanged fluid collection in the splenectomy bed. Ovoid hypodensity in the pancreatic head, similar in appearance to prior exam. 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 Recommend continued follow-up. 05/30/2019 - CT CAP: Chest: No evidence of bulky intrathoracic lymphadenopathy. Stable calcified granuloma in the right upper lobe with surrounding noncalcified opacities. These may represent noncalcified granulomas. 2-3 mm right lower lobe groundglass nodule which was not discretely visualized on the prior exam. Recommend continued follow-up. A/P: No evidence of abdominal or pelvic lymphadenopathy. Postsurgical changes in keeping with splenectomy. Unchanged appearance of fluid collection in the splenectomy bed. Ovoid hypodensity in the pancreatic head measuring up to 11 mm in size. This may represent a cyst or intraductal papillary mucinous neoplasm (IPMN). Consider contrast-enhanced MRI/MRCP for further evaluation. Hepatic steatosis. Updated Visit, October 12, 2023: Nic returns for a follow up. In May, he was diagnosed with pancreatitis - now taking creon. Following with Dr. Pereyra. His labs look great, LDH continues to improve. Updated Visit, October 13, 2022: Doing well. [...] playing with her new dog a 1-year-old Jordanian Trevizo. All images were personally reviewed with the patient. Updated Visit, June 04, 2019: Conducted by telephone No problems active outside gardening and playing with his dog. REVIEW OF SYSTEMS Per HPI and otherwise negative by full review of organ systems. ECOG PERFORMANCE STATUS: 0 PHYSICAL EXAMINATION: Vitals: BP 152/71 Pulse 61 Temp (Src) 97.6 (Temporal) Resp 18 Wt 139 lb 8.8 oz (63.3kg) SpO2 100% Body surface area is 1.77 meters squared. Exam limited to gross visualization [...] [Metronidazo* Other: See Comments Joint pain MEDICATIONS: lisinopril (ZESTRIL) 10 mg tablet Take 10 mg by mouth. bnxpbx-[id number]-igkjvbm (CREON) 12,000-38,000 -60,000 unit delayed release capsule Take 3 capsules by mouth three times a day with meals. ferrous sulfate 325 mg (65 mg iron) [...] needed. LABORATORY VALUES: WBC (k/uL) Date Value 10/12/2023 8.43 RBC (m/uL) Date Value 10/12/2023 4.46 Hemoglobin (g/dL) Date Value 10/12/2023 14.0 Hematocrit (%) Date Value 10/12/2023 40.5 MCV (fL) Date Value 10/12/2023 90.8 MCH (pg) Date Value 10/12/2023 31.4 MCHC (g/dL) Date Value 10/12/2023 34.6 RDW-CV (%) Date Value 10/12/2023 13.4 Platelet Count (k/uL) Date Value 10/12/2023 287 MPV (fL) Date Value 10/12/2023 10.9 Glucose (mg/dL) Date Value 10/12/2023 155 (H) BUN (mg/dL) Date Value 10/12/2023 14 Creatinine (mg/dL) Date Value 10/12/2023 0.84 Sodium (mmol/L) Date Value 10/12/2023 138 Potassium (mmol/L) Date Value 10/12/2023 5.1 Chloride (mmol/L) Date Value 10/12/2023 102 CO2 (mmol/L) Date Value 10/12/2023 29 Protein, Total (g/dL) Date Value 10/12/2023 6.9 Albumin (g/dL) Date Value 10/12/2023 4.5 Calcium, Total (mg/dL) Date Value 10/12/2023 10.0 Alkaline Phosphatase (U/L) Date Value 10/12/2023 100 Bilirubin, Total (mg/dL) Date Value 10/12/2023 0.3 AST (U/L) Date Value 10/12/2023 22 ALT (U/L) Date Value 10/12/2023 24 DIAGNOSIS: (C83.39) 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) (primary encounter diagnosis) Plan: LACTATE DEHYDROGENASE, COMPLETE BLOOD COUNT AND DIFFERENTIAL, COMPREHENSIVE METABOLIC PANEL (Z90.81) H/O splenectomy Plan: LACTATE DEHYDROGENASE, COMPLETE BLOOD COUNT AND DIFFERENTIAL, COMPREHENSIVE METABOLIC PANEL PAST MEDICAL HISTORY No date: Abdominal pain No date: Anemia No date: Gastric ulcer No date: GERD (gastroesophageal reflux disease) Comment: with esophagitis No date: GI bleeding No date: Port-A-Cath in place No date: Port-A-Cath in place No date: Shoulder pain No date: Splenomegaly PAST SURGICAL HISTORY No date: PORTOCATH PLACEMENT No date: PORTOCATH PLACEMENT Social History Tobacco Use Smoking status: Former Passive exposure: Never Smokeless tobacco: Never Vaping Use Vaping status: Never Used Substance Use Topics Alcohol use: Yes Drug use: No FAMILY HISTORY Problem Relation Age of Onset Cancer Mother Heart disease Father I spent a total of 30 minutes on the date of service which included preparing to see the patient, [id number] patient care, completing clinical documentation, obtaining and/or reviewing separately obtained history, performing a medically appropriate examination, counseling and educating the patient/family/caregiver, ordering medications, tests, or procedures, independently interpreting results (not separately reported), communicating results to the patient/family/caregiver, and care coordination (not separately reported). Donnell Colon MD, CPE [facility] Provided at: [place], [place] Scribe Attestation: This note was scribed by Marcia Ordoñez on October 12, 2023 under the direction and supervision of Dr. Donnell Colon. I attest that all of the information documented is correct to the best of my knowledge. Provider Attestation: I, Donnell Colon MD, attest that all information documented by the above scribe is correct, and was supervised by me and under my direction. CC: Arthur Padilla, DO [address] [facility] [id number] documented in this encounter [facility] 10-12-2023 Note HNO ID: [id number] Author: DONNELL COLON MD Service: ? Author Type: Physician Type: Progress Notes Filed: 10/13/2023 14:36 Note Text: NAME: Nahm, [facility] NO.: [id number] DATE OF SERVICE: October 12, 2023 ([facility]) Some elements in this clinic note that are critical to medical decision making have been carefully reviewed and included from a prior clinic [facility]: [facility] Referring Provider: Arthur Padilla DO CC: DLBCL [...] in 1 year labs same day HPI: CASE HISTORY: Reverse Chronological Order 06/11/2023 - EUS: Severe chronic pancreatitis with obstructing pancreatic duct stones A cystic lesion was not found in the uncinate process. Only a 9mm cyst in the head of the pancreas. FNA was not performed. 04/06/2023 - MRI Abdomen: Multiple incidental pancreatic cystic lesions, the largest one measuring 2.9 cm with communication to the main pancreatic duct. Recommendations are based on the largest cyst. Recommend considering EUS with FNA, and surgical consultation. However, for cysts with low-risk features by imaging, consider reimaging with contrast-enhanced MRI or pancreas-protocol CT every 6 months for up to 2 years. 04/07/2020 - PET/CT: No FDG avid neoplastic process. No mass, adenopathy, or fluid collection. Deauville score: 1 10/02/2019 - CT CAP: Chest: No evidence of bulky intrathoracic lymphadenopathy. Findings of prior granulomatous disease. Multiple noncalcified nodular opacities adjacent to a calcified right upper lobe granuloma. These may represent noncalcified granulomas. Findings are similar in appearance to prior exam. Previously visualized right lower lobe groundglass nodule has resolved, likely infectious or inflammatory in nature. A/P: No evidence of abdominal or pelvic lymphadenopathy. Extensive colonic diverticulosis. Findings suggestive of mild sigmoid diverticulitis. Correlate clinically. Findings suggestive of a polyp within the sigmoid colon. Recommend further evaluation with colonoscopy. Postsurgical changes of splenectomy. Unchanged fluid collection in the splenectomy bed. Ovoid hypodensity in the pancreatic head, similar in appearance to prior exam. 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 Recommend continued follow-up. 05/30/2019 - CT CAP: Chest: No evidence of bulky intrathoracic lymphadenopathy. Stable calcified granuloma in the right upper lobe with surrounding noncalcified opacities. These may represent noncalcified granulomas. 2-3 mm right lower lobe groundglass nodule which was not discretely visualized on the prior exam. Recommend continued follow-up. A/P: No evidence of abdominal or pelvic lymphadenopathy. Postsurgical changes in keeping with splenectomy. Unchanged appearance of fluid collection in the splenectomy bed. Ovoid hypodensity in the pancreatic head measuring up to 11 mm in size. This may represent a cyst or intraductal papillary mucinous neoplasm (IPMN). Consider contrast-enhanced MRI/MRCP for further evaluation. Hepatic steatosis. Updated Visit, October 12, 2023: Nic returns for a follow up. In May, he was diagnosed with pancreatitis - now taking creon. Following with Dr. Pereyra. His labs look great, LDH continues to improve. Updated Visit, October 13, 2022: Doing well. [...] returns with his Dmitry to review scans (more content not included)... [facility] 09-25-2023 Miscellaneous Notes Called for signature andproof of income for assistance documented in this encounter [facility] 09-25-2023 Telephone encounter Note Called for signature andproof of income for assistance [facility] 09-18-2023 History of Presen t illness Narrative Images from the original note were not included. [address] [facility] [address] SUBJECTIVE: Patient ID: Nic Valerio is a 73 y.o. male. Chief Complaint Patient presents with F2F for MRI Patient presents today for request of MRI of abdomen per [facility] recommendations. It is requested to have MRI every 6 months to monitor pancreatic stones and cyst. History includes Non-Hodgkin lymphoma. Is in remission states. History of splenectomy. He is no longer experiencing abdominal discomfort but is losing weight. States he has discussed this with [facility]. States he has quit consuming alcohol. The following portions of the patient's history were reviewed and updated as appropriate: allergies, current medications, past family history, past medical history, past social history, past surgical history and problem list. Past Surgical History: Procedure Laterality Date COLONOSCOPY DR HANKINS 2019 HERNIA REPAIR Left INGUINAL REPAIR IMPLANTATION PORT-A-CATH CPT CODE 67789 N/A 09/07/2017 Performed by Michael Hankins DO at [facility]PL[facility], TOTAL 03/09/2018 Past Medical History: [...] bruise/bleed easily. Psychiatric/Behavioral: Negative. PHYSICAL EXAMINATION: Vitals: 09/18/23 0947 BP: 100/60 BP Site: Left Arm BP Postition: Sitting Pulse: 78 Temp: 36.3 C (97.3 F) TempSrc: Tympanic SpO2: 99% Weight: 63 kg (138 lb 12.8 oz) Height: 180.3 cm (5' 11 ) Patient noted to have elevated BMI and the following intervention(s) were applied: encouragement to exercise. Physical Exam Vitals and nursing note reviewed. [...] normal. ASSESSMENT/PLAN: Nic was seen today for f2f for mri. Diagnoses and all orders for this visit: Chronic gallstone pancreatitis (CMS-HCC) - MR abdomen with and without contrast; Future Pancreatic cyst - MR abdomen with and without contrast; Future New orders for MR abdomen per [facility] request every 6 months for monitoring pancreatic cyst and pancreatic stones. ALL QUESTIONS ANSWERED Total time spent was 25 minutes: Preparing to see the patient (e.g., review of tests) Obtaining and/or reviewing separately obtained history Performing a medically appropriate examination and/or evaluation Counseling and educating the patient/family/caregiver Ordering medications, tests, or procedures Follow-up: 6 months BERKLEY Gomez 09/18/23 1029 documented in this encounter [facility] 09-06-2023 Miscellaneous Notes Patient came into the office and was wondering if you would order an MRI for his pancreas per the [facility]. If he needs to come in he will. For me to order and get MRI approved, I will need to see him face to face. Scheduled documented in this encounter [facility] 09-06-2023 Telephone encounter Note Patient came into the office and was wondering if you would order an MRI for his pancreas per the [facility]. If he needs to come in he will. [facility] 09-06-2023 Telephone encounter Note For me to order and get MRI approved, I will need to see him face to face. [facility] 09-06-2023 Telephone encounter Note Scheduled [facility] 07-02-2023 Note HNO ID: [id number] Author: JESSICA PEREYRA MD Service: ? Author Type: Physician Type: Progress Notes Filed: 07/02/2023 15:05 Note Text: Established Patient Visit REASON FOR VISIT Follow up results - EUS I have communicated my name and active licensure. The patient's identity and physical location were verified at the time of this visit. Either the patient or their legal patient relations representative has been informed of the risks and benefits of -- and alternatives to -- treatment through a remote evaluation and consents to proceed with the evaluation remotely. History of Present Illness: Nic Valerio is a 73 year old year old male Nic Valerio is a 72 year old [...] that was suspected to be from pancreatitis. MRI PANCREAS 04/06/2023: Multiple incidental pancreatic cystic [...] 6 months for up to 2 years. Given these findings he was recommended to undergo EUS Bx which he completed with Dr. Andujar as follows. EUS BIOPSY PANCREAS 06/11/2023: - Severe chronic pancreatitis with obstructing pancreatic duct stones - A cystic lesion was not found in the uncinate process. Only a 9mm cyst in the head of the pancreas. FNA was not performed. Today, we are following up via a phone call to update the patient on these findings and make further care plans. He remains asymptomatic without any clinical changes since our last visit. FUNCTIONAL STATUS: Climb a flight of stairs [...] requiring medication, no history of angina, CHF, DE, cardiac surgery or stents. Denies rest pain, [...] No history of endocrinological symptoms or problems. (more content not included)... [facility] 07-02-2023 History of Presen t illness Narrative Established Patient Visit REASON FOR VISIT Follow up results - EUS I have communicated my name and active licensure. The patient's identity and physical location were verified at the time of this visit. Either the patient or their legal patient relations representative has been informed of the risks and benefits of -- and alternatives to -- treatment through a remote evaluation and consents to proceed with the evaluation remotely. History of Present Illness: Nic Valerio is a 73 year old year old male Nic Valerio is a 72 year old [...] that was suspected to be from pancreatitis. MRI PANCREAS 04/06/2023: Multiple incidental pancreatic cystic [...] 6 months for up to 2 years. Given these findings he was recommended to undergo EUS Bx which he completed with Dr. Andujar as follows. EUS BIOPSY PANCREAS 06/11/2023: - Severe chronic pancreatitis with obstructing pancreatic duct stones - A cystic lesion was not found in the uncinate process. Only a 9mm cyst in the head of the pancreas. FNA was not performed. Today, we are following up via a phone call to update the patient on these findings and make further care plans. He remains asymptomatic without any clinical changes since our last visit. FUNCTIONAL STATUS: Climb a flight of stairs [...] requiring medication, no history of angina, CHF, DE, cardiac surgery or stents. Denies rest pain, [...] rash and itching. Anemia: No PHYSICAL EXAMINATION There were no vitals taken for this visit. This consult was conducted via a phone call, therefore no clinical findings are available. ASSESSMENT 72 M with DLBCL s/p chemotherapy and splenectomy, currently in remission who was incidentally found to have a pancreatic cyst in the uncinate process suspicious for a side branch IPMN. RECOMMENDATION I explained to the patient that the MRI initially raised concern for a main duct dilatation due obstruction from the suspected side branch IPMN in the head of the gland. However, the EUS did not demonstrate a mass effect or obstruction. Rather, it showed severe chronic pancreatitis changes with obstructing stones and no mass in the head, therefore no biopsies were performed. The patient and I discussed further plans from this point. I recommended surveilling the pancreas with MRI pancreas every 6 months to ensure stability of the main duct dilatation to be sure this is related to chronic pancreatitis changes and not due to a neoplastic process. He continues to describe symptoms of steatorrhea, unchanged from baseline. Creon 12,000 was prescribed (2 capsules with meals, 1 capsule with snacks). I ordered an update of his basic labs including CBC, CMP, PETH, HBA1C, Lipase/Amylase and lipid panel. As mentioned before, the patient has a consistent EtOH intake (beer every day for 50 years) without radiographic signs of cirrhosis and most recent labs (Sep 2022) show normal LFTs and bilirubin. Normal PLT at 309 and creatinine 0.94. Medical Decision Making: Problems: High: Illness/injury w/ threat to life/body function Data: Unique source(s) for external note(s) reviewed: 2 Unique test result(s) reviewed: 2 Unique test(s) ordered: 1 Assessment requiring an independent historian(s) Independent interpretation of test from other physician/QHCP Discussed management or test w/ external physician/QHCP/source Risk: Low: Low risk from testing/treatment Medical Decision Making Level: 5 - High Jessica Pereyra MD [facility] July 02, 2023s documented in this encounter [facility] 06-11-2023 Nurse Note PATIENT EDUCATION TOPIC: PROCEDURE / SURGERY: Post Procedure Teaching: Symptom Management PATIENT NAME: Nic Valerio PATIENT LOCATION: Room/bed info not found READINESS TO LEARN COGNITIVE ABILITY: Alert and oriented MOTIVATION TO LEARN: Interested FAMILY SUPPORT: Unable to assess - Family not present INSTRUCTION PROVIDED TO: Patient PATIENT LEARNS BEST BY: Individual Instruction FACTORS AFFECTING LEARNING: None PHYSICAL LIMITATIONS AFFECTING LEARNING: None LEARNING RESPONSE DIAGNOSIS: ADULT: chronic pancreatitis PATIENT/FAMILY RESPONSE: Verbalizes understanding of: POST-PROCEDURE INSTRUCTIONS-Correct actions to take to reduce post procedure complications METHOD OF INSTRUCTION: Individual instruction FOLLOW-UP PLAN: Complete - No need for follow-up Patient instructed to call with any further issues INSTRUCTIONAL AIDS USED: NA SUPPLEMENTAL MATERIAL PROVIDED TO PATIENT: None REFERRAL (RECOMMENDATION): None PATIENT EDUCATION TOPIC: PROCEDURE / SURGERY: Pre Procedure Teaching: Logistics PATIENT NAME: Nic Valerio PATIENT LOCATION: Room/bed info not found READINESS TO LEARN COGNITIVE ABILITY: Alert and oriented MOTIVATION TO LEARN: Interested FAMILY SUPPORT: Unable to assess - Family not present INSTRUCTION PROVIDED TO: Patient PATIENT LEARNS BEST BY: Individual Instruction FACTORS AFFECTING LEARNING: None PHYSICAL LIMITATIONS AFFECTING LEARNING: None LEARNING RESPONSE DIAGNOSIS: ADULT: pancreatic cyst PATIENT/FAMILY RESPONSE: Verbalizes understanding of: PRE-PROCEDURE INSTRUCTIONS-Correct action to take to follow pre-procedure instructions METHOD OF INSTRUCTION: Individual instruction FOLLOW-UP PLAN: Complete - No need for follow-up INSTRUCTIONAL AIDS USED: NA SUPPLEMENTAL MATERIAL PROVIDED TO PATIENT: None REFERRAL (RECOMMENDATION): None documented in this encounter [facility] 06-11-2023 History and physical note HISTORY AND PHYSICAL Nic Valerio, 72 year old male Current history and physical on file: Yes Is a new History and Physical required for today's visit? Yes Indication for procedure: Other pancreatic cyst PROCEDURE(S) SCHEDULED FOR: EUS/FNA (Endoscopic Ultrasound with or without Fine Needle Aspiration), based on clinical findings. BASELINE BEHAVIOR: Calm BASELINE ORIENTATION: A & O x3 All medications and allergies reviewed: Yes Skin Assessment: Warm dry mucus membranes pink Airway/Respiratory Assessment: Airway: visualization of the uvula- Yes Mouth: opening greater than 2 fingerbreadths- Yes Neck: full range of motion- Yes Breath sounds clear/equal- Yes Cardiac Assessment: Regular rate and rhythm without murmur Abdominal Assessment: Abdomen soft, non-tender, no masses or organomegaly. Sedation Plan: Deep Additional Comments: None Oscar Andujar MD documented in this encounter [facility] 05-15-2023 Miscellaneous Notes Patient is scheduled for 06/10 Please schedule patient with Dr. Andujar for an EUS at . Patient requested the latest appointment 12:30pm arrival 11:30am. Kelsea Webster Dance Critic documented in this encounter [facility] 05-14-2023 History and physical note New Patient [...] requiring medication, no history of angina, CHF, DE, cardiac surgery or stents. Denies rest pain, [...] and symmetric. Sensation grossly intact. Abdomen: Negative Character Actor present: No ASSESSMENT 72 M with DLBCL [...] Level: 4 - Moderate Jessica Pereyra MD [facility] May 14, 2023 documented in this encounter [facility] 05-10-2023 Miscellaneous Notes Spoke to patient & [...] Julita for Dr Oneyda Pitt's office at [phone] the soonest appointment they have is 09/19/2023@10:[address] Sarai Pitt due to they lost [address] Pitt is only one doing ERCP's He only sees for clinic on Wednesdays doing procedures all other days. Before I call the patient with this appointment. Is this too far out?? Please advise. Cortney Mendoza Tried calling Dr Oneyda Pitt's office at [phone] twice today kept getting answering service who stated they were busy to try again in 15 minutes. Will try again tomorrow to reach office. Cortney Mendoza Spoke to patient & gave appointment of 05/14/2023@[address] Jessica Pereyra at [facility]. Patient aware still working on referral to Dr Pitt. Cortney Mendoza Spoke to Brittany at [phone] in Central Scheduling & scheduled patient with Dr Jessica Pereyra on 05/14/2023@11 am at [facility] [address] for consult for general surgery. Cortney Mendoza Per Julita at Dr Oneyda Pitt's office at [phone] they do not do the consults. But she said to fax the order to them & they would have Dr Oneyda Pitt look at it & call us back. Faxed order at [phone]. Cortney Mendoza Pt aware of Patrice's recommendations and referrals. He will await scheduling to call to arrange appoinments. Jennifer Valdes RN I have not called him - but [...] consider having him see Dr. Esposito or Roddy from hepatobiliary surgery - all are located in [facility]. Dr Colon-Did you need us to set up a follow up with patient to discuss MRI or did you call him?? Please advise. Cortney Naty Reji Images are uploaded. Report is in and I requested images. Maria Esther- Can you get the MRI of pancreas results & images from [facility] in [place] for Dr Colon to review. Thank you. Cortney Naty Reji Hi Cortney - there is nothing in his Chart - can you get info and we can review. Patient stopped by and would like Dr Colon to look at his MRI of his pancreas done at [facility]. He would like to set up an appointment or get a call back to discuss. Cortney Naty Reji documented in this encounter [facility] 04-27-2023 Miscellaneous Notes Scheduled an appointment with Nic to discuss EGD for epigastric pain referral received from Klaus Murguia CNP. Informed Nic we would see him for the EGD however he would need to see a hepatobiliary surgeon to discuss the pancreas cyst. I have updated patient. We are looking at sending him back to [facility]. Awaiting ([facility]) response back today. Thank you for the update! documented in this encounter [facility] 04-27-2023 Telephone encounter Note Scheduled an appointment with Nic to discuss EGD for epigastric pain referral received from Klaus Murguia CNP. Informed Nic we would see him for the EGD however he would need to see a hepatobiliary surgeon to discuss the pancreas cyst. [facility] 04-27-2023 Telephone encounter Note I have updated patient. We are looking at sending him back to [facility]. Awaiting (Livier [facility]) response back today. Thank you for the update! [facility] 04-26-2023 History of Presen t illness Narrative Images from the original note were not included. [address] [facility] [address] SUBJECTIVE: Patient ID: Nic Valerio is a [...] 27, 2023. Patient reported he went to [facility] on 03/20/23 for fullness and upper [...] lymphoma, is in remission. Monitored yearly by [facility]. The following portions of the patient's history were reviewed and updated as appropriate: allergies, current medications, past family history, past medical history, past social history, past surgical history and problem list. Past Surgical History: Procedure Laterality Date COLONOSCOPY DR HANKINS 2019 HERNIA REPAIR Left INGUINAL REPAIR IMPLANTATION PORT-A-CATH CPT CODE 77326 N/A 09/07/2017 Performed by Michael Hankins DO at [facility] SPLENECTOMY, TOTAL 03/09/2018 Past Medical History: Diagnosis [...] Reading Date Result Priority Michael Grimm MD [phone] 04/09/2023 Routine Narrative & Impression MR ABDOMEN [...] months for up to 2 years. Trey AJ, et al. Management of Incidental Pancreatic Cysts: [...] orders for this visit: Epigastric pain - [facility] General Surgery - [place], [place]; Future Pancreatic cyst Referral to general [...] BERKLEY Gomez 04/26/231957 documented in this encounter [facility] TROD Medical [facility] 03-27-2023 History of Presen t illness Narrative Images from the original note were not included. [address] [facility] [id number] SUBJECTIVE: Patient ID: Nic Valerio is a 72 y.o. male. Chief Complaint Patient presents with OTHER Pancreatitis Patient reports he went to [facility] on 03/20/23 for fullness and upper [...] lymphoma, is in remission. Monitored yearly by Livier PACHECO. The following portions of the patient's history were reviewed and updated as appropriate: allergies, current medications, past family history, past medical history, past social history, past surgical history and problem list. Past Surgical History: Procedure Laterality Date COLONOSCOPY DR HANKINS 2019 HERNIA REPAIR Left INGUINAL REPAIR IMPLANTATION PORT-A-CATH CPT CODE 74770 N/A 09/07/2017 Performed by Michael Hankins DO at [facility] SPLENECTOMY, TOTAL 03/09/2018 Past Medical History: Diagnosis Date Cancer ([facility] NON-[place] LYMPHOMA Diverticulitis Pancreatitis 03/21/2023 Pericarditis Immunization [...] CT scan of abdomen of pelvis at [facility] Impression: No acute findings within the [...] One month Sooner if needed BERKLEY Gomez 03/28/23 0923 documented in this encounter [employer] 10-13-2022 Instructions Donnell Colon MD - 10/13/2022 10:53 AM EDT RTC in 1 year labs same day documented in this encounter [facility] 10-13-2022 History of Presen t illness Narrative Images from the original note were not included. NAME: Nic Valerio CLINIC NO.: [id number] DATE OF SERVICE: October 13, 2022 (Kenneth). [...] playing with her new dog a 1-year-old Jordanian Trevizo. All images were personally reviewed with [...] which included preparing to see the patient, [id number] patient care, completing clinical documentation, performing a medically appropriate examination, and ordering medications, tests, or procedures. Donnell Colon MD, [place], [place] CC: Arthur Padilla DO [address] [facility] [address] documented in this encounter [facility] 10-13-2022 Note HNO ID: [id number] Author: Donnell Colon MD Service: ? Author Type: Physician Type: Progress Notes Filed: 10/19/2022 8:40 AM Note Text: NAME: Nic Valerio [facility] NO.: [id number] DATE OF SERVICE: October 13, 2022 (Kenneth). [...] playing with her new dog a 1-year-old Jordanian Trevizo. All images were personally reviewed with [...] splenectomy. Unchanged appearance (more content not included)... [facility] 10-17-[address] Hankins office spoke with Ny. She states they have received this referral and have patient scheduled on 11/[address] Hankins. Per Ny patient req to schedule later October appointment. Jaz Rangel Pss Records faxed to Dr. Hankins. Maria Esther: Information ready for you. Jaz Rangel Pss Nic is being referred back to Dr Hankins for port removal. Dr Hankins placed port about 4 years ago. Andrew, Please print info for Maria Esther to Fax. Maria Esther, Please fax records to his office. Thank you ladies. documented in this encounter [facility] 10-14-2021 Instructions Donnell Colon MD - 10/14/2021 11:05 AM EDT 1. Send back to Dr. Hankins for port removal 2. RTC in 1 year labs same day documented in this encounter [facility] 10-14-2021 History of Presen t illness Narrative Images from the original note were not included. NAME: Nic Valerio CLINIC NO.: [id number] DATE OF SERVICE: October 14, 2021 Some [...] playing with her new dog a 1-year-old Jordanian Trevizo. All images were personally reviewed with [...] which included preparing to see the patient, [id number] patient care, completing clinical documentation, performing a medically appropriate examination, and ordering medications, tests, or procedures. Donnell Colon MD, CPE [facility] [place], [place] CC: Arthur Padilla, DO [address] [place] [address] documented in this encounter [facility] 04-04-2021 History of Presen t illness Narrative RADIOLOGY SERVICE PROGRESS NOTE SERVICE DATE: 04/04/2021 SERVICE TIME: 8:48 AM PATIENT IDENTITY VERIFICATION COMPLETED USING TWO (2) STANDARD IDENTIFIERS: Name and Date of confirmed by patient verbally POST EXAM PIV STATUS: Discontinued PROCEDURE TYPE: NM INJECT: PET/CT BODY SCAN. 10.5 mCi F18 FDG. No other medications given.. ADMINISTRATION TIME: 0842 PATIENT DISCHARGED TO: Ambulatory patient, left DC department area. A Diagnostic radioactive procedure has taken place, with no further precautions necessary other than routine body substance precautions. More information regarding radiation safety can be found using this link: [email or web address] SIGNATURE: RT Tammy(Cherie) PATIENT NAME: Nic Valerio DATE: April 04, 2021 TIME: 8:48 AM PAGER/CONTACT #: Radiology Service Progress Note DATE OF SERVICE: April 04, 2021 TIME: 8:58 AM PATIENT IDENTITY VERIFICATION COMPLETED USING TWO (2) STANDARD IDENTIFIERS: Name and Date of confirmed by patient verbally. FALL SCREENING: Has the patient had 2 falls in the last year or 1 fall with injury or currently using an Ambulatory Assistive Device (Walker, Cane, Wheelchair, Crutches, etc.)? No PATIENT GENDER DATA: Male ALLERGIES: Reviewed and unchanged EXAM: CT -CONTRAST INDUCED NEPHROPATHY RISK FACTORS: Not applicable CREATININE: Creatinine Date Value Ref Range Status 10/14/2020 0.93 0.73 - 1.22 mg/dL Final 04/12/2020 0.82 0.73 - 1.22 mg/dL Final 04/07/2020 0.77 0.73 - 1.22 mg/dL Final eGFR-All Other Races Date Value Ref Range Status 10/14/2020 >60 . Final Comment: eGFR (Estimated GFR) Units of measure: mL/min/1.73 meters squared eGFR is derived from the reexpressed MDRD Study equation using the following parameters: serum creatinine, age, gender and race. The creatinine assay has been calibrated to be traceable to IDMS. An eGFR <60 mL/min/1.73m2 for >3 months is consistent with chronic kidney disease. Refer to KDOQI guidelines for clinical interpretation. In patients with unstable renal function, e.g. those with acute kidney injury, the eGFR may not accurately reflect actual GFR. eGFR- Date Value Ref Range Status 10/14/2020 >60 Final P.O.C.T. RESULTS: POC done: Yes, See Lab Tab April 04, 2021 TREATMENT: N/A IV SITE: Ambulatory: A peripheral IV was started in the Right antecubital site with a Angio cath: 22 gauge. IV SITE APPEARANCE: Clean,Dry and Intact SIGNATURE: Jennifer Valdes RN PATIENT NAME: Nic Valerio DATE: April 04, 2021 TIME: 8:58 AM documented in this encounter [facility] Evaluation note Diagnosis Diffuse large B-cell lymphoma [...] [facility] Abnormal MRI of abdomen- Primary Nonspecific (abnormal) findings on radiological and other examination of abdominal area, including retroperitoneum Pancreatic lesion Unspecified disease of pancreas [facility] Diagnosis Abnormal MRI of abdomen Nonspecific (abnormal) findings on radiological and other examination of abdominal area, including retroperitoneum Pancreatic lesion Unspecified disease of pancreas [facility] Diagnosis Pancreatic lesion Unspecified disease of pancreas [facility] Diagnosis Pancreas cyst- Primary Cyst and pseudocyst of pancreas [facility] Diagnosis 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 Other acquired absence of organ [facility] Diagnosis 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 [facility] Diagnosis Pancreatic lesion- Primary History of diffuse large B-cell lymphoma Other chronic pancreatitis (CMS-HCC) Encounter for screening for malignant neoplasm of prostate 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, 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) [facility] Diagnosis Benign hypertension Essential hypertension, benign [facility] Diagnosis Epigastric pain- Primary Abdominal pain, epigastric Pancreatic cyst Cyst and pseudocyst of pancreas [facility] Diagnosis Chronic gallstone pancreatitis (CMS-HCC)- Primary Pancreatic cyst Cyst and pseudocyst of pancreas [facility] Diagnosis Other chronic pancreatitis (CMS-HCC)- Primary [facility] Diagnosis Other chronic pancreatitis (CMS-HCC) [facility] Diagnosis Medicare annual wellness visit, subsequent- Primary [facility] Diagnosis Benign hypertension Essential hypertension, benign [facility] Medical SystemInstructionsNot on filedocumented in this encounter [facility] TROD Medical SystemInstructions* Attachments The following attachments cannot be sent through Care Everywhere. * Cancer screening (Chinese) [facility] System[facility]* Attachments The following attachments cannot be sent through Care Everywhere. * Abdominal pain (Chinese) [facility] Medical SystemInstructionsNot on file documented in [facility] encounter[facility] SystemInstructionsNot on file documented in this encounterPro[facility] SystemInstructions* Attachments The following attachments cannot be sent through Care Everywhere. * Chronic Pancreatitis (Chinese) documented in [facility] SystemInstructionsNot on file documented in this encounterPro[facility] SystemInstructionsNot on file documented in this [facility]Pro[facility] SystemInstructions* Attachments The following attachments cannot be sent through Care Everywhere. * Yearly Physical for Adults (Chinese) documented in this encounterProF[facility] SystemInstructionsNot on file documented in this encounterProDayton Osteopathic HospitalReason for referral (narrative)* Outpatient Procedure (Routine) - Pending Review Specialty Diagnoses / Procedures [facility] Referred To Contact [facility] Diagnoses Pancreatic lesion Procedures EGD - THERAPEUTIC, EUS, OR TUBE INTERVENTIONS EGD INTRMURAL US NEEDLE ASPIRATE/BIOPSY ESOPHAGS Jessica Pereyra MD [id number] [place] [address] Referral ID Status Reason Start Date Expiration Date Visits Requested Visits Authorized [id number] Pending Review Auto-Generat ed Referral 05/14/2023 05/13/2024 1 1 [facility] for referral (narrative)* Outpatient Procedure (Routine) - Closed Specialty Diagnoses / Procedures Referred By Contac t Referred To Contact [facility] Diagnoses Pancreatic lesion Procedures EGD - THERAPEUTIC, EUS, OR TUBE INTERVENTIONS EGD INTRMURAL US NEEDLE ASPIRATE/BIOPSY ESOPHAGS Jessica Pereyra MD [address] [place] [address] [place] [address] Referral ID Status Reason Start Date Expiration Date V isits Requested Visits Authorized [id number] Closed Auto-Generate d Referral 05/14/2023 05/13/2024 1 1 T [facility] for referral (narrative)* Diagnostic Procedure Only (Routine) - Closed Specialty Diagnoses / Procedures [facility] Referred To Contact MOLECULAR & FUNCTIONAL IMAGING Diagnoses 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 Procedures NM PET/CT SKULL-THIGH SUBSEQUENT TUMOR IMAGING PET W/CONC CT SKULL-THIGH Donnell Colon MD [address] [place] [address] [place] [address] Molecular & Functional Imaging [address] [place] [address] Referral ID Status Reason Start Date Expiration Date V isits Requested Visits Authorized [id number] Closed Auto-Generate d Referral 10/11/2020 05/19/2021 1 1 [facility] for referral (narrative)* Consultation (Routine) - Pending Review Specialty Diagnoses / Procedures Referred By Koby t Referred To Contact General Surgery Diagnoses Epigastric pain Klaus Murguia APRN-HONING MACHINE TRY OUT SETTER [address] [place] [address] Pgsf Gen Surg [address] [place] [address] Referral ID Status Reason Start Date Expiration Date Visits Requested Visits Authorized [id number] Pending Review Specialty Services Required 04/26/2023 04/25/2024 1 1 [facility] for visit Narrative* Outpatient Procedure (Routine) - Closed Specialty Diagnoses / Procedures Referred By [facility] Referred To Contact [facility] Diagnoses Pancreatic lesion Procedures EGD - THERAPEUTIC, EUS, OR TUBE INTERVENTIONS EGD INTRMURAL US NEEDLE ASPIRATE/BIOPSY ESOPHAGS Jessica Pereyra MD [address] [place] [address] [facility] [address] [place], [place] [id number] Referral ID Status Reason Start Date Expiration Date V isits Requested Visits Authorized [id number] Closed Auto-Generate d Referral 05/14/2023 05/13/2024 1 1 [facility] Summary Purpose Family History No Family History Records FoundNo Family History Records FoundNo Family History Records FoundNo Family History Records FoundNo Family History Records FoundNo Family History Records FoundNo Family History Records Found Advance Directives Documents on File Type Date Recorded Patient Hand Molder Expl anation Advance Directive(s) 04/03/2018 12:43 PM Advance Directive(s) 03/13/2018 12:28 PM Advance Directive(s) 03/13/2018 12:27 PM Advance Directive(s) 03/05/2018 4:53 PM Advance Directive(s) 02/11/2018 11:24 AM Advance Directive(s) 01/04/2018 2:47 PM Advance Directive(s) 01/01/2018 9:15 AM Advance Directive(s) 12/11/2017 11:55 AM Advance Directive(s) 09/17/2017 10:46 AM Documents on File Type Date Recorded Patient Hand Molder Expl anation Advance Directive(s) 03/13/2018 12:27 PM Documents on File Type Date Recorded Patient Hand Molder Expl anation Advance Directive(s) 03/13/2018 12:27 PM Reason for Referral Specialty Diagnoses / Procedures Referred By Contac t Referred To Contact General Surgery Diagnoses Abnormal MRI of abdomen Pancreatic lesion Procedures CONSULT TO GENERAL SURGERY OFFICE/OUTPATIENT [facility] 60 MINUTES Donnell Colon MD [address] [place] [address] [place] [address] Referral ID Status Reason Start Date Expiration Date Visits Requested Visits Authorized [id number] Authorized PCP Requested Referral 05/08/2023 05/07/2024 1 1 Specialty Diagnoses / Procedures Referred By Contact Referred To Contact Gastroenterology / ONCOLOGY Diagnoses Abnormal MRI of abdomen Pancreatic lesion Procedures CONSULT TO GASTROENTEROLOGY OFFICE/OUTPATIENT [facility] MDM 60 MINUTES Donnell Colon MD [address] [place] [address] [place] [address] Referral ID Status Reason Start Date Expiration Date Visits Requested Visits Authorized [id number] Authorized PCP Requested Referral 05/08/2023 05/07/2024 1 1 Specialty Diagnoses / Procedures Referred By Contac t Referred To Contact MR IMAGING Diagnoses Pancreas cyst Procedures MRI 3D POST PROCESSING 3D RENDERING W/INTERP&POSTPROC DIFF WORK STATION Jessica Pereyra MD [address] [place] [address] [facility] [address] [address] Referral ID Status Reason Start Date Expiration Date Visits Requested Visits Authorized [id number] Pending Review Auto-Generat ed Referral 07/02/2023 07/31/2024 1 1 Specialty Diagnoses / Procedures Referred By Contac t Referred To Contact MR IMAGING Diagnoses Pancreas cyst Procedures MRI PANC/VICTOR HUGO WO/W IVCON MRI ABDOMEN W/O & W/CONTRAST MATERIAL Jessica Pereyra MD [address] [place] [address] [facility] [address] [address] Referral ID Status Reason Start Date Expiration Date Visits Requested Visits Authorized [id number] Pending Review Auto-Generat ed Referral 10/02/2023 07/31/2024 1 1 Specialty Diagnoses / Procedures Referred By Contac t Referred To Contact Radiology Diagnoses Pancreatic lesion History of diffuse large B-cell lymphoma Other chronic pancreatitis ([facility]) Procedures MR abdomen with and without contrast Klaus Murguia, COURT REPORTER-HONING MACHINE TRY OUT SETTER [address] [place] [address] Referral ID Status Reason Start Date Expiration Date V isits Requested Visits Authorized [id number] Pending Review 03/27/2023 03/26/2024 1 1 Specialty Diagnoses / Procedures [facility] Referred To Contact Radiology Diagnoses Chronic gallstone pancreatitis ([facility]) Pancreatic cyst Procedures MR abdomen with and without contrast Klaus Murguia, COURT REPORTER-HONING MACHINE TRY OUT SETTER [address] [facility] [place] [address] Referral ID Status Reason Start Date Expiration Date V isits Requested Visits Authorized [id number] Pending Review 09/18/2023 09/17/2024 1 1 Additional Source Comments (unrecognized sect ion and content) No Status Records FoundNo Status Records FoundNo Status Records FoundNo Status Records FoundNo Status Records FoundNo Status Records FoundNo Status Records Found INFORMATION SOURCE (unrecogn ized section and content) DATE CREATED AUTHOR 09/20/2017 [facility] DATE CREATED AUTHOR AUTHOR'S ORGANIZ ATION 12/22/2021 [facility] DATE CREATED AUTHOR AUTHOR'S ORGANIZ ATION 04/01/2023 [facility] DATE CREATED AUTHOR AUTHOR'S ORGANIZ ATION 06/11/2023 [facility] DATE CREATED AUTHOR AUTHOR'S ORGANIZ ATION 10/14/2023 [facility] DATE CREATED AUTHOR AUTHOR'S ORGANIZ ATION 10/19/2023 [facility] DATE CREATED AUTHOR AUTHOR'S ORGANIZ ATION 11/10/[address] [facility] Comments (unrecognize d section and content) In the event this informatio n is protected by the Federal Confidentiality of Alcohol and Drug Abuse Patient Records regulations: The Federal rules restrict any use of the information to criminally investigate or prosecute any alcohol or drug abuse patient.[facility] the event this information is protected by the Federal Confidentiality of Alcohol and Drug Abuse Patient Records regulations: The Federal rules restrict any use of the information to criminally investigate or prosecute any alcohol or drug abuse patient.[facility] ClinicIn the event this information is protected by the Federal Confidentiality of Alcohol and Drug Abuse Patient Records regulations: The Federal rules restrict any use of the information to criminally investigate or prosecute any alcohol or drug abuse patient.[facility] ClinicIn the event this information is protected by the Federal Confidentiality of Alcohol and Drug Abuse Patient Records regulations: The Federal rules restrict any use of the information to criminally investigate or prosecute any alcohol or drug abuse patient.[facility] Clinic[facility] the event this information is protected by the Federal Confidentiality of Alcohol and Drug Abuse Patient Records regulations: The Federal rules restrict any use of the information to criminally investigate or prosecute any alcohol or drug abuse patient.[facility] the event this information is protected by the Federal Confidentiality of Alcohol and Drug Abuse Patient Records regulations: The Federal rules restrict any use of the information to criminally investigate or prosecute any alcohol or drug abuse patient.[facility] Clinic[facility] the event this information is protected by the Federal Confidentiality of Alcohol and Drug Abuse Patient Records regulations: The Federal rules restrict any use of the information to criminally investigate or prosecute any alcohol or drug abuse patient.[facility] Clinic[facility] the event this information is protected by the Federal Confidentiality of Alcohol and Drug Abuse Patient Records regulations: The Federal rules restrict any use of the information to criminally investigate or prosecute any alcohol or drug abuse patient.[facility] Clinic[facility] the event this information is protected by the Federal Confidentiality of Alcohol and Drug Abuse Patient Records regulations: The Federal rules restrict any use of the information to criminally investigate or prosecute any alcohol or drug abuse patient.[facility] Clinic[facility] the event this information is protected by the Federal Confidentiality of Alcohol and Drug Abuse Patient Records regulations: The Federal rules restrict any use of the information to criminally investigate or prosecute any alcohol or drug abuse patient.[facility] Clinic[facility] the event this information is protected by the Federal Confidentiality of Alcohol and Drug Abuse Patient Records regulations: The Federal rules restrict any use of the information to criminally investigate or prosecute any alcohol or drug abuse patient.[facility] Clinic[facility] the event this information is protected by the Federal Confidentiality of Alcohol and Drug Abuse Patient Records regulations: The Federal rules restrict any use of the information to criminally investigate or prosecute any alcohol or drug abuse patient.[facility] Clinic[facility] the event this information is protected by the Federal Confidentiality of Alcohol and Drug Abuse Patient Records regulations: The Federal rules restrict any use of the information to criminally investigate or prosecute any alcohol or drug abuse patient.[facility] ClinicIn the event this information is protected by the Federal Confidentiality of Alcohol and Drug Abuse Patient Records regulations: The Federal rules restrict any use of the information to criminally investigate or prosecute any alcohol or drug abuse patient.[facility] Care Teams (unrecognized sec tion and content) Electric Motor Assembler Relationship Specialty Start Date End Date Arthur Pad[place] [address] [address] [place] [address] PCP - General Internal Medicine 09/05/17 Clifford Arthur DO Consulting Hematology/Oncology 01/02/18 [place] Coon, COURT REPORTER.HONING MACHINE TRY OUT SETTER [address] [place] [address] Nurse Practitioner Hematology/Oncology 01/02/18 [place] [address] [place] [address] Registered Nurse Hematology/Oncology 02/13/18 Electric Motor Assembler Relationship Specialty Start Date End Date Arthur Padilla [address] [place] [address] PCP - General Internal Medicine 09/05/17 Clifford Arthur DO Consulting Hematology/Oncology 01/02/18 [place] Coon, COURT REPORTER.HONING MACHINE TRY OUT SETTER [address] [place] [address] Nurse Practitioner Hematology/Oncology 01/02/18 [place] [address] [place] [address] Registered Nurse Hematology/Oncology 02/13/18 Electric Motor Assembler Relationship Specialty Start Date End Date Arthur Pad[place] [address] [address] [place] [address] PCP - General Internal Medicine 09/05/17 Clifford Arthur DO Consulting Hematology/Oncology 01/02/18 [place] Coon, COURT REPORTER.HONING MACHINE TRY OUT SETTER [address] [place] [address] Nurse Practitioner Hematology/Oncology 01/02/18 [place] [address] [place] [address] Registered Nurse Hematology/Oncology 02/13/18 Electric Motor Assembler Relationship Specialty Start Date End Date Arthur Padilla [address] [place] [address] PCP - General Internal Medicine 09/05/17 Clifford Arthur DO Consulting Hematology/Oncology 01/02/18 [place] Coon, COURT REPORTER.HONING MACHINE TRY OUT SETTER [address] [place] [address] Nurse Practitioner Hematology/Oncology 01/02/18 [place] [address] [place] [address] Registered Nurse Hematology/Oncology 02/13/18 Electric Motor Assembler Relationship Specialty Start Date End Date Arthur Pad[place] [address] [place] [address] PCP - General Internal Medicine 09/05/17 Clifford Arthur DO Consulting Hematology/Oncology 01/02/18 [place] Coon, COURT REPORTER.HONING MACHINE TRY OUT SETTER [address] [place] [address] Nurse Practitioner Hematology/Oncology 01/02/18 [place] [address] [place] [address] Registered Nurse Hematology/Oncology 02/13/18 Electric Motor Assembler Relationship Specialty Start Date End Date RogerArthur dobbins Gilles [address] [place] [address] [address] [place] [address] PCP - General Internal Medicine 09/05/17 Clifford Arthur, DO [address] [place] [address] Consulting Hematology/Oncology 01/02/18 [place] Coon, COURT REPORTER.HONING MACHINE TRY OUT SETTER [address] [place] [address] Nurse Practitioner Hematology/Oncology 01/02/18 [place] [address] [place] [address] Registered Nurse Hematology/Oncology 02/13/18 Electric Motor Assembler Relationship Specialty Start Date End Date Arthur Padilla DO PCP - General Internal Medicine 09/05/17 Clifford Arthur DO Consulting Hematology/Oncology 01/02/18 [place] Coon, COURT REPORTER.HONING MACHINE TRY OUT SETTER [address] [place] [address] Nurse Practitioner Hematology/Oncology 01/02/18 [place] [address] [place] [address] Registered Nurse Hematology/Oncology 02/13/18 Electric Motor Assembler Relationship Specialty Start Date End Date Arthur Padilla DO PCP - General Internal Medicine 09/05/17 Clifford Arthur DO Consulting Hematology/Oncology 01/02/18 [place] Coon, COURT REPORTER.HONING MACHINE TRY OUT SETTER [address] [place] [address] Nurse Practitioner Hematology/Oncology 01/02/18 [place] [address] [place] [address] Registered Nurse Hematology/Oncology 02/13/18 Electric Motor Assembler Relationship Specialty Start Date End Date Arthur Padilla DO PCP - General Internal Medicine 09/05/17 Clifford Arthur DO Consulting Hematology/Oncology 01/02/18 [place] Coon, COURT REPORTER.HONING MACHINE TRY OUT SETTER [address] [place] [address] Nurse Practitioner Hematology/Oncology 01/02/18 [place] [address] [place] [address] Registered Nurse Hematology/Oncology 02/13/18 Electric Motor Assembler Relationship Specialty Start Date End Date Arthur Padilla DO PCP - General Internal Medicine 09/05/17 Clifford Arthur DO Consulting Hematology/Oncology 01/02/18 [place] Coon, COURT REPORTER.HONING MACHINE TRY OUT SETTER [address] [place] [address] Nurse Practitioner Hematology/Oncology 01/02/18 [place] [address] [place] [address] Registered Nurse Hematology/Oncology 02/13/18 Electric Motor Assembler Relationship Specialty Start Date End Date Arthur Padilla DO PCP - General Internal Medicine 09/05/17 Clifford Arthur DO Consulting Hematology/Oncology 01/02/18 [place] Coon, COURT REPORTER.HONING MACHINE TRY OUT SETTER [address] [place] [address] Nurse Practitioner Hematology/Oncology 01/02/18 [place] [address] [place] [address] Registered Nurse Hematology/Oncology 02/13/18 Electric Motor Assembler Relationship Specialty Start Date End Date Arthur Padilla DO PCP - General Internal Medicine 09/05/17 Clifford Arthur DO Consulting Hematology/Oncology 01/02/18 [place] Coon, COURT REPORTER.HONING MACHINE TRY OUT SETTER [address] [place] [address] Nurse Practitioner Hematology/Oncology 01/02/18 Mai Bacon, [place] [address] [place] [address] Registered Nurse Hematology/Oncology 02/13/18 Electric Motor Assembler Relationship Specialty Start Date End Date Arthur Padilla DO PCP - General Internal Medicine 09/05/17 Clifford Arthur DO Consulting Hematology/Oncology 01/02/18 [place] Coon, COURT REPORTER.HONING MACHINE TRY OUT SETTER [address] [place] [address] Nurse Practitioner Hematology/Oncology 01/02/18 [place] [address] [place] [address] Registered Nurse Hematology/Oncology 02/13/18 Electric Motor Assembler Relationship Specialty Start Date End Date [facility]aus [facility]ia [facility] [address], [place] [address] PCP - General Nurse Practitioner 06/30/16 Electric Motor Assembler Relationship Specialty Start Date End Date [facility]aus [facility]uia [facility] [address], [place] [address] PCP - General Nurse Practitioner 06/30/16 Electric Motor Assembler Relationship Specialty Start Date End Date Klaus Murguia [facility] [address], [place] [address] PCP - General Nurse Practitioner 06/30/16 Electric Motor Assembler Relationship Specialty Start Date End Date Klaus Murguia [facility] [address], [place] [address] PCP - General Nurse Practitioner 06/30/16 Electric Motor Assembler Relationship Specialty Start Date End Date Klaus Murguia [facility] [address] [place] [address] PCP - General Nurse Practitioner 06/30/16 Electric Motor Assembler Relationship Specialty Start Date End Date [facility] [address], [place] [address] PCP - General Nurse Practitioner 06/30/16 Electric Motor Assembler Relationship Specialty Start Date End Date Klaus Murguia [facility] [address], [place] [address] PCP - General Nurse Practitioner 06/30/16 Electric Motor Assembler Relationship Specialty Start Date End Date Klaus Murguia [facility]N-[facility] [address] [place] [address] PCP - General Nurse Practitioner 06/30/16 Electric Motor Assembler Relationship Specialty Start Date End Date Klaus Murguia APRN-[facility] [address] [place] [address] PCP - General Nurse Practitioner 06/30/16 Reason for Visit (unrecogniz ed section and content) Reason Comments [place] Reason Comments Diffuse Large B-cell lymphoma 6 month fo llow up Reason Comments Future Appointment Reason Comments Lymphoma Reason Comments Results Patient Question Specialty Diagnoses / Procedures Referred By Conthector t Referred To Contact General Surgery Diagnoses Abnormal MRI of abdomen Pancreatic lesion Procedures CONSULT TO GENERAL SURGERY OFFICE/OUTPATIENT NEW HIGH MDM 60 MINUTES Donnell Colon MD [address] [place] [address] [place] [address] Referral ID Status Reason Start Date Expiration Date V isits Requested Visits Authorized [id number] Closed PCP Requested Referral 05/08/2023 05/07/2024 1 1 Reason Comments Appointment Reason Comments Follow Up Reason Comments Radiology NM Specialty Diagnoses / Procedures Referred By Koby t Referred To Contact MOLECULAR & FUNCTIONAL IMAGING Diagnoses 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 Procedures NM PET/CT SKULL-THIGH SUBSEQUENT TUMOR IMAGING PET W/CONC CT SKULL-THIGH Donnell Colon MD [address] [place] [address] [place] [address] Molecular & Functional Imaging [address] [place] [address] Referral ID Status Reason Start Date Expiration Date V isits Requested Visits Authorized [id number] Closed Auto-Generate d Referral 10/11/2020 05/19/2021 1 1 Reason Comments OTHER Pancreatitis Reason Comments Med Refill Reason Comments Follow-up Reason Comments F2F for MRI Reason Comments Annual Exam MAW FOR RECORDS PERTAINING TO PATIENTS WHO ARE [...] BE BASED ON THE PRIMARY CLINICAL RECORDS. [facility] [employer] [facility]. provides no warranty or guarantee of the accuracy or completeness of information in this document.
--- NOTE | 2024-05-01 11:37 | ED_ITS ---
HPI - Extremity Problem General Chief complaint: Extremity Problem, Nontraumatic Stated complaint: SWELLING LEFT KNEE Time Seen by Provider: 05/01/24 11:21 Source: patient Mode of arrival: walk-in Limitations: no limitations History of Present Illness HPI Narrative: Is a 73-year-old is coming to the ER with a left knee pain that started a few days ago when he was doing some work at home and apparently heard a pop in his left knee and since then he has not been able to move without pain, the patient mentioned that the pain is there only there whenever he put weight and flex his knee No other complaints Related Data Home Medications ?Medication ?Instructions ?Recorded ?Confirmed lisinopril 10 mg tablet 10 mg PO DAILY 03/20/23 05/01/24 weiler-hpeazbac-jhyqfjp 1 cap PO .MEALS 05/01/24 05/01/24 12,000-38,000-60,000 unit capsule,delayed rel (Creon) Previous Rx's ?Medication ?Instructions ?Recorded diclofenac sodium 50 mg 50 mg PO Q12H PRN pain #14 tabs 05/01/24 tablet,delayed release Allergies Allergy/AdvReac Type Severity Reaction Status Date / Time ciprofloxacin (From Cipro) AdvReac Intermediate Unknown Verified 05/01/24 11:21 metronidazole (From Flagyl) AdvReac Intermediate Unknown Verified 05/01/24 11:21 Review of Systems ROS Status of ROS 10 or more systems reviewed and unremark able except as noted in history and below PFSH PFS Social History Smoking status: Former smoker Little interest or pleasure in doing things: not at all Feeling down, depressed, or hopeless: not at all Exam Narrative Exam Narrative: Nurses notes and vital signs reviewed and patient is not hypoxic. General: Well-appearing and in no apparent distress. Skin: Warm, dry, no pallor noted. No rash. Musculoskeletal: Left knee examination showed that the patient have a full range of movement but there is a mild effusion noted mostly medial to the patella. No ecchymosis and no specific tenderness Neurological: A&O x4. No cranial nerve dysfunction observed. No truncal ataxia. Moves all extremities. Sensation intact. Psychiatric: Cooperative and interactive. Normal mood and affect. Constitutional Vital Signs, click to edit/add: Last Vital Signs Temp 97.8 F 05/01/24 11:21 Pulse 77 05/01/24 11:21 Resp 16 05/01/24 11:21 BP 148/82 H 05/01/24 11:21 Pulse Ox 100 05/01/24 11:21 O2 Del Method Room Air 05/01/24 11:21 Course Vital Signs Vital signs: Vital Signs Temperature 97.8 F 05/01/24 11:21 Pulse Rate 77 05/01/24 11:21 Respiratory Rate 16 05/01/24 11:21 Blood Pressure 148/82 H 05/01/24 11:21 Pulse Oximetry 100 05/01/24 11:21 Oxygen Delivery Method Room Air 05/01/24 11:21 Temperature 97.8 F 05/01/24 11:21 Pulse Rate 77 05/01/24 11:21 Respiratory Rate 16 05/01/24 11:21 Blood Pressure 148/82 H 05/01/24 11:21 Pulse Oximetry 100 05/01/24 11:21 Oxygen Delivery Method Room Air 05/01/24 11:21 MDM - Extremity (Nontraumatic) MDM Narrative Medical decision making narrative: X-ray of the patient left knee showed no acute significant pathology The patient had a knee immobilizer placed Patient referred to orthopedic as outpatient after being treated in the ER with Toradol as well as discharged home with Voltaren The patient is to follow up with primary care physician in next 2-3 days or to return to the emergency department should any of the signs or symptoms worsen or new symptoms develop. The patient agrees with the following Diagnosis and Treatment plan and the patient will be discharged home. Discharge Plan Discharge Chief Complaint: Extremity Problem, Nontraumatic Clinical Impression: Acute knee pain Patient Disposition: Home, Self-Care Time of Disposition Decision: 12:07 Condition: Good Prescriptions / Home Meds: New diclofenac sodium 50 mg tablet,delayed release (DR/EC) 50 mg PO Q12H PRN (Reason: pain) Qty: 14 0RF No Action lisinopril 10 mg tablet 10 mg PO DAILY Creon 12,000-38,000 -60,000 unit capsule,delayed release(DR/EC) 1 cap PO .MEALS Print Language: Slovenian Instructions: Knee Pain (ED), Arthralgia (ED) Referrals: Shailesh Pickard MD [Physician] - 1 week KLAUS WILD [Primary Care Provider] - 1 week
[2024-05-01] MEDS: KETOROLAC TROMETHAMINE 30 MG/ML VIAL 15 MG IM (11:49)
== END 2024-05-01 12:12 | disposition home or self-care (01) ==
PROVIDERS: Emergency Provider Emergency Medicine; PCP Nurse Practitioner
DX: M25.562 Pain in left knee (principal); Z87.891 Personal history of nicotine dependence
CPT/HCPCS: 73562; 96372; 99284; J1885